=== PATIENT | female | born 1955 | race Caucasian/White ===

== ENCOUNTER 2019-07-19 18:03 | Inpatient (IN) | payer MEDICARE, OTHER ==
[2019-07-19] VITALS (10 sets, daily range): BP systolic 82–102; BP diastolic 51–60
[~2019-07-19] VITALS: Ht 160 cm; Wt 58.1 kg
--- NOTE | 2019-07-19 18:05 | NUR ---
[email or web address], from snf, c/o sob, 02 sat 65% on scene, 4lpm via NC went up to 80% x 2-3 hours and weak x 1 week, to ER bed 8, patient noted tachypneic and labored breathing. hooked to quality assurance monitor chassis, changed to hosp gown, warm blanket provided.
--- NOTE | 2019-07-19 18:06 | NUR ---
Dr Mackay at bedside
[2019-07-19] MEDS ORDERED: PROPOFOL 100 ML ONE ×2 (18:33→18:34)
[2019-07-19 18:34] LABS: ABG BASE EXCESS -2.8 mmol/L; ABG PCO2 28.3 mmHg (35.0-45.0); ABG PH 7.462 (7.350-7.450); ABG PO2 34.2 mmHg (75.0-100.0); AaDO2 218.5 mmHg; COHb 0.9 % (0.5-1.5); MetHb 0.3 % (0.0-1.5); O2Hb 60.3 % (94.0-97.0); SITE, ABG Right Radial; VENT MODE, BG NC 3L
[2019-07-19] MEDS: PROPOFOL 100 ML IV PRN (18:50)
[2019-07-19] MEDS ORDERED: AZITHROMYCIN 500 MG in IV D5W 250 ML IV ONE (19:00)
[2019-07-19] MEDS ORDERED: HYDROXYCHLOROQUINE 200 MG TABLET PO SCH (19:00)
[2019-07-19] MEDS: AZITHROMYCIN 500 MG in IV D5W 250 ML IV SCH (19:00)
--- NOTE | 2019-07-19 19:00 | NUR ---
Patient on 6L o2 via nasal cannula and reading 5-8% oxygen saturation, Dr Atkins aware, ordered to prep for intubation. MD, nurse and RT changed to PPE. Patient pre-oxygenated at 100%. Received verbal order of 100mg propofol IV push. Carried out
--- NOTE | 2019-07-19 19:00 | NUR ---
rt called to er for intubation at 1835. pt reading low spo2 with sob. rt arrived at pt bedside er physician wearing papr and white coverall. rn at bedside with papr. no 3rd papr available. rt assisted with intubation with n95 and face shield. 7.5@23cm. 3rd papr arrived, er physician held ett while rt rt dons papr. pt placed on ac 20 400 100% +10. ett secured with anchor fast.suctioning no secretions at this time. pt lying flat. Addendum: 07/19/19 at 1951 by CHELO LAWS RT Amended: Links added.
--- NOTE | 2019-07-19 19:20 | NUR ---
ett retracted 2cm to 21cm Addendum: 07/19/19 at 1953 by CHELO LAWS RT Amended: Links added.
[2019-07-19] MEDS ORDERED: MEROPENEM 500 MG in IV NS 0.9% 50 ML IV SCH (19:30)
[2019-07-19 19:42] LABS: BASOPHILS % (AUTO) 0.2 % (0.0-2.0); HEMATOCRIT 37 % (33-45); HEMOGLOBIN 12.3 g/dL (11.5-14.8); LYMPHOCYTES # (AUTO) 0.9 /CMM (0.8-4.8); LYMPHOCYTES % (AUTO) 9.6 % (20.0-44.0); MEAN CORPUSCULAR HGB CONC 34 g/dl (31.0-36.0); MEAN CORPUSCULAR VOLUME 89 fL (82-100); MONOCYTES # (AUTO) 1.4 /CMM (0.1-1.30); MONOCYTES % (AUTO) 14.2 % (2.0-12.0); NEUTROPHILS # (AUTO) 7.2 /CMM (1.8-8.9); PLATELET COUNT (AUTO) 261 /CMM (150-450); WHITE BLOOD COUNT (AUTO) 9.5 K/uL (4.3-11.0)
--- NOTE | 2019-07-19 19:45 | NUR ---
REPORT GIVEN TO RYAN SANCHEZ FOR [facility]
--- NOTE | 2019-07-19 19:46 | NUR ---
REPORT RECEIVED FROM DANIEL CARRION FOR [facility]
[2019-07-19 19:47] LABS: CALCIUM, SERUM 8.4 mg/dL (8.5-10.1); CARBON DIOXIDE 22 mmol/L (21-32); CHLORIDE 101 mmol/L (98-107); CREATININE 1.2 mg/dL (0.6-1.3); GLUCOSE 120 mg/dL (74-106); POTASSIUM 3.3 mmol/L (3.5-5.1); SODIUM SERUM 141 mmol/L (136-145); UREA NITROGEN, BLOOD 17 mg/dL (7-18)
--- NOTE | 2019-07-19 19:55 | NUR ---
ICU 257
[2019-07-19] MEDS ORDERED: PROPOFOL 200 MG/20 ML VIAL IV ONE (20:00)
[2019-07-19] MEDS ORDERED: IV NS 0.9% 500 ML BAG IV ONE (20:00)
[2019-07-19 20:01] LABS: ALANINE AMINOTRANSFERASE 38 U/L (12-78); ALBUMIN 3.1 g/dL (3.4-5.0); ALKALINE PHOSPHATASE 99 U/L (46-116); ASPARTATE AMINOTRANSFERASE 96 U/L (15-37); B-TYPE NATRIURETIC PEPTIDE 2117 PG/ML (0-125); BILIRUBIN,TOTAL 0.8 mg/dL (0.2-1.0); TOTAL PROTEIN, SERUM 8.4 g/dL (6.4-8.2)
[2019-07-19 20:02] LABS: D-DIMER 1.09 mg/L(FEU (0.17-0.50)
[2019-07-19 20:04] LABS: CREATINE KINASE, TOTAL 484 U/L (26-192); FERRITIN 409 ng/mL (8-388)
--- NOTE | 2019-07-19 20:28 | NUR ---
REPORT GIVEN TO DANIEL RUBIO FOR [facility]
[2019-07-19 20:38] LABS: C-REACTIVE PROTEIN 6.8 mg/dL (0.0-0.9)
[2019-07-19 20:40] LABS: ABG OXYGEN SATURATION 88.3 % (92.0-98.5); ABG PH 7.406 (7.350-7.450); ABG PO2 68.5 mmHg (75.0-100.0); AaDO2 621.5 mmHg; COHb 0.3 % (0.5-1.5); MetHb 0.3 % (0.0-1.5); O2Hb 87.8 % (94.0-97.0); PEEP,BG 10 cm H2O; SITE, ABG Right Radial; VENT MODE, BG AC 20 400 100% +10; VT, ABG 400 mL
[2019-07-19] MEDS ORDERED: IV NS 0.9% 1,000 ML BAG IV ONE (21:00)
[2019-07-19] MEDS ORDERED: AZITHROMYCIN 500 MG VIAL ONE ×2 (21:12→21:14)
[2019-07-19] MEDS ORDERED: VANCOMYCIN 1.25 GM in IV D5W 250 ML IV ONE (21:30)
[2019-07-19] MEDS ORDERED: MEROPENEM 500 MG in IV NS 0.9% 50 ML IV ONE ×2 (21:30→22:30)
[2019-07-19] MEDS ORDERED: MEROPENEM 500 MG VIAL IV ONE (21:41)
[2019-07-19] MEDS ORDERED: VANCOMYCIN 1 GM VIAL ONE (21:41)
[2019-07-19] MEDS ORDERED: ZOSYN IVPB 4.5 G in IV D5W 50ml IV SCH (22:00)
--- NOTE | 2019-07-19 22:00 | NUR ---
RN NOTES ADMITTED PATIENT ORALLY INTUBATED IN ER WITH ETT 7.5 AND 21 CM AT LIPLINE. AND VENT SETTING AC 20 TV 400 FIO2 100% PEEP 10. SEDATED WITH DIPRIVAN RECEIVED WITH 20 MCG/KG/MIN TELE MONITOR PLACED, REVEALS SR. ISOLATION PRECAUTION STRICTLY OBSERVE DUE TO PATIENT R/O OF COVID. AWAITING FOR THE RESULT. IV SITE ON RAC G 20 AND LAC G 20 RUNNING WITH NS AND PROPOFOL. OGT INTACT AND PATENT. AMADA. SOFT WRIST RESTRAINT KEPT IN PLACED, CIRCULATION CHECKED. STILES CATH DRAINED VIA GRAVITY WITH GOD URINE OUTPUT. KEPT PT CLEAN AND DRY. VS [employer] MONITOR.
--- NOTE | 2019-07-19 22:43 | NUR ---
RN NOTES GOT CONSENT FOR CENTRAL LINE TO CAROLIN DAUGHTER WITNESSED BY THADDEUS RN AND AGREED. DR. KATY ERIC PLACED LINE ON RIGHT FEMORAL WITH GOOD BLOOD RETURN. WILL CONTINUE TO MONITOR.
[2019-07-19 23:04] LABS: BILIRUBIN,DIRECT 0.3 mg/dL (0.0-0.2)
[2019-07-20] VITALS (86 sets, daily range): BP systolic 81–150; BP diastolic 50–81
[2019-07-20] MEDS ORDERED: NOREPINEPHRINE 4 MG/4 ML AMPUL IV ONE (00:02)
[2019-07-20] MEDS: NOREPINEPHRINE 8 MG in IV NS 0.9% 242 ML IV PRN ×2 (00:05→14:37)
[2019-07-20 00:20] LABS: ABG BASE EXCESS -0.2 mmol/L; ABG OXYGEN SATURATION 94.6 % (92.0-98.5); ABG PH 7.451 (7.350-7.450); ABG PO2 77.9 mmHg (75.0-100.0); AaDO2 31.1 mmHg; COHb 0.2 % (0.5-1.5); MetHb 0.3 % (0.0-1.5); O2Hb 94.1 % (94.0-97.0); SITE, ABG Right Radial; VENT MODE, BG ROOM AIR
[2019-07-20] MEDS: PROPOFOL 100 ML IV PRN ×6 (02:12→21:17)
[2019-07-20] MEDS: IV NS 0.9% 250 ML IV PRN (02:13)
[2019-07-20] MEDS ORDERED: PIPERACILLIN /TAZOBACTAM 2.25 G VIAL IV ONE (03:28)
--- NOTE | 2019-07-20 04:35 | NUR ---
RN NOTES FIO2 CHANGED TO 80% BY RT AND TOLERATED WELL SATURATION 98%
[2019-07-20 05:05] LABS: BASOPHILS % (AUTO) 0.2 % (0.0-2.0); HEMATOCRIT 32 % (33-45); HEMOGLOBIN 10.7 g/dL (11.5-14.8); LYMPHOCYTES # (AUTO) 1.1 /CMM (0.8-4.8); LYMPHOCYTES % (AUTO) 13.8 % (20.0-44.0); MEAN CORPUSCULAR HGB CONC 34 g/dl (31.0-36.0); MEAN CORPUSCULAR VOLUME 90 fL (82-100); MONOCYTES % (AUTO) 12.7 % (2.0-12.0); NEUTROPHILS % (AUTO) 73.3 % (43.0-81.0); PLATELET COUNT (AUTO) 207 /CMM (150-450); RED BLOOD CELL COUNT(AUTO) 3.56 MIL/uL (4.0-5.2); WHITE BLOOD COUNT (AUTO) 8.1 K/uL (4.3-11.0)
--- NOTE | 2019-07-20 06:30 | NUR ---
ETT RETRACTED 1CM. ETT IS NOW AT 20CM AT THE LIP. NOTIFIED RN.
[2019-07-20] MEDS ORDERED: FEE PK DOSING 1 MIN EA MC ONE (06:42)
--- NOTE | 2019-07-20 07:15 | NUR ---
RN NOTES ADVANCED NGT OF 5 CM AND ETT RETRACTED 1 CM BY RT. ETT SIZE NOW IS 20 CM AT LIP LINE TOLERATED WELL. CONTINUE WITH LEVO AND DIPRIVAN TITRATED ORDERED. ALL DUE MEDICINE ADMINISTERED ORDERED/ KEPT PT CLEAN AND DRY. WILL ENDORSED CONTINUITY OF CARE TO AM NURSE.
--- NOTE | 2019-07-20 07:15 | NUR ---
RN INITIAL NOTES RECEIVED PT INTUBATED, ON VENT. NO RESPIRATORY DISTRESS NOTED. NO SOB NOTED. PT SEDATED, ON DIPRIVAN AT 35MCG/KG/MIN. HOB ELEVATED. NGT IN PLACE, CONNECTED TO LOW INTERMITTENT SUCTION. RIGHT FEMORAL TLC IN PLACE. ON LEVO, WILL TITRATE ACCORDINGLY. FC IN PLACE. BLE ELEVATED. WILL CLOSELY MONITOR
--- NOTE | 2019-07-20 07:36 | NUR ---
RT Pt received orally intubated on mechanical ventilation with noted settings. Alarms are set and audible with BVM by bedside. No SOB or respiratory distress noted. Addendum: 07/20/19 at 1420 by BELKIS HUGGINS RT Amended: Links added.
[2019-07-20] MEDS ORDERED: POTASSIUM CHLORIDE 20 MEQ POWDER PACKET NG SCH (08:00)
[2019-07-20] MEDS: HYDROCORTISONE SOD SUCCINATE 100 MG/2 ML VIAL IV SCH ×3 (08:52→16:06)
[2019-07-20] MEDS ORDERED: HYDROXYCHLOROQUINE 200 MG/8 ML SUSPENSION NG SCH (09:00)
[2019-07-20] MEDS ORDERED: HYDR200T4 PO (09:05)
[2019-07-20] MEDS ORDERED: LOSA100T31 GT (09:05)
[2019-07-20] MEDS ORDERED: METO50TA16 GT (09:05)
[2019-07-20] MEDS ORDERED: FURO40TA5 PO (09:05)
[2019-07-20] MEDS ORDERED: AMLO5TAB9 GT (09:05)
[2019-07-20] MEDS ORDERED: ATOR40TA PO (09:05)
[2019-07-20] MEDS ORDERED: AMIT50TA3 PO (09:05)
[2019-07-20] MEDS ORDERED: OMEP20CA15 PO (09:05)
[2019-07-20] MEDS ORDERED: ASPI-1152 PO (09:05)
[2019-07-20] MEDS ORDERED: LEVO25TA9 GT (09:05)
[2019-07-20] MEDS ORDERED: GABA600T12 PO (09:05)
[2019-07-20] MEDS: MEROPENEM 1 G in IV NS 0.9% 100 ML IV SCH ×2 (09:22→20:11)
[2019-07-20] MEDS: ENOXAPARIN SODIUM 40 MG/0.4 ML DISP.SYRIN SQ SCH (09:24)
--- NOTE | 2019-07-20 10:30 | NUR ---
RN NOTES 0900 SEEN AND EXAMINED BY DR BHATT. AWARE OF H&P, LAB VALUES AND CXR RESULT. PT INTUBATED, ON VENT. ON DIPRIVAN. LEVO OFF AT 0800. NGT CONNECTED TO LOW INTERMITTENT SUCTION. WILL START ON PLAQUENIL. WILL CONTINUE TO MONITOR 1000 SEEN AND EXAMINED BY DR HARDWICK. AWARE OF CURRENT LAB VALUES AND CXR RESULT. MD ORDERED TO ADJUST ETT BY 1CM INVERSE I:E RATIO AND ABG AFTER 1HR. WILL CLOSELY MONITOR
[2019-07-20] MEDS: VANCOMYCIN HCL 0.75 GM in IV D5W 250 ML IV SCH ×2 (12:30→23:29)
[2019-07-20] MEDS: ACETAMINOPHEN 325 MG TABLET PO PRN (13:52)
[2019-07-20 16:15] LABS: ABG BASE EXCESS -3.3 mmol/L; ABG OXYGEN SATURATION 93.8 % (92.0-98.5); ABG PCO2 32.8 mmHg (35.0-45.0); ABG PH 7.414 (7.350-7.450); COHb 0.3 % (0.5-1.5); MetHb 0.3 % (0.0-1.5); O2Hb 93.2 % (94.0-97.0); PEEP,BG 10 cm H2O; SITE, ABG Right Radial; VT, ABG 400 mL
[2019-07-20 16:16] LABS: ABG BASE EXCESS 0.7 mmol/L; ABG OXYGEN SATURATION 93.4 % (92.0-98.5); ABG PCO2 32.7 mmHg (35.0-45.0); ABG PH 7.479 (7.350-7.450); ABG PO2 71.8 mmHg (75.0-100.0); AaDO2 464.3 mmHg; COHb 0.3 % (0.5-1.5); MetHb 0.4 % (0.0-1.5); O2Hb 92.7 % (94.0-97.0); PEEP,BG 10 cm H2O; SITE, ABG Right Radial; VT, ABG 400 mL
[2019-07-20] MEDS: AZITHROMYCIN 500 MG in IV D5W 250 ML IV SCH (18:12)
--- NOTE | 2019-07-20 18:29 | NUR ---
RN CLOSING NOTES PT REMAINS INTUBATED, ON VENT. NO RESPIRATORY DISTRESS NOTED. NO SOB NOTED. NGT IN PLACE. PT SEDATED, ON DIPRIVAN. ON LEVO, TITRATED ACCORDINGLY. KEPT CLEAN AND DRY. REPOSITIONED. BLE ELEVATED. WILL ENDORSE FOR CONTINUITY OF CARE.
--- NOTE | 2019-07-20 19:25 | NUR ---
RN INITIAL NOTES PT INTUBATED, ON VENT. NO RESPIRATORY DISTRESS NOTED. NO SOB NOTED. PT SEDATED, ON DIPRIVAN HOB ELEVATED. NGT IN PLACE, CONNECTED TO LOW INTERMITTENT SUCTION. RIGHT FEMORAL TLC IN PLACE. ON LEVO, WILL TITRATE ACCORDINGLY. FC IN PLACE. BLE ELEVATED. WILL CLOSELY MONITOR
[2019-07-21] VITALS (60 sets, daily range): BP systolic 91–162; BP diastolic 37–86
[2019-07-21] MEDS: PROPOFOL 100 ML IV PRN ×5 (02:33→18:21)
[2019-07-21 04:20] LABS: BASOPHILS % (AUTO) 0.2 % (0.0-2.0); HEMATOCRIT 33 % (33-45); HEMOGLOBIN 10.9 g/dL (11.5-14.8); LYMPHOCYTES # (AUTO) 0.6 /CMM (0.8-4.8); MEAN CORPUSCULAR HGB CONC 33 g/dl (31.0-36.0); MEAN CORPUSCULAR VOLUME 89 fL (82-100); MONOCYTES # (AUTO) 0.7 /CMM (0.1-1.30); MONOCYTES % (AUTO) 5.6 % (2.0-12.0); NEUTROPHILS # (AUTO) 10.6 /CMM (1.8-8.9); NEUTROPHILS % (AUTO) 89.2 % (43.0-81.0); PLATELET COUNT (AUTO) 212 /CMM (150-450); RED BLOOD CELL COUNT(AUTO) 3.68 MIL/uL (4.0-5.2); WHITE BLOOD COUNT (AUTO) 11.9 K/uL (4.3-11.0)
[2019-07-21 04:40] LABS: ALBUMIN 2.3 g/dL (3.4-5.0); BILIRUBIN,TOTAL 0.5 mg/dL (0.2-1.0); CALCIUM, SERUM 7.5 mg/dL (8.5-10.1); CREATININE 0.8 mg/dL (0.6-1.3); MAGNESIUM 2.3 mg/dL (1.8-2.4); PHOSPHORUS 1.4 mg/dL (2.5-4.9); POTASSIUM 3.3 mmol/L (3.5-5.1); TOTAL PROTEIN, SERUM 6.8 g/dL (6.4-8.2)
[2019-07-21] MEDS: IV NS 0.9% 250 ML IV PRN (05:35)
--- NOTE | 2019-07-21 07:19 | NUR ---
RN NOTES PATIENT ORALLY INTUBATED. NO SIGNIFICANT CHANGES THROUGHOUT THE SHIFT. SEDATED WITH DIPRIVAN. AFEBRILE. VSS OFF FROM PRESSORS. PT IS UNDER INVESTIGATION FOR COVID STRICTLY ISOLATION ALWAYS MET. KEPT TP CLEAN AND DRY. ENDORSED CONTINUITY OF CARE TO AM NURSE.
[2019-07-21] MEDS ORDERED: NEUTRA PHOS 1 POWD.PACKET PO ONE (08:00)
[2019-07-21] MEDS: HYDROXYCHLOROQUINE 200 MG/8 ML SUSPENSION NG SCH ×2 (08:15→20:22)
[2019-07-21] MEDS: ENOXAPARIN SODIUM 40 MG/0.4 ML DISP.SYRIN SQ SCH (08:15)
[2019-07-21] MEDS: MEROPENEM 1 G in IV NS 0.9% 100 ML IV SCH ×2 (08:15→20:21)
[2019-07-21] MEDS: HYDROCORTISONE SOD SUCCINATE 100 MG/2 ML VIAL IV SCH ×3 (08:17→16:26)
[2019-07-21] MEDS: POTASSIUM CL. PREMIX PERIPHER. 50 ML IV SCH ×2 (08:21→09:21)
[2019-07-21] MEDS ORDERED: POTASSIUM PHOSPHATE MM 15 MMOL in IV NS 0.9% 250 ML IV SCH (09:30)
--- NOTE | 2019-07-21 09:30 | NUR ---
ICU/RN:Sedation Vacation Attempted sedation vacation on patient, pt became extremely agitated after 10-15 minutes, attempted to sit up in bed, pull tube and hit staff, however was able to follow some simple commands. Resumed sedation for patient comfort.
--- NOTE | 2019-07-21 10:30 | NUR ---
ICU/RN: Dr Toure rounds; updated on pt status. Labs and CXR reviewed. Orders to advance ETT by 2 cm. RT notified.
[2019-07-21 10:32] LABS: ABG BASE EXCESS -4.4 mmol/L; ABG OXYGEN SATURATION 98.2 % (92.0-98.5); ABG PCO2 32.6 mmHg (35.0-45.0); ABG PH 7.396 (7.350-7.450); ABG PO2 147.2 mmHg (75.0-100.0); AaDO2 280.8 mmHg; COHb 0.1 % (0.5-1.5); MetHb 0.3 % (0.0-1.5); O2Hb 97.8 % (94.0-97.0); PEEP,BG 10 cm H2O; SITE, ABG Right Radial; VT, ABG 400 mL
[2019-07-21] MEDS: ACETAMINOPHEN 325 MG TABLET PO PRN ×2 (11:05→17:32)
--- NOTE | 2019-07-21 11:05 | NUR ---
ICU/RN: Administered tylenol, pt temp 101.5. Cooling measures in place.
[2019-07-21] MEDS: POTASSIUM PHOSPHATE MM 7.5 MMOL in IV D5W 100 ML IV SCH ×2 (11:55→15:51)
[2019-07-21] MEDS: VANCOMYCIN HCL 0.75 GM in IV D5W 250 ML IV SCH (13:09)
[2019-07-21] MEDS ORDERED: NOREPINEPHRINE 8MG/250ML RTU 250 ML IV ONE (16:42)
[2019-07-21] MEDS: NOREPINEPHRINE 8 MG in IV NS 0.9% 242 ML IV PRN (16:45)
--- NOTE | 2019-07-21 17:21 | NUR ---
RT NOTE: PATIENT RECEIVED ORALLY INTUBATED WITH 7.5 ETT SECURED AT 19CM AND PUSHED INTO TO 21CM MID LIP LINE PER ON MECHANICAL VENT. CHANGES MADE PER MD ORDER. ALARMS VERIFIED AND AUDIBLE. VENT PLUGGED INTO RED OUTLET. AMBU BAG AT [facility].
--- NOTE | 2019-07-21 17:45 | NUR ---
ICU/RN: Hospitalist updated TRINIDAD Vazquez notified of + covid result, pt restarted on pressors, febrile with t-max 101.5 receiving tylenol q6h. No new orders.
[2019-07-21] MEDS: AZITHROMYCIN 500 MG in IV D5W 250 ML IV SCH (18:21)
--- NOTE | 2019-07-21 19:20 | NUR ---
RN NOTES RECEIVED PATIENT SEDATED WITH DIPRIVAN ORALLY INTUBATED WITH ETT 7.5 AND 21 CM AT LIPLINE. WITH VENT SETTING AC 20 TV 400 FIO2 50% AND PEEP 8. SR ON TELE MONITOR. BILATERAL LUNG SOUND DIMINISHED. NO ACUTE RESP. DISTRESS. LOW GRADE FEVER NOTED 100.7 DEG. NGT ON LIS WITH GREENISH COLOR OUT PUT. IV SITE ON RAC AND LAC AND RT. FEMORAL TLC RUNNING W/ PROPOFOL @ 40 MCG/KG/MIN. AND LEVOPHED @ 0.01 MCK/KG/MIN. TITRATED PROTOCOL ORDERED. PATIETN F/C OFF FROM THE FLOOR. AMADA. SOFT WRIST RESTRAINT KEPT IN PLACED CIRCULATION CHECKED. KEPT PT CLEAN AND DRY. WILL CLOSELY MONITOR.
--- NOTE | 2019-07-21 19:55 | NUR ---
RN NOTES S/E BY KRIS BLACKBURN BOARDER MACHINE,. UPDATED PATIENT STATUS.
[2019-07-21] MEDS ORDERED: diphenhydrAMINE HCL 50 MG/ML VIAL IV ONE (21:00)
[2019-07-21] MEDS ORDERED: ACETAMINOPHEN 650 MG/20.3 ML UDC NG ONE (21:00)
[2019-07-21] MEDS ORDERED: TOCILIZUMAB 400 MG in IV NS 0.9% 80 ML IV ONE (21:30)
[2019-07-22] VITALS (30 sets, daily range): BP systolic 94–149; BP diastolic 61–89
[2019-07-22] MEDS: VANCOMYCIN 1 GM in IV D5W 250 ML IV SCH ×3 (00:34→22:28)
[2019-07-22] MEDS: PROPOFOL 100 ML IV PRN ×5 (00:35→23:56)
[2019-07-22 04:46] LABS: BASOPHILS % (AUTO) 0.3 % (0.0-2.0); HEMATOCRIT 31 % (33-45); HEMOGLOBIN 10.4 g/dL (11.5-14.8); LYMPHOCYTES # (AUTO) 0.6 /CMM (0.8-4.8); LYMPHOCYTES % (AUTO) 6.4 % (20.0-44.0); MEAN CORPUSCULAR HGB CONC 34 g/dl (31.0-36.0); MEAN CORPUSCULAR VOLUME 90 fL (82-100); MONOCYTES # (AUTO) 0.8 /CMM (0.1-1.30); NEUTROPHILS # (AUTO) 8.5 /CMM (1.8-8.9); NEUTROPHILS % (AUTO) 85.3 % (43.0-81.0); PLATELET COUNT (AUTO) 234 /CMM (150-450); RED BLOOD CELL COUNT(AUTO) 3.46 MIL/uL (4.0-5.2); WHITE BLOOD COUNT (AUTO) 9.9 K/uL (4.3-11.0)
[2019-07-22 05:07] LABS: CALCIUM, SERUM 7.5 mg/dL (8.5-10.1); CHOLESTEROL 78 mg/dL (<200); CREATININE 0.9 mg/dL (0.6-1.3); FERRITIN 240 ng/mL (8-388); HDL CHOLESTEROL 25 mg/dL (40-60); LDL 39 mg/dL (0-99); MAGNESIUM 2.3 mg/dL (1.8-2.4); PHOSPHORUS 2.1 mg/dL (2.5-4.9); POTASSIUM 3.6 mmol/L (3.5-5.1); TRIGLYCERIDES 111 mg/dL (30-150)
--- NOTE | 2019-07-22 06:42 | NUR ---
RN NOTES PATIENT REMAINED STABLE. ETT AND VENT SETTING TOLERATED WELL. NO ACUTE RESPIRATORY DISTRESS SHOWN. SR/ ST ON TELE MONITOR. NO [facility] THROUGHOUT THE SHIFT. WITH ON AND OFF LOW GRADE FEVER. CONTINUE WITH DIPRIVAN FOR SEDATION WENT UP TO 45 DUE TO PATIENT HAD AN EPISODE OF RESTLESSNESS DURING CARE AND UPON MOVING ALL HER MEDICAL EQUIPMENT. KEPT PT CLEAN AND DRY. ALL DUE MEDS ADMINISTERED ORDERED. WILL ENDORSED CONTINUITY OF CARE TO AM NURSE
[2019-07-22] MEDS: IV NS 0.9% 250 ML IV PRN (06:54)
--- NOTE | 2019-07-22 07:10 | NUR ---
RN INITIAL NOTES RECEIVED PT INTUBATED, ON VENT. NO RESPIRATORY DISTRESS NOTED. NO SOB NOTED. PT SEDATED, ON DIPRIVAN AT 30MCG/KG/MIN. HOB ELEVATED. NGT IN PLACE, CONNECTED TO LOW INTERMITTENT SUCTION. RIGHT FEMORAL TLC IN PLACE. FC IN PLACE. BLE ELEVATED. WILL CLOSELY MONITOR
[2019-07-22] MEDS: MEROPENEM 1 G in IV NS 0.9% 100 ML IV SCH ×2 (08:20→19:47)
[2019-07-22] MEDS: HYDROCORTISONE SOD SUCCINATE 100 MG/2 ML VIAL IV SCH ×2 (08:52→16:18)
[2019-07-22] MEDS: HYDROXYCHLOROQUINE 200 MG/8 ML SUSPENSION NG SCH ×2 (08:52→20:44)
[2019-07-22] MEDS: ENOXAPARIN SODIUM 40 MG/0.4 ML DISP.SYRIN SQ SCH (08:54)
[2019-07-22] MEDS ORDERED: POTASSIUM PHOSPHATE MM 7.5 MMOL in IV NS 0.9% 100 ML IV SCH (09:00)
[2019-07-22 09:25] LABS: ABG BASE EXCESS 0.5 mmol/L; ABG OXYGEN SATURATION 91.9 % (92.0-98.5); ABG PCO2 23.9 mmHg (35.0-45.0); ABG PO2 60.4 mmHg (75.0-100.0); AaDO2 269.2 mmHg; COHb 0.1 % (0.5-1.5); MetHb 0.3 % (0.0-1.5); O2Hb 91.5 % (94.0-97.0); PEEP,BG 8 cm H2O; SITE, ABG Left Radial; VT, ABG 400 mL
[2019-07-22] MEDS ORDERED: POTASSIUM PHOSPHATE MM 15 MMOL in IV NS 0.9% 250 ML IV SCH (09:30)
--- NOTE | 2019-07-22 09:30 | NUR ---
RN NOTES 0830 SEEN AND EXAMINED BY DELIA JIMÉNEZ. AWARE OF LAB VALUES. LEVO OFF. ON DIPRIVAN, WILL TITRATE ACCORDINGLY. PHOS 2.1, WILL REPLACE BY PHARMACY. WILL CLOSELY MONITOR 0930 SEEN AN EXAMINED BY DR HARDWICK. AWARE OF ABG RESULT. PT OFF SEDATION, OPEN EYES. NOT FOLLOWING COMMANDS. VENT SETTINGS ADJUSTED. WILL CLOSELY MONITOR
[2019-07-22] MEDS ORDERED: POTASSIUM PHOSPHATE MM 7.5 MMOL in IV D5W 100 ML IV SCH ×2 (10:00→12:00)
[2019-07-22] MEDS ORDERED: NEUTRA PHOS 1 POWD.PACKET NG ONE (11:00)
[2019-07-22] MEDS: AZITHROMYCIN 500 MG in IV D5W 250 ML IV SCH (18:30)
--- NOTE | 2019-07-22 18:38 | NUR ---
RN CLOSING NOTES PT REMAINS INTUBATED, ON VENT. NO RESPIRATORY DISTRESS NOTED. NO SOB NOTED. NGT IN PLACE, CONNECTED TO SUCTION. PT SEDATED, ON DIPRIVAN. KEPT CLEAN AND DRY. REPOSITIONED. BLE ELEVATED. WILL ENDORSE FOR CONTINUITY OF CARE.
--- NOTE | 2019-07-22 19:20 | NUR ---
WESTERN TACK ASSEMBLY LINE WORKER NOTE RECEIVED PATIENT IN BED RESTING, WITH HOB ELEVATED. SEDATED. VENT DEPENDENT. BREATHING IS EVEN AND NON LABORED, NO SOB NOTED. RESPONSIVE TO LOCALIZED PAIN. ON STILES CATH, URINE IS CLEAR AND YELLOW IN COLOR, DRAINING WELL. ON NGT, CLAMPED. IV SITES ON LAC GAUGE 20, RAC GAUGE 20, AND RIGHT FEMORAL PICC. IV SITES CLEAN AND PATENT. ON DIPRIVAN DRIP RUNNING AT 40 MCS/KG/MIN. ON BILATERAL SOFT WRIST RESTRAINTS. CAPILLARY REFILL < 3 SECONDS. IN NO APPARENT DISTRESS NOTED AT THIS TIME. BED IS LOCKED AND LOWERED FOR SAFETY. WILL CONTINUE TO MONITOR.
--- NOTE | 2019-07-22 20:27 | NUR ---
RT NOTE PT RECEIVED INTUBATED WITH @ 7.5 ET TUBE WITH 21 CM. MOVED ET TUBE TO MID LIP LINE. CUFF CHECKED VIA COP EXAMINER. AMBU BAG @ HOB. SX DONE, ET TUBE SECURED AND PATENT. ALARMS ON AND AUDIBLE. VENT PLUGGED TO RED OUTLET. NO DISTRESS NOTED. WILL MONITOR T/O SHIFT. Addendum: 07/22/19 at 2026 by GAVIOTA ROJAS RT Amended: Links added.
[2019-07-23] VITALS (38 sets, daily range): BP systolic 103–144; BP diastolic 36–80
--- NOTE | 2019-07-23 04:00 | NUR ---
FEED MILLER NOTE PATIENT TOLERATED BED BATH WELL. NOTED BM X1, STOOL IS BROWN AND SOFT. IN NO APPARENT DISTRESS NOTED AT THIS TIME. WILL CONTINUE TO MONITOR.
[2019-07-23 04:20] LABS: BASOPHILS % (AUTO) 0.1 % (0.0-2.0); HEMATOCRIT 30 % (33-45); LYMPHOCYTES # (AUTO) 0.6 /CMM (0.8-4.8); LYMPHOCYTES % (AUTO) 6.5 % (20.0-44.0); MEAN CORPUSCULAR HGB CONC 34 g/dl (31.0-36.0); MEAN CORPUSCULAR VOLUME 90 fL (82-100); MONOCYTES # (AUTO) 0.7 /CMM (0.1-1.30); MONOCYTES % (AUTO) 7.3 % (2.0-12.0); NEUTROPHILS # (AUTO) 8.2 /CMM (1.8-8.9); NEUTROPHILS % (AUTO) 86.1 % (43.0-81.0); PLATELET COUNT (AUTO) 204 /CMM (150-450); WHITE BLOOD COUNT (AUTO) 9.5 K/uL (4.3-11.0)
[2019-07-23 04:34] LABS: CALCIUM, SERUM 7.4 mg/dL (8.5-10.1); CREATININE 0.8 mg/dL (0.6-1.3); MAGNESIUM 2.2 mg/dL (1.8-2.4); PHOSPHORUS 2.2 mg/dL (2.5-4.9); POTASSIUM 3.6 mmol/L (3.5-5.1)
[2019-07-23] MEDS: PROPOFOL 100 ML IV PRN ×4 (05:50→22:16)
--- NOTE | 2019-07-23 06:53 | NUR ---
SCREEDMAN/LABORER NOTE NO SIGNIFICANT CHANGES NOTED THROUGHOUT THE NIGHT. PATIENT OBTUNDED, RESPONSIVE TO LOCALIZED PAIN. STILL ON BILATERAL SOFT WRIST RESTRAINTS. ALL DUE MEDS GIVEN AND TOLERATED WELL. KEPT NPO. ALL NEEDS ATTENDED AND MET. PATIENT KEPT CLEAN, DRY, AND COMFORTABLE. WILL ENDORSE TO AM SHIFT RN FOR CONTINUATION OF CARE.
--- NOTE | 2019-07-23 08:00 | NUR ---
received pt from restaurant shift leader, sedated on Diprivan at 40mcg, SR, intubated, lungs partially congested, no edema, NG to ILS, f/c OK output, restraints on, v/s stable, no pain, pt turned and repositioned.
[2019-07-23 08:13] LABS: ABG BASE EXCESS 2.4 mmol/L; ABG OXYGEN SATURATION 96.5 % (92.0-98.5); ABG PCO2 31.9 mmHg (35.0-45.0); ABG PH 7.513 (7.350-7.450); ABG PO2 92.8 mmHg (75.0-100.0); AaDO2 227.8 mmHg; COHb 0.3 % (0.5-1.5); MetHb 0.1 % (0.0-1.5); O2Hb 96.1 % (94.0-97.0); SITE, ABG Right Radial
[2019-07-23] MEDS: HYDROXYCHLOROQUINE 200 MG/8 ML SUSPENSION NG SCH ×2 (08:19→20:33)
[2019-07-23] MEDS: HYDROCORTISONE SOD SUCCINATE 100 MG/2 ML VIAL IV SCH ×2 (08:20→16:13)
[2019-07-23] MEDS: MEROPENEM 1 G in IV NS 0.9% 100 ML IV SCH ×2 (08:20→20:07)
[2019-07-23] MEDS: ENOXAPARIN SODIUM 40 MG/0.4 ML DISP.SYRIN SQ SCH (08:25)
[2019-07-23] MEDS ORDERED: POTASSIUM CHLORIDE 20 MEQ POWDER PACKET NG SCH (08:30)
[2019-07-23] MEDS ORDERED: POTASSIUM PHOSPHATE MM 15 MMOL in IV NS 0.9% 250 ML IV SCH (08:30)
[2019-07-23] MEDS: VANCOMYCIN 1 GM in IV D5W 250 ML IV SCH ×2 (09:14→22:54)
--- NOTE | 2019-07-23 10:38 | NUR ---
RT NOTE: PATIENT RECEIVED ORALLY INTUBATED WITH 7.5 ETT SECURED AT 21CM MID LIP LINE ON MECHANICAL VENT. CHANGES MADE PER MD ORDER. ALARMS VERIFIED AND AUDIBLE. AMBU BAG AT [facility].
[2019-07-23 13:34] LABS: PEEP,BG 8 cm H2O; VT, ABG 400 mL
--- NOTE | 2019-07-23 16:09 | NUR ---
pt is sedated on diprivan at 40mcg, interactive at times, intubated, sat well, no edema, f/c ok output, v/s stable, no pain, pt cleaned, changed and repositioned.
[2019-07-23] MEDS: AZITHROMYCIN 500 MG in IV D5W 250 ML IV SCH (18:10)
--- NOTE | 2019-07-23 20:03 | NUR ---
PT RECEIVED ORALLY INTUBATED WITH 7.5 ET TUBE SECURED @ 21 CM LIP LINE ON VENT WITH NOTED SETTINGS. CUFF CHECKED VIA COTTON OPENER. AMBU BAG @ HOB. SX DONE, ET TUBE SECURED AND PATENT. ALARMS ON AND AUDIBLE. VENT PLUGGED TO RED OUTLET. NO RESPIRATORY DISTRESS NOTED AT THIS TIME. WILL CONTINUE TO MONITOR THE PT T/O SHIFT
--- NOTE | 2019-07-23 21:40 | NUR ---
PATTERN MARKING SUPERVISOR NOTES RECEIVED PATIENT IN BED STABLE. ETT AND VENT SETTING TOLERATED WELL. NO ACUTE RESPIRATORY DISTRESS NOTED SR ON TELE MONITOR. V/S STABLE AFEBRILE AT THIS TIME CONTINUE WITH DIPRIVAN AT 40 MCG/KG/MIN WELL TOLERATED.WITH FEMORAL TLC INTACT AND PATENT .WITH RAC G#20 AND LAC G#20 INTACT AND PATENT TOO . STILES CATH INTACT DRAINING WITH YELLOWISH URINE OUTPUT . KEPT PT CLEAN AND DRY. ALL DUE MEDS ADMINISTERED ORDERED.TURNED AND REPOSITION ,PRECAUTIONARY MEASURES OBSERVED AT ALL TIMES , WILL CONTINUE TO MONITOR PTS.
[2019-07-24] VITALS (40 sets, daily range): BP systolic 123–169; BP diastolic 53–91
[2019-07-24] MEDS: PROPOFOL 100 ML IV PRN ×7 (01:37→22:17)
[2019-07-24 04:57] LABS: BASOPHILS % (AUTO) 0.2 % (0.0-2.0); EOSINOPHILS % (AUTO) 0.3 % (0.0-6.0); HEMATOCRIT 30 % (33-45); LYMPHOCYTES # (AUTO) 0.5 /CMM (0.8-4.8); LYMPHOCYTES % (AUTO) 7.2 % (20.0-44.0); MEAN CORPUSCULAR HGB CONC 34 g/dl (31.0-36.0); MEAN CORPUSCULAR VOLUME 89 fL (82-100); MONOCYTES # (AUTO) 0.3 /CMM (0.1-1.30); MONOCYTES % (AUTO) 4.9 % (2.0-12.0); NEUTROPHILS # (AUTO) 5.8 /CMM (1.8-8.9); NEUTROPHILS % (AUTO) 87.4 % (43.0-81.0); PLATELET COUNT (AUTO) 190 /CMM (150-450); RED BLOOD CELL COUNT(AUTO) 3.34 MIL/uL (4.0-5.2); WHITE BLOOD COUNT (AUTO) 6.6 K/uL (4.3-11.0)
[2019-07-24 05:12] LABS: CALCIUM, SERUM 7.7 mg/dL (8.5-10.1); CREATININE 0.7 mg/dL (0.6-1.3); MAGNESIUM 2.1 mg/dL (1.8-2.4); PHOSPHORUS 2.8 mg/dL (2.5-4.9); POTASSIUM 3.5 mmol/L (3.5-5.1)
--- NOTE | 2019-07-24 06:42 | NUR ---
PEANUT GRADER NOTES PTS REMAINS ON SAME VENTILATOR SETTINGS WELL TOLERATED , NO SOB NO DISTRESS NOTED V/S STABLE AFEBRILE ,REMAINS ON PROPOFOL 40 MCG/KG/MIN WELL TOLERATED .ALL NEEDS ATTENDED TOO.WELL ENDORSE TO RN DAY SHIFT FOR CONTINUITY OF CARE.WILL ENDORSE TO RN DAY SHIFT FOR CONTINUITY OF CARE.
[2019-07-24] MEDS: MEROPENEM 1 G in IV NS 0.9% 100 ML IV SCH ×2 (08:04→20:49)
[2019-07-24 08:27] LABS: ABG BASE EXCESS 1.3 mmol/L; ABG OXYGEN SATURATION 96.2 % (92.0-98.5); ABG PCO2 33.7 mmHg (35.0-45.0); ABG PO2 90.1 mmHg (75.0-100.0); AaDO2 228.5 mmHg; COHb 0.3 % (0.5-1.5); MetHb 0.5 % (0.0-1.5); O2Hb 95.4 % (94.0-97.0); SITE, ABG Left Radial; VENT MODE, BG AC 16 400 50% +10
--- NOTE | 2019-07-24 08:47 | NUR ---
received pt from night guard, sedated on Diprivan at 40mcg, SR, intubated, lungs partially congested/diminished, no edema, f/c good output, NG clamped, v/s stable, no pain, pt turned and repositioned.
[2019-07-24] MEDS: HYDROXYCHLOROQUINE 200 MG/8 ML SUSPENSION NG SCH ×2 (09:04→21:54)
[2019-07-24] MEDS: HYDROCORTISONE SOD SUCCINATE 100 MG/2 ML VIAL IV SCH ×2 (09:04→16:05)
[2019-07-24] MEDS: ENOXAPARIN SODIUM 40 MG/0.4 ML DISP.SYRIN SQ SCH (09:05)
[2019-07-24] MEDS: VANCOMYCIN 1 GM in IV D5W 250 ML IV SCH ×2 (09:06→21:55)
[2019-07-24 12:48] LABS: ABG BASE EXCESS 0.1 mmol/L; ABG PCO2 36.5 mmHg (35.0-45.0); ABG PH 7.437 (7.350-7.450); ABG PO2 68.1 mmHg (75.0-100.0); AaDO2 247.3 mmHg; COHb 0.3 % (0.5-1.5); MetHb 0.4 % (0.0-1.5); O2Hb 91.4 % (94.0-97.0); SITE, ABG Right Radial
--- NOTE | 2019-07-24 16:52 | NUR ---
pt is resting in the bed, sedated on Diprivan at 90mcg, SR, SB, f/c good output, restraints on, NG clamped, v/s stable, no pain, pt cleaned, changed and repositioned.
--- NOTE | 2019-07-24 19:25 | NUR ---
ICU/RN NOTES Patient received, sedated with Diprivan at 90 mcg/min/kg, respond to painful stimuli. Orally intubated, ETT tube 7.04/21 At the lip line. In no acute distress, breathing even and unlabored. No SOB. No S/S of pain, no facial grimacing. IV sites with no S/S of infection/infiltration. Right femoral TLC intact. NGT intact. Sinus rhythm on the monitor. Safety maintained. bed at the lowest locked position. HOB semi [place]. Isolation precautions maintained. Will continue to monitor as per plan of care.
[2019-07-25] VITALS (49 sets, daily range): BP systolic 96–155; BP diastolic 61–100
[2019-07-25] MEDS: PROPOFOL 100 ML IV PRN ×8 (00:42→22:33)
[2019-07-25 05:25] LABS: BASOPHILS % (AUTO) 0.2 % (0.0-2.0); EOSINOPHILS % (AUTO) 2.1 % (0.0-6.0); HEMATOCRIT 32 % (33-45); HEMOGLOBIN 10.7 g/dL (11.5-14.8); LYMPHOCYTES # (AUTO) 0.5 /CMM (0.8-4.8); LYMPHOCYTES % (AUTO) 6.4 % (20.0-44.0); MEAN CORPUSCULAR HGB CONC 34 g/dl (31.0-36.0); MEAN CORPUSCULAR VOLUME 88 fL (82-100); MONOCYTES # (AUTO) 0.3 /CMM (0.1-1.30); MONOCYTES % (AUTO) 3.7 % (2.0-12.0); NEUTROPHILS # (AUTO) 6.3 /CMM (1.8-8.9); NEUTROPHILS % (AUTO) 87.6 % (43.0-81.0); PLATELET COUNT (AUTO) 182 /CMM (150-450); RED BLOOD CELL COUNT(AUTO) 3.57 MIL/uL (4.0-5.2); WHITE BLOOD COUNT (AUTO) 7.1 K/uL (4.3-11.0)
[2019-07-25 05:52] LABS: CALCIUM, SERUM 7.8 mg/dL (8.5-10.1); CREATININE 0.6 mg/dL (0.6-1.3); MAGNESIUM 2.2 mg/dL (1.8-2.4); PHOSPHORUS 2.9 mg/dL (2.5-4.9); POTASSIUM 3.1 mmol/L (3.5-5.1)
--- NOTE | 2019-07-25 07:42 | NUR ---
ICU/RN notes Remained in stable condition, No significant change in condition over night. kept clean and comfortable. needs attendant. Endorse to AM shift nurse for [facility]
--- NOTE | 2019-07-25 08:00 | NUR ---
received pt from shift commander, sedated on Diprivan at 95mcg, SR, intubated, sat well on 70% fio2, no edema, NPO, f/c good output, restraints on, v/s stable, no pain, pt turned and repositioned, seen by Dr Toure.
[2019-07-25] MEDS: HYDROCORTISONE SOD SUCCINATE 100 MG/2 ML VIAL IV SCH (08:17)
[2019-07-25] MEDS: ENOXAPARIN SODIUM 40 MG/0.4 ML DISP.SYRIN SQ SCH (08:17)
[2019-07-25] MEDS: MEROPENEM 1 G in IV NS 0.9% 100 ML IV SCH ×2 (08:38→20:27)
[2019-07-25 08:39] LABS: ABG BASE EXCESS 2.7 mmol/L; ABG OXYGEN SATURATION 96.4 % (92.0-98.5); ABG PCO2 40.1 mmHg (35.0-45.0); ABG PH 7.445 (7.350-7.450); COHb 0.3 % (0.5-1.5); MetHb 0.5 % (0.0-1.5); O2Hb 95.6 % (94.0-97.0); PEEP,BG 10 cm H2O; SITE, ABG Right Radial; VT, ABG 400 mL
--- NOTE | 2019-07-25 08:57 | NUR ---
vent changes below per dr. pascual: fio2 60% Addendum: 07/25/19 at 0858 by FERNANDEZ JOHN RT Amended: Links added.
[2019-07-25] MEDS: VANCOMYCIN 1 GM in IV D5W 250 ML IV SCH ×2 (09:52→22:23)
[2019-07-25] MEDS ORDERED: POTASSIUM CHLORIDE 20 MEQ POWDER PACKET GT ONE (10:30)
[2019-07-25] MEDS ORDERED: POTASSIUM CL. PREMIX PERIPHER. 50 ML IV SCH (10:30)
[2019-07-25] MEDS: FUROSEMIDE 40 MG/4 ML VIAL IV SCH ×2 (10:39→15:16)
[2019-07-25] MEDS ORDERED: Z GUARD REMEDY 2 OZ OINT TP PRN (11:30)
--- NOTE | 2019-07-25 16:38 | NUR ---
pt is resting in the bed, sedated on Diprivan at 90mcg, SR, v/s stable, no pain, good urine output, v/s stable, no pain pt cleaned, changed and repositioned.
--- NOTE | 2019-07-25 19:25 | NUR ---
ICU/RN NOTES Patient received, sedated with Diprivan at 90 mcg/min/kg, respond to painful stimuli. Orally intubated. In no acute distress, breathing even and unlabored. No SOB. No S/S of pain, no facial grimacing. IV sites with no S/S of infection/infiltration. Right femoral TLC intact. NGT intact. Sinus rhythm on the monitor. Safety maintained. bed at the lowest locked position. HOB semi [place]. Isolation precautions maintained. Will continue to monitor as per plan of care
[2019-07-26] VITALS (60 sets, daily range): BP systolic 60–186; BP diastolic 29–116
[2019-07-26] MEDS: PROPOFOL 100 ML IV PRN ×7 (01:24→19:52)
--- NOTE | 2019-07-26 02:34 | NUR ---
patient at max dose of Propofol 10mc/min/kg. Still mild agitation noted. Other brito in no acute distress, breathing even and unlabored. No SOB. No S/S of pain. Called PARK INTERPRETIVE SPECIALIST Maria Elena Montez relayed condition and Vital signs with new order to give patient Ativan Q6hs IV PRN. Order noted and will carry out. Addendum: 07/26/19 at 0243 by FLORECITA NUNEZ RN Max dose 100mcg/min/kg
--- NOTE | 2019-07-26 02:45 | NUR ---
PRN Ativan with effectiveness. Patient calm now, tapering down propofol per protocol
[2019-07-26] MEDS ORDERED: LORAZEPAM INJ 2 MG/ML VIAL IV PRN (03:00)
[2019-07-26] MEDS: LORAZEPAM INJ 2 MG/ML VIAL IV PRN ×2 (03:00→09:16)
[2019-07-26 05:08] LABS: BASOPHILS % (AUTO) 0.5 % (0.0-2.0); EOSINOPHILS % (AUTO) 2.4 % (0.0-6.0); HEMATOCRIT 35 % (33-45); HEMOGLOBIN 11.9 g/dL (11.5-14.8); LYMPHOCYTES % (AUTO) 10.3 % (20.0-44.0); MEAN CORPUSCULAR HGB CONC 34 g/dl (31.0-36.0); MEAN CORPUSCULAR VOLUME 90 fL (82-100); MONOCYTES # (AUTO) 0.3 /CMM (0.1-1.30); MONOCYTES % (AUTO) 2.8 % (2.0-12.0); NEUTROPHILS # (AUTO) 7.9 /CMM (1.8-8.9); PLATELET COUNT (AUTO) 171 /CMM (150-450); RED BLOOD CELL COUNT(AUTO) 3.93 MIL/uL (4.0-5.2); WHITE BLOOD COUNT (AUTO) 9.4 K/uL (4.3-11.0)
[2019-07-26 05:10] LABS: CALCIUM, SERUM 7.7 mg/dL (8.5-10.1); CREATININE 0.8 mg/dL (0.6-1.3)
--- NOTE | 2019-07-26 07:09 | NUR ---
ICU/RN notes patient remained in stable condition. breathing even and unlabored. No SOB. In no Acute distress. Kept clean and dry. Needs attendant. Call light within reach. Endorse to AM shift nurse for [facility].
--- NOTE | 2019-07-26 07:15 | NUR ---
rn notes received patient orally intubated. sedated with diprivan at 70mcg/kg/min. saturation showa on the mid 80s to low 90s. respirations are rapid and shallow. sinus tacy on the monitor with hr on the 120s. ngt on the righht nares, in place and clamped at this time. bilateral soft restraints in place, skin intact and pulses are palpable on the sites. rosario catheter in place draining to greenish yellow urine. hob elevated. safety measures in place. call light within reach. 1000: Dr. Toure saw current abg results and order for morphine drip on the of the Diprivan drip. MD is aware that patient is on max dose of diprivan
[2019-07-26] MEDS ORDERED: POTASSIUM PHOSPHATE MM 15 MMOL in IV NS 0.9% 250 ML IV SCH (07:30)
--- NOTE | 2019-07-26 08:00 | NUR ---
RT PATIENT REC'D ORALLY INTUBATED ON [facility] VENT. SETINGS AND ALARMS CHECKED + AUDIBLE. BASILIA BAG AT HOB. Addendum: 07/26/19 at 1121 by JANINA ZUNIGA RT Amended: Links added.
[2019-07-26] MEDS: POTASSIUM CHLORIDE 20 MEQ POWDER PACKET GT SCH ×3 (08:32→10:07)
[2019-07-26] MEDS: MEROPENEM 1 G in IV NS 0.9% 100 ML IV SCH ×2 (08:32→19:56)
[2019-07-26] MEDS: HYDROCORTISONE SOD SUCCINATE 100 MG/2 ML VIAL IV SCH (08:33)
[2019-07-26] MEDS: ENOXAPARIN SODIUM 40 MG/0.4 ML DISP.SYRIN SQ SCH (08:34)
[2019-07-26] MEDS: POTASSIUM PHOSPHATE MM 7.5 MMOL in IV D5W 100 ML IV SCH ×2 (09:15→11:38)
[2019-07-26 09:56] LABS: ABG OXYGEN SATURATION 78.2 % (92.0-98.5); ABG PCO2 32.4 mmHg (35.0-45.0); ABG PH 7.469 (7.350-7.450); ABG PO2 44.7 mmHg (75.0-100.0); AaDO2 383.5 mmHg; COHb 0.1 % (0.5-1.5); MetHb 0.3 % (0.0-1.5); O2Hb 77.9 % (94.0-97.0); PEEP,BG 12 cm H2O; SITE, ABG Right Radial; VT, ABG 400 mL
[2019-07-26] MEDS ORDERED: MORPHINE SULFATE PF DRIP 250 MG in IV D5W 240 ML IV PRN (10:30)
[2019-07-26] MEDS: VANCOMYCIN 1 GM in IV D5W 250 ML IV SCH ×2 (10:31→23:08)
--- NOTE | 2019-07-26 11:15 | NUR ---
RT PER DR HARDWICK PEEP INCREASED TO 15 AND FIO2 100% Addendum: 07/26/19 at 1121 by JANINA ZUNIGA RT Amended: Links added.
[2019-07-26] MEDS: NOREPINEPHRINE 8 MG in IV NS 0.9% 242 ML IV PRN (11:39)
[2019-07-26 12:54] LABS: ABG BASE EXCESS -1.8 mmol/L; ABG OXYGEN SATURATION 98.7 % (92.0-98.5); ABG PCO2 37.5 mmHg (35.0-45.0); ABG PH 7.398 (7.350-7.450); ABG PO2 245.2 mmHg (75.0-100.0); AaDO2 430.3 mmHg; COHb 0.3 % (0.5-1.5); MetHb 0.4 % (0.0-1.5); SITE, ABG Right Radial
--- NOTE | 2019-07-26 17:27 | NUR ---
RT PATIENT REQUIRED ELEVATED LEVELS OF OXYGEN. PER DR HARDWICK PEEP INCREASED TO 15 FIO2 60%. MAINTAIN SPO2 ABOVE 92% Addendum: 07/26/19 at 1734 by JANINA ZUNIGA RT Amended: Links added.
--- NOTE | 2019-07-26 19:00 | NUR ---
rn notes endorsed for continuity of care. breathing unlabored but sating on the low 90s. still sedated with diprivan at 100mcg/kg/min and morphine running at 5mg/hr . all nursing needs attended and met. safety measures in place. call light placed within reach
[2019-07-26] MEDS: ACETAMINOPHEN 650 MG/20.3 ML UDC NG PRN (19:24)
--- NOTE | 2019-07-26 20:45 | NUR ---
PUBLIC WEIGHER NOTES BP NOTED TO DROP TO 69/40, MORPHINE GTT TITRATED OFF, LEVOPHED DRIP RESTARTED AT 0.1MCG/KG/MIN. PATIENT'S BP CONTINUED TO DROP SO PROPOFOL DRIP TURNED OFF ABRUPTLY PATIENT IS VERY SEDATED. WILL MONITOR PATIENT CLOSELY
[2019-07-27] VITALS (81 sets, daily range): BP systolic 77–133; BP diastolic 31–90
--- NOTE | 2019-07-27 03:07 | NUR ---
PROGRAM SERVICES ASSISTANT NOTES PATIENT REMAINS INTUBATED ON MECHANICAL VENTILATION. PATIENT STILL SEDATED, DESPITE SEDATION TURNED OFF @ 2044. ANNIE CARTAGENA NP NOTOFIED REGARDING CURRENT LEVEL OF SEDATION. PER ANNIE, "THIS IS FINE THE PATIENT IS INTUBATED." WILL CONTINUE TO CLOSELY MONITOR TH PATIENT
[2019-07-27] MEDS ORDERED: NOREPINEPHRINE 4 MG/4 ML AMPUL IV ONE (03:52)
[2019-07-27] MEDS: NOREPINEPHRINE 8 MG in IV NS 0.9% 242 ML IV PRN (04:33)
[2019-07-27 04:40] LABS: BASOPHILS # (AUTO) 0.1 /CMM (0.0-0.2); BASOPHILS % (AUTO) 0.5 % (0.0-2.0); EOSINOPHILS % (AUTO) 1.2 % (0.0-6.0); HEMATOCRIT 41 % (33-45); HEMOGLOBIN 13.4 g/dL (11.5-14.8); LYMPHOCYTES # (AUTO) 1.2 /CMM (0.8-4.8); LYMPHOCYTES % (AUTO) 8.6 % (20.0-44.0); MEAN CORPUSCULAR HGB CONC 33 g/dl (31.0-36.0); MEAN CORPUSCULAR VOLUME 91 fL (82-100); MONOCYTES # (AUTO) 0.7 /CMM (0.1-1.30); MONOCYTES % (AUTO) 5.1 % (2.0-12.0); NEUTROPHILS # (AUTO) 12.1 /CMM (1.8-8.9); NEUTROPHILS % (AUTO) 84.6 % (43.0-81.0); PLATELET COUNT (AUTO) 169 /CMM (150-450); RED BLOOD CELL COUNT(AUTO) 4.49 MIL/uL (4.0-5.2); WHITE BLOOD COUNT (AUTO) 14.3 K/uL (4.3-11.0)
[2019-07-27 05:01] LABS: CALCIUM, SERUM 7.6 mg/dL (8.5-10.1); CREATININE 1.6 mg/dL (0.6-1.3); MAGNESIUM 2.3 mg/dL (1.8-2.4); POTASSIUM 4.7 mmol/L (3.5-5.1)
--- NOTE | 2019-07-27 06:28 | NUR ---
RT NOTE Pt Rec'd orally intubated via ETT sz #7.5 secured at 21cm at the lipline. Pt on [facility] vent on AC mode on noted settings as charted.Pt sx'd for thick mod amt of pale yellow secretions. Alarms are set and audible. Vent plugged into red outlet. ambu bag bedside. Will continue to monitor closely. Addendum: 07/27/19 at 0629 by SILVIA MCKEE RT Amended: Links added.
--- NOTE | 2019-07-27 07:00 | NUR ---
ENVIRONMENTAL AIDE NOTES PATIENT RESTING IN BED, REMAINS ORALLY INTUBATED ON MECHANICAL VENTILATION, TOLERATING SETTINGS FAIRLY. PATIENT REMAINS SEDATED, NOT CURRENTLY ON ANY SEDATION, ON HOLD SINCE 2029. WILL ENDORSE THE PATIENT TO THE AM SHIFT NURSE FOR CONTINUITY OF CARE
--- NOTE | 2019-07-27 07:20 | NUR ---
RN INITIAL NOTES RECEIVED PT INTUBATED, ON VENT. NO RESPIRATORY DISTRESS NOTED. NO SOB NOTED. HOB ELEVATED. DIPRIVAN OFF. NGT IN PLACE, CLAMPED. RIGHT FEMORAL TLC IN PLACE. ON LEVO AT 0.1MCG/KG/MIN. STILES IN PLACE. BLE ELEVATED. REPOSITIONING WHEN ABLE. WILL CLOSELY MONITOR
--- NOTE | 2019-07-27 07:28 | NUR ---
WOUND CARE CONSULT: REVIEWED NURSING DOCUMENTATION AND CHART INCLUDING PHOTO WHICH SHOWS SKIN CONDITION/RASH TO RT ARM. RN TO DISCUSS RT ARM SKIN CONDITION/RASH WITH Sukhwinder MENDIETA. PER NURSING STAFF, PT DESATURATES WHEN TURNED/REPOSITIONED IN BED. PT TO BE TURNED AND REPOSITIONED EVERY 2 HRS PT CONDITION PERMITS. DISCUSSED SKIN PROTECTION WITH NURSING STAFF. PT TO BE PLACED ON FIRST STEP LOW AIRLOSS MATTRESS WHEN AVAILABLE. MD IN AGREEMENT WITH PLAN OF CARE. CURRENT CECELIA SCORE IS 12.
[2019-07-27] MEDS: MEROPENEM 1 G in IV NS 0.9% 100 ML IV SCH ×2 (07:37→19:52)
[2019-07-27] MEDS: HYDROCORTISONE SOD SUCCINATE 100 MG/2 ML VIAL IV SCH (08:14)
[2019-07-27] MEDS: ENOXAPARIN SODIUM 40 MG/0.4 ML DISP.SYRIN SQ SCH (08:15)
[2019-07-27 08:32] LABS: ABG BASE EXCESS -5.1 mmol/L; ABG PH 7.327 (7.350-7.450); AaDO2 397.1 mmHg; COHb 0.4 % (0.5-1.5); MetHb 0.5 % (0.0-1.5); O2Hb 86.2 % (94.0-97.0); SITE, ABG Right Radial; VENT MODE, BG AC 16 400 70% +5
--- NOTE | 2019-07-27 09:30 | NUR ---
RN NOTES 0830 SEEN AND EXAMINED BY DELIA JIMÉNEZ NP. AWARE OF LAB VALUES AND CXR RESULT. PT OFF DIPRIVAN AND MORPHHINE DRIP. ON LEVO, WILL TITRATE ACCORDINGLY. WILL CLOSELY MONITOR 0845 SEEN AND EXAMINED BY DR HARDWICK. PT OFF SEDATION. PT SINUS TACH ON MONITOR. PEEP +15. AWARE OF ABG RESULT. WILL CLOSELY MONITOR
[2019-07-27] MEDS: VANCOMYCIN 1 GM in IV D5W 250 ML IV SCH ×2 (10:18→22:00)
[2019-07-27] MEDS: PROPOFOL 100 ML IV PRN ×4 (10:23→22:46)
[2019-07-27] MEDS: ACETAMINOPHEN 650 MG/20.3 ML UDC NG PRN (11:41)
--- NOTE | 2019-07-27 18:49 | NUR ---
RN CLOSING NOTES NO SIGNIFICANT CHANGE NOTED. REMAINS INTUBATED. NO RESPIRATORY DISTRESS NOTED. REMAINS SEDATED. LEVO AND DIPRIVAN TITRATED ACCORDINGLY. FC IN PLACE. KEPT CLEAN AND DRY. KEPT COMFORTABLE. WILL ENDORSE FOR CONTINUITY OF CARE
--- NOTE | 2019-07-27 20:14 | NUR ---
sputum sample collected.
--- NOTE | 2019-07-27 22:14 | NUR ---
BUSINESS IMPROVEMENT MANAGER NOTES - VANCOMYCIN VANCOMYCIN TROUGH = 64. CALLED ON-CALL PHARMACY, SPOKE TO CAM. PER PHARMACIST, HOLD DOSE AND ORDER VANCOMYCIN TROUGH FOR 9 AM ON 07/28/19. WILL HOLD DOSE AND MONITOR CLOSELY
--- NOTE | 2019-07-27 22:45 | NUR ---
PROFESSOR OF ENVIRONMENTAL SCIENCE NOTES DESPITE BEING ON PROPOFOL DRIP @ 50MCG/KG/MIN, PATIENT STILL WITH PERIODS OF AGITATION MANIFESTED BY TACHYPNEA, SETTING OFF VENTILATOR ALARMS. ATIVAN ADMINISTERED ORDERED. WILL MONITOR CLOSELY
[2019-07-27] MEDS: LORAZEPAM INJ 2 MG/ML VIAL IV PRN (22:49)
[2019-07-28] VITALS (34 sets, daily range): BP systolic 91–124; BP diastolic 58–87
[2019-07-28] MEDS: PROPOFOL 100 ML IV PRN ×5 (03:06→21:14)
[2019-07-28 04:38] LABS: BASOPHILS # (AUTO) 0.1 /CMM (0.0-0.2); BASOPHILS % (AUTO) 0.4 % (0.0-2.0); EOSINOPHILS % (AUTO) 0.9 % (0.0-6.0); HEMATOCRIT 35 % (33-45); HEMOGLOBIN 11.8 g/dL (11.5-14.8); LYMPHOCYTES # (AUTO) 0.9 /CMM (0.8-4.8); MEAN CORPUSCULAR HGB CONC 33 g/dl (31.0-36.0); MEAN CORPUSCULAR VOLUME 90 fL (82-100); MONOCYTES # (AUTO) 0.6 /CMM (0.1-1.30); MONOCYTES % (AUTO) 3.9 % (2.0-12.0); NEUTROPHILS # (AUTO) 13.5 /CMM (1.8-8.9); NEUTROPHILS % (AUTO) 88.8 % (43.0-81.0); PLATELET COUNT (AUTO) 181 /CMM (150-450); RED BLOOD CELL COUNT(AUTO) 3.93 MIL/uL (4.0-5.2); WHITE BLOOD COUNT (AUTO) 15.2 K/uL (4.3-11.0)
[2019-07-28 04:52] LABS: CREATININE 2.4 mg/dL (0.6-1.3); MAGNESIUM 2.2 mg/dL (1.8-2.4); PHOSPHORUS 6.4 mg/dL (2.5-4.9)
--- NOTE | 2019-07-28 06:30 | NUR ---
FOREST RESOURCES PROFESSOR CLOSING NOTES NO ACUTE CHANGES THROUGHOUT SHIFT. PATIENT RESTING IN BED, APPEARS COMFORTABLE, SEDATED ON DIPRIVAN DRIP @ 50 MCG/KG/MIN
--- NOTE | 2019-07-28 07:15 | NUR ---
RN INITIAL NOTES RECEIVED PT INTUBATED, ON VENT. NO RESPIRATORY DISTRESS NOTED. NO SOB NOTED. HOB ELEVATED. ON DIPRIVAN AT 50MCG/KG/MIN. NGT IN PLACE, CLAMPED. RIGHT FEMORAL TLC IN PLACE. STILES IN PLACE. BLE ELEVATED. REPOSITIONING WHEN ABLE. WILL CLOSELY MONITOR
[2019-07-28] MEDS: MEROPENEM 1 G in IV NS 0.9% 100 ML IV SCH ×2 (07:37→21:13)
[2019-07-28 09:06] LABS: ABG BASE EXCESS -6.5 mmol/L; ABG OXYGEN SATURATION 95.3 % (92.0-98.5); ABG PO2 86.6 mmHg (75.0-100.0); AaDO2 380.3 mmHg; COHb 0.3 % (0.5-1.5); MetHb 0.2 % (0.0-1.5); O2Hb 94.8 % (94.0-97.0); PEEP,BG 15 cm H2O; SITE, ABG Right Radial; VT, ABG 400 mL
[2019-07-28] MEDS: HYDROCORTISONE SOD SUCCINATE 100 MG/2 ML VIAL IV SCH (09:10)
[2019-07-28] MEDS: ENOXAPARIN SODIUM 40 MG/0.4 ML DISP.SYRIN SQ SCH (09:11)
[2019-07-28 10:32] LABS: APPEARANCE,URINE CLOUDY (CLEAR); BILIRUBIN,URINE SMALL (NEGATIVE); BLOOD, URINE LARGE Ery/uL (NEGATIVE); COLOR,URINE YELLOW (YELLOW); KETONES,URINE NEGATIVE (NEGATIVE); LEUKOCYTE ESTERASE ,URINE TRACE (NEGATIVE); NITRITE, URINE NEGATIVE (NEGATIVE); PROTEIN,URINE 30 mg/dl (NEGATIVE); UGLUCOSE NEGATIVE (NEGATIVE); UROBILINOGEN,URINE 0.2 EU/dL (0.2)
[2019-07-28 10:39] LABS: BACTERIA,URINE 1+ /HPF (None Seen); RBC,URINE TOO NUMEROUS TO COUN /HPF (0-2)
[2019-07-28 10:40] LABS: MUCUS,URINE Few /LPF (None Seen); URINE AMORPHOUS URATE Moderate /HPF (None Seen); YEAST,URINE Moderate /HPF (None Seen)
[2019-07-28 10:49] LABS: EOSINOPHIL,URINE None Seen
[2019-07-28 11:24] LABS: CREATININE, URINE 98.9 MG/DL (30.0-125.0); URINE TOTAL PROTEIN 144.6 mg/dL (0-11.9)
--- NOTE | 2019-07-28 18:32 | NUR ---
RN CLOSING NOTES NO SIGNIFICANT CHANGE NOTED. REMAINS INTUBATED. NO RESPIRATORY DISTRESS NOTED. REMAINS SEDATED, DIPRIVAN TITRATED ACCORDINGLY. FC IN PLACE. KEPT CLEAN AND DRY. KEPT COMFORTABLE. WILL ENDORSE FOR CONTINUITY OF CARE
--- NOTE | 2019-07-28 21:01 | NUR ---
silviculturist. initial assessment. received the pt rest on the bed. orally intubated. sedated with diprivan. .ett 7.5,lip 21,ac 16,tv 400,fio2 70%,peep 12. sat 98%. playground monitor showing s tach. iv rt femoral triple lumen. diprivan 50mcg/kg/min. fc patent urine draining. rt nare ngt intact. robbie soft wrist restraint checked and released. no injury or redness noted. hob elevated. will continue to monitor vitals.
[2019-07-29] VITALS (49 sets, daily range): BP systolic 84–122; BP diastolic 52–81
[2019-07-29] MEDS: PROPOFOL 100 ML IV PRN ×6 (01:32→22:26)
[2019-07-29 04:55] LABS: BASOPHILS # (AUTO) 0.2 /CMM (0.0-0.2); EOSINOPHILS % (AUTO) 0.6 % (0.0-6.0); HEMATOCRIT 35 % (33-45); HEMOGLOBIN 11.6 g/dL (11.5-14.8); LYMPHOCYTES # (AUTO) 0.8 /CMM (0.8-4.8); LYMPHOCYTES % (AUTO) 4.4 % (20.0-44.0); MEAN CORPUSCULAR HGB CONC 33 g/dl (31.0-36.0); MEAN CORPUSCULAR VOLUME 89 fL (82-100); MONOCYTES # (AUTO) 0.8 /CMM (0.1-1.30); MONOCYTES % (AUTO) 4.4 % (2.0-12.0); NEUTROPHILS % (AUTO) 89.6 % (43.0-81.0); PLATELET COUNT (AUTO) 201 /CMM (150-450); RED BLOOD CELL COUNT(AUTO) 3.92 MIL/uL (4.0-5.2)
[2019-07-29 05:12] LABS: ALBUMIN 2.5 g/dL (3.4-5.0); CALCIUM, SERUM 6.8 mg/dL (8.5-10.1); CREATININE 2.7 mg/dL (0.6-1.3); MAGNESIUM 2.5 mg/dL (1.8-2.4); POTASSIUM 3.5 mmol/L (3.5-5.1); TOTAL PROTEIN, SERUM 6.9 g/dL (6.4-8.2)
--- NOTE | 2019-07-29 06:48 | NUR ---
PROVIDER SERVICE REPRESENTATIVE. CLOSING NOTE. AM CARE GIVEN. REMAINING SAME VENT SETTING ON. DIPRIVAN 50MCG/KG/MIN. FC PATENT. HEMATURIA PRESENT. TEMPERATURE IS 99. HOB ELEVATED. TURN AND REPOSITION WILL CONTINUE TO MONITOR VITALS.
[2019-07-29] MEDS: MEROPENEM 1 G in IV NS 0.9% 100 ML IV SCH ×2 (07:37→21:02)
[2019-07-29] MEDS: ENOXAPARIN SODIUM 40 MG/0.4 ML DISP.SYRIN SQ SCH (08:35)
[2019-07-29] MEDS: HYDROCORTISONE SOD SUCCINATE 100 MG/2 ML VIAL IV SCH (08:35)
[2019-07-29] MEDS ORDERED: VANCOMYCIN 0.75 GM in IV D5W 250 ML IV SCH (09:00)
[2019-07-29] MEDS: IV NS 0.9% 1,000 ML IV PRN ×2 (09:43→23:53)
[2019-07-29 09:47] LABS: ABG OXYGEN SATURATION 96.8 % (92.0-98.5); ABG PCO2 29.9 mmHg (35.0-45.0); ABG PH 7.373 (7.350-7.450); ABG PO2 94.2 mmHg (75.0-100.0); AaDO2 372.8 mmHg; COHb 0.4 % (0.5-1.5); MetHb 0.3 % (0.0-1.5); O2Hb 96.1 % (94.0-97.0); SITE, ABG Left Radial
--- NOTE | 2019-07-29 11:00 | NUR ---
RN NOTES 0900 SEEN AND EXAMINED BY DR HARDWICK. PT REMAINS INTUBATED, TOLERATING VENT WELL. PEEP +15. SEDATED, DIPRIVAN AT 50MCG/KG/MIN. WILL CLOSELY MONITOR 1030 SEEN AND EXAMINED BY LOI ROSALES NP. AWARE OF LAB VALUES AND CXR RESULT. PT REMAINS INTUBATED, SEDATED. WILL CLOSELY MONITOR
--- NOTE | 2019-07-29 20:00 | NUR ---
Received patient intubated on full vent support.Tolerating vent settings well. No respiratory distress noted.Sedated on Diprivan gtt at 50 mcg infusing via R femoral TLC site intact.Afebrile.SR and normotensive.R nares NGT intact, patent and clamped.NPO status with ongoing IVF infusing.FC to gravity drainage. Turned and repositioned.Droplet Isolation precaution for COVID 19 +VE maintained.
[2019-07-30] VITALS (27 sets, daily range): BP systolic 102–130; BP diastolic 59–83
[2019-07-30] MEDS: PROPOFOL 100 ML IV PRN ×4 (02:22→14:54)
--- NOTE | 2019-07-30 02:45 | NUR ---
RT,Ray titrated FIO2 from 60%to 50% but patient not tolerating.SPO2 down to 90%-91%. Put back to 60%.Continue monitoring.
--- NOTE | 2019-07-30 02:50 | NUR ---
RT NOTE @ 0210: TITRATED FIO2 TO 50%. PT DID NOT TOLERATE WELL. SP02 @ 90-91%, PLACED BACK ON 60%. DANIEL PUGH AWARE. WILL CONTINUE TO MONITOR.
[2019-07-30 05:27] LABS: BASOPHILS # (AUTO) 0.2 /CMM (0.0-0.2); BASOPHILS % (AUTO) 0.7 % (0.0-2.0); EOSINOPHILS % (AUTO) 0.7 % (0.0-6.0); HEMATOCRIT 33 % (33-45); HEMOGLOBIN 11.1 g/dL (11.5-14.8); LYMPHOCYTES # (AUTO) 0.7 /CMM (0.8-4.8); LYMPHOCYTES % (AUTO) 3.5 % (20.0-44.0); MEAN CORPUSCULAR HGB CONC 33 g/dl (31.0-36.0); MEAN CORPUSCULAR VOLUME 90 fL (82-100); MONOCYTES # (AUTO) 1.1 /CMM (0.1-1.30); MONOCYTES % (AUTO) 5.2 % (2.0-12.0); NEUTROPHILS # (AUTO) 18.6 /CMM (1.8-8.9); NEUTROPHILS % (AUTO) 89.9 % (43.0-81.0); PLATELET COUNT (AUTO) 197 /CMM (150-450); WHITE BLOOD COUNT (AUTO) 20.7 K/uL (4.3-11.0)
[2019-07-30 05:50] LABS: ALBUMIN 2.3 g/dL (3.4-5.0); BILIRUBIN,TOTAL 0.9 mg/dL (0.2-1.0); CALCIUM, SERUM 7.1 mg/dL (8.5-10.1); CREATININE 2.5 mg/dL (0.6-1.3); MAGNESIUM 2.6 mg/dL (1.8-2.4); POTASSIUM 3.4 mmol/L (3.5-5.1); TOTAL PROTEIN, SERUM 6.6 g/dL (6.4-8.2)
--- NOTE | 2019-07-30 06:26 | NUR ---
Lab called regarding AM lab result BUN 82.M.NAICLOTHES DESIGNER notified also updated of patient status.She said RENAL Dept following patient.May need emergency HD. Will endorse to day shift for continuity of care.Patient remains sedated with Diprivan gtt at 50 mcg and IVF NS infusing.NAD noted.Turned and repositioned.
[2019-07-30 08:09] LABS: PTH, INTACT 290 pg/mL (15-65)
[2019-07-30 08:51] LABS: ABG BASE EXCESS -6.9 mmol/L; ABG OXYGEN SATURATION 95.7 % (92.0-98.5); ABG PCO2 30.6 mmHg (35.0-45.0); ABG PH 7.372 (7.350-7.450); ABG PO2 93.6 mmHg (75.0-100.0); AaDO2 300.5 mmHg; COHb 0.3 % (0.5-1.5); O2Hb 95.4 % (94.0-97.0); PEEP,BG 10 cm H2O; SITE, ABG Left Brachial; VT, ABG 400 mL
[2019-07-30] MEDS ORDERED: VANCOMYCIN 0.75 GM in IV D5W 250 ML IV SCH (09:00)
[2019-07-30 10:11] LABS: *SPE A/G RATIO 0.7 (0.7-1.7); *SPE ALBUMIN 2.5 g/dL (2.9-4.4); *SPE ALPHA-1-GLOBULIN 0.3 g/dL (0.0-0.4); *SPE BETA GLOBULIN 0.8 g/dL (0.7-1.3); *SPE GLOBULIN, TOTAL 3.6 g/dL (2.2-3.9); *SPE M-SPIKE Not Observed g/dL (Not Observed); *SPEGAMMA GLOBULIN 1.6 g/dL (0.4-1.8)
--- NOTE | 2019-07-30 10:30 | NUR ---
RN NOTES RECEIVED REPORT FROM DANIEL SUMMERS. PATIENT SEDATED WITH DIPRIVAN AT 50 CC/HR. BREATHING UNLABORED. TOLERATING CURRENT VENT SETTINGS. SATING WELL. NO INDICATION OF PAIN NOTED AT THIS TIME. SINUS TACHY ON THE ON THE MONITOR WITH HR ON THE LOW 100S. WITH ONGOING NS AT 70CC/HR. STILES CATHETER IN PLACE AND DRAINING WELL. SAFETY MEASURES IN PLACE. HOB ELEVATED. CALL LIGHT WITHIN REACH, WILL CONTINUE TO MONITOR PATIENT ACCORDINGLY Addendum: 07/30/19 at 1316 by CÉSAR NGUYEN RN GIVEN MEDICATION LATE ( PLEASE REFER TO EMAR DUE TO I JUST RECEIVED PATIENT AT THAT TIME)
[2019-07-30] MEDS: HYDROCORTISONE SOD SUCCINATE 100 MG/2 ML VIAL IV SCH (10:43)
[2019-07-30] MEDS: MEROPENEM 1 G in IV NS 0.9% 100 ML IV SCH ×2 (10:43→21:46)
[2019-07-30] MEDS: ENOXAPARIN SODIUM 40 MG/0.4 ML DISP.SYRIN SQ SCH (10:44)
[2019-07-30] MEDS: POTASSIUM CL. PREMIX PERIPHER. 50 ML IV SCH ×4 (12:09→15:52)
--- NOTE | 2019-07-30 13:00 | NUR ---
RN NOTES ENDORSED PATIENT TO DANIEL JORGENSEN FOR CONTINUITY BRUNO CARE. PATIENT ON STABLE CONDITION. NO ACUTE CHANGES. HANDS OFF
[2019-07-30] MEDS: IV NS 0.9% 1,000 ML IV PRN (18:21)
--- NOTE | 2019-07-30 19:11 | NUR ---
RN CLOSING NOTE: PATIENT REMAINS IN BED. PATIENT CONTINUES TO TOLERATE VENT SETTINGS WELL. NO SIGNS OF RESPIRATORY DISTRESS NOTED, SATING WELL AT THIS TIME. NO SIGNS OF ACUTE DISTRESS NOTED. PATIENT CONTINUES TO HAVE BUE SOFT WRIST RESTRAINTS. TELE MONITOR SR 97. SAFETY MEASURES IMPLEMENTED, BED IN LOWEST POSITION, LOCKED, SIDE RAILS UP X2, WILL ENDORSE TO ONCOMING SHIFT RN FOR CONTINUITY OF CARE.
[2019-07-30] MEDS: Potassium Chloride 40 MEQ in IV NS 0.9% 1,000 ML IV PRN (19:35)
--- NOTE | 2019-07-30 19:40 | NUR ---
RT NOTES PT RECEIVED ORALLY INTUBATED ON [facility] VENT ON CHARTED SETTINGS. NO SIGNS OF RESP DISTRESS AT THIS MOMENT. AIRWAY PATENT AND SECURED. PLASTIC EXTRUDING MACHINE OPERATOR DONE. PT SUCTIONED. ALARMS SET AND AUDIBLE. AMBUBAG AT BEDSIDE. VENT PLUGGED INTO TO RED OUTLET. WILL CONT TO MONITOR. Addendum: 07/30/19 at 2218 by SHILOH WILKINS RT Amended: Links added.
[2019-07-30] MEDS ORDERED: MICAFUNGIN SODIUM 100 MG in IV NS 0.9% 100 ML IV SCH (22:00)
[2019-07-30] MEDS: IV NS 0.9% 250 ML IV PRN (22:02)
[2019-07-31] VITALS (33 sets, daily range): BP systolic 99–137; BP diastolic 64–85
[2019-07-31] MEDS: PROPOFOL 100 ML IV PRN ×5 (00:32→22:20)
[2019-07-31 05:11] LABS: BASOPHILS # (AUTO) 0.1 /CMM (0.0-0.2); BASOPHILS % (AUTO) 0.6 % (0.0-2.0); EOSINOPHILS % (AUTO) 0.2 % (0.0-6.0); HEMATOCRIT 33 % (33-45); LYMPHOCYTES # (AUTO) 0.8 /CMM (0.8-4.8); LYMPHOCYTES % (AUTO) 3.4 % (20.0-44.0); MEAN CORPUSCULAR HGB CONC 33 g/dl (31.0-36.0); MEAN CORPUSCULAR VOLUME 91 fL (82-100); MONOCYTES # (AUTO) 1.2 /CMM (0.1-1.30); MONOCYTES % (AUTO) 5.5 % (2.0-12.0); NEUTROPHILS # (AUTO) 20.3 /CMM (1.8-8.9); NEUTROPHILS % (AUTO) 90.3 % (43.0-81.0); PLATELET COUNT (AUTO) 197 /CMM (150-450); RED BLOOD CELL COUNT(AUTO) 3.63 MIL/uL (4.0-5.2); WHITE BLOOD COUNT (AUTO) 22.5 K/uL (4.3-11.0)
[2019-07-31 05:30] LABS: CREATININE 2.1 mg/dL (0.6-1.3); MAGNESIUM 2.8 mg/dL (1.8-2.4); PHOSPHORUS 5.7 mg/dL (2.5-4.9); POTASSIUM 4.1 mmol/L (3.5-5.1)
[2019-07-31 05:37] LABS: CALCIUM, SERUM 7.9 mg/dL (8.5-10.1)
--- NOTE | 2019-07-31 08:26 | NUR ---
received pt from printing supplies sales representative, sedated on Diprivan at 50mcg, ST, intubated, sat well, NG clamped, NPO, f/c OK output, v/s stable, no pain, pt turned and repositioned.
[2019-07-31] MEDS: MEROPENEM 1 G in IV NS 0.9% 100 ML IV SCH ×2 (08:48→21:25)
[2019-07-31] MEDS: HYDROCORTISONE SOD SUCCINATE 100 MG/2 ML VIAL IV SCH (08:49)
[2019-07-31] MEDS: ENOXAPARIN SODIUM 40 MG/0.4 ML DISP.SYRIN SQ SCH (08:50)
[2019-07-31 08:58] LABS: ABG BASE EXCESS -7.3 mmol/L; ABG OXYGEN SATURATION 94.2 % (92.0-98.5); ABG PCO2 31.1 mmHg (35.0-45.0); ABG PH 7.359 (7.350-7.450); ABG PO2 80.9 mmHg (75.0-100.0); AaDO2 240.6 mmHg; COHb 0.3 % (0.5-1.5); MetHb 0.6 % (0.0-1.5); O2Hb 93.4 % (94.0-97.0); PEEP,BG 10 cm H2O; SITE, ABG Left Radial; VT, ABG 400 mL
[2019-07-31] MEDS ORDERED: VANCOMYCIN 0.75 GM in IV D5W 250 ML IV SCH (09:00)
[2019-07-31] MEDS: NEPRO 1,000 ML BOTTLE GT PRN (13:10)
--- NOTE | 2019-07-31 15:17 | NUR ---
RT NOTE: PATIENT RECEIVED ORALLY INTUBATED WITH 7.5 ETT SECURED AT 21 CM MID LIP LINE ON MECHANICAL VENT. ALARMS VERIFIED AND AUDIBLE. VENT PLUGGED INTO RED OUTLET. AMBU BAG AT [facility].
[2019-07-31] MEDS: Potassium Chloride 40 MEQ in IV NS 0.9% 1,000 ML IV PRN (15:30)
--- NOTE | 2019-07-31 16:19 | NUR ---
pt is resting in the bed, sedated on Diprivan at 60mcg, SR, intubated, high peep, sat well, started on tube feeding, f/c good output, v/s stable, no pain, pt cleaned, changed and repositioned.
--- NOTE | 2019-07-31 19:30 | NUR ---
PT RECEIVED ORALLY INTUBATED WITH 7.5 ET TUBE SECURED @ 21 CM LIP LINE ON VENT WITH NOTED SETTINGS. CUFF CHECKED VIA TRAUMA COUNSELLOR. AMBU BAG @ HOB. SX DONE, ET TUBE SECURED AND PATENT. ALARMS ON AND AUDIBLE. VENT PLUGGED TO RED OUTLET. NO RESPIRATORY DISTRESS NOTED AT THIS TIME. WILL CONTINUE TO MONITOR THE PT T/O SHIFT
[2019-07-31] MEDS: FLUCONAZOLE IN NS 100 MG in PREMIX 1 EA IV SCH ×2 (20:21)
--- NOTE | 2019-07-31 22:00 | NUR ---
BIOPSYCHOLOGIST UNABLE TO LOCATE BACTROBAN OINTMENT.
[2019-08-01] VITALS (41 sets, daily range): BP systolic 108–147; BP diastolic 66–86
[2019-08-01] MEDS: PROPOFOL 100 ML IV PRN ×5 (04:30→21:15)
--- NOTE | 2019-08-01 08:35 | NUR ---
received pt from assistant casino shift manager, sedated Diprivan at 60mcg, SR, intubated, sat well, NG to feeding tolerates well, f/c good output, v/s stable, no pain, pt turned and repositioned.
[2019-08-01] MEDS: HYDROCORTISONE SOD SUCCINATE 100 MG/2 ML VIAL IV SCH (08:41)
[2019-08-01] MEDS: MEROPENEM 1 G in IV NS 0.9% 100 ML IV SCH ×2 (08:41→20:50)
[2019-08-01] MEDS: ENOXAPARIN SODIUM 40 MG/0.4 ML DISP.SYRIN SQ SCH (08:43)
[2019-08-01 09:47] LABS: ABG BASE EXCESS -7.2 mmol/L; ABG OXYGEN SATURATION 96.7 % (92.0-98.5); ABG PCO2 33.7 mmHg (35.0-45.0); ABG PH 7.339 (7.350-7.450); ABG PO2 101.6 mmHg (75.0-100.0); COHb 0.3 % (0.5-1.5); O2Hb 96.4 % (94.0-97.0); SITE, ABG Right Radial
[2019-08-01 09:50] LABS: BASOPHILS # (AUTO) 0.1 /CMM (0.0-0.2); BASOPHILS % (AUTO) 0.8 % (0.0-2.0); EOSINOPHILS % (AUTO) 0.4 % (0.0-6.0); HEMATOCRIT 29 % (33-45); HEMOGLOBIN 9.4 g/dL (11.5-14.8); LYMPHOCYTES # (AUTO) 0.6 /CMM (0.8-4.8); LYMPHOCYTES % (AUTO) 4.9 % (20.0-44.0); MEAN CORPUSCULAR HGB CONC 33 g/dl (31.0-36.0); MEAN CORPUSCULAR VOLUME 91 fL (82-100); MONOCYTES # (AUTO) 0.5 /CMM (0.1-1.30); MONOCYTES % (AUTO) 4.1 % (2.0-12.0); NEUTROPHILS # (AUTO) 11.9 /CMM (1.8-8.9); NEUTROPHILS % (AUTO) 89.8 % (43.0-81.0); PLATELET COUNT (AUTO) 113 /CMM (150-450); RED BLOOD CELL COUNT(AUTO) 3.15 MIL/uL (4.0-5.2); WHITE BLOOD COUNT (AUTO) 13.2 K/uL (4.3-11.0)
[2019-08-01 10:24] LABS: ALBUMIN 2.3 g/dL (3.4-5.0); BILIRUBIN,TOTAL 0.7 mg/dL (0.2-1.0); CALCIUM, SERUM 7.9 mg/dL (8.5-10.1); CREATININE 1.7 mg/dL (0.6-1.3); MAGNESIUM 2.5 mg/dL (1.8-2.4); PHOSPHORUS 4.2 mg/dL (2.5-4.9); TOTAL PROTEIN, SERUM 6.1 g/dL (6.4-8.2)
[2019-08-01 10:26] LABS: T4 (THYROXINE) 6.3 ug/dL (4.7-13.3); THYROID STIMULATING HORMONE 1.764 uIU/mL (0.358-3.74)
[2019-08-01] MEDS: Potassium Chloride 40 MEQ in IV NS 0.9% 1,000 ML IV PRN (12:51)
--- NOTE | 2019-08-01 16:19 | NUR ---
pt is resting in the bed, sedated on Diprivan at 60mcg, SR, ST, intubated, saturating well, tolerates feeding, f/c good output, v/s stable, no pain, pt cleaned, changed and repositioned.
--- NOTE | 2019-08-01 19:30 | NUR ---
BRANCH SPECIALIST NOTE RECEIVED PT ORALLY INTUBATED WITH ET TUBE SECURED AND PATENT, PT ON VENT AND TOLERATING CURRENT SETTINGS, AMBU BAG AT HOB, 60 MCG DIPRIVAN INFUSING, ON NEPRO 1.8 RUNNING AT 20 ML/HR. RT FEMORAL TLC PATENT, INTACT AND FLUSHING WELL. STILES CATH DRAINING YELLOW URINE. IN NO RESPIRATORY DISTRESS NOTED AT THIS TIME. CURRENTLY SR ON MONITOR, SAFETY MEASURES IN PLACE, SIDE RAILS UP X 2 WILL CONTINUE TO MONITOR PT
[2019-08-01] MEDS: FLUCONAZOLE IN NS 100 MG in PREMIX 1 EA IV SCH ×2 (19:46)
[2019-08-02] VITALS (41 sets, daily range): BP systolic 126–164; BP diastolic 74–96
[2019-08-02] MEDS: PROPOFOL 100 ML IV PRN ×6 (01:45→22:30)
[2019-08-02 05:13] LABS: BASOPHILS # (AUTO) 0.1 /CMM (0.0-0.2); BASOPHILS % (AUTO) 0.7 % (0.0-2.0); EOSINOPHILS % (AUTO) 0.7 % (0.0-6.0); HEMATOCRIT 31 % (33-45); LYMPHOCYTES # (AUTO) 0.4 /CMM (0.8-4.8); LYMPHOCYTES % (AUTO) 3.4 % (20.0-44.0); MEAN CORPUSCULAR HGB CONC 33 g/dl (31.0-36.0); MEAN CORPUSCULAR VOLUME 92 fL (82-100); MONOCYTES # (AUTO) 0.7 /CMM (0.1-1.30); MONOCYTES % (AUTO) 5.4 % (2.0-12.0); NEUTROPHILS # (AUTO) 11.3 /CMM (1.8-8.9); NEUTROPHILS % (AUTO) 89.8 % (43.0-81.0); PLATELET COUNT (AUTO) 168 /CMM (150-450); RED BLOOD CELL COUNT(AUTO) 3.32 MIL/uL (4.0-5.2); WHITE BLOOD COUNT (AUTO) 12.6 K/uL (4.3-11.0)
[2019-08-02 05:42] LABS: ALBUMIN 2.3 g/dL (3.4-5.0); BILIRUBIN,TOTAL 0.7 mg/dL (0.2-1.0); CALCIUM, SERUM 8.3 mg/dL (8.5-10.1); CREATININE 1.5 mg/dL (0.6-1.3); MAGNESIUM 2.5 mg/dL (1.8-2.4); PHOSPHORUS 3.7 mg/dL (2.5-4.9); POTASSIUM 4.1 mmol/L (3.5-5.1); TOTAL PROTEIN, SERUM 6.4 g/dL (6.4-8.2)
--- NOTE | 2019-08-02 06:47 | NUR ---
RN CLOSING NOTE PT SEDATED ORALLY INTUBATED WITH ET TUBE SECURED AND PATENT, PT ON VENT AND TOLERATING CURRENT SETTINGS, AMBU BAG AT HOB, 60 MCG DIPRIVAN INFUSING, ON NEPRO 1.8 RUNNING AT 20 ML/HR. RT FEMORAL TLC PATENT, INTACT AND FLUSHING WELL. STILES CATH DRAINING YELLOW URINE. IN NO RESPIRATORY DISTRESS DURING SHIFT. CURRENTLY SR ON MONITOR, SAFETY MEASURES IN PLACE. SIDE RAILS UP X 2. ENDORSED TO AM RN FOR WYATT
--- NOTE | 2019-08-02 07:30 | NUR ---
TRAVOGRAPH OPERATOR NOTE RECEIVED PT, ORALLY INTUBATED WITH ET TUBE SECURED AND PATENT, 7.08/19 LIP, PT ON VENT AND TOLERATING CURRENT SETTINGS, CURRENTLY SR ON MONITOR, IN NO RESPIRATORY DISTRESS NOTED AT THIS TIME. AMBU BAG AT [facility], 60 MCG DIPRIVAN INFUSING, NS+40 MEQ KCL INFUSING AT 40 ML/HR, ON NEPRO 1.8 RUNNING AT 20 ML/HR. RT FEMORAL TLC PATENT, INTACT AND FLUSHING WELL. STILES CATH DRAINING YELLOW URINE. WILL TURN AND REPOSITION Q 2 HOURS FOR COMFORT. SAFETY MEASURES IN PLACE, SIDE RAILS UP X 2 WILL CONTINUE TO MONITOR PT
[2019-08-02 08:45] LABS: ABG BASE EXCESS -7.5 mmol/L; ABG OXYGEN SATURATION 97.4 % (92.0-98.5); ABG PCO2 36.5 mmHg (35.0-45.0); ABG PH 7.312 (7.350-7.450); ABG PO2 111.6 mmHg (75.0-100.0); AaDO2 203.8 mmHg; COHb 0.3 % (0.5-1.5); MetHb 0.2 % (0.0-1.5); O2Hb 96.9 % (94.0-97.0); PEEP,BG 10 cm H2O; SITE, ABG Right Radial; VT, ABG 400 mL
[2019-08-02] MEDS: MEROPENEM 1 G in IV NS 0.9% 100 ML IV SCH ×2 (09:27→21:01)
--- NOTE | 2019-08-02 09:30 | NUR ---
RN NOTES DUE MEDS GIVEN
[2019-08-02] MEDS: HYDROCORTISONE SOD SUCCINATE 100 MG/2 ML VIAL IV SCH (09:32)
[2019-08-02] MEDS: ENOXAPARIN SODIUM 40 MG/0.4 ML DISP.SYRIN SQ SCH (09:40)
[2019-08-02] MEDS: VANCOMYCIN 0.75 GM in IV D5W 250 ML IV SCH (11:16)
[2019-08-02] MEDS: Potassium Chloride 40 MEQ in IV NS 0.9% 1,000 ML IV PRN (12:04)
[2019-08-02] MEDS: NITROGLYCERIN 30 GM TUBE TP SCH ×2 (12:33→21:35)
[2019-08-02] MEDS: NEPRO 1,000 ML BOTTLE GT PRN (15:32)
--- NOTE | 2019-08-02 18:48 | NUR ---
CHOIR ACCOMPANIST NOTE PATIENT RESTING, SEDATED. ORALLY INTUBATED WITH ET TUBE SECURED AND PATENT, 7.5 LIP, PT ON VENT AND TOLERATING CURRENT SETTINGS, CURRENTLY SR HR 90s ON MONITOR, NOT IN ANY RESPIRATORY DISTRESS. AMBU BAG AT [facility], 60 MCG DIPRIVAN INFUSING, NS+40 MEQ KCL INFUSING AT 40 ML/HR, ON NEPRO 1.8 RUNNING AT 20 ML/HR. RT FEMORAL TLC PATENT, INTACT AND FLUSHING WELL. STILES CATH DRAINING YELLOW URINE. TURNED AND REPOSITIONED Q 2 HOURS FOR COMFORT. SOFT WRIST RESTRAINT RELEASED Q 2 HOURS, CIRCULATION CHECKED. PM CARE DONE EARLIER. SAFETY MEASURES IN PLACE, SIDE RAILS UP X 2. ALL NEEDS MET. NO OTHER SIGNIFICANT CHANGE IN CONDITION. WILL ENDORSE TO NEXT FIT FOR WYATT.
--- NOTE | 2019-08-02 19:15 | NUR ---
RESEARCH PROGRAM ASSISTANT RCD PT W/DX RESP FAIL; COVID +; NSR ON MONITOR. SEDATED ON DIPRIVAN AT 60 MCG/KG/MIN YET PT STILL WAKES UP AND BECOMES AGITATED THUS BLSW RESTRAINTS REMAIN IN PLACE. INTUBATED 7.5 @ 21 W/VENT SETTINGS AC 16 400 50% +10; PT HAS DRIED BLOOD AROUND HER MOUTH AND DRIED BROWN SPUTUM ON ET TUBE; PROVIDED ORAL CARE. PT BECOMES AGITATED WHEN BEING TURNED AND SUCTIONED. NEPRO @ 20 ML/HR VIA RIGHT NARE. XIOMY WELL. STILES CATH WITH DARK YELLOW URINE NOTED. PT NOTED WITH EXCORIATION TO SANTO/BUTTOCKS AREA. R FEM TLC PATENT UNABLE TO GET BLOOD RETURN AT THIS TIME.
[2019-08-02] MEDS: FLUCONAZOLE IN NS 100 MG in PREMIX 1 EA IV SCH ×2 (20:00)
[2019-08-03] VITALS (24 sets, daily range): BP systolic 106–163; BP diastolic 30–97
--- NOTE | 2019-08-03 | NUR ---
SUPPLY CHAIN COORDINATOR NG FLUSHED W/250 ML WATER PT TOLERATED WELL.
--- NOTE | 2019-08-03 02:00 | NUR ---
CAR SHIFTER RENDERED ORAL CARE. PT HAD LARGE BROWN BM. CONTINUE TO MONITOR.
[2019-08-03] MEDS: PROPOFOL 100 ML IV PRN ×7 (02:50→21:23)
[2019-08-03 04:01] LABS: BASOPHILS # (AUTO) 0.1 /CMM (0.0-0.2); EOSINOPHILS % (AUTO) 1.4 % (0.0-6.0); HEMATOCRIT 34 % (33-45); HEMOGLOBIN 11.1 g/dL (11.5-14.8); LYMPHOCYTES # (AUTO) 0.5 /CMM (0.8-4.8); LYMPHOCYTES % (AUTO) 4.7 % (20.0-44.0); MEAN CORPUSCULAR HGB CONC 33 g/dl (31.0-36.0); MEAN CORPUSCULAR VOLUME 92 fL (82-100); MONOCYTES # (AUTO) 0.7 /CMM (0.1-1.30); MONOCYTES % (AUTO) 6.6 % (2.0-12.0); NEUTROPHILS # (AUTO) 9.1 /CMM (1.8-8.9); NEUTROPHILS % (AUTO) 86.3 % (43.0-81.0); PLATELET COUNT (AUTO) 166 /CMM (150-450); RED BLOOD CELL COUNT(AUTO) 3.65 MIL/uL (4.0-5.2); WHITE BLOOD COUNT (AUTO) 10.5 K/uL (4.3-11.0)
[2019-08-03 04:16] LABS: ALBUMIN 2.3 g/dL (3.4-5.0); BILIRUBIN,TOTAL 0.6 mg/dL (0.2-1.0); CALCIUM, SERUM 8.5 mg/dL (8.5-10.1); CREATININE 1.4 mg/dL (0.6-1.3); PHOSPHORUS 3.4 mg/dL (2.5-4.9); TOTAL PROTEIN, SERUM 6.5 g/dL (6.4-8.2)
[2019-08-03 04:20] LABS: POTASSIUM 4.3 mmol/L (3.5-5.1)
--- NOTE | 2019-08-03 05:00 | NUR ---
CUT OFF SAW SET UP OPERATOR PT NOTED WITH LARGE AMOUNT OF THICK BLOODY SECRETIONS; EXTENSIVE SUCTION AND ORAL CARE RENDERED BY RT. CONTINUE TO MONITOR.
--- NOTE | 2019-08-03 06:43 | NUR ---
GOLF COACH MED RECON STILL NOT DONE WILL RE ENDORSE TO INCOMING NURSE.
--- NOTE | 2019-08-03 07:40 | NUR ---
SUPERVISOR GRAPHITE NOTES RECEIVED PATIENT IN BED SEDATED ON PROPOFOL 60MCG. PATIENT ON DROPLET ISOLATION FOR POSITIVE COVID -19. PATIENT HAS STILES AND RIGHT NG TUBE AUSCULTATED/PATENT AND NO RESIDUAL NOTED. SEEN BY WOUND CARE NURSE. SISTER SERGEY CONTACTED AND INFORMED HER THAT HER NAME IS NOT ON CONTACT LIST AND NO INFORMATION CAN BE GIVEN. RIGHT FEMORAL TLC PATENT. NO SOB OR DISCOMFORT NOTED AT THIS TIME. WILL CONTINUE TO MONITOR PATIENT.
[2019-08-03] MEDS: MEROPENEM 1 G in IV NS 0.9% 100 ML IV SCH ×2 (08:25→20:52)
[2019-08-03] MEDS: HYDROCORTISONE SOD SUCCINATE 100 MG/2 ML VIAL IV SCH (08:25)
[2019-08-03] MEDS: NITROGLYCERIN 30 GM TUBE TP SCH ×2 (08:26→20:39)
[2019-08-03] MEDS: ENOXAPARIN SODIUM 40 MG/0.4 ML DISP.SYRIN SQ SCH (08:27)
--- NOTE | 2019-08-03 09:12 | NUR ---
WOUND CARE CONSULT: REVIEWED NURSING DOCUMENTATION AND PHOTOS AND SPOKE WITH NURSING STAFF. PER NURSING REPORT AND PHOTOS, THERE ARE RASHES TO UNDERARMS, BILATERAL GROIN FOLDS AND BUTTOCKS WITH PEELING SKIN. RECOMMENDATIONS MADE FOR SKIN CARE AND PROTECTION. DISCUSSED WITH NURSING STAFF. PT ON FIRST STEP SUSAN LOW AIRLOSS MATTRESS. WILL SEE PRN. LEAL IN AGREEMENT WITH PLAN OF CARE.
[2019-08-03] MEDS: PROSOURCE / PROSTAT (PYXIS) 30 ML UDC GT SCH ×2 (09:47→17:39)
--- NOTE | 2019-08-03 12:09 | NUR ---
PRINT PRODUCTION COORDINATOR NOTES PER DR HARDWICK INCREASE THE PROPOFOL TO 100 MCG.
--- NOTE | 2019-08-03 12:10 | NUR ---
OUTSIDE RIGGER NOTES SEDATION VACATION PERFORMED AND PATIENT WAS AGITATED AND FIGHTING WITH VENT. PROPOFOL REMAINED 100 MCG.
[2019-08-03] MEDS: IV D5W 1,000 ML IV PRN (12:54)
--- NOTE | 2019-08-03 14:22 | NUR ---
RESIDENT PROGRAMS ASSISTANT NOTES INFORMED DR SORIA FOR MED RECON.
[2019-08-03] MEDS: CLOTRIMAZOLE/BETAMETASONE DIPROPIONATE 15 GM TUBE TP SCH (17:39)
--- NOTE | 2019-08-03 19:44 | NUR ---
DOBBY LOOM WEAVER NOTES PATIENT SEDATED IN BED COMFORTABLE AND NO SOB OR DISCOMFORT NOTED. REPORT GIVEN TO INSPECTORS AND REGULATORY OFFICERS NURSE.
--- NOTE | 2019-08-03 20:00 | NUR ---
RN NOTES RECEIVED PATIENT ORALLY INTUBATED SEDATED WITH DIPRIVAN. STRICTLY ON ISOLATION PRECAUTION DUE TO COVID+. PT IS FULL CODE. WITH ETT 7.5 AND 21 CM AT LIP WITH VENT SETTING AC 16 TV 400 FIO2 50% AND PEEP 10. SR ON TELE MONITOR. PT IS W/ NGT FLUSHED WELL. FEEDING TOLERATED WELL, ZERO RESIDUAL. IV SITE ON RT. FEMORAL WITH DIPRIVAN AND D5 75 ML/HR RUNNING AND TOLERATED WELL. AFEBRILE. TURNED AND REPOSITIONED Q2H AND PRN. SUCTIONED VIA ETT AND ORALLY. KEPT PT CLEAN AND DRY. WILL CONTINUE TO MONITOR.
[2019-08-03] MEDS: FLUCONAZOLE IN NS 100 MG in PREMIX 1 EA IV SCH ×2 (20:40)
[2019-08-04] VITALS (25 sets, daily range): BP systolic 98–159; BP diastolic 62–96
[2019-08-04] MEDS: PROPOFOL 100 ML IV PRN ×8 (00:05→23:53)
[2019-08-04] MEDS: IV D5W 1,000 ML IV PRN ×2 (02:09→18:20)
[2019-08-04] MEDS: IV NS 0.9% 250 ML IV PRN (02:10)
--- NOTE | 2019-08-04 04:06 | NUR ---
RT NOTE Pt rec'd orally intubated via ETT sz 7.5 secured at 23cm @ the lipline. Pt on [facility] vent on current settings as charted. Pt sx'd for thick mod amt of bloody secretions. Alarms are set and audible. Vent plugged into red outlet. Ambu bag bedside. Will continue to monitor. Addendum: 08/04/19 at 0406 by SILVIA MCKEE RT Amended: Links added.
[2019-08-04 05:07] LABS: BASOPHILS # (AUTO) 0.1 /CMM (0.0-0.2); BASOPHILS % (AUTO) 1.1 % (0.0-2.0); EOSINOPHILS % (AUTO) 2.8 % (0.0-6.0); HEMATOCRIT 30 % (33-45); HEMOGLOBIN 9.7 g/dL (11.5-14.8); LYMPHOCYTES # (AUTO) 0.5 /CMM (0.8-4.8); LYMPHOCYTES % (AUTO) 5.4 % (20.0-44.0); MEAN CORPUSCULAR HGB CONC 33 g/dl (31.0-36.0); MEAN CORPUSCULAR VOLUME 92 fL (82-100); MONOCYTES # (AUTO) 0.5 /CMM (0.1-1.30); MONOCYTES % (AUTO) 5.7 % (2.0-12.0); NEUTROPHILS # (AUTO) 8.1 /CMM (1.8-8.9); PLATELET COUNT (AUTO) 156 /CMM (150-450); RED BLOOD CELL COUNT(AUTO) 3.21 MIL/uL (4.0-5.2); WHITE BLOOD COUNT (AUTO) 9.5 K/uL (4.3-11.0)
[2019-08-04 05:16] LABS: CREATININE 1.4 mg/dL (0.6-1.3); POTASSIUM 3.9 mmol/L (3.5-5.1)
--- NOTE | 2019-08-04 07:00 | NUR ---
RN NOTES PATIENT REMAINED THE SAME ETT AND VENT SETTING TOLERATED WELL. SEDATED WITH DIPRIVAN .ISOLATION PRECAUTION STRICTLY OBSERVED. AFEBRILE. VSS WITH NO PRESSOR. IV SITE INTACT AND PATENT DIPRIVAN @ 70 MCK/KG/MIN TITRATED ORDERED ENDORSED CONT. OF CARE.
--- NOTE | 2019-08-04 07:27 | NUR ---
TOPSTITCHER LOCKSTITCH NOTES RECEIVED PATIENT IN BED SEDATED ON PROPOFOL 80MCG. NO DISCOMFORT NOTED. PATIENT ON DROPLET ISOLATION FOR COVID-19. WILL CONTINUE TO MONITOR THE PATIENT.
[2019-08-04 08:30] LABS: ABG BASE EXCESS -8.3 mmol/L; ABG OXYGEN SATURATION 96.5 % (92.0-98.5); ABG PCO2 28.9 mmHg (35.0-45.0); ABG PH 7.359 (7.350-7.450); COHb 0.3 % (0.5-1.5); MetHb 0.3 % (0.0-1.5); O2Hb 95.9 % (94.0-97.0); SITE, ABG Right Radial
[2019-08-04] MEDS: MEROPENEM 1 G in IV NS 0.9% 100 ML IV SCH ×2 (09:10→20:57)
[2019-08-04] MEDS: PROSOURCE / PROSTAT (PYXIS) 30 ML UDC GT SCH ×2 (09:10→17:17)
[2019-08-04] MEDS: HYDROCORTISONE SOD SUCCINATE 100 MG/2 ML VIAL IV SCH (09:11)
[2019-08-04] MEDS: ENOXAPARIN SODIUM 40 MG/0.4 ML DISP.SYRIN SQ SCH (09:11)
[2019-08-04] MEDS: NITROGLYCERIN 30 GM TUBE TP SCH ×2 (09:12→20:57)
[2019-08-04] MEDS: CLOTRIMAZOLE/BETAMETASONE DIPROPIONATE 15 GM TUBE TP SCH ×2 (09:12→17:17)
--- NOTE | 2019-08-04 10:30 | NUR ---
AZURE DEVELOPER NOTES LINING FELLER AT BEDSIDE BLOOD DRAWN FOR VANCO THROUGH.
--- NOTE | 2019-08-04 11:42 | NUR ---
HYSTER MACHINE OPERATOR NOTES WAITING FOR VANCO THROUGH FOR VANCO ADMINISTRATION.
[2019-08-04] MEDS: VANCOMYCIN 0.75 GM in IV D5W 250 ML IV SCH ×2 (11:55→23:42)
--- NOTE | 2019-08-04 12:10 | NUR ---
TOOL TECHNICIAN NOTES VANCO THROUGH 11 AND VANCO ADMINISTRATED.
--- NOTE | 2019-08-04 14:35 | NUR ---
LUMBER MOVER NOTES NOTED BLISTERS ON RIGHT INNER THIGH . KEPT CLEAN AND DRY COVERED THE STILES CATHETER TUBE WITH TOWEL. ORDER OBTAIN FOR WOUND CARE CONSULT.
--- NOTE | 2019-08-04 15:00 | NUR ---
NAVY SEAL NOTES VACATION SEDATION PERFORMED AND DECREASED PROPOFOL TO 65MCG BUT PATIENT WAS MOVING AND FIGHTING VENT.KEPT PROPOFOL 75MCG.
[2019-08-04] MEDS ORDERED: MONT10TA22 PO (16:33)
[2019-08-04] MEDS ORDERED: DULO60CA45 PO (16:35)
--- NOTE | 2019-08-04 16:37 | NUR ---
LOCK AND DAM OPERATOR NOTES DAUGHTER VARGAS CALLED AND ADDED 2 MEDS TO HOME MEDS DULOXETINE DR 60 MG /DAY PO AND MONTELUKAST 10 MG DAYS. MEDS ADDED TO MED RECON LIST AND NOTIFIED TRINIDAD CARTAGENA BY [employer]. TRINIDAD CARTAGENA AWARE.
--- NOTE | 2019-08-04 19:36 | NUR ---
TRACK RIDER NOTES PATIENT SEDATED IN BED NO SOB OR DISCOMFORT NOTED. REPORT GIVEN TO NARROW FABRIC CALENDERER NURSE.
--- NOTE | 2019-08-04 20:00 | NUR ---
RN NOTES PATIENT ORALLY INTUBATED. STRICTLY ON ISOLATION FOR + COVID. WITH ETT AND VENT SETTING AC 28 TV 500 FIO2 65% NO PEEP. SR ON TELE MONITOR. SATURATION 100%. NO ACUTE RESP. DISTRESS. OGTF TOLERATED @ 20 ML/HR INTACT AND PATENT. NO RESIDUAL NOTED. IV SITE ON YOUSUF PICC LINE W/ DIPRIVAN @ 20 MCG/KG./MIN AND NS @ 40 ML/HR C/D/I. AMADA. SOFT WRIST RESTRAINT KEPT IN PLACED CIRCULATION CHECKED. KEPT PT CLEAN AND DRY. TURNED AND REPOSITIONED FOR SKIN MANAGEMENT NURSING CARE , ORAL CARE PROVIDED. WILL CONTINUE TO MONITOR,. Addendum: 08/05/19 at 0335 by RAMIRO CONTRERAS RN WRONG PATIENT NOTES
[2019-08-04] MEDS: FLUCONAZOLE IN NS 100 MG in PREMIX 1 EA IV SCH ×2 (20:30)
--- NOTE | 2019-08-04 20:30 | NUR ---
RN NOTES PATIENT ORALLY INTUBATED SEDATED WITH DIPRIVAN. STRICTLY ON ISOLATION PRECAUTION DUE TO + COVID. FULL CODE. WITH ETT 7.5 AND 21 CM AT LIP WITH VENT SETTING AC 16 TV 400 FIO2 50% AND PEEP 10. SR ON TELE MONITOR. NGT FLUSHED WELL. NGT FEEDING NEPHRO @ 20 ML/HR,ZERO RESIDUAL. HOB KEPT ELEVATED IV SITE ON RT. FEMORAL WITH DIPRIVAN AND D5 75 ML/HR RUNNING AND TOLERATED WELL. AFEBRILE. TURNED AND REPOSITIONED MUCH POSSIBLE. SUCTIONED VIA ETT AND ORAL WITH LARGE AMT. OF BROWNISH SECRETION. KEPT PT CLEAN AND DRY. WILL CONTINUE TO MONITOR.
--- NOTE | 2019-08-04 21:30 | NUR ---
RN NOTES PT SATURATION 88% WITH GOOD WAVEFORM. SATURATION/SENSOR INTACT CLEAN. CHANGED FIO2 TO 80% BY RT SATURATION WENT UP SLOWLY TO 92% WILL CONTINUE TO MONITOR. Addendum: 08/05/19 at 0334 by RAMIRO CONTRERAS RN WRONG PATIENT NOTES
[2019-08-05] VITALS (24 sets, daily range): BP systolic 119–152; BP diastolic 45–96
[2019-08-05] MEDS: PROPOFOL 100 ML IV PRN ×6 (03:41→22:55)
[2019-08-05 04:43] LABS: BASOPHILS # (AUTO) 0.1 /CMM (0.0-0.2); BASOPHILS % (AUTO) 0.8 % (0.0-2.0); EOSINOPHILS % (AUTO) 3.9 % (0.0-6.0); HEMATOCRIT 34 % (33-45); LYMPHOCYTES # (AUTO) 0.6 /CMM (0.8-4.8); LYMPHOCYTES % (AUTO) 6.3 % (20.0-44.0); MEAN CORPUSCULAR HGB CONC 32 g/dl (31.0-36.0); MEAN CORPUSCULAR VOLUME 92 fL (82-100); MONOCYTES # (AUTO) 0.5 /CMM (0.1-1.30); MONOCYTES % (AUTO) 5.5 % (2.0-12.0); NEUTROPHILS # (AUTO) 7.5 /CMM (1.8-8.9); NEUTROPHILS % (AUTO) 83.5 % (43.0-81.0); PLATELET COUNT (AUTO) 139 /CMM (150-450); WHITE BLOOD COUNT (AUTO) 8.9 K/uL (4.3-11.0)
[2019-08-05 05:09] LABS: CALCIUM, SERUM 7.8 mg/dL (8.5-10.1); CREATININE 1.2 mg/dL (0.6-1.3); MAGNESIUM 1.5 mg/dL (1.8-2.4); PHOSPHORUS 3.7 mg/dL (2.5-4.9); POTASSIUM 3.2 mmol/L (3.5-5.1)
--- NOTE | 2019-08-05 07:24 | NUR ---
RN NOTES PT REMAINED STABLE WITH ETT AND VENT SETTING TOLERATED WELL. AFEBRILE. VSS WITHOUT PRESSORS. SEDATED WITH DIPRIVAN TITRATED ORDERED. PIV TRIED MULTIPLE TIMES AND USE VEIN FINDER BUT UNABLE TO FIND VEIN INFORMED RESOURCE ECONOMIST WITH NEW ORDER TO PLACED MIDLINE AND REMOVE PICC LINE AND SEND TIP TO THE LAB. PT KEPT CLEAN AND DRY. BM X 2. ENDORSED CONTINUITY OF CARE TO AM NURSE.
--- NOTE | 2019-08-05 07:48 | NUR ---
RN NOTES RECEIVED PATIENT RESTING IN BED COMFORTABLY, NO S.SX OF DISTRESS. PT IS SEDATED, NON-VERBAL, AND BED BOUND. SHE IS ON MECH VENT, TOLERATING SETTINGS WELL, NO SOB OR RESP DISTRESS. TELE MONITOR SHOWING SR. STILES CATH IS PATENT AND INTACT. NGT IS PATENT AND INTACT, PT RECEIVING NEPRO AT 2O ML/HR. R FEMORAL TLC, IS INTACT, WILL REMOVE AND SEND TIP TO LAB ONCE WE HAVE MIDLINE PLACEMENT, RUNNING DIPRIVAN AT 55 MCG/MIN, D5 AT 75 ML/HR. SAFETY MEASURES HAVE BEEN IMPLEMENTED, CALL LIGHT IS WITHIN REACH, BED IS IN LOWEST AND LOCKED POSITION, SIDE RAILS UP X2, WILL CONTINUE TO MONITOR FOR ANY CHANGES.
[2019-08-05] MEDS ORDERED: POTASSIUM CHLORIDE 20 MEQ POWDER PACKET NG SCH (08:00)
[2019-08-05] MEDS: Magnesium 1GM/D5W 100ML PREMIX 100 ML IV SCH ×2 (08:26→09:26)
[2019-08-05] MEDS: LEVOTHYROXINE SODIUM 25 MCG TABLET PO SCH (08:26)
[2019-08-05] MEDS: HYDROCORTISONE SOD SUCCINATE 100 MG/2 ML VIAL IV SCH (08:26)
[2019-08-05] MEDS: PROSOURCE / PROSTAT (PYXIS) 30 ML UDC GT SCH ×2 (08:26→17:16)
[2019-08-05] MEDS: MEROPENEM 1 G in IV NS 0.9% 100 ML IV SCH ×2 (08:26→21:00)
[2019-08-05] MEDS: AMLODIPINE BESYLATE 5 MG TABLET PO SCH (08:31)
[2019-08-05] MEDS: METOPROLOL TARTRATE 50 MG TABLET PO SCH ×2 (08:31→17:16)
[2019-08-05] MEDS: NITROGLYCERIN 30 GM TUBE TP SCH ×2 (08:32→21:00)
[2019-08-05] MEDS: PANTOPRAZOLE 40 MG/PACK PACK NG SCH (08:32)
[2019-08-05] MEDS: CLOTRIMAZOLE/BETAMETASONE DIPROPIONATE 15 GM TUBE TP SCH ×2 (09:22→17:16)
[2019-08-05] MEDS: ENOXAPARIN SODIUM 40 MG/0.4 ML DISP.SYRIN SQ SCH (09:22)
[2019-08-05 10:24] LABS: ABG BASE EXCESS -9.8 mmol/L; ABG OXYGEN SATURATION 97.2 % (92.0-98.5); ABG PCO2 30.2 mmHg (35.0-45.0); ABG PH 7.318 (7.350-7.450); ABG PO2 112.1 mmHg (75.0-100.0); AaDO2 210.4 mmHg; MetHb 0.8 % (0.0-1.5); O2Hb 96.4 % (94.0-97.0); SITE, ABG Left Brachial; VENT MODE, BG AC16 400 50% +5
[2019-08-05] MEDS: IV D5W 1,000 ML IV PRN (12:18)
--- NOTE | 2019-08-05 15:23 | NUR ---
RN NOTES BLOOD CULTURES HAVE RESULTED, POSITIVE FOR GRAM + RODS IN GRAM STAIN. ANNIE CARTAGENA CANE PILER MADE AWARE, NO NEW ORDERS AT THIS TIME
--- NOTE | 2019-08-05 18:41 | NUR ---
RN NOTES WAITING FOR MIDLINE INSERTION PRIOR TO FEMORAL PICC REMOVAL AND CULTURE, WILL CONTINUE TO MONITOR
--- NOTE | 2019-08-05 19:05 | NUR ---
RN CLOSING NOTES PATIENT IS RESTING IN BED COMFORTABLY, NO S.SX OF DISTRESS AT THIS TIME. SHE IS ON MECH VENT, TOLERATING SETTINGS WELL. ON PROPOFOL DRIP AT 55 MCG/MIN, TOLERATING WELL. ENDORSED TO NIGHT RN REGARDING PICC REMOVAL AND CULTURE. NO ACUTE CHANGES OCCURRED THROUGHOUT THE SHIFT, VITAL SIGNS ARE STABLE, PT NEEDS HAVE BEEN MET. SAFETY MEASURES HAVE BEEN IMPLEMENTED, CALL LIGHT IS WITHIN REACH, BED IS IN LOWEST AND LOCKED POSITION, SIDE RAILS UP X2, PT HAS BEEN ENDORSED TO NIGHTSHIFT RN FOR WYATT.
--- NOTE | 2019-08-05 19:21 | NUR ---
LEGAL RECEPTIONIST RCD PT W/DX RESP FAIL; PT IS COVID +. INTUBATED 7.5 @ 21 W/VENT SETTINGS AC 16 400 50% +5. PT HAS THICK WHITE SECRETIONS. SEDATED ON DIPRIVAN @ 55 MCG/KG/MIN. PT WILL WAKE UP TO STIMULI BECOMES AGITATED BUT DOES NOT FOLLOW COMMANDS. BLSW RESTRAINTS IN PLACE TO PREVENT SELF EXTUBATION. NSR ON MONITOT. R NARE NG TUEB W/NEPRO @ 2O ML/HR; GOAL RATE. NO RESIDUAL AT THIS TIME. STILES CATH DRAINING YELLOW SEDIMENT URINE. REPOSITIONED AT THIS TIME. PLAN FOR TLC TO BE REMOVED AND MIDLINE TO BE PLACED. CONTINUE TO MONITOR.
[2019-08-05] MEDS: FLUCONAZOLE IN NS 100 MG in PREMIX 1 EA IV SCH ×2 (19:45)
--- NOTE | 2019-08-05 20:00 | NUR ---
SQL DATABASE DEVELOPER URINE OUTPUT DAY SHIFT DOCUMENTED 425 ML URINE FOUND 1300 ML URINE AT THIS TIME IN STILES. EMPTIED STILES AND DOCUMENTED 875 ML URINE AT THIS TIME.
--- NOTE | 2019-08-05 20:42 | NUR ---
CONSTRUCTION AREA MANAGER RCD CALL FROM PTS DAUGHTERCAROLIN UPDATED WITH PLAN OF CARE.
--- NOTE | 2019-08-05 20:50 | NUR ---
KAIAWHINA KOHANGA REO MIDLINE NURSE AT BEDSIDE.
[2019-08-06] VITALS (24 sets, daily range): BP systolic 95–178; BP diastolic 26–92
--- NOTE | 2019-08-06 | NUR ---
COMMUNITY RELATIONS SPECIALIST R FEM CENTRAL LINE REMOVED AND TIP SENT TO LAB FOR CULTURE. PT XIOMY WELL.
[2019-08-06] MEDS: IV D5W 1,000 ML IV PRN ×2 (01:30→14:32)
[2019-08-06] MEDS: PROPOFOL 100 ML IV PRN ×5 (03:45→21:13)
[2019-08-06 04:32] LABS: BASOPHILS # (AUTO) 0.1 /CMM (0.0-0.2); BASOPHILS % (AUTO) 0.9 % (0.0-2.0); EOSINOPHILS % (AUTO) 4.2 % (0.0-6.0); HEMATOCRIT 31 % (33-45); HEMOGLOBIN 10.1 g/dL (11.5-14.8); LYMPHOCYTES # (AUTO) 0.7 /CMM (0.8-4.8); LYMPHOCYTES % (AUTO) 7.5 % (20.0-44.0); MEAN CORPUSCULAR HGB CONC 33 g/dl (31.0-36.0); MEAN CORPUSCULAR VOLUME 91 fL (82-100); MONOCYTES # (AUTO) 0.5 /CMM (0.1-1.30); MONOCYTES % (AUTO) 5.3 % (2.0-12.0); NEUTROPHILS # (AUTO) 8.1 /CMM (1.8-8.9); NEUTROPHILS % (AUTO) 82.1 % (43.0-81.0); PLATELET COUNT (AUTO) 148 /CMM (150-450); RED BLOOD CELL COUNT(AUTO) 3.35 MIL/uL (4.0-5.2); WHITE BLOOD COUNT (AUTO) 9.9 K/uL (4.3-11.0)
[2019-08-06 04:52] LABS: CALCIUM, SERUM 7.7 mg/dL (8.5-10.1); CREATININE 1.2 mg/dL (0.6-1.3); MAGNESIUM 1.9 mg/dL (1.8-2.4); PHOSPHORUS 3.3 mg/dL (2.5-4.9); POTASSIUM 3.4 mmol/L (3.5-5.1)
--- NOTE | 2019-08-06 07:10 | NUR ---
SUPERVISOR GROVE NOTES RECEIVED PATIENT SEDATED , RESPONSIVE TO TACTILE STIMULI , NOT IN ACUTE DISTRESS TOLERATING CURRENT VENT SETTINGS WITH SPO2 OF 100% , ETT 7.08/19 NOTIFIED RT CORBY TO PULL BACK 1.5CM PER CHEST XRAY , SR 85 ON BEDSIDE MONITOR , R NARE NGT PATENT AND INTACT WITH NEPHRO @ 20ML/HR TOLERATING WELL WITH NO RESIDUALS NOTED , FC DRAINING VIA GRAVITY , D5NS @ 75ML/HR INFUSING WELL @ KYAW MIDLINE , ALL NEEDS ATTENDED , WILL CONTINUE TO MONITOR
[2019-08-06] MEDS: LEVOTHYROXINE SODIUM 25 MCG TABLET PO SCH (07:19)
--- NOTE | 2019-08-06 07:25 | NUR ---
RT NOTE: LATE ENTRY-PATIENT WAS RECEIVED ORALLY INTUBATED WITH 7.5 ETT SECURED AT 23CM. PATIENT'S ETT PULLED OUT TO 21.5 CM MID LIP LINE AND SECURED WITH A BITE BLOCK IN PLACE PER MD ORDERS.
[2019-08-06] MEDS: MEROPENEM 1 G in IV NS 0.9% 100 ML IV SCH (08:26)
[2019-08-06] MEDS: PANTOPRAZOLE 40 MG/PACK PACK NG SCH (08:26)
[2019-08-06] MEDS: NITROGLYCERIN 30 GM TUBE TP SCH ×2 (08:27→21:00)
[2019-08-06] MEDS: AMLODIPINE BESYLATE 5 MG TABLET PO SCH (08:27)
[2019-08-06] MEDS: METOPROLOL TARTRATE 50 MG TABLET PO SCH ×2 (08:27→16:13)
[2019-08-06] MEDS: HYDROCORTISONE SOD SUCCINATE 100 MG/2 ML VIAL IV SCH (08:27)
[2019-08-06] MEDS: CLOTRIMAZOLE/BETAMETASONE DIPROPIONATE 15 GM TUBE TP SCH ×2 (08:28→16:14)
[2019-08-06] MEDS: PROSOURCE / PROSTAT (PYXIS) 30 ML UDC GT SCH ×2 (08:29→16:13)
[2019-08-06] MEDS: ENOXAPARIN SODIUM 40 MG/0.4 ML DISP.SYRIN SQ SCH (08:31)
[2019-08-06 08:55] LABS: ABG BASE EXCESS -12.7 mmol/L; ABG OXYGEN SATURATION 98.1 % (92.0-98.5); ABG PCO2 25.4 mmHg (35.0-45.0); ABG PH 7.299 (7.350-7.450); ABG PO2 129.7 mmHg (75.0-100.0); AaDO2 198.2 mmHg; COHb 0.3 % (0.5-1.5); MetHb 0.3 % (0.0-1.5); O2Hb 97.5 % (94.0-97.0); PEEP,BG 5 cm H2O; SITE, ABG Right Radial; VT, ABG 400 mL
[2019-08-06] MEDS: LORAZEPAM INJ 2 MG/ML VIAL IV PRN ×2 (09:00→14:36)
[2019-08-06] MEDS: VANCOMYCIN 0.75 GM in IV D5W 250 ML IV SCH (11:05)
[2019-08-06] MEDS ORDERED: POTASSIUM CHLORIDE 20 MEQ POWDER PACKET NG SCH (12:00)
--- NOTE | 2019-08-06 12:00 | NUR ---
DEPUTY COMMISSIONER NOTES VERIFIED WITH FUNNEL COATER OSIEL REGARDING FREE WATER FLUSHES , NA OF 144 , ON D5W @75ML/HR , PER FUNNEL COATER DC WATER FLUSHED VIA NGT
[2019-08-06 13:22] LABS: ABG BASE EXCESS -8.7 mmol/L; ABG OXYGEN SATURATION 94.3 % (92.0-98.5); ABG PCO2 32.4 mmHg (35.0-45.0); ABG PH 7.322 (7.350-7.450); ABG PO2 78.1 mmHg (75.0-100.0); AaDO2 169.8 mmHg; COHb 0.3 % (0.5-1.5); PEEP,BG 5 cm H2O; SITE, ABG Right Radial; VT, ABG 400 mL
--- NOTE | 2019-08-06 13:27 | NUR ---
FIELD ARTILLERY OFFICER NOTES RELAYED ABG RESULTS TO DR RONEN MD AWARE NO NEW ORDERS RECEIVED
--- NOTE | 2019-08-06 13:33 | NUR ---
CAR WASHER NOTES 0930 SEEN AND EVALUATED BY DR HARDWICK , DISCUSSED LABS ,ABG , CURRENT VENT SETTINGS , AFEBRILE , VSS , TOLERATING GTF WITH GOOD URINE OUTPUT , ABDOMEN SOFT NON DISTENDED , ETT PULLED BACK 1.5CM @ 0745 PER CHEST XRAY REPORT . MD AWARE . 1055 - DIPRIVAN HELD FOR SEDATION VACATION , WILL CONTINUE TO MONITOR 1130- DIPRIVAN RESTARTED PT RR 35CPM OFF SEDATION , AGITATED , VENT ALARMING , BP ELEVATED , OPENS EYES , TRACKS , ABLE TO FOLLOW SIMPLE COMMANDS 1200 - SEEN AND EVALUATED BY ANNIE CARTAGENA , DISCUSSED LAB , TOLERATING CURRENT VENT SETTINGS WITH NO DISTRESS , AFEBRILE , TOLERATING GT FEEDING , PENDING ABG , DISCUSSED NEURO STATUS OFF SEDATION , CENTRAL LINE DC 'S THIS AM TIP SENT FOR CULTURE , PER MANAGER CLEANING SHE WILL ORDER BLOOD CULTURE .
[2019-08-06] MEDS: NEPRO 1,000 ML BOTTLE GT PRN (17:32)
--- NOTE | 2019-08-06 19:30 | NUR ---
COCOA BEAN ROASTER OPENING NOTES, RECEIVED PATIENT SEDATED, TOLERATING CURRENT VENT SETTINGS WITH SPO2 OF 97% , ETT 7.5. RESPONSIVE TO TACTILE STIMULI, NOT ACUTE DISTRESS NOTED AT THIS TIME. ST 94 ON BEDSIDE MONITOR , R NARE NGT PATENT AND INTACT WITH NEPHRO @ 20ML/HR TOLERATING WELL WITH NO RESIDUALS NOTED , FC DRAINING VIA GRAVITY , D5NS @ 75ML/HR INFUSING WELL @ KYAW MIDLINE, ALL NEEDS ATTENDED , WILL CONTINUE TO MONITOR
--- NOTE | 2019-08-06 21:36 | NUR ---
DID NOT ADMINISTER NITRO OINTMENT BECAUSE PATIENT'S BP IS LOW 104/66. CHARGE NURSE, MEAGAN HANLEY. WILL CONTINUE TO MONITOR. VS STABLE, NO ACUTE DISTRESS NOTED. Addendum: 08/07/19 at 0629 by JOSE ALFREDO GARCÍA RN ADMINISTERED THE MEDICATION @ 0200 DUE TO HTN 131/72. HR 91. WILL CONTINUE TO MONITOR.
[2019-08-07] VITALS (40 sets, daily range): BP systolic 100–159; BP diastolic 64–91
[2019-08-07] MEDS: PROPOFOL 100 ML IV PRN ×6 (01:19→21:16)
[2019-08-07] MEDS: NITROGLYCERIN 30 GM TUBE TP SCH ×2 (02:00→21:32)
--- NOTE | 2019-08-07 04:05 | NUR ---
WAS NOT ABLE TO SUCTION PATIENTS ET TUBE. THE SUCTION TUBE DID NOT GO THROUGH ET TUBE PASS LIPS. I SUCTIONED MOUTH AND THROAT WITH YANKAUER SUCTION, NOTICED RED THICK MUCUS. NOTIFIED RT. VSS, NO S/S OF DISTRESS NOTED AT THIS TIME.
[2019-08-07 04:27] LABS: BASOPHILS # (AUTO) 0.1 /CMM (0.0-0.2); BASOPHILS % (AUTO) 0.6 % (0.0-2.0); HEMATOCRIT 30 % (33-45); HEMOGLOBIN 9.7 g/dL (11.5-14.8); LYMPHOCYTES # (AUTO) 0.9 /CMM (0.8-4.8); LYMPHOCYTES % (AUTO) 8.1 % (20.0-44.0); MEAN CORPUSCULAR HGB CONC 33 g/dl (31.0-36.0); MEAN CORPUSCULAR VOLUME 91 fL (82-100); MONOCYTES # (AUTO) 0.7 /CMM (0.1-1.30); MONOCYTES % (AUTO) 6.5 % (2.0-12.0); NEUTROPHILS # (AUTO) 8.5 /CMM (1.8-8.9); NEUTROPHILS % (AUTO) 79.8 % (43.0-81.0); PLATELET COUNT (AUTO) 162 /CMM (150-450); RED BLOOD CELL COUNT(AUTO) 3.23 MIL/uL (4.0-5.2); WHITE BLOOD COUNT (AUTO) 10.7 K/uL (4.3-11.0)
[2019-08-07] MEDS: IV D5W 1,000 ML IV PRN ×2 (04:35→16:36)
[2019-08-07 04:45] LABS: CREATININE 1.2 mg/dL (0.6-1.3); MAGNESIUM 1.8 mg/dL (1.8-2.4); PHOSPHORUS 3.5 mg/dL (2.5-4.9); POTASSIUM 3.2 mmol/L (3.5-5.1)
--- NOTE | 2019-08-07 06:54 | NUR ---
STORAGE ARCHITECT CLOSING NOTES, PATIENT IS SEDATED, TOLERATING CURRENT VENT SETTINGS, WITH SPO2 OF 97% , ETT 7.5/. RESPONSIVE TO TACTILE STIMULI, NOT ACUTE DISTRESS NOTED AT THIS TIME. ST 104 ON BEDSIDE MONITOR , R NARE NGT PATENT AND INTACT WITH NEPHRO @ 20ML/HR TOLERATING WELL WITH NO RESIDUALS NOTED , FC DRAINING VIA GRAVITY , D5NS @ 75ML/HR AND PROPOFOL @55MCG/KG/MIN INFUSING WELL @ KYAW MIDLINE, ALL NEEDS ATTENDED , WILL ENDORSE THE PATIENT TO AM RN FOR WYATT.
--- NOTE | 2019-08-07 08:09 | NUR ---
received pt from visual coordinator, sedated on Diprivan at 55mcg, ST, on the vent, lungs partially congested, no edema, NG to feeding tolerates well, f/c good output, v/s stable, no pain, pt turned and repositioned.
[2019-08-07] MEDS ORDERED: POTASSIUM CHLORIDE 20 MEQ POWDER PACKET GT ONE (08:16)
[2019-08-07] MEDS: HYDROCORTISONE SOD SUCCINATE 100 MG/2 ML VIAL IV SCH (08:26)
[2019-08-07] MEDS: AMLODIPINE BESYLATE 5 MG TABLET PO SCH (08:27)
[2019-08-07] MEDS: PANTOPRAZOLE 40 MG/PACK PACK NG SCH (08:27)
[2019-08-07] MEDS: LEVOTHYROXINE SODIUM 25 MCG TABLET PO SCH (08:27)
[2019-08-07] MEDS: METOPROLOL TARTRATE 50 MG TABLET PO SCH ×2 (08:27→16:36)
[2019-08-07] MEDS: CLOTRIMAZOLE/BETAMETASONE DIPROPIONATE 15 GM TUBE TP SCH ×2 (08:28→16:36)
[2019-08-07] MEDS: ENOXAPARIN SODIUM 40 MG/0.4 ML DISP.SYRIN SQ SCH (08:28)
[2019-08-07] MEDS: PROSOURCE / PROSTAT (PYXIS) 30 ML UDC GT SCH ×2 (08:29→16:37)
[2019-08-07 08:46] LABS: ABG BASE EXCESS -13.1 mmol/L; ABG OXYGEN SATURATION 92.4 % (92.0-98.5); ABG PH 7.296 (7.350-7.450); ABG PO2 78.4 mmHg (75.0-100.0); AaDO2 178.1 mmHg; COHb 0.2 % (0.5-1.5); MetHb 0.2 % (0.0-1.5); PEEP,BG 5 cm H2O; SITE, ABG Right Radial; VT, ABG 400 mL
--- NOTE | 2019-08-07 12:33 | NUR ---
RT NOTE: PATIENT RECEIVED ORALLY INTUBATED WITH 7.5 ETT SECURED AT 21.5 CM MID LIP LINE ON MECHANICAL VENT. ALARMS VERIFIED AND AUDIBLE. VENT PLUGGED INTO RED OUTLET. AMBU BAG AT [facility].
[2019-08-07] MEDS: CITRIC ACID/SODIUM CITRATE (BICITRA)15 ML UDC GT SCH ×3 (14:20→21:31)
--- NOTE | 2019-08-07 16:27 | NUR ---
pt is resting in the bed, SR, sedated on diprivan at 60mcg, intubated, sat well, tolerates feeding, f/c good urine output, v/s stable, no pain, pt turned and repositioned q2hrs.
--- NOTE | 2019-08-07 21:27 | NUR ---
RT NOTE: RECEIVED PATIENT ON [facility] VENT PER MD ORDERS. PT IS ORALLY INTUBATED WITH 7.5 ETT SECURED AT 21.5 CM AT THE LIP. ACCESS SPEC DONE. ALARMS ON AND AUDIBLE. VENT PLUGGED INTO RED OUTLET. BASILIA HIDALGO AT [facility]. WILL CONT TO MONITOR PT. Addendum: 08/08/19 at 0426 by MEGHAN OLVERA RT Amended: Links added.
[2019-08-07] MEDS: VANCOMYCIN 0.75 GM in IV D5W 250 ML IV SCH (23:12)
[2019-08-08] VITALS (34 sets, daily range): BP systolic 84–161; BP diastolic 55–92
[2019-08-08] MEDS: PROPOFOL 100 ML IV PRN ×7 (01:19→23:06)
[2019-08-08 04:09] LABS: BASOPHILS # (AUTO) 0.1 /CMM (0.0-0.2); BASOPHILS % (AUTO) 0.7 % (0.0-2.0); HEMATOCRIT 28 % (33-45); HEMOGLOBIN 9.2 g/dL (11.5-14.8); LYMPHOCYTES # (AUTO) 0.8 /CMM (0.8-4.8); LYMPHOCYTES % (AUTO) 9.3 % (20.0-44.0); MEAN CORPUSCULAR HGB CONC 33 g/dl (31.0-36.0); MEAN CORPUSCULAR VOLUME 91 fL (82-100); MONOCYTES # (AUTO) 0.9 /CMM (0.1-1.30); NEUTROPHILS # (AUTO) 6.9 /CMM (1.8-8.9); PLATELET COUNT (AUTO) 165 /CMM (150-450); RED BLOOD CELL COUNT(AUTO) 3.06 MIL/uL (4.0-5.2); WHITE BLOOD COUNT (AUTO) 9.1 K/uL (4.3-11.0)
--- NOTE | 2019-08-08 04:31 | NUR ---
pt being cleaned at 0485-0210 no blood pressure. recorded
[2019-08-08 04:57] LABS: CALCIUM, SERUM 7.9 mg/dL (8.5-10.1); CREATININE 1.2 mg/dL (0.6-1.3); MAGNESIUM 1.9 mg/dL (1.8-2.4); PHOSPHORUS 3.5 mg/dL (2.5-4.9); POTASSIUM 3.1 mmol/L (3.5-5.1)
[2019-08-08] MEDS: IV D5W 1,000 ML IV PRN (06:48)
--- NOTE | 2019-08-08 07:31 | NUR ---
RN NOTE RECEIVED PATIENT FROM PM NURSE. PATIENT RESTING IN BED, SEDATED ON PROPOFOL RUNNING AT 60MCG. MD ORDER IN PLACE TO TITRATE TO 100MCG PRN. PATIENT IS COMFORTABLE AT CURRENT SETTINGS. PATIENT ON MECHANICAL VENT, SATURATING WELL AT THE MOMENT, NO ACUTE RESPIRATORY DISTRESS NOTED. TOLERATING SETTINGS WELL. ON TELE MONITOR WITH SINUS TACHY, HR AT 105. STILES CATHETER IN PLACE, INTACT, PATENT, AND DRAINING URINE. TUBE FEEDING RUNNING ORDERED, NO RESIDUAL NOTED. PATIENT SAFETY IS MAINTAINED, CALL LIGHT WITHIN REACH, WILL CONTINUE TO MONITOR CLOSELY.
[2019-08-08] MEDS: AMLODIPINE BESYLATE 5 MG TABLET PO SCH (08:03)
[2019-08-08] MEDS: PANTOPRAZOLE 40 MG/PACK PACK NG SCH (08:03)
[2019-08-08] MEDS: METOPROLOL TARTRATE 50 MG TABLET PO SCH ×2 (08:03→16:33)
[2019-08-08] MEDS: CITRIC ACID/SODIUM CITRATE (BICITRA)15 ML UDC GT SCH ×4 (08:04→22:11)
[2019-08-08] MEDS: LEVOTHYROXINE SODIUM 25 MCG TABLET PO SCH (08:04)
[2019-08-08] MEDS: NITROGLYCERIN 30 GM TUBE TP SCH ×2 (08:04→22:12)
[2019-08-08] MEDS: HYDROCORTISONE SOD SUCCINATE 100 MG/2 ML VIAL IV SCH (08:04)
[2019-08-08] MEDS: ENOXAPARIN SODIUM 40 MG/0.4 ML DISP.SYRIN SQ SCH (08:05)
[2019-08-08] MEDS: CLOTRIMAZOLE/BETAMETASONE DIPROPIONATE 15 GM TUBE TP SCH ×2 (08:06→16:34)
[2019-08-08] MEDS: PROSOURCE / PROSTAT (PYXIS) 30 ML UDC GT SCH ×2 (08:06→16:33)
[2019-08-08 08:35] LABS: ABG BASE EXCESS -9.4 mmol/L; ABG OXYGEN SATURATION 92.2 % (92.0-98.5); ABG PCO2 42.2 mmHg (35.0-45.0); ABG PH 7.237 (7.350-7.450); ABG PO2 76.9 mmHg (75.0-100.0); AaDO2 159.8 mmHg; COHb 0.8 % (0.5-1.5); MetHb 0.8 % (0.0-1.5); O2Hb 90.7 % (94.0-97.0); SITE, ABG Right Radial
[2019-08-08] MEDS ORDERED: POTASSIUM CHLORIDE 20 MEQ POWDER PACKET GT SCH (09:00)
[2019-08-08] MEDS: LOSARTAN POTASSIUM 50 MG TABLET PO SCH ×2 (09:08→22:10)
[2019-08-08] MEDS: Potassium Chloride 40 MEQ in IV D5W 1,000 ML IV PRN (12:48)
--- NOTE | 2019-08-08 15:22 | NUR ---
RT NOTES: PATIENT RECEIVED ORALLY INTUBATED WITH 7.5 ETT SECURED AT 21.5 CM MID LIP LINE ON MECHANICAL VENT. AM ABG DONE AND REPORTED TO . VENT CHANGES MADE PER MD ORDERS. VENT ALARMS VERIFIED AND AUDIBLE. VENT PLUGGED INTO RED OUTLET. AMBU BAG AT [facility].
--- NOTE | 2019-08-08 18:41 | NUR ---
RN CLOSING NOTES NO ACUTE CHANGES TO PATIENT CONDITION DURING MY SHIFT. ALL PATIENT NEEDS MET. PATIENT REMAINED SEDATED ON PROPOFOL, RUNNING AT 60MCG, TOLERATING WELL, VITAL SIGNS ARE STABLE. SATURATING WELL WITH CURRENT VENT SETTINGS. SAFETY MAINTAINED, CALL LIGHT WITHIN REACH, WILL ENDORSE TO PM NURSE FOR CONTINUITY OF CARE.
[2019-08-09] VITALS (27 sets, daily range): BP systolic 91–168; BP diastolic 55–98
[2019-08-09] MEDS: PROPOFOL 100 ML IV PRN ×6 (04:11→20:35)
[2019-08-09] MEDS: Potassium Chloride 40 MEQ in IV D5W 1,000 ML IV PRN ×2 (04:12→17:12)
[2019-08-09 05:23] LABS: CALCIUM, SERUM 7.8 mg/dL (8.5-10.1); CREATININE 1.1 mg/dL (0.6-1.3); POTASSIUM 3.5 mmol/L (3.5-5.1)
--- NOTE | 2019-08-09 07:10 | NUR ---
RN NOTE RECEIVED PATIENT O BED, INTUBATED , SEDATED ON PROPOFOL RUNNING AT 60MCG, WILL TITRATED PER MD AND PROTOCOL ORDER, MALI CURRENT VENT SETTING WELL, NO DISTRESS NOTED AT THIS TIME, ON TELE MONITOR SR, HR IN 90'S , STILES CATHETER IN PLACE, INTACT, PATENT, AND DRAINING URINE. TUBE FEEDING NEPHRO AT 20CC/HR RUNNING , NO RESIDUAL NOTED. PATIENT SAFETY IS MAINTAINED, CALL LIGHT WITHIN REACH, BED LOCK AND IN LOWEST POSITION, WILL CONTINUE TO MONITOR CLOSELY.
[2019-08-09] MEDS: PANTOPRAZOLE 40 MG/PACK PACK NG SCH (08:13)
[2019-08-09] MEDS: CITRIC ACID/SODIUM CITRATE (BICITRA)15 ML UDC GT SCH ×4 (08:13→20:18)
[2019-08-09] MEDS: METOPROLOL TARTRATE 50 MG TABLET PO SCH ×2 (08:14→17:09)
[2019-08-09] MEDS: LEVOTHYROXINE SODIUM 25 MCG TABLET PO SCH (08:14)
[2019-08-09] MEDS: AMLODIPINE BESYLATE 5 MG TABLET PO SCH ×2 (08:15→10:46)
[2019-08-09] MEDS: CLOTRIMAZOLE/BETAMETASONE DIPROPIONATE 15 GM TUBE TP SCH ×2 (08:17→16:40)
[2019-08-09] MEDS: ENOXAPARIN SODIUM 40 MG/0.4 ML DISP.SYRIN SQ SCH (08:17)
[2019-08-09] MEDS: HYDROCORTISONE SOD SUCCINATE 100 MG/2 ML VIAL IV SCH (08:18)
[2019-08-09] MEDS: NITROGLYCERIN 30 GM TUBE TP SCH ×2 (08:18→20:19)
[2019-08-09] MEDS: PROSOURCE / PROSTAT (PYXIS) 30 ML UDC GT SCH ×2 (08:18→16:40)
[2019-08-09] MEDS: LOSARTAN POTASSIUM 50 MG TABLET PO SCH ×3 (08:19→20:19)
[2019-08-09 08:44] LABS: ABG BASE EXCESS -7.1 mmol/L; ABG OXYGEN SATURATION 94.4 % (92.0-98.5); ABG PCO2 35.2 mmHg (35.0-45.0); ABG PH 7.329 (7.350-7.450); ABG PO2 81.1 mmHg (75.0-100.0); AaDO2 163.6 mmHg; COHb 0.3 % (0.5-1.5); MetHb 0.3 % (0.0-1.5); O2Hb 93.8 % (94.0-97.0); PEEP,BG 5 cm H2O; SITE, ABG Right Radial; VT, ABG 450 mL
[2019-08-09] MEDS: VANCOMYCIN 0.75 GM in IV D5W 250 ML IV SCH (10:46)
[2019-08-09] MEDS: ACETAMINOPHEN 650 MG/20.3 ML UDC NG PRN (11:09)
--- NOTE | 2019-08-09 12:00 | NUR ---
RN NOTES ORAL AND ET TUBE SUCTIONING DONE, VSS STABLE ,CONTINUE TO MONITOR .
--- NOTE | 2019-08-09 16:00 | NUR ---
RN NOTES VSS STABLE, CONTINUE TO MONITOR.
--- NOTE | 2019-08-09 21:00 | NUR ---
RN NOTES ONE MEJIA-FORMED BROWN STOOL NOTED , VSS STABLE, CONTINUE TO MONITOR .
--- NOTE | 2019-08-09 23:17 | NUR ---
RN NOTES PT REMAINS INTUBATED, AND SEDATED, NO ACUTE CHANGES TO PATIENT CONDITION DURING NOTED, ALL PATIENT NEEDS MET. ON PROPOFOL, RUNNING AT 65 MCG/KG/MIN ,IVF AT 75CC/HR RUNNING ,SR UP x3, SAFETY MAINTAINED, CALL LIGHT WITHIN REACH, WILL ENDORSE TO NEXT SHIFT NURSE FOR CONTINUITY OF CARE.
[2019-08-10] VITALS (22 sets, daily range): BP systolic 103–160; BP diastolic 65–92
[2019-08-10] MEDS: PROPOFOL 100 ML IV PRN ×6 (00:37→22:46)
[2019-08-10 04:53] LABS: BASOPHILS # (AUTO) 0.1 /CMM (0.0-0.2); BASOPHILS % (AUTO) 1.6 % (0.0-2.0); EOSINOPHILS % (AUTO) 6.8 % (0.0-6.0); HEMATOCRIT 24 % (33-45); HEMOGLOBIN 8.2 g/dL (11.5-14.8); LYMPHOCYTES # (AUTO) 0.6 /CMM (0.8-4.8); LYMPHOCYTES % (AUTO) 11.8 % (20.0-44.0); MEAN CORPUSCULAR HGB CONC 34 g/dl (31.0-36.0); MEAN CORPUSCULAR VOLUME 90 fL (82-100); MONOCYTES # (AUTO) 1.1 /CMM (0.1-1.30); MONOCYTES % (AUTO) 23.7 % (2.0-12.0); NEUTROPHILS # (AUTO) 2.6 /CMM (1.8-8.9); NEUTROPHILS % (AUTO) 56.1 % (43.0-81.0); PLATELET COUNT (AUTO) 179 /CMM (150-450); WHITE BLOOD COUNT (AUTO) 4.7 K/uL (4.3-11.0)
[2019-08-10 05:12] LABS: CALCIUM, SERUM 7.9 mg/dL (8.5-10.1); CREATININE 1.1 mg/dL (0.6-1.3); MAGNESIUM 1.6 mg/dL (1.8-2.4); PHOSPHORUS 2.3 mg/dL (2.5-4.9); POTASSIUM 3.6 mmol/L (3.5-5.1)
[2019-08-10 06:02] LABS: EOSINOPHILS % (MANUAL) 3 % (0-4); MONOCYTES % (MANUAL) 15 % (0-11.0)
[2019-08-10 06:03] LABS: LYMPHOCYTES % (MANUAL) 17 % (16-48); NEUTROPHILS % (MANUAL) 65 (42-76)
[2019-08-10] MEDS: Potassium Chloride 40 MEQ in IV D5W 1,000 ML IV PRN ×2 (06:39→23:06)
--- NOTE | 2019-08-10 07:25 | NUR ---
CABLE INSTALLER REPAIRER OPENING NOTE Received patient sedated. In bed no signs of distress. On ETT and vent tolerating well. NGT on R Nare in place and patent running Nepro 20ml/hr. KYAW midline Diprivan @65mcg and KCl in D5W @ 75/hr. FC in place draining clear yellow urine no signs of infection. Soft restraints in place bilateral wrist. Safety measures reinforced, bilateral siderails up x2. Bed locked and on lowest position. Will cont to monitor.
--- NOTE | 2019-08-10 07:38 | NUR ---
HARBOR DEPARTMENT MANAGER. REMAINING SAME IVF RUNNING. HOB ELEVATED. NGT FEEDING TOLERATED WELL. AM CARE GIVEN. SAME VENT SETTING TOLERATED WELL.ENDORSE TO JOSIE RN FOR WYATT. WOUND PICTURE PLEASE TAKE,
[2019-08-10] MEDS: Magnesium 1GM/D5W 100ML PREMIX 100 ML IV SCH ×2 (08:21→09:21)
[2019-08-10] MEDS: LEVOTHYROXINE SODIUM 25 MCG TABLET PO SCH (08:21)
[2019-08-10] MEDS: HYDROCORTISONE SOD SUCCINATE 100 MG/2 ML VIAL IV SCH (08:32)
[2019-08-10] MEDS: PANTOPRAZOLE 40 MG/PACK PACK NG SCH (08:32)
[2019-08-10] MEDS: AMLODIPINE BESYLATE 5 MG TABLET PO SCH (08:32)
[2019-08-10] MEDS: LOSARTAN POTASSIUM 50 MG TABLET PO SCH ×2 (08:32→21:10)
[2019-08-10] MEDS: PROSOURCE / PROSTAT (PYXIS) 30 ML UDC GT SCH ×2 (08:33→16:38)
[2019-08-10] MEDS: METOPROLOL TARTRATE 50 MG TABLET PO SCH ×2 (08:33→16:38)
[2019-08-10] MEDS: CITRIC ACID/SODIUM CITRATE (BICITRA)15 ML UDC GT SCH ×4 (08:33→21:09)
[2019-08-10] MEDS: ENOXAPARIN SODIUM 40 MG/0.4 ML DISP.SYRIN SQ SCH (08:34)
[2019-08-10] MEDS: CLOTRIMAZOLE/BETAMETASONE DIPROPIONATE 15 GM TUBE TP SCH ×2 (08:35→16:39)
[2019-08-10] MEDS: NITROGLYCERIN 30 GM TUBE TP SCH ×2 (08:35→21:11)
[2019-08-10 09:22] LABS: ABG BASE EXCESS -4.8 mmol/L; ABG OXYGEN SATURATION 96.1 % (92.0-98.5); ABG PCO2 32.4 mmHg (35.0-45.0); ABG PH 7.395 (7.350-7.450); ABG PO2 87.1 mmHg (75.0-100.0); AaDO2 160.8 mmHg; COHb 0.2 % (0.5-1.5); MetHb 0.2 % (0.0-1.5); O2Hb 95.7 % (94.0-97.0); SITE, ABG Right Radial; VENT MODE, BG AC 16 450 40% +5
--- NOTE | 2019-08-10 10:30 | NUR ---
SUCTION DRUM DRIER OPERATOR NOTE Sedation vacation done. Patient opens eyes but does not look at me directly. After 5 mins patient's breathing started being labored. Informed Melida with orders to re-sedate.
[2019-08-10] MEDS ORDERED: NEUTRA PHOS 1 POWD.PACKET NG ONE (11:00)
--- NOTE | 2019-08-10 12:08 | NUR ---
TOBACCO SPRAYER NOTE Lab called to inf covid test is positive. Informed Melida with no new orders.
--- NOTE | 2019-08-10 19:41 | NUR ---
OSHA INSPECTOR CLOSING NOTE Patient in bed sedated no signs of distress. On ETT and vent setting as follows: AC 16 TV 450 fio2 50% and PEEP 5. Tolerating well. Sinus rhythm 80-90s. Ojeda catheter in place draining clear yellow urine. Pictures taken and placed in chart. Renewed restraints order. R Nare NGT feeding in place. NGT patent. Nephro 20ml/hr tolerating well. Patient has KYAW midline running Diprivan 65mcg and KCl in D5W in 75ml/hr. Safety measures reinforced. Vital signs within normal limits. Call light within reach. Bed locked and on lowest position. All due meds given. Endorsed to night nurse nurse for cheyenne.
[2019-08-10] MEDS: VANCOMYCIN 0.75 GM in IV D5W 250 ML IV SCH (23:14)
[2019-08-11] VITALS (24 sets, daily range): BP systolic 101–150; BP diastolic 60–95
[2019-08-11] MEDS: PROPOFOL 100 ML IV PRN ×6 (03:05→20:39)
[2019-08-11 05:00] LABS: CALCIUM, SERUM 7.6 mg/dL (8.5-10.1); PHOSPHORUS 3.2 mg/dL (2.5-4.9); POTASSIUM 3.4 mmol/L (3.5-5.1)
--- NOTE | 2019-08-11 07:05 | NUR ---
RN NOTES RECEIVED PT ON BED, INTUBATED, SEDATED, TOLERATING CURRENT VENT SETTING WELL, NO DISTRESS NOTED, SR ON MONITOR, STILES DRINING TO GRAVITY, TF AT 20CC /HR RUNNING VIA R NARE NGT, DIPRIVAN AT 65 MCG/MIN/KG AND IVF D5W WITH 40 MEQ KCL AT 75CC/HR RUNNING VIA R UPPER ARM MIDLINE, SITE CLEAN , DRY AND INTACT , STILES DRINING TO GRAVITY, SR UP x3, CALL LIGHT WITHIN EASY REACH, BED LOCKED AND IN LOWEST POSITION,CONTINUE TO MONITOR
[2019-08-11] MEDS: METOPROLOL TARTRATE 50 MG TABLET PO SCH ×2 (08:07→16:57)
[2019-08-11] MEDS: CITRIC ACID/SODIUM CITRATE (BICITRA)15 ML UDC GT SCH ×4 (08:07→21:38)
[2019-08-11] MEDS: HYDROCORTISONE SOD SUCCINATE 100 MG/2 ML VIAL IV SCH (08:07)
[2019-08-11] MEDS: PANTOPRAZOLE 40 MG/PACK PACK NG SCH (08:07)
[2019-08-11] MEDS: LOSARTAN POTASSIUM 50 MG TABLET PO SCH ×2 (08:08→21:00)
[2019-08-11] MEDS: AMLODIPINE BESYLATE 5 MG TABLET PO SCH (08:08)
[2019-08-11] MEDS: LEVOTHYROXINE SODIUM 25 MCG TABLET PO SCH (08:08)
[2019-08-11] MEDS: PROSOURCE / PROSTAT (PYXIS) 30 ML UDC GT SCH ×2 (08:09→16:57)
[2019-08-11] MEDS: ENOXAPARIN SODIUM 40 MG/0.4 ML DISP.SYRIN SQ SCH (08:09)
[2019-08-11] MEDS: CLOTRIMAZOLE/BETAMETASONE DIPROPIONATE 15 GM TUBE TP SCH ×2 (08:10→16:58)
[2019-08-11] MEDS: NITROGLYCERIN 30 GM TUBE TP SCH ×2 (08:11→21:41)
--- NOTE | 2019-08-11 09:00 | NUR ---
RN NOTES SMALL PATCHY RED AREA NOTED ON PT'S ABDOMEN , AARON LOYA , CONTINUE TO MONITOR.
--- NOTE | 2019-08-11 09:30 | NUR ---
RN NOTES K= 3.4, CONSTRUCTION PROJECT MANAGER NOITFED , NO NEW ORDER RECEIVED. CONTINUE TO MONITOR .
--- NOTE | 2019-08-11 14:00 | NUR ---
RN NOTES ET TUBE AND ORAL SUCTIONING DONE, VSS STABLE, CONTINUE TO MONITOR.
[2019-08-11] MEDS: Potassium Chloride 40 MEQ in IV D5W 1,000 ML IV PRN (14:49)
--- NOTE | 2019-08-11 18:41 | NUR ---
RN NOTES PT REMAINS INTUBATED, AND SEDATED, NO ACUTE CHANGED NOTED DURING THIS SHIFT, ALL PATIENT NEEDS MET. ON PROPOFOL, RUNNING AT 65 MCG/KG/MIN ,IVF AT 75CC/HR RUNNING ,SR UP x3, SAFETY MAINTAINED, CALL LIGHT WITHIN REACH, BED LOCKED AND IN LOWEST POSITION, WILL ENDORSE TO PM SHIFT NURSE FOR CONTINUITY OF CARE.
[2019-08-11] MEDS: NEPRO 1,000 ML BOTTLE GT PRN (21:34)
[2019-08-12] VITALS (24 sets, daily range): BP systolic 111–148; BP diastolic 63–93
[2019-08-12] MEDS: PROPOFOL 100 ML IV PRN ×7 (00:06→22:17)
[2019-08-12 04:28] LABS: BASOPHILS % (AUTO) 1.2 % (0.0-2.0); EOSINOPHILS % (AUTO) 3.2 % (0.0-6.0); HEMATOCRIT 23 % (33-45); HEMOGLOBIN 7.5 g/dL (11.5-14.8); LYMPHOCYTES # (AUTO) 0.6 /CMM (0.8-4.8); LYMPHOCYTES % (AUTO) 22.6 % (20.0-44.0); MEAN CORPUSCULAR HGB CONC 33 g/dl (31.0-36.0); MEAN CORPUSCULAR VOLUME 90 fL (82-100); MONOCYTES # (AUTO) 1.3 /CMM (0.1-1.30); MONOCYTES % (AUTO) 47.9 % (2.0-12.0); NEUTROPHILS # (AUTO) 0.7 /CMM (1.8-8.9); NEUTROPHILS % (AUTO) 25.1 % (43.0-81.0); PLATELET COUNT (AUTO) 237 /CMM (150-450); RED BLOOD CELL COUNT(AUTO) 2.56 MIL/uL (4.0-5.2); WHITE BLOOD COUNT (AUTO) 2.7 K/uL (4.3-11.0)
[2019-08-12 04:43] LABS: CALCIUM, SERUM 7.5 mg/dL (8.5-10.1); CREATININE 1.2 mg/dL (0.6-1.3); POTASSIUM 3.6 mmol/L (3.5-5.1)
--- NOTE | 2019-08-12 05:30 | NUR ---
CLAM BED LABORER: NO SIGNIFICANT WYATT DURING THE SHIFT. STILL REMAINS SEDATED ON DIPRIVAN AT 65MCG/KG/MIN AND D5W WT 40MEQ KCL AT 75ML/HR. GTF TOLERATED WELL WT NO RESIDUAL. VENT SETTINGS ORDERED AND TOLERATING WELL. VS WITHIN BASELINE. BILAT. SOFT WRIST RESTRAINTS IN PLACE FOR EPISODES OF TRYING TO REACH TUBINGS. SKIN AND CIRCULATION WNL. HAD TWO LARGE AMT. OF BROWN SOFT/SEMI-LOOSE STOOLS. GOOD SKIN CARE RENDERED. SAFETY PRECAUTION NOTED AT ALL TIMES.
[2019-08-12 06:14] LABS: EOSINOPHILS % (MANUAL) 2 % (0-4); LYMPHOCYTES % (MANUAL) 32 % (16-48); MONOCYTES % (MANUAL) 30 % (0-11.0); NEUTROPHILS % (MANUAL) 36 (42-76)
[2019-08-12] MEDS: Potassium Chloride 40 MEQ in IV D5W 1,000 ML IV PRN (08:03)
[2019-08-12] MEDS: CITRIC ACID/SODIUM CITRATE (BICITRA)15 ML UDC GT SCH ×4 (08:13→21:04)
[2019-08-12] MEDS: ENOXAPARIN SODIUM 40 MG/0.4 ML DISP.SYRIN SQ SCH (08:16)
[2019-08-12] MEDS: LEVOTHYROXINE SODIUM 25 MCG TABLET PO SCH (08:16)
[2019-08-12] MEDS: HYDROCORTISONE SOD SUCCINATE 100 MG/2 ML VIAL IV SCH (08:17)
[2019-08-12] MEDS: PANTOPRAZOLE 40 MG/PACK PACK NG SCH (08:17)
[2019-08-12] MEDS: LOSARTAN POTASSIUM 50 MG TABLET PO SCH ×2 (08:17→21:06)
[2019-08-12] MEDS: METOPROLOL TARTRATE 50 MG TABLET PO SCH ×2 (08:18→16:21)
[2019-08-12] MEDS: AMLODIPINE BESYLATE 5 MG TABLET PO SCH (08:21)
[2019-08-12] MEDS: CLOTRIMAZOLE/BETAMETASONE DIPROPIONATE 15 GM TUBE TP SCH ×2 (08:22→16:23)
[2019-08-12] MEDS: PROSOURCE / PROSTAT (PYXIS) 30 ML UDC GT SCH ×2 (08:23→16:23)
[2019-08-12] MEDS ORDERED: POTASSIUM CHLORIDE 20 MEQ POWDER PACKET NG SCH (08:30)
[2019-08-12 08:47] LABS: MAGNESIUM 1.7 mg/dL (1.8-2.4); PHOSPHORUS 2.8 mg/dL (2.5-4.9)
--- NOTE | 2019-08-12 09:00 | NUR ---
RN NOTES PICTURE OF ABDOMINAL RASHES TAKEN , ACCOUNT SUPPORT REP AWARE, CONTINUE TO MONITOR.
[2019-08-12] MEDS: NITROGLYCERIN 30 GM TUBE TP SCH ×2 (09:18→21:05)
[2019-08-12] MEDS: SUCRALFATE 1 G TABLET GT SCH ×3 (11:49→21:08)
--- NOTE | 2019-08-12 12:00 | NUR ---
RN NOTES ORAL AND ET TUBE SUCTIONING DONE , VSS STABLE , CONTINUE TO MONITOR .
[2019-08-12] MEDS: VANCOMYCIN 0.75 GM in IV D5W 250 ML IV SCH (12:04)
--- NOTE | 2019-08-12 16:00 | NUR ---
RN NOTES PHARMACY NOTIFED REGARDING MG= 1.7
[2019-08-12 16:39] LABS: OCCULT BLOOD STOOL NEGATIVE (NEGATIVE)
--- NOTE | 2019-08-12 17:45 | NUR ---
RT PATIENT REMAINS ORALLY INTUBATED ON [facility] VENT. VENT ALARMS CHECKED + AUDIBLE. PATIENT REMAINS SEDATED AND COMFORTABLE ON VENT. AIRWAY CHECKED AND SECURE. SUCTIONED AND PATENT. AMBU BAG AT [facility]. CONT CURRENT PLAN OF RESP CARE. Addendum: 08/12/19 at 1745 by JANINA ZUNIGA RT Amended: Links added.
[2019-08-12] MEDS: Magnesium 1GM/D5W 100ML PREMIX 100 ML IV SCH ×2 (18:12→19:17)
--- NOTE | 2019-08-12 18:39 | NUR ---
RN NOTES PT REMAINS INTUBATED AND SEDATED ON DIPRIVAN AT 65MCG/KG/MIN , VSS STABLE, TOLERATING TF AT 20CC/HR WELL, NO RESIDUAL NOTED, AMADA. SOFT WRIST RESTRAINTS IN PLACE FOR EPISODES OF TRYING TO REACH TUBINGS. SKIN AND CIRCULATION WNL.STILES DRINING TO GRAVITY, GOOD SKIN CARE RENDERED. SR UP x3, CALL LIGHT WITHIN EASY REACH, BED LOCKED AND IN LOWEST POSITION, WILL ENDOSE TO HARDBOARD PANEL PRINTER NURSE FOR CONTINUITY OF CARE .
[2019-08-12 18:54] LABS: HEMOGLOBIN 7.5 g/dL (11.5-14.8)
--- NOTE | 2019-08-12 19:58 | NUR ---
PT RECEIVED ON CURRENT SETTINGS WITH NO SIGNS OF RESPIRATORY DISTRESS. AIRWAY IS PATENT AND SECURE. VENT IS PLUGGED INTO RED OUTLET WITH ALARMS ON AND AUDIBLE. SUCTION PT NEEDED. WILL CONTINUE TO MONITOR T/O SHIFT. Addendum: 08/12/19 at 8 by ONEL SHEFFIELD RT Amended: Links added.
--- NOTE | 2019-08-12 20:00 | NUR ---
Received patient sedated on Diprivan gtt @ 65 mcg via KYAW MIDLINE .Site intact.Patient orally intubated to mechanical vent and tolerating vent settings well with SPO2 98%.Secretions suctioned. SR.VSS.Tube feeding infusing via R NGT.Placement verified with minimal residual.FC to gravity. Dx: Acute Acute Respiratory Failure and COVID 19+Safety measures per protocol maintained Continue monitoring.
[2019-08-13] VITALS (25 sets, daily range): BP systolic 99–147; BP diastolic 66–92
--- NOTE | 2019-08-13 02:00 | NUR ---
Patient remains sedated.VSS.No acute distress noted.AM hygienic measures done.Turned and repositioned.
[2019-08-13] MEDS: PROPOFOL 100 ML IV PRN ×7 (02:11→22:52)
[2019-08-13 04:16] LABS: BASOPHILS % (AUTO) 1.1 % (0.0-2.0); EOSINOPHILS % (AUTO) 7.5 % (0.0-6.0); HEMATOCRIT 23 % (33-45); HEMOGLOBIN 7.7 g/dL (11.5-14.8); LYMPHOCYTES # (AUTO) 0.6 /CMM (0.8-4.8); LYMPHOCYTES % (AUTO) 19.4 % (20.0-44.0); MEAN CORPUSCULAR HGB CONC 33 g/dl (31.0-36.0); MEAN CORPUSCULAR VOLUME 90 fL (82-100); MONOCYTES # (AUTO) 1.7 /CMM (0.1-1.30); MONOCYTES % (AUTO) 54.8 % (2.0-12.0); NEUTROPHILS # (AUTO) 0.5 /CMM (1.8-8.9); NEUTROPHILS % (AUTO) 17.2 % (43.0-81.0); PLATELET COUNT (AUTO) 297 /CMM (150-450); RED BLOOD CELL COUNT(AUTO) 2.58 MIL/uL (4.0-5.2); WHITE BLOOD COUNT (AUTO) 3.2 K/uL (4.3-11.0)
[2019-08-13 04:27] LABS: CALCIUM, SERUM 7.6 mg/dL (8.5-10.1); CREATININE 1.3 mg/dL (0.6-1.3); MAGNESIUM 2.1 mg/dL (1.8-2.4); POTASSIUM 3.5 mmol/L (3.5-5.1)
[2019-08-13 05:26] LABS: EOSINOPHILS % (MANUAL) 9 % (0-4); LYMPHOCYTES % (MANUAL) 28 % (16-48); MONOCYTES % (MANUAL) 44 % (0-11.0)
[2019-08-13 05:27] LABS: NEUTROPHILS % (MANUAL) 19 (42-76)
--- NOTE | 2019-08-13 06:50 | NUR ---
Patient remains sedated and intubated on same settings.No significant changes noted during the shift. VSS.SR.Tube feeding well tolerated.All needs met.Safety measures maintained.Will endorse to day shift for cheyenne.
--- NOTE | 2019-08-13 07:20 | NUR ---
AUTOMOBILE BODY REPAIR CHIEF OPENING NOTE Received patient sedated in bed no signs of distress. On ETT and ventilator tolerating well. R NGT in place running Nepro @ 20ml/hr tolerating well. Vital signs within normal limits. Has bilateral soft restraints. Has KYAW midline on Diprivan 65mcg. Ojeda catheter in place draining clear yellow urine. Safety measures reinforced. Bed locked and on lowest position. Siderails up x2. Will cont to monitor.
[2019-08-13 07:51] LABS: ABG BASE EXCESS -4.9 mmol/L; ABG OXYGEN SATURATION 96.6 % (92.0-98.5); ABG PCO2 31.4 mmHg (35.0-45.0); ABG PH 7.403 (7.350-7.450); ABG PO2 100.7 mmHg (75.0-100.0); AaDO2 148.4 mmHg; COHb 0.4 % (0.5-1.5); MetHb 0.2 % (0.0-1.5); PEEP,BG 5 cm H2O; SITE, ABG Right Radial; VT, ABG 450 mL
[2019-08-13] MEDS: SUCRALFATE 1 G TABLET GT SCH (08:28)
[2019-08-13] MEDS: LEVOTHYROXINE SODIUM 25 MCG TABLET PO SCH (08:28)
[2019-08-13] MEDS: CITRIC ACID/SODIUM CITRATE (BICITRA)15 ML UDC GT SCH ×4 (08:31→21:05)
[2019-08-13] MEDS: ENOXAPARIN SODIUM 40 MG/0.4 ML DISP.SYRIN SQ SCH (08:31)
[2019-08-13] MEDS: PANTOPRAZOLE 40 MG/PACK PACK NG SCH (08:32)
[2019-08-13] MEDS: METOPROLOL TARTRATE 50 MG TABLET PO SCH ×2 (08:33→17:27)
[2019-08-13] MEDS: LOSARTAN POTASSIUM 50 MG TABLET PO SCH ×2 (08:33→21:05)
[2019-08-13] MEDS: AMLODIPINE BESYLATE 5 MG TABLET PO SCH (08:34)
[2019-08-13] MEDS: NITROGLYCERIN 30 GM TUBE TP SCH ×2 (08:34→21:06)
[2019-08-13] MEDS: CLOTRIMAZOLE/BETAMETASONE DIPROPIONATE 15 GM TUBE TP SCH ×2 (08:34→17:27)
[2019-08-13] MEDS: HYDROCORTISONE SOD SUCCINATE 100 MG/2 ML VIAL IV SCH (08:35)
[2019-08-13] MEDS: PROSOURCE / PROSTAT (PYXIS) 30 ML UDC GT SCH ×2 (08:35→17:26)
--- NOTE | 2019-08-13 09:00 | NUR ---
DIVERSIFIED CROPS FARMWORKER NOTE Seen and examined by Dr. Crowe with no new order.
[2019-08-13] MEDS ORDERED: POTASSIUM CHLORIDE 20 MEQ POWDER PACKET GT SCH (11:00)
[2019-08-13] MEDS ORDERED: VANCOMYCIN 0.75 GM in IV D5W 250 ML IV SCH (12:00)
--- NOTE | 2019-08-13 18:35 | NUR ---
ICU CLOSING NOTE Patient in bed sedated no signs of distress. On ETT and vent AC 16 TV 450 fio2 40% Peep % tolerating well. On NGT on the R Nare running Nepro @ 20ml/hr tolerating well. Checked placement. Patent and flushed well. Has KYAW Midline Propofol @ 65mcg tolerating well. FC draining clear yellow urine removed 800ml of urine no signs of infection. Restraints on both wrist intact with circulation. Elevated extremities. Vital signs within normal limits. Kept clean and dry. Repositioned q2h. Safety measures reinforced. Bed locked and on lowest position. Siderails up x2. Will endorse to restaurant shift leader nurse for cheyenne.
--- NOTE | 2019-08-13 20:00 | NUR ---
Received patient sedated on Diprivan gtt at 65 mcg.Maintained on full vent support as prescribed. Vent settings well tolerated.SR 70's.VSS.NGT feeding well tolerated.NGT placement verified.HOB elevated.FC to gravity drainage.Incontinent of stools kept clean and dry.Turned and repositioned No acute distress noted.Will continue to monitor.Safety precaution maintained.
--- NOTE | 2019-08-13 20:05 | NUR ---
RT NOTE PT RECEIVED INTUBATED ON MECHANICAL VENTILATION. ET TUBE 7.5 @ 21.5 CM AT LEFT LIP LINE. MOVED TO MID LIP LINE. SX DONE, TRACH SECURED AND PATENT. ORAL SX DONE. ALARMS ON AND AUDIBLE. VENT PLUGGED TO RED OUTLET. NO DISTRESS NOTED AT THIS TIME. WILL CONTINUE TO MONITOR T/O SHIFT. Addendum: 08/13/19 at 2006 by GAVIOTA ROJAS RT Amended: Links added.
[2019-08-14] VITALS (24 sets, daily range): BP systolic 103–163; BP diastolic 73–102
[2019-08-14] MEDS: IV NS 0.9% 250 ML IV PRN ×3 (01:41→18:49)
[2019-08-14] MEDS: PROPOFOL 100 ML IV PRN ×6 (01:42→21:43)
[2019-08-14 04:50] LABS: BASOPHILS # (AUTO) 0.1 /CMM (0.0-0.2); BASOPHILS % (AUTO) 1.7 % (0.0-2.0); EOSINOPHILS % (AUTO) 9.6 % (0.0-6.0); HEMATOCRIT 25 % (33-45); HEMOGLOBIN 8.3 g/dL (11.5-14.8); LYMPHOCYTES # (AUTO) 0.7 /CMM (0.8-4.8); LYMPHOCYTES % (AUTO) 16.1 % (20.0-44.0); MEAN CORPUSCULAR HGB CONC 33 g/dl (31.0-36.0); MEAN CORPUSCULAR VOLUME 91 fL (82-100); MONOCYTES # (AUTO) 1.9 /CMM (0.1-1.30); MONOCYTES % (AUTO) 45.8 % (2.0-12.0); NEUTROPHILS # (AUTO) 1.1 /CMM (1.8-8.9); NEUTROPHILS % (AUTO) 26.8 % (43.0-81.0); PLATELET COUNT (AUTO) 322 /CMM (150-450); RED BLOOD CELL COUNT(AUTO) 2.76 MIL/uL (4.0-5.2)
[2019-08-14 05:02] LABS: CALCIUM, SERUM 8.1 mg/dL (8.5-10.1); CREATININE 1.3 mg/dL (0.6-1.3); POTASSIUM 3.5 mmol/L (3.5-5.1)
[2019-08-14 05:37] LABS: LYMPHOCYTES % (MANUAL) 25 % (16-48); MONOCYTES % (MANUAL) 40 % (0-11.0)
[2019-08-14 05:38] LABS: EOSINOPHILS % (MANUAL) 9 % (0-4); NEUTROPHILS % (MANUAL) 26 (42-76)
--- NOTE | 2019-08-14 07:09 | NUR ---
No significant change noted during the shift.VSS.SR.Tolerating tube feeding well.All needs met. Safety measures maintained.Will endorse to day shift for cheyenne.
--- NOTE | 2019-08-14 07:30 | NUR ---
RN NOTES RECEIVED PATIENT, SEDATED WITH DIPRIVAN AT 70MCG. PATIENT ON VENTILATOR, SATING FINE BUT PATIENT TACHYPNEIC WITH USE OF ACCESSORY MUSCLE ON BREATHING. SINUS TACHY ON THE MONITOR WITH HR ON THE 130s. WITH ONGOING GTF AT 20 CC/HR. STILES CATHETER IN PLACE, DRAINING TO CLEAR YELLOW URINE. HOB ELEVATED. SAFETY MEASURES IN PLACE. BED IN LOW AND LOCKED POSITION. CALL LIGHT WITHIN REACH, WILL CONTINUE TO MONITOR PATIENT ACCORDINGLY
--- NOTE | 2019-08-14 08:30 | NUR ---
rn notes patient placed on SIMV mode but patient with tachycardia and tachypnea. saw patient and ordered patient to be placed back to AC mode
[2019-08-14 09:10] LABS: ABG BASE EXCESS -1.9 mmol/L; ABG OXYGEN SATURATION 96.2 % (92.0-98.5); ABG PCO2 34.1 mmHg (35.0-45.0); ABG PH 7.429 (7.350-7.450); ABG PO2 90.6 mmHg (75.0-100.0); AaDO2 155.4 mmHg; COHb 0.1 % (0.5-1.5); MetHb 0.3 % (0.0-1.5); O2Hb 95.8 % (94.0-97.0); SITE, ABG Left Radial; VENT MODE, BG AC 16 450 40% +5
[2019-08-14] MEDS: CITRIC ACID/SODIUM CITRATE (BICITRA)15 ML UDC GT SCH ×4 (10:48→21:20)
[2019-08-14] MEDS: LEVOTHYROXINE SODIUM 25 MCG TABLET PO SCH (10:48)
[2019-08-14] MEDS: HYDROCORTISONE SOD SUCCINATE 100 MG/2 ML VIAL IV SCH (10:49)
[2019-08-14] MEDS: PROSOURCE / PROSTAT (PYXIS) 30 ML UDC GT SCH ×2 (10:49→17:49)
[2019-08-14] MEDS: PANTOPRAZOLE 40 MG/PACK PACK NG SCH (10:50)
[2019-08-14] MEDS: LOSARTAN POTASSIUM 50 MG TABLET PO SCH ×2 (10:52→21:20)
[2019-08-14] MEDS: ENOXAPARIN SODIUM 40 MG/0.4 ML DISP.SYRIN SQ SCH (10:54)
[2019-08-14] MEDS: METOPROLOL TARTRATE 50 MG TABLET PO SCH ×2 (10:54→17:50)
[2019-08-14] MEDS: AMLODIPINE BESYLATE 5 MG TABLET PO SCH (10:55)
[2019-08-14] MEDS: CLOTRIMAZOLE/BETAMETASONE DIPROPIONATE 15 GM TUBE TP SCH ×2 (11:08→17:51)
[2019-08-14] MEDS: NITROGLYCERIN 30 GM TUBE TP SCH ×2 (11:08→21:20)
[2019-08-14] MEDS: POTASSIUM CHLORIDE 20 MEQ POWDER PACKET GT SCH ×3 (11:08→14:31)
[2019-08-14] MEDS: ACETAMINOPHEN 650 MG/20.3 ML UDC NG PRN (17:52)
[2019-08-14] MEDS: NEPRO 1,000 ML BOTTLE GT PRN (17:53)
--- NOTE | 2019-08-14 19:30 | NUR ---
rn notes endorsed for continuity of care. not on any form of distress. breathing unlabored. sating fine. still sedated with Diprivan at 60mcg. all nursing needs attended and met. safety measures in place. call light within reach
--- NOTE | 2019-08-14 19:42 | NUR ---
PT RECEIVED ORALLY INTUBATED WITH 7.5 ETT SECURED @ 21 CM LIP LINE ON MECHANICAL VENTILATION WITH NOTED SETTINGS . SX DONE, ETT SECURED AND PATENT. ALARMS ON AND AUDIBLE. VENT PLUGGED TO RED OUTLET. NO DISTRESS NOTED AT THIS TIME. WILL CONTINUE TO MONITOR T/O SHIFT.
--- NOTE | 2019-08-14 19:45 | NUR ---
ICU/ECO INDUSTRIAL DEVELOPMENT CONSULTANT REPORT RECEIVED FROM THE TO DAY NURSE. SEE FLOWSHEET FOR ASSESSMENT, SKIN ISSUES ARE ADDRESSED ON FLOWSHEET ALONG WITH INTERVENTION TO EACH. PT IS ON SEDATION AT THIS TIME DUE TO INTUBATION. PT'S SATURATION WHILE INTUBATED IS 99-100%. WILL MONITOR THIS PT AND HER SATURATION. PT WAS TURNED AND REPOSITIONED FOR COMFORT AND CARE. NO ACUTE DISTRESS SEEN AT THIS TIME.
--- NOTE | 2019-08-14 22:20 | NUR ---
ICU/TELEVISION INSTALLER PT WAS GIVEN PM CARE, ALONG WITH ORAL CARE. PT TOLERATED THIS WELL, REMAINS ON CURRENT VENT SETTING WITH SATURATION AT 100%. PT WAS TURNED AND REPOSITIONED FOR COMFORT AND CARE. WILL CONTINUE TO MONITOR THIS PT, NO ACUTE DISTRESS SEEN AT THIS TIME.
[2019-08-15] VITALS (24 sets, daily range): BP systolic 94–157; BP diastolic 54–86
[2019-08-15] MEDS: PROPOFOL 100 ML IV PRN ×9 (00:02→22:32)
--- NOTE | 2019-08-15 00:10 | NUR ---
ICU/EQUITIES ANALYST PT APPEARS TO HAVE TEMP COOLING MEASURES WERE CARRIED OUT, WILL MONITOR THIS PT'S TEMP.
--- NOTE | 2019-08-15 02:30 | NUR ---
ICU/CAT SCAN TECHNOLOGIST PT WAS GIVEN AM CARE, ALONG WITH ORAL CARE. PT TOLERATED THIS WELL, REMAINS ON CURRENT VENT SETTING WITH SATURATION AT 100%. PT WAS TURNED AND REPOSITIONED FOR COMFORT AND CARE. WILL CONTINUE TO MONITOR THIS PT, NO ACUTE DISTRESS SEEN AT THIS TIME.
[2019-08-15] MEDS: ACETAMINOPHEN 650 MG/20.3 ML UDC NG PRN ×2 (02:52→16:37)
--- NOTE | 2019-08-15 03:10 | NUR ---
ICU/PROPERTY VALUER TYLENOL 650 GIVEN VIA N/G TUBE FOR TEMP 100.2, ALSO COOLING MEASURES. WILL MONITOR THIS PT.
[2019-08-15 04:45] LABS: BASOPHILS # (AUTO) 0.1 /CMM (0.0-0.2); BASOPHILS % (AUTO) 1.4 % (0.0-2.0); EOSINOPHILS % (AUTO) 7.5 % (0.0-6.0); HEMATOCRIT 22 % (33-45); HEMOGLOBIN 7.7 g/dL (11.5-14.8); LYMPHOCYTES # (AUTO) 0.7 /CMM (0.8-4.8); LYMPHOCYTES % (AUTO) 11.1 % (20.0-44.0); MEAN CORPUSCULAR HGB CONC 34 g/dl (31.0-36.0); MEAN CORPUSCULAR VOLUME 88 fL (82-100); MONOCYTES # (AUTO) 1.9 /CMM (0.1-1.30); MONOCYTES % (AUTO) 30.6 % (2.0-12.0); NEUTROPHILS # (AUTO) 3.2 /CMM (1.8-8.9); NEUTROPHILS % (AUTO) 49.4 % (43.0-81.0); PLATELET COUNT (AUTO) 313 /CMM (150-450); RED BLOOD CELL COUNT(AUTO) 2.53 MIL/uL (4.0-5.2); WHITE BLOOD COUNT (AUTO) 6.4 K/uL (4.3-11.0)
[2019-08-15 04:52] LABS: CALCIUM, SERUM 7.9 mg/dL (8.5-10.1); CREATININE 1.1 mg/dL (0.6-1.3); POTASSIUM 3.8 mmol/L (3.5-5.1)
--- NOTE | 2019-08-15 05:19 | NUR ---
ICU/LEAD INVESTIGATOR AM LABS WERE DONE AWAIT FOR ANY CRITICAL RESULTS.
[2019-08-15 06:10] LABS: BAND % (MANUAL) 4 % (0.0-5.0); EOSINOPHILS % (MANUAL) 10 % (0-4); LYMPHOCYTES % (MANUAL) 12 % (16-48); METAMYELOCYTES % 5 % (0-0); MONOCYTES % (MANUAL) 26 % (0-11.0); NEUTROPHILS % (MANUAL) 43 (42-76)
[2019-08-15] MEDS: ENOXAPARIN SODIUM 40 MG/0.4 ML DISP.SYRIN SQ SCH (08:00)
[2019-08-15] MEDS: HYDROCORTISONE SOD SUCCINATE 100 MG/2 ML VIAL IV SCH (08:43)
[2019-08-15] MEDS: PANTOPRAZOLE 40 MG/PACK PACK NG SCH (08:43)
[2019-08-15] MEDS: CITRIC ACID/SODIUM CITRATE (BICITRA)15 ML UDC GT SCH ×4 (08:43→21:26)
[2019-08-15] MEDS: AMLODIPINE BESYLATE 5 MG TABLET PO SCH (08:44)
[2019-08-15] MEDS: LEVOTHYROXINE SODIUM 25 MCG TABLET PO SCH (08:44)
[2019-08-15] MEDS: METOPROLOL TARTRATE 50 MG TABLET PO SCH ×2 (08:44→16:39)
[2019-08-15] MEDS: LOSARTAN POTASSIUM 50 MG TABLET PO SCH ×2 (08:44→21:26)
[2019-08-15] MEDS: PROSOURCE / PROSTAT (PYXIS) 30 ML UDC GT SCH ×2 (08:44→16:40)
[2019-08-15] MEDS: CLOTRIMAZOLE/BETAMETASONE DIPROPIONATE 15 GM TUBE TP SCH ×2 (08:45→16:40)
[2019-08-15] MEDS: NITROGLYCERIN 30 GM TUBE TP SCH ×2 (08:45→21:27)
--- NOTE | 2019-08-15 19:30 | NUR ---
ICU/MANAGER OF QUALITY REPORT RECEIVED FROM THE TO DAY NURSE. SEE FLOWSHEET FOR ASSESSMENT, SKIN ISSUES ARE ADDRESSED ON FLOWSHEET ALONG WITH INTERVENTION TO EACH. PT IS ON SEDATION AT THIS TIME DUE TO INTUBATION. PT'S SATURATION WHILE INTUBATED IS 99-100%. WILL MONITOR THIS PT AND HER SATURATION. PT WAS TURNED AND REPOSITIONED FOR COMFORT AND CARE. NO ACUTE DISTRESS SEEN AT THIS TIME. WILL MONITOR FOR ANY ACUTE CHANGES.
--- NOTE | 2019-08-15 22:20 | NUR ---
ICU/ESCALATOR OPERATOR PT WAS GIVEN PM CARE, ALONG WITH ORAL CARE. PT TOLERATED THIS WELL, REMAINS ON CURRENT VENT SETTING WITH SATURATION AT 100%. PT WAS TURNED AND REPOSITIONED FOR COMFORT AND CARE. WILL CONTINUE TO MONITOR THIS PT, NO ACUTE DISTRESS SEEN AT THIS TIME.
[2019-08-16] VITALS (25 sets, daily range): BP systolic 102–167; BP diastolic 65–97
[2019-08-16] MEDS: PROPOFOL 100 ML IV PRN ×4 (01:41→16:32)
--- NOTE | 2019-08-16 01:50 | NUR ---
ICU/CLASSROOM ASSISTANT PT WAS GIVEN AM CARE, ALONG WITH ORAL CARE. PT TOLERATED THIS WELL, REMAINS ON CURRENT VENT SETTING WITH SATURATION AT 100%. PT WAS TURNED AND REPOSITIONED FOR COMFORT AND CARE. WILL CONTINUE TO MONITOR THIS PT, NO ACUTE DISTRESS SEEN AT THIS TIME.
--- NOTE | 2019-08-16 03:50 | NUR ---
ICU/TRANSPORT AIDE AM LABS WERE DONE AWAIT FOR ANY CRITICAL RESULTS.
[2019-08-16 04:59] LABS: BASOPHILS # (AUTO) 0.1 /CMM (0.0-0.2); BASOPHILS % (AUTO) 1.2 % (0.0-2.0); EOSINOPHILS % (AUTO) 2.8 % (0.0-6.0); HEMATOCRIT 26 % (33-45); HEMOGLOBIN 8.9 g/dL (11.5-14.8); LYMPHOCYTES # (AUTO) 0.6 /CMM (0.8-4.8); MEAN CORPUSCULAR HGB CONC 34 g/dl (31.0-36.0); MEAN CORPUSCULAR VOLUME 88 fL (82-100); MONOCYTES # (AUTO) 0.9 /CMM (0.1-1.30); MONOCYTES % (AUTO) 13.2 % (2.0-12.0); NEUTROPHILS # (AUTO) 5.1 /CMM (1.8-8.9); NEUTROPHILS % (AUTO) 73.8 % (43.0-81.0); PLATELET COUNT (AUTO) 311 /CMM (150-450); RED BLOOD CELL COUNT(AUTO) 2.99 MIL/uL (4.0-5.2); WHITE BLOOD COUNT (AUTO) 6.9 K/uL (4.3-11.0)
[2019-08-16 05:10] LABS: CALCIUM, SERUM 8.3 mg/dL (8.5-10.1); CREATININE 1.2 mg/dL (0.6-1.3); POTASSIUM 3.5 mmol/L (3.5-5.1)
[2019-08-16] MEDS: HYDROCORTISONE SOD SUCCINATE 100 MG/2 ML VIAL IV SCH (07:56)
[2019-08-16] MEDS: ENOXAPARIN SODIUM 40 MG/0.4 ML DISP.SYRIN SQ SCH (07:56)
[2019-08-16] MEDS: PANTOPRAZOLE 40 MG/PACK PACK NG SCH (07:57)
[2019-08-16] MEDS: LEVOTHYROXINE SODIUM 25 MCG TABLET PO SCH (07:57)
[2019-08-16] MEDS: AMLODIPINE BESYLATE 5 MG TABLET PO SCH (07:57)
[2019-08-16] MEDS: CITRIC ACID/SODIUM CITRATE (BICITRA)15 ML UDC GT SCH ×2 (07:57→12:11)
[2019-08-16] MEDS: PROSOURCE / PROSTAT (PYXIS) 30 ML UDC GT SCH ×2 (07:58→17:00)
[2019-08-16] MEDS: LOSARTAN POTASSIUM 50 MG TABLET PO SCH ×2 (07:58→21:12)
[2019-08-16] MEDS: METOPROLOL TARTRATE 50 MG TABLET PO SCH ×2 (07:58→18:12)
[2019-08-16] MEDS: NITROGLYCERIN 30 GM TUBE TP SCH ×2 (07:59→21:12)
[2019-08-16] MEDS: CLOTRIMAZOLE/BETAMETASONE DIPROPIONATE 15 GM TUBE TP SCH ×2 (07:59→17:00)
--- NOTE | 2019-08-16 08:00 | NUR ---
Sedation Vacation Notes Sedation titrated per protocol, patient opens eyes, does not track or follow command. Pupils reactive to light, PERRLA, grimaces to deep pain
[2019-08-16 10:47] LABS: ABG BASE EXCESS 1.4 mmol/L; ABG OXYGEN SATURATION 96.1 % (92.0-98.5); ABG PCO2 36.8 mmHg (35.0-45.0); ABG PH 7.455 (7.350-7.450); ABG PO2 88.1 mmHg (75.0-100.0); AaDO2 154.8 mmHg; COHb 0.1 % (0.5-1.5); MetHb 0.3 % (0.0-1.5); O2Hb 95.7 % (94.0-97.0); SITE, ABG Right Radial; VENT MODE, BG AC 16 450 40%+5
[2019-08-16] MEDS: ACETAMINOPHEN 650 MG/20.3 ML UDC NG PRN ×2 (12:11→14:09)
[2019-08-16] MEDS: METOCLOPRAMIDE HCL 10 MG/2 ML VIAL IV SCH ×2 (14:08→21:04)
--- NOTE | 2019-08-16 18:52 | NUR ---
CHEMIST INSTRUMENTATION Shift Summary Oral COVID swab taken and sent to lab today. Patient remains sedated, see vacation notes. 100mL secretions via ETT, 15mL orally. SR HR 80s, BP elevated at times. Temp max 99.8 rectally. R nare NGT. Before feeding, >100mL green gastric secretions noted, Dr. Ortiz ordered Reglan, GTF resumed, 100mL residual noted. Nepro @20mL/hr. Liquid stool noted, flexiseal placed. Ojeda catheter draining to gravity 550mL this shift. Wound care as ordered (no lotrisone avail for evening dose per pharm - more tomorrow). Edema on extremities noted. KYAW midline intact, patent, infusing propofol@30mcg/kg/min. Tylenol given x1 this shift.
--- NOTE | 2019-08-16 19:15 | NUR ---
ICU/OPENING RECEIVED PATIENT SEDATED ON VENT WITH NO SIGN OF ANY DISTRESS. PATIENT OPENS EYES BUT NO REACTION OR ANY TRACKING. TOLERATING VENT SETTINGS ORDERED AND SATURATING AT 100%. PATIENT IS SR WITH HR 67 ON BEDSIDE MONITOR. PATIENT HAS A KYAW MIDLINE WITH DIPRIVAN AT 30MCG/KG/MIN AND TKO INFUSING. PATIENT HAS R NG TUBE WITH NEPRO RUNNING AT 20CC/HR WITH 50CC RESIDUAL. FC IN PLACE RUNNING VIA GRAVITY WITH YELLOW OUTPUT. FLEXI SEAL ATTACHED SO FAR NO OUTPUT SEEN. ALL SAFETY PRECAUTIONS APPLIED. ISOLATION APPLIED FOR DROPLET PRECAUTIONS. WILL CONTINUE TO MONITOR PATIENT THROUGHOUT SHIFT.
[2019-08-17] VITALS (25 sets, daily range): BP systolic 108–162; BP diastolic 55–99
[2019-08-17] MEDS: PROPOFOL 100 ML IV PRN ×2 (00:48→04:56)
[2019-08-17 04:19] LABS: BASOPHILS # (AUTO) 0.1 /CMM (0.0-0.2); BASOPHILS % (AUTO) 0.6 % (0.0-2.0); EOSINOPHILS % (AUTO) 3.3 % (0.0-6.0); HEMATOCRIT 25 % (33-45); HEMOGLOBIN 8.4 g/dL (11.5-14.8); LYMPHOCYTES % (AUTO) 10.1 % (20.0-44.0); MEAN CORPUSCULAR HGB CONC 33 g/dl (31.0-36.0); MEAN CORPUSCULAR VOLUME 88 fL (82-100); MONOCYTES # (AUTO) 1.7 /CMM (0.1-1.30); NEUTROPHILS # (AUTO) 6.8 /CMM (1.8-8.9); PLATELET COUNT (AUTO) 345 /CMM (150-450); RED BLOOD CELL COUNT(AUTO) 2.88 MIL/uL (4.0-5.2); WHITE BLOOD COUNT (AUTO) 9.9 K/uL (4.3-11.0)
[2019-08-17 04:32] LABS: ALBUMIN 1.7 g/dL (3.4-5.0); BILIRUBIN,TOTAL 0.4 mg/dL (0.2-1.0); CALCIUM, SERUM 8.6 mg/dL (8.5-10.1); CREATININE 1.2 mg/dL (0.6-1.3); MAGNESIUM 1.5 mg/dL (1.8-2.4); PHOSPHORUS 4.3 mg/dL (2.5-4.9); TOTAL PROTEIN, SERUM 6.4 g/dL (6.4-8.2)
[2019-08-17 04:45] LABS: POTASSIUM 2.4 mmol/L (3.5-5.1)
[2019-08-17 05:07] LABS: BAND % (MANUAL) 4 % (0.0-5.0); LYMPHOCYTES % (MANUAL) 8 % (16-48); MONOCYTES % (MANUAL) 11 % (0-11.0); NEUTROPHILS % (MANUAL) 72 (42-76); REACTIVE LYMPHOCYTES 5 % (0-0)
[2019-08-17] MEDS: ACETAMINOPHEN 650 MG/20.3 ML UDC NG PRN ×2 (05:27→12:05)
[2019-08-17] MEDS: METOCLOPRAMIDE HCL 10 MG/2 ML VIAL IV SCH ×3 (05:27→20:11)
--- NOTE | 2019-08-17 05:30 | NUR ---
CRITICAL LAB RECEIVED CRITICAL LAB BY SAUNDRA FROM LAB AT 0500. POTASSIUM AT 2.4. CONTACTED JOSE JIMÉNEZ INFORMING HIM ABOUT THE CRITICAL RESULTS. ORDERS CARRIED OUT OF 60MEQ IV OF KCL.
[2019-08-17] MEDS: POTASSIUM CL. PREMIX PERIPHER. 50 ML IV SCH ×6 (06:33→11:47)
--- NOTE | 2019-08-17 07:15 | NUR ---
ICU/CLOSING PATIENT CONTINUES ON SEDATION WITH INTUBATION. OPENS EYES BUT NO TRACKING. PATIENT TOLERATING VENT SETTINGS ORDERED SATURATING AT 100%. DIPRIVAN AT 30MCG/KG/MIN. KCL RUNNING AT 50MLS. ALL SAFETY PRECAUTIONS APPLIED. ENDORSED PATIENT TO MORNING SHIFT NURSE FOR WYATT.
--- NOTE | 2019-08-17 07:15 | NUR ---
RN INITIAL NOTES RECEIVED PT INTUBATED, ON VENT. HOB ELEVATED. NO RESPIRATORY DISTRESS NOTED. NO SOB NOTED. PT SEDATED, ON DIPRIVAN AT 30MCG/KG/MIN. NGT IN PLACE. ON TUBE FEEDING. WILL MONITOR RESIDUAL. FC IN PLACE. BLE ELEVATED. WILL MONITOR FOR CHANGES
[2019-08-17] MEDS: HYDROCORTISONE SOD SUCCINATE 100 MG/2 ML VIAL IV SCH (08:16)
[2019-08-17] MEDS: LEVOTHYROXINE SODIUM 25 MCG TABLET PO SCH (08:17)
[2019-08-17] MEDS: LOSARTAN POTASSIUM 50 MG TABLET PO SCH ×2 (08:17→20:12)
[2019-08-17] MEDS: PANTOPRAZOLE 40 MG/PACK PACK NG SCH (08:17)
[2019-08-17] MEDS: AMLODIPINE BESYLATE 5 MG TABLET PO SCH (08:17)
[2019-08-17] MEDS: METOPROLOL TARTRATE 50 MG TABLET PO SCH ×2 (08:17→16:35)
[2019-08-17] MEDS: CLOTRIMAZOLE/BETAMETASONE DIPROPIONATE 15 GM TUBE TP SCH ×2 (08:18→16:36)
[2019-08-17] MEDS: NITROGLYCERIN 30 GM TUBE TP SCH ×2 (08:18→20:12)
[2019-08-17] MEDS: ENOXAPARIN SODIUM 40 MG/0.4 ML DISP.SYRIN SQ SCH (08:18)
[2019-08-17] MEDS: PROSOURCE / PROSTAT (PYXIS) 30 ML UDC GT SCH ×2 (08:19→16:36)
[2019-08-17] MEDS: POTASSIUM CHLORIDE 20 MEQ POWDER PACKET NG SCH ×2 (09:29→10:31)
--- NOTE | 2019-08-17 11:30 | NUR ---
RN NOTES 1100 SEEN AND EXAMINED BY DR HARDWICK. PT OFF SEDATION. OPEN EYES, NOT FOLLOWING COMMANDS. NO RESPIRATORY DISTRESS NOTED. NO SOB NOTED. KPET HOB ELEVATED. WILL KEEP OFF SEDATION FOR POSSIBLE WEANING TRIALS. WILL MONITOR 1130 SEEN AND EXAMINED BY DR MARTINI. AWARE OF LAB VALUES AND CXR RESULT. REPLACEMENT ORDERED FOR POTASSIUM AND MAGNESIUM. LATEST COVID SWAB STILL PENDING. WILL CLOSELY MONITOR
[2019-08-17] MEDS: Magnesium 1GM/D5W 100ML PREMIX 100 ML IV SCH ×2 (13:33→14:25)
[2019-08-17 14:36] LABS: ABG BASE EXCESS -0.1 mmol/L; ABG OXYGEN SATURATION 97.3 % (92.0-98.5); ABG PCO2 37.3 mmHg (35.0-45.0); ABG PH 7.428 (7.350-7.450); ABG PO2 98.8 mmHg (75.0-100.0); AaDO2 143.5 mmHg; COHb 0.4 % (0.5-1.5); MetHb 0.4 % (0.0-1.5); O2Hb 96.5 % (94.0-97.0); SITE, ABG Right Radial
[2019-08-17] MEDS: LORAZEPAM INJ 2 MG/ML VIAL IV PRN ×2 (16:35→21:01)
[2019-08-17] MEDS: NEPRO 1,000 ML BOTTLE GT PRN (17:18)
--- NOTE | 2019-08-17 18:26 | NUR ---
RN CLOSING NOTES PT REMAINS INTUBATED, ON SIMV MODE. NO RESPIRATORY DISTRESS NOTED. NO SOB NOTED. KEPT HOB ELEVATED. ON TUBE FEEDING. KEPT CLEAN AND DRY. REPOSITIONED WHEN ABLE DUE TO ISOLATION. BLE ELEVATED. WILL ENDORSE FOR CONTINUITY OF CARE.
--- NOTE | 2019-08-17 19:15 | NUR ---
ICU/OPENING RECEIVED PATIENT INTUBATED WITH NO SEDATION. PATIENT IS CURRENTLY ON SIMV MODE TOLERATING VENT SETTINGS ORDERED. PATIENT IS SATURATING AT 99% PATIENT IS SLIGHT TACHYPNEIC WITH RESPIRATION AT 26/MIN. BREATHING IS LABORED. GTUBE FEEDING IS RUNNING AT 20CC/HR. KYAW MID WITH TKO INFUSING. FC DRAINING WITH YELLOW OUTPUT FELXISEAL ATTACHED AND PATENT. ALL SAFETY PRECAUTIONS APPLIED. WILL CONTINUE TO MONITOR PATIENT THROUGHOUT SHIFT.
--- NOTE | 2019-08-17 20:39 | NUR ---
RESIDUAL FROM NGT TUBE IS 100CC
--- NOTE | 2019-08-17 21:00 | NUR ---
PATIENT BECOMING TACHYCARDIC, RESPIRATIONS AT 25 WITH LABORED BREATHING. ADMINISTERED ATIVAN. WILL CONTINUE TO MONITOR PATIENT.
--- NOTE | 2019-08-17 23:15 | NUR ---
LAB RESULTS FOR ORAL COVID SWAB RECEIVED. RESULTS IN NEGATIVE.
[2019-08-18] VITALS (26 sets, daily range): BP systolic 115–167; BP diastolic 71–106
[2019-08-18] MEDS: PROPOFOL 100 ML IV PRN (00:01)
--- NOTE | 2019-08-18 00:30 | NUR ---
PATIENT SHOWING TACHYPNEIC RESPIRATION IN THE 30'S. CONSIDERING CHANGING PATIENT BACK TO AC MODE ON VENTILATOR. WILL CALL RT FOR ASSESSMENT. RT SUCTIONED PATIENT AND CHANGED PULSE OX. NO CHANGE TO VENTILATOR AT THIS TIME. WILL CONTINUE TO MONITOR PATIENT. HR STILL AT 115.
[2019-08-18] MEDS: ACETAMINOPHEN 650 MG/20.3 ML UDC NG PRN ×2 (01:27→15:21)
--- NOTE | 2019-08-18 01:30 | NUR ---
PATIENT FEVER OF 100.2, ADMINISTERED TYLENOL AND APPLIED COOLING MEASURES. HR AT 115. WILL CONTINUE TO MONITOR
--- NOTE | 2019-08-18 01:53 | NUR ---
PATIENT SATURATING AT 100%. RESPIRATIONS AT 26. BREATHING NOT LABORED. NO DISTRESS NOTED. WILL CONTINUE TO MONITOR PATIENT. PROPOFOL SET UP IF NEEDED IF PATIENT IS CHANGED BACK TO AC MODE.
--- NOTE | 2019-08-18 03:38 | NUR ---
PATIENT MORE RELAXED RESPIRATIONS AT 22 SATURATING AT 99%. BREATHING UNLABORED. WILL CONTINUE TO MONITOR.
[2019-08-18] MEDS: LORAZEPAM INJ 2 MG/ML VIAL IV PRN (04:06)
[2019-08-18 04:26] LABS: BASOPHILS # (AUTO) 0.1 /CMM (0.0-0.2); BASOPHILS % (AUTO) 0.7 % (0.0-2.0); EOSINOPHILS % (AUTO) 2.9 % (0.0-6.0); HEMATOCRIT 27 % (33-45); HEMOGLOBIN 8.7 g/dL (11.5-14.8); LYMPHOCYTES # (AUTO) 1.2 /CMM (0.8-4.8); LYMPHOCYTES % (AUTO) 8.1 % (20.0-44.0); MEAN CORPUSCULAR HGB CONC 33 g/dl (31.0-36.0); MEAN CORPUSCULAR VOLUME 87 fL (82-100); MONOCYTES # (AUTO) 2.1 /CMM (0.1-1.30); MONOCYTES % (AUTO) 14.6 % (2.0-12.0); NEUTROPHILS # (AUTO) 10.8 /CMM (1.8-8.9); NEUTROPHILS % (AUTO) 73.7 % (43.0-81.0); PLATELET COUNT (AUTO) 345 /CMM (150-450); RED BLOOD CELL COUNT(AUTO) 3.04 MIL/uL (4.0-5.2); WHITE BLOOD COUNT (AUTO) 14.6 K/uL (4.3-11.0)
[2019-08-18 04:41] LABS: CALCIUM, SERUM 9.3 mg/dL (8.5-10.1); CREATININE 1.2 mg/dL (0.6-1.3); MAGNESIUM 1.8 mg/dL (1.8-2.4)
[2019-08-18 05:12] LABS: POTASSIUM 2.6 mmol/L (3.5-5.1)
[2019-08-18] MEDS: METOCLOPRAMIDE HCL 10 MG/2 ML VIAL IV SCH ×3 (05:23→20:33)
--- NOTE | 2019-08-18 05:45 | NUR ---
CRITICAL LAB OF POTASSIUM REPORTED TO DMITIRY. ORDERS CARRIED OUT OF 60MEQ KCL IV. WILL ADMINISTER AND CONTINUE TO MONITOR.
[2019-08-18] MEDS: IV NS 0.9% 250 ML IV PRN (06:11)
[2019-08-18] MEDS: POTASSIUM CL. PREMIX PERIPHER. 50 ML IV SCH ×6 (06:11→11:46)
--- NOTE | 2019-08-18 07:11 | NUR ---
ICU CLOSING PATIENT CONTINUES ON SIMV MODE, HR AT 125 RESPIRATIONS AT 24 SATURATING AT 99%. PATIENT ONLY OPENS EYES WITH NO TRACKING. NO RESPONSE TO STIMULI BUT RESPONSE TO NAME. ALL SAFETY PRECAUTIONS APPLIED. ENDORSED PATIENT TO MORNING SHIFT NURSE FOR WYATT
--- NOTE | 2019-08-18 07:25 | NUR ---
ICU/RN PT IS INTUBATED ON THE VENT SIMV MODE,SAT O2-100%.T-100.0. V/S STABLE.NO PAIN REPORTED AT THIS TIME.OFF PROPOFOL.PT IS AWAKE,OPEN EYES,NOT FOLLOWS COMMAND ,NOT MOVING HER EXTREMITIES.RIGHT UPPER ARM MIDLINE.NG TUBE INFUSING WITH 20 ML OF FEEDING.RESIDUAL 120 ML NOTED.MD NOTIFIED.FEEDING IS PLACED ON HOLD.F/C DRAINING WITH YELLOW URINE.RECTAL TUBE DRAINING WITH LIQUID YELLOW STOOL.GENERALIZED EDEMA PRESENT.LABS REVIEW .MD NOTIFIED.NEW ORDERS RECEIVED.SUCTION PROVIDED.PT HAS WITHE CLEAR SECRETION.
[2019-08-18] MEDS: LEVOTHYROXINE SODIUM 25 MCG TABLET PO SCH (08:01)
[2019-08-18] MEDS: PROSOURCE / PROSTAT (PYXIS) 30 ML UDC GT SCH ×2 (08:10→15:21)
[2019-08-18] MEDS: METOPROLOL TARTRATE 50 MG TABLET PO SCH ×2 (08:14→16:29)
[2019-08-18] MEDS: PANTOPRAZOLE 40 MG/PACK PACK NG SCH (08:15)
[2019-08-18] MEDS: AMLODIPINE BESYLATE 5 MG TABLET PO SCH (08:15)
[2019-08-18] MEDS: LOSARTAN POTASSIUM 50 MG TABLET PO SCH ×2 (08:15→20:34)
[2019-08-18] MEDS: HYDROCORTISONE SOD SUCCINATE 100 MG/2 ML VIAL IV SCH (08:15)
[2019-08-18] MEDS: CLOTRIMAZOLE/BETAMETASONE DIPROPIONATE 15 GM TUBE TP SCH ×2 (08:16→16:30)
[2019-08-18] MEDS: ENOXAPARIN SODIUM 40 MG/0.4 ML DISP.SYRIN SQ SCH (08:17)
[2019-08-18] MEDS: NITROGLYCERIN 30 GM TUBE TP SCH ×2 (08:19→20:33)
--- NOTE | 2019-08-18 09:00 | NUR ---
ICU/RN DUE MEDS ARE GIVEN ORDERED.
--- NOTE | 2019-08-18 10:45 | NUR ---
ICU/RN COVID SWAB DONE ORDERED.DELIVERED TO THE LAB.
[2019-08-18] MEDS: POTASSIUM CHLORIDE 20 MEQ POWDER PACKET GT SCH ×2 (11:16→11:46)
[2019-08-18 13:17] LABS: ABG BASE EXCESS -3.8 mmol/L; ABG OXYGEN SATURATION 93.5 % (92.0-98.5); ABG PCO2 26.6 mmHg (35.0-45.0); ABG PH 7.468 (7.350-7.450); ABG PO2 82.2 mmHg (75.0-100.0); AaDO2 172.4 mmHg; COHb 0.3 % (0.5-1.5); MetHb 0.7 % (0.0-1.5); O2Hb 92.6 % (94.0-97.0); PEEP,BG 5 cm H2O; SITE, ABG Right Radial; VENT MODE, BG SIMV PS=15; VT, ABG 450 mL
--- NOTE | 2019-08-18 15:13 | NUR ---
RT NOTE: PATIENT RECEIVED ORALLY INTUBATED WITH 7.5 ETT SECURED AT 22CM MID LIP LINE ON MECHANICAL VENT. ALARMS VERIFIED AND AUDIBLE. CHANGES MADE PER 'S ORDER. VENT PLUGGED INTO RED OUTLET. AMBU BAG AT [facility].
[2019-08-18] MEDS: NEPRO 1,000 ML BOTTLE GT PRN (15:21)
--- NOTE | 2019-08-18 19:30 | NUR ---
ICU/OPENING RECEIVED PATIENT INTUBATED WITH NO SIGN OF ANY DISTRESS. PATIENT IS NOT ABLE TO FOLLOW COMMANDS. ONLY ABLE TO OPEN EYES SPONTANEOUSLY. PATIENT CURRENTLY TOLERATING VENT SETTINGS ORDERED SATURATING AT 100% WITH NO SIGN OF SOB. PATIENT KYAW MIDLINE PATENT AND TKO INFUSING. FC IN PLACE WITH DIPTI OUTPUT. FELXISEAL PATENT. PATIENT WAS REPOSITIONED. RT NGT IN PLACE RESIDUAL OF 100CC/HR. FEEDING IS RUNNING AT 20CC/HR. ALL SAFETY PRECUATIONS APPLIED. WILL CONTINUE TO MONITOR PATIENT THROUGHOUT SHIFT.
[2019-08-19] VITALS (24 sets, daily range): BP systolic 106–167; BP diastolic 56–101
[2019-08-19] MEDS: ACETAMINOPHEN 650 MG/20.3 ML UDC NG PRN ×3 (01:21→22:14)
[2019-08-19 04:26] LABS: BASOPHILS # (AUTO) 0.1 /CMM (0.0-0.2); BASOPHILS % (AUTO) 0.6 % (0.0-2.0); EOSINOPHILS % (AUTO) 2.4 % (0.0-6.0); HEMATOCRIT 22 % (33-45); LYMPHOCYTES # (AUTO) 1.3 /CMM (0.8-4.8); LYMPHOCYTES % (AUTO) 8.2 % (20.0-44.0); MEAN CORPUSCULAR HGB CONC 32 g/dl (31.0-36.0); MEAN CORPUSCULAR VOLUME 87 fL (82-100); MONOCYTES # (AUTO) 2.1 /CMM (0.1-1.30); MONOCYTES % (AUTO) 13.1 % (2.0-12.0); NEUTROPHILS # (AUTO) 12.3 /CMM (1.8-8.9); NEUTROPHILS % (AUTO) 75.7 % (43.0-81.0); PLATELET COUNT (AUTO) 321 /CMM (150-450); WHITE BLOOD COUNT (AUTO) 16.3 K/uL (4.3-11.0)
[2019-08-19 04:43] LABS: CALCIUM, SERUM 9.2 mg/dL (8.5-10.1); CREATININE 1.1 mg/dL (0.6-1.3)
[2019-08-19 05:05] LABS: POTASSIUM 2.8 mmol/L (3.5-5.1)
[2019-08-19] MEDS: METOCLOPRAMIDE HCL 10 MG/2 ML VIAL IV SCH ×3 (05:17→22:09)
--- NOTE | 2019-08-19 05:45 | NUR ---
PAGED PACKING SHED SUPERVISOR BHAKTI BHATT ABOUT CRITICAL LAB. MILLER ORDERED 60MEQ KCL IV. REGARDING H/H NO NEW ORDER. DEPENDING ON PHYSICIAN THAT WILL PERFORM TRACH PROCEDURE TO SEE IF THEY WISH TO TRANSFUSE BLOOD.
[2019-08-19] MEDS: POTASSIUM CL. PREMIX PERIPHER. 50 ML IV SCH ×6 (06:14→11:26)
--- NOTE | 2019-08-19 06:15 | NUR ---
INDETERMINATE COVID RESULTS RECEIVED FROM LAB FROM [facility].
--- NOTE | 2019-08-19 06:42 | NUR ---
CALLED OR SPOKE TO SHALINI TO NOTIFY ABOUT PATIENTS CURRENT COVID RESULTS. SAYS HE WILL LET THE NURSE KNOW AND FOLLOW UP.
--- NOTE | 2019-08-19 06:55 | NUR ---
SPOKE TO ROYA IN OR INFORMED THEM ABOUT POTASSIUM LEVEL AT 2.8 AND CURRENTLY BEING REPLACED. PER ANESTHESIOLOGIST WILL CONTINUE WITH PROCEDURE.
[2019-08-19] MEDS ORDERED: ANESTHESIA TRAY IN PYXIS 1 EA TRAY MC ONE (07:00)
[2019-08-19] MEDS ORDERED: LIDOCAINE HCL/MPF 1% 30 ML VIAL IJ ONE (07:01)
[2019-08-19] MEDS ORDERED: CELLULOSE,OXIDIZED 1 PKT EACH MC ONE (07:07)
[2019-08-19] MEDS ORDERED: MIDAZOLAM HCL 2 MG/2ML VIAL ONE (07:11)
[2019-08-19] MEDS ORDERED: ROCURONIUM BROMIDE 50 MG/5 ML ONE (07:11)
--- NOTE | 2019-08-19 07:20 | NUR ---
FINGERPRINT CLERK OPENING NOTE Received patient asleep in bed appears calm and relaxed. Has ETT and vent, settings as followed: AC 16 fio2 40% peep 5 tolerating well no signs of distress. Patient opens eyes, no respond to questions. Tele monitor reading ST 110bpm. Has fever of 100.1F will give tylenol per order. R NGT in place checked placement, patent. Ojeda catheter draining clear yellow urine. Rectal tube in place at 400ml of liquid brown stool. Patient is NPO held feeding since midnight per manufacturing supervisor 2nd shift nurse. KYAW midline in place running K Cl 10mEq 50ml/hr. Family refused to give consent for the trach procedure. They want to speak to MD before. Will follow up with MD. Safety measures reinforced. Bed locked and on lowest position. Call light within reach. Siderails up x2. Will continue to monitor.
--- NOTE | 2019-08-19 07:31 | NUR ---
ICU/CLOSING PATIENT IN BED WITH NO SIGN OF ANY DISTRESS. PATIENT TOLERATING CURRENT VENT SETTINGS ORDERED. NONEVENTFUL NIGHT.. ALL SAFETY PRECAUTIONS APPLIED. WILL ENDORSE PATIENT TO MORNING SHIFT NURSE FOR WYATT.
[2019-08-19] MEDS: LEVOTHYROXINE SODIUM 25 MCG TABLET PO SCH (07:59)
[2019-08-19] MEDS: ENOXAPARIN SODIUM 40 MG/0.4 ML DISP.SYRIN SQ SCH (08:00)
--- NOTE | 2019-08-19 08:18 | NUR ---
ATTENDING ANESTHESIOLOGIST NOTES RECEIVED ORDER TO STOP PROPOFOL IN PREP FOR EXTUBATION. Addendum: 08/19/19 at 0819 by JOSIE PRAKASH RN DISREGARD PREVIOUS NOTE
--- NOTE | 2019-08-19 08:26 | NUR ---
CALF SKINNER NOTE Held Lovenox per MD. Inf HGB level 7.0.
[2019-08-19] MEDS: PROSOURCE / PROSTAT (PYXIS) 30 ML UDC GT SCH ×2 (08:29→17:14)
[2019-08-19] MEDS: HYDROCORTISONE SOD SUCCINATE 100 MG/2 ML VIAL IV SCH (08:30)
[2019-08-19] MEDS: PANTOPRAZOLE 40 MG/PACK PACK NG SCH (08:31)
[2019-08-19] MEDS: LOSARTAN POTASSIUM 50 MG TABLET PO SCH ×2 (08:31→22:09)
[2019-08-19] MEDS: AMLODIPINE BESYLATE 5 MG TABLET PO SCH (08:32)
[2019-08-19] MEDS: CLOTRIMAZOLE/BETAMETASONE DIPROPIONATE 15 GM TUBE TP SCH ×2 (08:32→17:15)
[2019-08-19] MEDS: METOPROLOL TARTRATE 50 MG TABLET PO SCH ×2 (08:32→17:15)
[2019-08-19] MEDS: NITROGLYCERIN 30 GM TUBE TP SCH ×2 (08:33→22:08)
[2019-08-19] MEDS: POTASSIUM CHLORIDE 20 MEQ POWDER PACKET NG SCH ×3 (09:14→11:26)
--- NOTE | 2019-08-19 09:30 | NUR ---
SERVICE STATION CONSOLE OPERATOR NOTE Informed MD, patient's family want to talk to a doctor regarding trach procedure. Awaiting response.
[2019-08-19 09:46] LABS: ABG BASE EXCESS 0.2 mmol/L; ABG OXYGEN SATURATION 96.2 % (92.0-98.5); ABG PCO2 36.6 mmHg (35.0-45.0); ABG PO2 90.6 mmHg (75.0-100.0); AaDO2 152.5 mmHg; COHb 0.3 % (0.5-1.5); MetHb 0.4 % (0.0-1.5); O2Hb 95.5 % (94.0-97.0); SITE, ABG Right Radial; VENT MODE, BG AC 16 45040% +5
--- NOTE | 2019-08-19 10:13 | NUR ---
LDR RN NOTE Dr. Toure spoke to daughter, per MD, daughter will get back to us before the day ends.
--- NOTE | 2019-08-19 18:54 | NUR ---
INSIDE OUTSIDE SALES REPRESENTATIVE CLOSING NOTE Patient in bed asleep no signs of distress. Still on ETT and vent tolerating well. Patient is more alert now, nods when asked yes or no questions. Looks towards my direction but does not try to mouth words. Dr. Toure aware. Tele reading ST 110 bpm. R NGT running Nepro 20cc/hr tolerating well. FC in place clear yellow urine. KYAW Midline in place. Fluid replacement given as ordered. No call back from daughter regarding consent. Restraints placed on L wrist patient was trying to slide her legs off the bed. Safety measures reinforced. VS within normal limits. All due meds given Kept clean and comfortable. No signs of pain or discomfort. Will endorse to night worker nurse for cheyenne.
[2019-08-19 19:21] LABS: HEMOGLOBIN 6.6 g/dL (11.5-14.8)
--- NOTE | 2019-08-19 19:29 | NUR ---
ENVIRONMENTAL MARKETING REPRESENTATIVE NOTE CRITICAL LAB VALUE REPORTED HGB 6.6 INFORMED CRESENCIO CPC CODER RN
[2019-08-19] MEDS ORDERED: FEE PK DOSING 1 MIN EA MC ONE (19:44)
--- NOTE | 2019-08-19 19:57 | NUR ---
RT NOTE: RECEIVED PT ON [facility] VENT WITH 7.5 ETT SECURED 20CM @THE LIP LINE PER MD ORDERS. ALARMS SET AND AUDIBLE. AMBUBAG AT BEDSIDE. VENT PLUGGED INTO RED OUTLET. SX DONE PRN. WILL CONT TO MONITOR. Addendum: 08/20/19 at 0428 by MEGHAN OLVERA RT Amended: Links added.
[2019-08-19] MEDS: VANCOMYCIN 0.75 GM in IV D5W 250 ML IV SCH (20:38)
--- NOTE | 2019-08-19 21:30 | NUR ---
THERMOMETER TESTER NOTE NOTIFIED OF CRITICAL VALUE HEMOGLOBIN 6.6 WITH ORDERS TO TRANSFUSE 1 UNIT PRBC. RECEIVED CONSENT FROM DAUGHTER CAROLIN FOR BLOOD TRANSFUSION. DAUGHTER ALSO GAVE TELEPHONE CONSENT FOR TRACHEOSTOMY PROCEDURE. ORDERS NOTED AND CARRIED OUT.
[2019-08-20] VITALS (41 sets, daily range): BP systolic 110–174; BP diastolic 72–109
[2019-08-20] MEDS: LORAZEPAM INJ 2 MG/ML VIAL IV PRN ×7 (03:19→21:57)
[2019-08-20 04:23] LABS: BASOPHILS # (AUTO) 0.1 /CMM (0.0-0.2); BASOPHILS % (AUTO) 0.6 % (0.0-2.0); EOSINOPHILS % (AUTO) 2.9 % (0.0-6.0); HEMATOCRIT 26 % (33-45); HEMOGLOBIN 8.6 g/dL (11.5-14.8); LYMPHOCYTES # (AUTO) 1.2 /CMM (0.8-4.8); LYMPHOCYTES % (AUTO) 5.9 % (20.0-44.0); MEAN CORPUSCULAR HGB CONC 33 g/dl (31.0-36.0); MEAN CORPUSCULAR VOLUME 87 fL (82-100); MONOCYTES % (AUTO) 10.3 % (2.0-12.0); NEUTROPHILS % (AUTO) 80.3 % (43.0-81.0); PLATELET COUNT (AUTO) 288 /CMM (150-450); WHITE BLOOD COUNT (AUTO) 19.9 K/uL (4.3-11.0)
[2019-08-20 04:40] LABS: CALCIUM, SERUM 9.2 mg/dL (8.5-10.1); CREATININE 1.1 mg/dL (0.6-1.3); POTASSIUM 3.1 mmol/L (3.5-5.1)
[2019-08-20] MEDS: METOCLOPRAMIDE HCL 10 MG/2 ML VIAL IV SCH ×3 (05:22→20:09)
[2019-08-20] MEDS: NEPRO 1,000 ML BOTTLE GT PRN (05:26)
[2019-08-20] MEDS: HYDROCORTISONE SOD SUCCINATE 100 MG/2 ML VIAL IV SCH (08:09)
[2019-08-20] MEDS: LEVOTHYROXINE SODIUM 25 MCG TABLET PO SCH (08:09)
[2019-08-20] MEDS: METOPROLOL TARTRATE 50 MG TABLET PO SCH ×2 (08:10→16:35)
[2019-08-20] MEDS: LOSARTAN POTASSIUM 50 MG TABLET PO SCH ×2 (08:10→20:10)
[2019-08-20] MEDS: PANTOPRAZOLE 40 MG/PACK PACK NG SCH (08:10)
[2019-08-20] MEDS: AMLODIPINE BESYLATE 5 MG TABLET PO SCH (08:10)
[2019-08-20] MEDS: PROSOURCE / PROSTAT (PYXIS) 30 ML UDC GT SCH ×2 (08:12→16:34)
[2019-08-20] MEDS: CLOTRIMAZOLE/BETAMETASONE DIPROPIONATE 15 GM TUBE TP SCH ×2 (08:13→16:35)
[2019-08-20] MEDS: NITROGLYCERIN 30 GM TUBE TP SCH ×2 (08:15→20:10)
[2019-08-20] MEDS: ACETAMINOPHEN 650 MG/20.3 ML UDC NG PRN ×2 (08:25→21:57)
[2019-08-20] MEDS ORDERED: POTASSIUM CHLORIDE 20 MEQ POWDER PACKET GT ONE (09:00)
--- NOTE | 2019-08-20 09:30 | NUR ---
received pt from rn transitional, alert, does not follow commands, ST, intubated, sat well, trach pending, family still undecided, NG to feeding, tolerates well, f/c good output, v/s stable, no pain, pt turned and repositioned.
[2019-08-20] MEDS: POTASSIUM CHLORIDE 20 MEQ POWDER PACKET NG SCH ×2 (10:07→11:28)
[2019-08-20] MEDS: MEROPENEM 500 MG in IV NS 0.9% 50 ML IV SCH ×2 (15:51→21:12)
--- NOTE | 2019-08-20 16:17 | NUR ---
pt is resting in the bed, lethargic, does not follow commands, ST, tolerates feeding, good urine output, v/s stable, no pain, pt cleaned, changed and repositioned. vascular surgeon and GI has been contacted by Lisandro ABDI.
[2019-08-20] MEDS: VANCOMYCIN 0.75 GM in IV D5W 250 ML IV SCH (19:23)
--- NOTE | 2019-08-20 19:30 | NUR ---
RT NOTE PATIENT RECEIVED ORALLY INTUBATED WITH 7.5 ETT SECURED AT 20CM ON MECHANICAL VENT. ALARMS VERIFIED AND AUDIBLE. VENT PLUGGED INTO RED OUTLET. BASILIA HIDALGO AT [facility]. WILL CONTINUE TO MONITOR T/O SHIFT Addendum: 08/21/19 at 0402 by ONEL SHEFFIELD RT Amended: Links added.
[2019-08-21] VITALS (39 sets, daily range): BP systolic 102–181; BP diastolic 66–114
[2019-08-21] MEDS: LORAZEPAM INJ 2 MG/ML VIAL IV PRN ×2 (01:50→03:20)
[2019-08-21] MEDS: ACETAMINOPHEN 650 MG/20.3 ML UDC NG PRN ×2 (02:28→15:23)
[2019-08-21 04:19] LABS: BASOPHILS # (AUTO) 0.1 /CMM (0.0-0.2); BASOPHILS % (AUTO) 0.8 % (0.0-2.0); EOSINOPHILS % (AUTO) 2.9 % (0.0-6.0); HEMATOCRIT 26 % (33-45); HEMOGLOBIN 8.6 g/dL (11.5-14.8); LYMPHOCYTES # (AUTO) 1.3 /CMM (0.8-4.8); MEAN CORPUSCULAR HGB CONC 33 g/dl (31.0-36.0); MEAN CORPUSCULAR VOLUME 87 fL (82-100); MONOCYTES # (AUTO) 1.9 /CMM (0.1-1.30); MONOCYTES % (AUTO) 10.5 % (2.0-12.0); NEUTROPHILS # (AUTO) 14.5 /CMM (1.8-8.9); NEUTROPHILS % (AUTO) 78.8 % (43.0-81.0); PLATELET COUNT (AUTO) 262 /CMM (150-450); RED BLOOD CELL COUNT(AUTO) 2.97 MIL/uL (4.0-5.2); WHITE BLOOD COUNT (AUTO) 18.4 K/uL (4.3-11.0)
[2019-08-21] MEDS: MEROPENEM 500 MG in IV NS 0.9% 50 ML IV SCH ×3 (05:18→21:54)
[2019-08-21] MEDS: METOCLOPRAMIDE HCL 10 MG/2 ML VIAL IV SCH ×3 (05:18→20:48)
[2019-08-21] MEDS ORDERED: ANESTHESIA TRAY IN PYXIS 1 EA TRAY MC ONE (06:23)
--- NOTE | 2019-08-21 07:22 | NUR ---
ENTERTAINMENT LAWYER NOTE PEG PLACEMENT AT BEDSIDE BY DR. ISABEL. PT TOLERATED PROCEDURE. REMAINS ON VENTILATOR AND NO ACUTE DISTRESS NOTED. CHANGED PT BEDDING AND GOWN. NOTED WITH SOME BLEEDING AT NEW GT SITE. CLEANED AND REINFORCED. VITAL SIGNS STABLE. REPORT GIVEN FOR CONTINUITY OF CARE.
[2019-08-21] MEDS: METOPROLOL TARTRATE 50 MG TABLET PO SCH ×2 (08:27→16:50)
[2019-08-21] MEDS: MORPHINE SULFATE INJ 2 MG/ML DISP.SYRIN IV PRN ×2 (08:27→15:23)
[2019-08-21] MEDS: LOSARTAN POTASSIUM 50 MG TABLET PO SCH ×2 (08:27→20:49)
[2019-08-21] MEDS: CLOTRIMAZOLE/BETAMETASONE DIPROPIONATE 15 GM TUBE TP SCH ×2 (08:28→16:51)
[2019-08-21] MEDS: PANTOPRAZOLE 40 MG/PACK PACK NG SCH (08:28)
[2019-08-21] MEDS: LEVOTHYROXINE SODIUM 25 MCG TABLET PO SCH (08:28)
[2019-08-21] MEDS: AMLODIPINE BESYLATE 5 MG TABLET PO SCH (08:28)
[2019-08-21] MEDS: NITROGLYCERIN 30 GM TUBE TP SCH ×2 (08:29→20:59)
[2019-08-21] MEDS: PROSOURCE / PROSTAT (PYXIS) 30 ML UDC GT SCH ×2 (08:30→16:50)
--- NOTE | 2019-08-21 09:11 | NUR ---
received pt from night warehouse manager, s/p GT placement, lethargic, does not follow commands, SR, intubated, sat well, BL hand edema, GT clamped, no bleeding noted, OK for meds, feeding in AM, f/c good output, v/s stable, no pain, pt turned and repositioned.
[2019-08-21] MEDS: POTASSIUM CHLORIDE 20 MEQ POWDER PACKET NG SCH ×2 (11:07→11:54)
--- NOTE | 2019-08-21 16:08 | NUR ---
pt is resting in the bed, lethargic, does not follow commands, SR, ST, GT clamped, f/c good output, v/s stable, morphine 3mg ivp given for pain, pt cleaned, changed and repositioned.
--- NOTE | 2019-08-21 20:00 | NUR ---
agricultural systems specialist notes pt is resting in the bed, lethargic, does not follow commands, Sr on the monitor -69 good urine output, v/s stable,afebrile . remains on ett 7.5/22 cm in the lip on ac 16 tv 450 fi02 40% peep of 5 tolerating well , no sob no distress noted ,noted with no facial grimaces , pt cleaned, changed and repositioned.due meds given as ordered .s/p gt placement this morning per endorsement gt feeding nephro at 20cc/hr gonna be start ajay am . all needs attended too call light within reach . with left upper arm midline intact and patent ,pts on f/c intact and patent draining with yellowish urine output . kept pts comfortable ,will continue to monitor pts.
--- NOTE | 2019-08-21 20:37 | NUR ---
RT NOTE PT RECEIVED INTUBATED WITH 7.0 @ 20 ON MID LIP LINE. MOVED ET TUBE TO LEFT. SECURED VIA ANCHOR FAST. CUFF CHECKED VIA BARGE MASTER. SX DONE, TRACH SECURED AND PATENT. VENT PLUGGED TO RED OUTLET. ALARMS ON AND AUDIBLE. NO DISTRESS NOTED AT THIS TIME. WILL CONTINUE TO MONITOR T/O SHIFT. Addendum: 08/21/19 at 2036 by GAVIOTA ROJAS RT Amended: Links added. Addendum: 08/21/19 at 2037 by GAVIOTA ROJAS RT 7.5 ET TUBE @ 20 CM
[2019-08-21] MEDS: VANCOMYCIN 0.75 GM in IV D5W 250 ML IV SCH (20:45)
[2019-08-22] VITALS (34 sets, daily range): BP systolic 82–154; BP diastolic 53–105
[2019-08-22] MEDS: LORAZEPAM INJ 2 MG/ML VIAL IV PRN ×5 (00:20→21:57)
--- NOTE | 2019-08-22 00:24 | NUR ---
aviculturist notes pts noted agitated , ativan img given as ordered with effect .
[2019-08-22] MEDS: MORPHINE SULFATE INJ 2 MG/ML DISP.SYRIN IV PRN ×2 (01:45→17:12)
--- NOTE | 2019-08-22 04:00 | NUR ---
RT NOTE SPUTUM INDUCTION OBTAINED. DANIEL SAUCEDO @ BEDSIDE.
[2019-08-22] MEDS: METOCLOPRAMIDE HCL 10 MG/2 ML VIAL IV SCH ×3 (04:05→20:51)
[2019-08-22] MEDS: MEROPENEM 500 MG in IV NS 0.9% 50 ML IV SCH ×3 (05:19→20:51)
[2019-08-22] MEDS: ACETAMINOPHEN 650 MG/20.3 ML UDC NG PRN ×2 (06:12→13:12)
--- NOTE | 2019-08-22 06:48 | NUR ---
apiculture teacher notes pts remains on vent , ac settings well tolerated , stable , will endorse to rn day shift for continuity of care,to star feeding in am.
--- NOTE | 2019-08-22 07:40 | NUR ---
ICU/RN PT IS INTUBATED ON THE VENT AC MODE,SAT O2-100%.V/S STABLE .T-100.0.NO PAIN REPORTED AT THIS TIME.PT IA AWAKE,ALERT,RESTLESS.BILATERAL SOFT WRIST RESTRAINS ON.LEFT UPPER ARM MIDLINE.F/C DRAINING WITH YELLOW URINE.G-TUBE CLAMPED.RECTAL TUBE DRAINING WITH YELLOW LIQUID STOOL..GENERALIZED EDEMA PRESENT. REDNESS ON SANTO AREA AND LOWER BACK NOTED.
[2019-08-22] MEDS: PANTOPRAZOLE 40 MG/PACK PACK NG SCH (08:46)
[2019-08-22] MEDS: METOPROLOL TARTRATE 50 MG TABLET PO SCH ×2 (08:46→16:44)
[2019-08-22] MEDS: LEVOTHYROXINE SODIUM 25 MCG TABLET PO SCH (08:46)
[2019-08-22] MEDS: LOSARTAN POTASSIUM 50 MG TABLET PO SCH ×2 (08:46→20:48)
[2019-08-22] MEDS: AMLODIPINE BESYLATE 5 MG TABLET PO SCH (08:47)
[2019-08-22] MEDS: CLOTRIMAZOLE/BETAMETASONE DIPROPIONATE 15 GM TUBE TP SCH ×2 (08:47→16:45)
[2019-08-22] MEDS: NITROGLYCERIN 30 GM TUBE TP SCH ×2 (08:47→20:49)
[2019-08-22] MEDS: PROSOURCE / PROSTAT (PYXIS) 30 ML UDC GT SCH ×2 (08:48→16:44)
--- NOTE | 2019-08-22 09:00 | NUR ---
ICU/RN DUE MEDS ARE GIVEN ORDERED.SUCTION PROVIDED,REPOSITION FOR COMFORT.
[2019-08-22 09:23] LABS: BASOPHILS # (AUTO) 0.2 /CMM (0.0-0.2); EOSINOPHILS % (AUTO) 3.1 % (0.0-6.0); HEMATOCRIT 28 % (33-45); LYMPHOCYTES # (AUTO) 1.1 /CMM (0.8-4.8); LYMPHOCYTES % (AUTO) 5.7 % (20.0-44.0); MEAN CORPUSCULAR HGB CONC 33 g/dl (31.0-36.0); MEAN CORPUSCULAR VOLUME 87 fL (82-100); MONOCYTES # (AUTO) 2.2 /CMM (0.1-1.30); MONOCYTES % (AUTO) 11.4 % (2.0-12.0); NEUTROPHILS % (AUTO) 78.8 % (43.0-81.0); PLATELET COUNT (AUTO) 338 /CMM (150-450); RED BLOOD CELL COUNT(AUTO) 3.17 MIL/uL (4.0-5.2)
[2019-08-22 09:42] LABS: CALCIUM, SERUM 9.5 mg/dL (8.5-10.1); POTASSIUM 3.7 mmol/L (3.5-5.1)
--- NOTE | 2019-08-22 10:00 | NUR ---
ICU/RN PT IS VERY AGITATED.ATIVAN 1 MG IV GIVEN ORDERED.CONTINUE MONITORING.
[2019-08-22 11:41] LABS: BAND % (MANUAL) 1 % (0.0-5.0); EOSINOPHILS % (MANUAL) 4 % (0-4); LYMPHOCYTES % (MANUAL) 4 % (16-48); MONOCYTES % (MANUAL) 6 % (0-11.0); MYELOCYTES % 2 % (0-0); NEUTROPHILS % (MANUAL) 83 (42-76)
[2019-08-22] MEDS: VANCOMYCIN 0.75 GM in IV D5W 250 ML IV SCH (13:12)
[2019-08-22] MEDS: NEPRO 1,000 ML BOTTLE GT PRN ×2 (13:13→17:16)
[2019-08-22] MEDS ORDERED: NEPRO 1,000 ML BOTTLE GT PRN (16:30)
--- NOTE | 2019-08-22 19:45 | NUR ---
ICU/DUST SAMPLER REPORT RECEIVED FROM THE TO DAY NURSE. SEE FLOWSHEET FOR ASSESSMENT, SKIN ISSUES ARE ADDRESSED, ALONG WITH INTERVENTIONS TO EACH. PT IS ON NOT ON ANY SEDATION AT THIS TIME DUE TO HIGH TRIGLYCERIDES. PT IS ORALLY INTUBATED WITH SATURATION AT 99%, TOLERATING CURRENT VENT SETTINGS. WILL CONTINUE TO MONITOR THIS PT AND HER SATURATION. PT TURNED AND REPOSITIONED FOR COMFORT AND CARE. NO ACUTE DISTRESS SEEN AT THIS TIME, PT HAD JUST GOTTEN MORPHINE AND ATIVAN AT 1700 FROM LAST SHIFT.
--- NOTE | 2019-08-22 22:00 | NUR ---
ICU/JACKER FEEDER PT APPEARED TO BE VERY AGITATED WITH INCREASED HEART RATE TO 130'S AND INCREASED BLOOD PRESSURE 150'S, NOTIFIED THE CHARGE NURSE WHO THEN GAVE ATIVAN PRN IVP. PT WAS THEN TURNED AND REPOSITIONED FOR COMFORT AND CARE.
[2019-08-23] VITALS (28 sets, daily range): BP systolic 105–151; BP diastolic 53–109
[2019-08-23] MEDS: LORAZEPAM INJ 2 MG/ML VIAL IV PRN ×3 (01:08→21:54)
--- NOTE | 2019-08-23 01:30 | NUR ---
ICU/PACKING AND STAMPING MACHINE OPERATOR PT APPEARED TO BE VERY AGITATED WITH INCREASED HEART RATE TO 130'S-140'S AND INCREASED BLOOD PRESSURE 150'S, NOTIFIED THE CHARGE NURSE WHO THEN GAVE ATIVAN PRN IVP. WILL CONTINUE TO MONITOR THIS PT.
[2019-08-23] MEDS: MORPHINE SULFATE INJ 2 MG/ML DISP.SYRIN IV PRN ×3 (01:51→19:46)
[2019-08-23] MEDS: NEPRO 1,000 ML BOTTLE GT PRN (01:52)
--- NOTE | 2019-08-23 02:20 | NUR ---
ICU/CORE RESCUER PT WAS SUCTIONED AND GIVEN ORAL CARE, PT APPEARS TO BE IN PAIN, USING FLACC SCALE 10/10. NOTIFIED CHARGE NURSE WHO THEN GAVE PRN MORPHINE PRN FOR THIS. WILL CONTINUE TO MONITOR THIS PT ND HER PAIN.
[2019-08-23] MEDS: ACETAMINOPHEN 650 MG/20.3 ML UDC NG PRN ×2 (02:53→12:22)
--- NOTE | 2019-08-23 03:05 | NUR ---
ICU/GAUGE CONTROLLER PT WAS GIVEN AM CARE. PT TOLERATED THIS WELL, REMAINS ON CURRENT VENT SETTING WITH SATURATION AT 100%. PT WAS TURNED AND REPOSITIONED FOR COMFORT AND CARE. WILL CONTINUE TO MONITOR THIS PT, PT APPEARS TO HAVE A SLIGHT TEMP 100.2 GAVE TYLENOL 650MG VIA G/TUBE. WILL MONITOR THIS PT.
[2019-08-23] MEDS: METOCLOPRAMIDE HCL 10 MG/2 ML VIAL IV SCH ×3 (04:11→21:25)
[2019-08-23] MEDS: MEROPENEM 500 MG in IV NS 0.9% 50 ML IV SCH ×3 (05:16→21:26)
[2019-08-23 06:30] LABS: CALCIUM, SERUM 9.3 mg/dL (8.5-10.1); CREATININE 1.2 mg/dL (0.6-1.3); POTASSIUM 3.2 mmol/L (3.5-5.1)
--- NOTE | 2019-08-23 06:39 | NUR ---
ICU/CAR REPOSSESSOR PT WAS SUCTIONED AND GIVEN ORAL CARE, PT APPEARS TO BE IN PAIN, USING FLACC SCALE 10/10. NOTIFIED CHARGE NURSE WHO THEN GAVE PRN MORPHINE PRN FOR THIS. WILL CONTINUE TO MONITOR THIS PT ND HER PAIN.
--- NOTE | 2019-08-23 07:30 | NUR ---
DIRECTOR STERILE PROCESSING OPENING NOTE Received patient asleep in bed appears calm and relaxed. On ETT and vent tolerating well. No signs of distress. Tele reading ST 110 above. Has FC patent draining clear yellow urine. Flexiseal in place no output at the moment. PEG tube in place running Nepro @20ml/hr no residual. YOUSUF midline in place. No signs of pain or discomfort. Safety measures reinforced. VS within normal limits. Call light within reach. Bed locked and on lowest position. Siderails up x4. Will cont to monitor.
[2019-08-23] MEDS: LEVOTHYROXINE SODIUM 25 MCG TABLET PO SCH (07:58)
[2019-08-23] MEDS: VANCOMYCIN 0.75 GM in IV D5W 250 ML IV SCH (07:58)
[2019-08-23] MEDS: LOSARTAN POTASSIUM 50 MG TABLET PO SCH ×2 (08:30→21:25)
[2019-08-23] MEDS: METOPROLOL TARTRATE 50 MG TABLET PO SCH ×2 (08:30→16:07)
[2019-08-23] MEDS: PROSOURCE / PROSTAT (PYXIS) 30 ML UDC GT SCH ×2 (08:30→16:07)
[2019-08-23] MEDS: PANTOPRAZOLE 40 MG/PACK PACK NG SCH (08:30)
[2019-08-23] MEDS: AMLODIPINE BESYLATE 5 MG TABLET PO SCH (08:30)
[2019-08-23] MEDS: NITROGLYCERIN 30 GM TUBE TP SCH ×2 (08:31→22:00)
[2019-08-23] MEDS: CLOTRIMAZOLE/BETAMETASONE DIPROPIONATE 15 GM TUBE TP SCH ×2 (08:31→16:07)
[2019-08-23] MEDS: POTASSIUM CHLORIDE 20 MEQ POWDER PACKET NG SCH ×2 (10:13→11:15)
--- NOTE | 2019-08-23 13:30 | NUR ---
MYSQL DBA NOTE Received stat order for Covid 19 swab to be done. Picked up swab kit from lab, swabbed patient oropharyngeally tolerated well. Delivered specimen to labs.
--- NOTE | 2019-08-23 17:30 | NUR ---
ELECTRIC BRAIN WAVE EQUIPMENT MECHANIC NOTE Administered Ativan 1mg patient is agitated trying to move from side to side. Appears uncomfortable. Tried to alleviate with non-pharmacologic interventions but ineffective. Monitored respiratory after administration tolerated well. Will cont to monitor.
--- NOTE | 2019-08-23 18:59 | NUR ---
FRUIT BUYING GRADER CLOSING NOTE Patient in bed awake with signs of disorientation. Patient is AO x1 encouraged to be relaxed and avoid too much movement. Sinus Tachycardia noted at 108bpm. Fever still at 100F. Will inform music writer nurse for the next dose of Tylenol. Flexiseal in place intact and patent at 500ml. FC intact and patent clear to cloudy yellow urine, output of 700ml. Renewed acute restraints bilateral soft wrist in place monitored for skin integrity and circulation, tolerating well. OGT in place patent checked placement running Nepro @ 20ml/hr. YOUSUF midline in place, patent, dressing intact. Still pending for covid 19 swab today. Safety measures reinforced. Bed locked and on lowest position. Siderails up x4. Will endorse to music writer nurse for [place].
--- NOTE | 2019-08-23 20:00 | NUR ---
RN NOTES RECEIVED PATIENT ON ISOLATION DUE TO COVID + WITH ETT 7.5 AND 22 CM AT LIP WITH VENT SETTING AC 16, TV 450 FIO2 40% PEEP 5. PATIENT IS EXTREMELY AGITATED ON BED. AWAKE. NO SEDATION GIVEN DUE TO HIGH TRIGLYCERIDES. PRN MEDICINE ADMINISTER FOR AGITATION, EFFECTIVE PATIENT CALMED. ST ON TELE MONITOR. WITH GTF NEPHRO @ 20 ML/HR , IV SITE INTACT AND PATENT. WITH F/C DRAINED VIA GRAVITY AND FLEXISEAL WITH LOOSE YELLOW COLOR STOOL. KEPT PT CLEAN AND DRY. TURNED AND REPOSITION FOR SKIN CARE. AMADA. WRIST RESTRAINT CHECKED NO DISCOLORATION.
[2019-08-24] VITALS (36 sets, daily range): BP systolic 89–132; BP diastolic 40–95
[2019-08-24] MEDS: MORPHINE SULFATE INJ 2 MG/ML DISP.SYRIN IV PRN ×5 (01:04→17:18)
[2019-08-24] MEDS: VANCOMYCIN 0.75 GM in IV D5W 250 ML IV SCH ×2 (02:18→20:23)
[2019-08-24 04:38] LABS: BASOPHILS # (AUTO) 0.3 /CMM (0.0-0.2); BASOPHILS % (AUTO) 1.5 % (0.0-2.0); EOSINOPHILS % (AUTO) 2.7 % (0.0-6.0); HEMATOCRIT 27 % (33-45); HEMOGLOBIN 8.7 g/dL (11.5-14.8); LYMPHOCYTES # (AUTO) 1.2 /CMM (0.8-4.8); LYMPHOCYTES % (AUTO) 6.6 % (20.0-44.0); MEAN CORPUSCULAR HGB CONC 33 g/dl (31.0-36.0); MEAN CORPUSCULAR VOLUME 88 fL (82-100); MONOCYTES # (AUTO) 2.4 /CMM (0.1-1.30); MONOCYTES % (AUTO) 12.9 % (2.0-12.0); NEUTROPHILS # (AUTO) 14.1 /CMM (1.8-8.9); NEUTROPHILS % (AUTO) 76.3 % (43.0-81.0); PLATELET COUNT (AUTO) 289 /CMM (150-450); RED BLOOD CELL COUNT(AUTO) 3.03 MIL/uL (4.0-5.2); WHITE BLOOD COUNT (AUTO) 18.5 K/uL (4.3-11.0)
[2019-08-24 04:53] LABS: CALCIUM, SERUM 9.4 mg/dL (8.5-10.1); CREATININE 1.1 mg/dL (0.6-1.3); POTASSIUM 3.5 mmol/L (3.5-5.1)
[2019-08-24] MEDS: LORAZEPAM INJ 2 MG/ML VIAL IV PRN ×5 (05:10→17:18)
[2019-08-24] MEDS: MEROPENEM 500 MG in IV NS 0.9% 50 ML IV SCH ×3 (05:10→22:03)
[2019-08-24] MEDS: METOCLOPRAMIDE HCL 10 MG/2 ML VIAL IV SCH ×3 (05:10→20:24)
--- NOTE | 2019-08-24 06:56 | NUR ---
RN NOTES NO SIGNIFICANT CHANGES THROUGHOUT THE SHIFT. ETT AND VENT SETTING TOLERATED WELL. STILL WAITING FOR LAST COVID RESULT. RESTLESSNESS STILL NOTED. ALTERNATE OF PRN ATIVAN AND MORPHINE ADMINISTERED AND REMAINED EFFECTIVE. IV SITE INTACT AND PATENT. STILL NO SEDATION DUE TO HIGH TRIGLYCERIDES/ TFO. TMAX 100.6 PRESENT COOLING MEASURES PROVIDED. KEPT PT CLEAN AND DRY. TURNED AND REPOSITIONED MUCH POSSIBLE. CLOSELY MONITORED.
--- NOTE | 2019-08-24 07:05 | NUR ---
RN NOTES RECEIVED PATIENT ON BED, ON ISOLATION DUE TO COVID + INTUBATED, NO SEDATION GIVEN DUE TO HIGH TRIGLYCERIDES TOLERATING CURRENT VENT SETTING WELL, ETT 7.5 AND 22 CM AT LIP WITH VENT SETTING AC 16, TV 450 FIO2 40% PEEP 5.ON TELE ST HR IN 100'S , NEPHRO @ 20 ML/HR NO RESIDUAL NOTED, L UPPER ARM , IV SITE INTACT AND PATENT. STILES DRAINED VIA GRAVITY AND FLEXISEAL WITH LOOSE YELLOW COLOR STOOL. SR UP x3, CALL LIGHT WITHIN EASY REACH, BED LOCKED AND IN LOWEST POSITION, AMADA. WRIST RESTRAINTS CHECKED, NO COMPLICATION NOTED , CONTINUE TO MONITOR ,
[2019-08-24] MEDS: PANTOPRAZOLE 40 MG/PACK PACK NG SCH (08:34)
[2019-08-24] MEDS: LEVOTHYROXINE SODIUM 25 MCG TABLET PO SCH (08:34)
[2019-08-24] MEDS: METOPROLOL TARTRATE 50 MG TABLET PO SCH ×2 (08:35→17:17)
[2019-08-24] MEDS: LOSARTAN POTASSIUM 50 MG TABLET PO SCH ×2 (08:35→20:24)
[2019-08-24] MEDS: PROSOURCE / PROSTAT (PYXIS) 30 ML UDC GT SCH ×2 (08:36→17:10)
[2019-08-24] MEDS: CLOTRIMAZOLE/BETAMETASONE DIPROPIONATE 15 GM TUBE TP SCH ×2 (08:36→17:10)
[2019-08-24] MEDS: NEPRO 1,000 ML BOTTLE GT PRN (08:58)
[2019-08-24] MEDS: NITROGLYCERIN 30 GM TUBE TP SCH ×2 (09:00→20:25)
[2019-08-24] MEDS: AMLODIPINE BESYLATE 5 MG TABLET PO SCH (09:00)
--- NOTE | 2019-08-24 12:00 | NUR ---
RN NOTES MARY MCDONNELL NOTIFED REGARDING INDETERMINATE RESULTS OF COVID TEST , ORDER RECEIVED TO TO RETEST .
[2019-08-24] MEDS: ACETAMINOPHEN 650 MG/20.3 ML UDC NG PRN (13:26)
--- NOTE | 2019-08-24 17:18 | NUR ---
RN NOTES PT IN AGITATED AND RESTLESS , PULLING AND PUSHING, MEDICATED WIT MORPHINE AND ATIVAN PER MD ORDER . VSS STABLE , CONTINUE TO MONITOR
--- NOTE | 2019-08-24 18:00 | NUR ---
RN NOTES NO SIGNIFICANT CHANGES THROUGHOUT THE SHIFT. RESTLESSNESS AT TIMES , ALTERNATE OF PRN ATIVAN AND MORPHINE ADMINISTERED AND REMAINED EFFECTIVE. KEPT PT CLEAN AND DRY. TURNED AND REPOSITIONED , IV SITES CLEAN, DRY AND INTACT, TOLERATING TF WELL. WILL ENDORSE TO OUTSIDE SALES REPRESENTATIVE NURSE FOR CONTINUITY OF CARE.
--- NOTE | 2019-08-24 19:15 | NUR ---
RN NOTES PATIENT ON ISOLATION DUE TO PREVIOUSLY COVID +, LAST CHECKED 08/22 RESULT STILL INDETERMIINATE WAITING FOR NEW RESULT TAKEN TODAY 08/24/19. PATIENT IS ORALLY INTUBATED W/ ETT 7.5 AND 22 CM AT LIP WITH VENT SETTING AC 16, TV 450 FIO2 40% PEEP 5. PATIENT ASLEEP, NO SEDATION GIVEN DUE TO HIGH TRIGLYCERIDES. SB ON TELE MONITOR. GTF NEPHRO @ 20 ML/HR , INTACT WITH SMALL AMT OF RESIDUAL. IV SITE INTACT AND PATENT. WITH F/C DRAINED VIA GRAVITY AND FLEXISEAL WITH LOOSE YELLOW COLOR STOOL. KEPT PT CLEAN AND DRY. TURNED AND REPOSITION FOR SKIN CARE. AMADA. WRIST RESTRAINT CHECKED NO DISCOLORATION. BED LOCKED AND IN LOWEST POSSIBLE POSITION. WILL CLOSELY MONITOR.
[2019-08-25] VITALS (40 sets, daily range): BP systolic 80–148; BP diastolic 46–89
[2019-08-25] MEDS: LORAZEPAM INJ 2 MG/ML VIAL IV PRN ×5 (01:41→21:41)
[2019-08-25] MEDS: MORPHINE SULFATE INJ 2 MG/ML DISP.SYRIN IV PRN ×5 (03:27→21:42)
[2019-08-25 05:09] LABS: CALCIUM, SERUM 9.4 mg/dL (8.5-10.1); CREATININE 1.1 mg/dL (0.6-1.3); POTASSIUM 3.1 mmol/L (3.5-5.1)
[2019-08-25] MEDS: MEROPENEM 500 MG in IV NS 0.9% 50 ML IV SCH ×3 (05:35→21:01)
[2019-08-25] MEDS: METOCLOPRAMIDE HCL 10 MG/2 ML VIAL IV SCH ×3 (05:38→20:26)
--- NOTE | 2019-08-25 06:03 | NUR ---
END OF SHIFT NOTES. NO CHANGES TO PT STATUS. PT REMAINS INTUBATED WITH 7.0 @ 20 ON MID LIP LINE. CUFF CHECKED VIA MARINE SAFETY OFFICER. SX DONE, TRACH SECURED AND PATENT. VENT PLUGGED TO RED OUTLET. ALARMS ON AND AUDIBLE. NO DISTRESS NOTED AT THIS TIME. WILL CONTINUE TO MONITOR T/O SHIFT.
--- NOTE | 2019-08-25 07:00 | NUR ---
RN NOTES RECEIVED PATIENT ON BED, ON ISOLATION DUE TO COVID + INTUBATED, NO SEDATION GIVEN DUE TO HIGH TRIGLYCERIDES TOLERATING CURRENT VENT SETTING WELL, ETT 7.5 AND 22 CM AT LIP WITH VENT SETTING AC 16, TV 450 FIO2 40% PEEP 5.ON TELE ST HR IN 80'S , NEPHRO @ 20 ML/HR NO RESIDUAL NOTED, L UPPER ARM , IV SITE INTACT AND PATENT. STILES DRAINED VIA GRAVITY AND FLEXISEAL INTACT, SR UP x3, CALL LIGHT WITHIN EASY REACH, BED LOCKED AND IN LOWEST POSITION, PT HAS TENDENCY TO PULL ON HER LINES, AMADA. WRIST PROTECTIVE DEVICE ON FOR PT SAFETY , CONTINUE TO MONITOR ,
--- NOTE | 2019-08-25 07:10 | NUR ---
RN NOTES PATIENT REMAINED THE SAME ORALLY INTUBATED AND VENT SETTING TOLERATED WELL. SATURATION >95%. TMAX 99.2 SB SR ON TELE MONITOR. CALM AND COOPERATIVE WITH PRN MEDICINE. NO ACUTE RESPIRATORY DISTRESS, CONTINUE ON GTF NEPHRO NO RESIDUAL PRESENT. IV SITE ON YOUSUF ML INTACT WITH TKO. F/C AND FLEXISEAL INTACT AND OFF FROM THE FLOOR. NO SIGNIFICANT CHANGES TROUGHOUT THE SHIFT. PENDING FOR TRACH PLACEMENT. WILL CONTINUE POC,
[2019-08-25 08:17] LABS: BASOPHILS # (AUTO) 0.1 /CMM (0.0-0.2); BASOPHILS % (AUTO) 0.8 % (0.0-2.0); HEMATOCRIT 26 % (33-45); HEMOGLOBIN 8.4 g/dL (11.5-14.8); LYMPHOCYTES % (AUTO) 5.7 % (20.0-44.0); MEAN CORPUSCULAR HGB CONC 32 g/dl (31.0-36.0); MEAN CORPUSCULAR VOLUME 88 fL (82-100); MONOCYTES # (AUTO) 2.2 /CMM (0.1-1.30); MONOCYTES % (AUTO) 12.6 % (2.0-12.0); NEUTROPHILS # (AUTO) 13.9 /CMM (1.8-8.9); NEUTROPHILS % (AUTO) 77.9 % (43.0-81.0); PLATELET COUNT (AUTO) 351 /CMM (150-450); RED BLOOD CELL COUNT(AUTO) 2.93 MIL/uL (4.0-5.2); WHITE BLOOD COUNT (AUTO) 17.9 K/uL (4.3-11.0)
[2019-08-25] MEDS: LOSARTAN POTASSIUM 50 MG TABLET PO SCH ×2 (08:23→20:38)
[2019-08-25] MEDS: LEVOTHYROXINE SODIUM 25 MCG TABLET PO SCH (08:23)
[2019-08-25] MEDS: METOPROLOL TARTRATE 50 MG TABLET PO SCH ×2 (08:23→17:35)
[2019-08-25] MEDS: PANTOPRAZOLE 40 MG/PACK PACK NG SCH (08:23)
[2019-08-25] MEDS: AMLODIPINE BESYLATE 5 MG TABLET PO SCH (08:24)
[2019-08-25] MEDS: NITROGLYCERIN 30 GM TUBE TP SCH ×2 (08:24→20:39)
[2019-08-25] MEDS: PROSOURCE / PROSTAT (PYXIS) 30 ML UDC GT SCH ×2 (08:26→17:24)
[2019-08-25] MEDS: CLOTRIMAZOLE/BETAMETASONE DIPROPIONATE 15 GM TUBE TP SCH ×2 (08:26→17:26)
[2019-08-25] MEDS ORDERED: POTASSIUM CHLORIDE 20 MEQ POWDER PACKET GT ONE (09:30)
--- NOTE | 2019-08-25 10:15 | NUR ---
RN NOTES DR HARDWICK AND AARON MCDONNELL NOTIFED REGARDING COVID RESULTS TEST ( INDETERMINATE ), ORDER RECEIVED TO REPEAT THE TEST , NEW SAMPLE SENT TO LAB .
--- NOTE | 2019-08-25 12:00 | NUR ---
RN NOTES CALL MAKE TO DR DIAZ OFFICE REGARDING TRACHEOSTOMY PLACEMENT STATUS PER DENTISTRY TEACHER ORDER , PT WILL HAVE THE SURGERY IN AM PER DR DIAZ ORDER .
[2019-08-25] MEDS: NEPRO 1,000 ML BOTTLE GT PRN (12:01)
[2019-08-25] MEDS: VANCOMYCIN 0.75 GM in IV D5W 250 ML IV SCH (13:28)
--- NOTE | 2019-08-25 14:00 | NUR ---
RN NOTES TELEPHONE CONSENT RECEIVED FROM PT'S DAUGHTER FOR TRACHEOSTOMY PLACEMENT IN AM .
[2019-08-25 14:24] LABS: CHLORIDE,URINE RANDOM 78 mmol/L (55-125); POTASSIUM RNDM,URINE 37 mmol/L (25-125); URINE SODIUM, RANDOM 60 mmol/l (40-220)
[2019-08-25 14:31] LABS: OSMOLALITY,URINE 424 mOS/kg (340-1090)
--- NOTE | 2019-08-25 18:35 | NUR ---
RN NOTES PATIENT REMAINED INTUBATED, [place] VENT SETTING WELL, ON TELE SR HR IN 80'S , NO SIGNIFICANT CHANGES NOTED ON THIS SHIFT , STILES AND FLEXISEAL INTACT, SR UP x3, CALL LIGHT WITHIN EASY REACH, BED LOCKED AND IN LOWEST POSITION, WILL ENDORSE TO PODIATRIC TECHNICIAN NURSE FOR CONTINUITY OF CARE .
--- NOTE | 2019-08-25 19:05 | NUR ---
CHILD CARE CENTRE MANAGER NOTE RECEIVED PATIENT IN BED RESTING, HOB ELEVATED, BREATHING EVEN AND NON LABORED, NO SOB NOTED AT THIS TIME. PATIENT IS VENT DEPENDANT. ON BILATERAL SOFT WRIST RESTRAINS. CAPILLARY REFILL < 3 SECONDS. ON GT FEEDING NEPHRO @ 20 MLS/ HR. ON STILES CATH, URINE IS CLEAR AND YELLOW IN COLOR. ON FLEXISEAL, NO BM NOTED AT THIS TIME. YOUSUF MIDLINE CLEAN, DRY, AND PATENT. IN NO APPARENT DISTRESS NOTED AT THIS TIME. BED IS LOWERED AND LOCKED FOR SAFETY. WILL CONTINUE TO MONITOR.
[2019-08-26] VITALS (29 sets, daily range): BP systolic 107–176; BP diastolic 58–116
[2019-08-26] MEDS: LORAZEPAM INJ 2 MG/ML VIAL IV PRN ×6 (01:56→20:10)
[2019-08-26] MEDS: MORPHINE SULFATE INJ 2 MG/ML DISP.SYRIN IV PRN ×6 (01:56→20:10)
--- NOTE | 2019-08-26 03:30 | NUR ---
RESEARCH QUALITY ASSURANCE SPECIALIST NOTE OROPHARYNGEAL COVID SWAB DONE AROUND THIS TIME AND SENT TO LAB. WILL CONTINUE TO MONITOR.
[2019-08-26 04:44] LABS: BASOPHILS # (AUTO) 0.1 /CMM (0.0-0.2); BASOPHILS % (AUTO) 0.7 % (0.0-2.0); EOSINOPHILS % (AUTO) 3.7 % (0.0-6.0); HEMATOCRIT 22 % (33-45); LYMPHOCYTES # (AUTO) 0.8 /CMM (0.8-4.8); LYMPHOCYTES % (AUTO) 5.7 % (20.0-44.0); MEAN CORPUSCULAR HGB CONC 33 g/dl (31.0-36.0); MEAN CORPUSCULAR VOLUME 89 fL (82-100); MONOCYTES # (AUTO) 2.1 /CMM (0.1-1.30); MONOCYTES % (AUTO) 16.2 % (2.0-12.0); NEUTROPHILS # (AUTO) 9.7 /CMM (1.8-8.9); NEUTROPHILS % (AUTO) 73.7 % (43.0-81.0); PLATELET COUNT (AUTO) 261 /CMM (150-450); RED BLOOD CELL COUNT(AUTO) 2.42 MIL/uL (4.0-5.2); WHITE BLOOD COUNT (AUTO) 13.2 K/uL (4.3-11.0)
[2019-08-26] MEDS: MEROPENEM 500 MG in IV NS 0.9% 50 ML IV SCH ×3 (05:19→21:43)
[2019-08-26] MEDS: METOCLOPRAMIDE HCL 10 MG/2 ML VIAL IV SCH ×3 (05:19→20:08)
[2019-08-26 05:30] LABS: POTASSIUM 2.8 mmol/L (3.5-5.1)
--- NOTE | 2019-08-26 06:00 | NUR ---
TRANSCRIPTION TYPIST NOTE RECEIVED CRITICAL LABS POTASSIUM: 2.8 HGB: 7 HCT: [address] PROCTOR. STILL WAITING FOR MD TO CALL BACK FOR ANY ORDERS AT THIS TIME.
[2019-08-26 06:02] LABS: EOSINOPHILS % (MANUAL) 2 % (0-4); LYMPHOCYTES % (MANUAL) 4 % (16-48); MONOCYTES % (MANUAL) 10 % (0-11.0); NEUTROPHILS % (MANUAL) 84 (42-76)
[2019-08-26] MEDS ORDERED: FENTANYL PF 100MCG/2ML AMPUL ONE (06:40)
[2019-08-26] MEDS ORDERED: ROCURONIUM BROMIDE 50 MG/5 ML ONE (06:41)
--- NOTE | 2019-08-26 06:44 | NUR ---
TOY MAKER NOTE RECEIVED ORDERS FROM DR. PROCTOR FOR POTASSIUM REPLACEMENT OF 60 MEQ AND TO REDRAW H&H LABS AT 9AM. ORDERS NOTED AND CARRIED OUT. WILL ENDORSE TO AM SHIFT RN.
--- NOTE | 2019-08-26 06:46 | NUR ---
DIRECTOR OF RESPIRATORY THERAPY NOTE PATIENT REMAINED STABLE THROUGHOUT THE NIGHT. VITAL SIGNS WNL. PATIENT KEPT CLEAN, DRY, AND COMFORTABLE. ALL DUE MEDS GIVEN AND TOLERATED WELL. WILL ENDORSE TO AM SHIFT RN FOR CONTINUATION OF CARE.
--- NOTE | 2019-08-26 06:57 | NUR ---
AIR INTELLIGENCE SPECIALIST NOTE PATIENT KEPT NPO SINCE MIDNIGHT. GTF FLUSHED AND CLAMPED SINCE MIDNIGHT. PRE-OP CHECKLIST DONE. PATIENT SCHEDULED FOR TRACHEOSTOMY TODAY. WILL ENDORSE TO AM SHIFT RN FOR CONTINUATION OF CARE.
[2019-08-26] MEDS ORDERED: LIDOCAINE HCL/MPF 1% 30 ML VIAL IJ ONE (07:13)
[2019-08-26] MEDS ORDERED: CELLULOSE,OXIDIZED 1 PKT EACH MC ONE (07:13)
[2019-08-26] MEDS: LEVOTHYROXINE SODIUM 25 MCG TABLET PO SCH ×2 (07:30→08:16)
--- NOTE | 2019-08-26 07:30 | NUR ---
RN OPENING NOTE: RECEIVED PATIENT IN BED THIS MORNING. PATIENT OPENS EYES TO TACTILE STIMULI, ET TUBE, NO SIGNS OF ACUTE RESPIRATORY DISTRESS NOTED, TOLERATING SETTINGS WELL. PATIENT WILL BE GOING FOR TRACH PLACEMENT SOME TIME TODAY. PATIENT HAS BUE SOFT WRIST RESTRAINTS. GT CLAMPED D/T SURGERY PREP. STILES DRAINING CLEAR, YELLOW URINE. ON FLEXISEAL, NO COMPLICATIONS NOTED. PATIENT HAS MIDLINE ON YOUSUF, C/D/I, FLUSHES WELL, NO SIGNS OF COMPLICATIONS NOTED. SAFETY MEASURES IMPLEMENTED, BED IN LOWEST POSITION, LOCKED, SIDE RAILS UP X2, CALL LIGHT WITHIN REACH. WILL CONTINUE TO MONITOR PATIENT FOR CHANGES.
[2019-08-26] MEDS: POTASSIUM CL. PREMIX PERIPHER. 50 ML IV SCH ×6 (08:00→18:27)
[2019-08-26] MEDS: VANCOMYCIN 0.75 GM in IV D5W 250 ML IV SCH ×2 (08:14→10:03)
[2019-08-26] MEDS: METOPROLOL TARTRATE 50 MG TABLET PO SCH ×4 (08:16→16:19)
[2019-08-26] MEDS: PANTOPRAZOLE 40 MG/PACK PACK NG SCH ×2 (08:16→08:41)
[2019-08-26] MEDS: LOSARTAN POTASSIUM 50 MG TABLET PO SCH ×4 (08:17→20:09)
--- NOTE | 2019-08-26 08:35 | NUR ---
PATIENT LEFT UNIT FOR TRACH PLACEMENT. AM MEDS NOT GIVEN, WILL BE WASTING ATIVAN AND MORPHINE. Addendum: 08/26/19 at 1023 by TERRENCE SIMMONS RN PATIENT CAME BACK FROM TRACH PLACEMENT. PER SATHYA, IF BP STILL ELEVATED, ADMINISTER AM MEDS, AM MEDS ADMINISTERED PER ORDERS.
[2019-08-26] MEDS: PROSOURCE / PROSTAT (PYXIS) 30 ML UDC GT SCH ×2 (08:41→16:11)
[2019-08-26] MEDS: AMLODIPINE BESYLATE 5 MG TABLET PO SCH ×2 (08:42→10:07)
[2019-08-26] MEDS: CLOTRIMAZOLE/BETAMETASONE DIPROPIONATE 15 GM TUBE TP SCH ×2 (08:42→17:26)
[2019-08-26] MEDS: NITROGLYCERIN 30 GM TUBE TP SCH ×3 (08:43→20:09)
[2019-08-26] MEDS ORDERED: CLINDAMYCIN 900 MG/6 ML VIAL ONE (08:54)
[2019-08-26 11:00] LABS: HEMOGLOBIN 8.5 g/dL (11.5-14.8)
--- NOTE | 2019-08-26 15:31 | NUR ---
PER DR CRUZ, HOLD BLOOD TRANSFUSION D/T HGB 8.5
--- NOTE | 2019-08-26 19:30 | NUR ---
RN NOTES, PATIENT IN BED AWAKE, WITH EYES OPEN, NON VERBAL, MECHANICAL VENTILATOR SUPPORT, TOLERATED SETTINGS WELL, S/P TRACHELOTOMY TODAY, NO SOB/ ACUTE DISTRESS NOTED AT THIS TIME, NO SIGNS OF RESPIRATORY DISTRESS NOTED AT THIS TIME, ON TELE MONITOR NSR WITH HR 93 AT THIS TIME, ALL SAFETY MEASURES IMPLEMENTED, BED IN LOWEST POSITION, LOCKED, SIDE RAILS UP X2, CALL LIGHT WITHIN REACH, WILL CONTINUE TO MONITOR CLOSELY..
--- NOTE | 2019-08-26 19:51 | NUR ---
RN CLOSING NOTE: PATIENT REMAINS IN BED. NO SIGNS OF ACUTE DISTRESS NOTED. NO SIGNS OF RESPIRATORY DISTRESS NOTED. TELE MONITOR SHOWS SR IN THE 90S. SAFETY MEASURES IMPLEMENTED, BED IN LOWEST POSITION, LOCKED, SIDE RAILS UP X2, CALL LIGHT WITHIN REACH. ENDORSED TO DANIEL PARIKH FOR CONTINUITY OF CARE.
[2019-08-27] VITALS (24 sets, daily range): BP systolic 97–142; BP diastolic 57–98
[2019-08-27] MEDS: LORAZEPAM INJ 2 MG/ML VIAL IV PRN ×2 (02:51→09:24)
[2019-08-27] MEDS: MORPHINE SULFATE INJ 2 MG/ML DISP.SYRIN IV PRN ×2 (02:51→09:24)
[2019-08-27 04:46] LABS: BASOPHILS # (AUTO) 0.1 /CMM (0.0-0.2); BASOPHILS % (AUTO) 0.7 % (0.0-2.0); EOSINOPHILS % (AUTO) 3.5 % (0.0-6.0); HEMATOCRIT 24 % (33-45); HEMOGLOBIN 7.8 g/dL (11.5-14.8); LYMPHOCYTES # (AUTO) 1.2 /CMM (0.8-4.8); LYMPHOCYTES % (AUTO) 7.1 % (20.0-44.0); MEAN CORPUSCULAR HGB CONC 33 g/dl (31.0-36.0); MEAN CORPUSCULAR VOLUME 89 fL (82-100); MONOCYTES # (AUTO) 3.2 /CMM (0.1-1.30); MONOCYTES % (AUTO) 18.5 % (2.0-12.0); NEUTROPHILS % (AUTO) 70.2 % (43.0-81.0); PLATELET COUNT (AUTO) 321 /CMM (150-450); RED BLOOD CELL COUNT(AUTO) 2.68 MIL/uL (4.0-5.2); WHITE BLOOD COUNT (AUTO) 17.2 K/uL (4.3-11.0)
[2019-08-27] MEDS: METOCLOPRAMIDE HCL 10 MG/2 ML VIAL IV SCH ×3 (04:49→20:46)
[2019-08-27 04:57] LABS: CALCIUM, SERUM 8.9 mg/dL (8.5-10.1); CREATININE 1.1 mg/dL (0.6-1.3); PHOSPHORUS 3.6 mg/dL (2.5-4.9); POTASSIUM 3.7 mmol/L (3.5-5.1)
[2019-08-27] MEDS: MEROPENEM 500 MG in IV NS 0.9% 50 ML IV SCH ×2 (05:00→14:33)
[2019-08-27 05:14] LABS: MAGNESIUM 1.2 mg/dL (1.8-2.4)
[2019-08-27 06:08] LABS: EOSINOPHILS % (MANUAL) 2 % (0-4); LYMPHOCYTES % (MANUAL) 8 % (16-48); MONOCYTES % (MANUAL) 14 % (0-11.0); NEUTROPHILS % (MANUAL) 76 (42-76)
--- NOTE | 2019-08-27 06:56 | NUR ---
RN NOTES, PATIENT IN BED ASLEEP, ON MECHANICAL VENTILATOR SUPPORT, TOLERATED SETTINGS WELL, S/P TRACHELOTOMY YESTERDAY, NO MAJOR EVENT, SITE INTACT, NO SOB/ ACUTE DISTRESS NOTED AT THIS TIME,NO SIGNIFICANT CHANGE IN CONDITION DURING THE NIGHT, ALL SAFETY MEASURES IMPLEMENTED, STABLE VITAL SIGNS, ATIVAN AND MORPHINE ADMINISTERED 2X DURING THE NIGHT, BED IN LOWEST POSITION, LOCKED, SIDE RAILS UP X2, CALL LIGHT WITHIN REACH, WILL ENDORSE CONTINUITY OF CARE TO ONCOMING NURSE.
--- NOTE | 2019-08-27 07:30 | NUR ---
RN OPENING NOTE: RECEIVED PATIENT IN BED THIS MORNING. OPENS EYES TO VOICE. PATIENT HAS TRACH, TOLERATING VENT SETTINGS WELL, NO SIGNS OF ACUTE RESPIRATORY DISTRESS NOTED. NO SIGNS OF ACUTE DISTRESS NOTED. TELE MONITOR SR IN THE 90S. GTF NEPRO @ 20CC/HR, NO SIGNS OF COMPLICATIONS NOTED. FLEXISEAL, INTACT AND DRAINING. STILES DRAINING CLEAR, YELLOW URINE. MIDLINE @ YOUSUF, C/D/I, FLUSHING WELL, NO SIGNS OF COMPLICATIONS NOTED. SAFETY MEASURES IMPLEMENTED, BED IN LOWEST POSITION, LOCKED, SIDE RAILS UP, CALL LIGHT WITHIN REACH. WILL CONTINUE TO MONITOR PATIENT FOR CHANGES.
[2019-08-27] MEDS: VANCOMYCIN 0.75 GM in IV D5W 250 ML IV SCH (09:13)
[2019-08-27] MEDS: PANTOPRAZOLE 40 MG/PACK PACK NG SCH (09:24)
[2019-08-27] MEDS: LEVOTHYROXINE SODIUM 25 MCG TABLET PO SCH (09:24)
[2019-08-27] MEDS: METOPROLOL TARTRATE 50 MG TABLET PO SCH ×2 (09:25→17:42)
[2019-08-27] MEDS: AMLODIPINE BESYLATE 5 MG TABLET PO SCH (09:25)
[2019-08-27] MEDS: LOSARTAN POTASSIUM 50 MG TABLET PO SCH ×2 (09:25→20:47)
[2019-08-27] MEDS: CLOTRIMAZOLE/BETAMETASONE DIPROPIONATE 15 GM TUBE TP SCH ×2 (09:26→17:43)
[2019-08-27] MEDS: NITROGLYCERIN 30 GM TUBE TP SCH ×2 (09:26→21:15)
[2019-08-27] MEDS: PROSOURCE / PROSTAT (PYXIS) 30 ML UDC GT SCH ×2 (09:27→17:42)
[2019-08-27 10:05] LABS: ABG OXYGEN SATURATION 96.4 % (92.0-98.5); ABG PCO2 37.9 mmHg (35.0-45.0); ABG PH 7.425 (7.350-7.450); ABG PO2 89.1 mmHg (75.0-100.0); AaDO2 152.5 mmHg; COHb 0.9 % (0.5-1.5); MetHb 0.3 % (0.0-1.5); O2Hb 95.2 % (94.0-97.0); SITE, ABG Right Radial
[2019-08-27] MEDS: Magnesium 1GM/D5W 100ML PREMIX 100 ML IV SCH ×3 (10:37→17:40)
[2019-08-27] MEDS: ACETAMINOPHEN 650 MG/20.3 ML UDC NG PRN (12:18)
--- NOTE | 2019-08-27 14:01 | NUR ---
PATIENT IS CURRENTLY GETTING TRANSFUSED WITH 1 UNIT PRBC, NO SIGNS OF COMPLICATIONS NOTED, VSS, WILL CONTINUE TO MONITOR PATIENT.
--- NOTE | 2019-08-27 19:09 | NUR ---
RN CLOSING NOTE: PATIENT REMAINS IN BED AT THIS TIME. NO SIGNS OF ACUTE DISTRESS NOTED. TELE MONITOR SR IN THE 90S. SAFETY MEASURES IMPLEMENTED, BED IN LOWEST POSITION, LOCKED, SIDE RAILS UP, CALL LIGHT WITHIN REACH. WILL ENDORSE TO ONCOMING SHIFT RN FOR CONTINUITY OF CARE.
--- NOTE | 2019-08-27 19:30 | NUR ---
ADELA RN NOTES RECEIVED PATIENT IN BED NON VERBAL OPEN HER EYES. ON VENT SETTING TOLERATING WELL ORDERED. BREATHING NORMAL NO DISTRESS NOTED. RESPIRATION EVEN NON LABORED. TELE MONITOR SR IN 80'S. YOUSUF MIDLINE AND RFA IV INTACT PATENT FLUSHING WELL. FLEXISEAL INTACT AND DARNING WELL, F/C INTACT DARNING WELL. SAFETY MEASURES IN PLACE, BED IN LOW AND LOCKED POSITION. CALL LIGHT WITHIN REACH. WILL CONT TO MONITOR.
--- NOTE | 2019-08-27 19:50 | NUR ---
PT RECEIVED TRACHED WITH SHILEY 8 ON VENT WITH NOTED SETTINGS. CUFF CHECKED VIA BASEBOARD HEATING INSTALLER. AMBU BAG @ HOB. SX DONE, TRACH SECURED AND PATENT. ALARMS ON AND AUDIBLE. VENT PLUGGED TO RED OUTLET. NO RESPIRATORY DISTRESS NOTED AT THIS TIME. WILL CONTINUE TO MONITOR THE PT T/O SHIFT
[2019-08-27] MEDS: FLUCONAZOLE (100 MG) 100 MG TABLET PO SCH (20:49)
[2019-08-28] VITALS (7 sets, daily range): BP systolic 122–164; BP diastolic 66–93
[2019-08-28] MEDS: ACETAMINOPHEN 650 MG/20.3 ML UDC NG PRN ×2 (00:10→21:33)
[2019-08-28] MEDS: NEPRO 1,000 ML BOTTLE GT PRN (00:10)
[2019-08-28] MEDS: IV NS 0.9% 250 ML IV PRN (00:26)
[2019-08-28] MEDS: METOCLOPRAMIDE HCL 10 MG/2 ML VIAL IV SCH ×3 (04:54→20:29)
[2019-08-28] MEDS: LORAZEPAM INJ 2 MG/ML VIAL IV PRN ×2 (06:23→20:27)
--- NOTE | 2019-08-28 06:36 | NUR ---
ADELA RN NOTES PATIENT RESTED WELL, NO CHANGES NOTED DURING SHIFT. VENT SETTING TOLERATING WELL ORDERED. ROUTINE MEDICATIONS WERE GIVEN ALONG WITH PRN TYLENOL FOR FEVER NOTED TO BE EFFECTIVE. PATIENT IS ON GTF TOLERATING WELL, NO RESIDUAL NOTED. IV SITE INTACT PATENT FLUSHING WELL. KEPT CLEAN DRY AND COMFORTABLE. ALL NEEDS ATTENDED. SAFETY MEASURES IN PLACE, BED IN LOW AND LOCKED POSITION. CALL LIGHT WITHIN REACH. WILL ENDORSE TO AM NURSE FOR [place].
--- NOTE | 2019-08-28 07:45 | NUR ---
ADELA RN OPENING NOTES RECEIVED PATIENT IN BED, OBTUNDED. PATIENT ON VENT SETTING TOLERATING WELL AT THIS TIME. YOUSUF MIDLINE IS IN PLACE AND INTACT; FLUSHING WELL. G-TUBE IN PLACE AND INFUSING NEPHRO AT 20 MLS/HR. STILES DRAINING CLEAR YELLOW URINE.SAFETY PRECAUTIONS IN PLACE; BED IN LOW POSITION AND LOCKED, RAILS UP X2, CALL LIGHT WITHIN REACH. WILL CONTINUE TO MONITOR PATIENT.
[2019-08-28 08:01] LABS: BASOPHILS # (AUTO) 0.1 /CMM (0.0-0.2); BASOPHILS % (AUTO) 0.5 % (0.0-2.0); EOSINOPHILS % (AUTO) 2.1 % (0.0-6.0); HEMATOCRIT 28 % (33-45); HEMOGLOBIN 9.3 g/dL (11.5-14.8); LYMPHOCYTES # (AUTO) 1.2 /CMM (0.8-4.8); LYMPHOCYTES % (AUTO) 6.3 % (20.0-44.0); MEAN CORPUSCULAR HGB CONC 33 g/dl (31.0-36.0); MEAN CORPUSCULAR VOLUME 87 fL (82-100); MONOCYTES # (AUTO) 2.8 /CMM (0.1-1.30); MONOCYTES % (AUTO) 15.3 % (2.0-12.0); NEUTROPHILS % (AUTO) 75.8 % (43.0-81.0); PLATELET COUNT (AUTO) 279 /CMM (150-450); RED BLOOD CELL COUNT(AUTO) 3.22 MIL/uL (4.0-5.2); WHITE BLOOD COUNT (AUTO) 18.5 K/uL (4.3-11.0)
[2019-08-28 08:16] LABS: CALCIUM, SERUM 8.3 mg/dL (8.5-10.1); CREATININE 0.9 mg/dL (0.6-1.3)
[2019-08-28 08:23] LABS: POTASSIUM 2.7 mmol/L (3.5-5.1)
[2019-08-28] MEDS: PANTOPRAZOLE 40 MG/PACK PACK NG SCH (08:32)
[2019-08-28] MEDS: METOPROLOL TARTRATE 50 MG TABLET PO SCH ×2 (08:32→17:00)
[2019-08-28] MEDS: LEVOTHYROXINE SODIUM 25 MCG TABLET PO SCH (08:32)
[2019-08-28] MEDS: AMLODIPINE BESYLATE 5 MG TABLET PO SCH (08:33)
[2019-08-28] MEDS: LOSARTAN POTASSIUM 50 MG TABLET PO SCH ×2 (08:33→21:18)
[2019-08-28] MEDS: FLUCONAZOLE (100 MG) 100 MG TABLET PO SCH (08:33)
[2019-08-28] MEDS: CLOTRIMAZOLE/BETAMETASONE DIPROPIONATE 15 GM TUBE TP SCH ×2 (08:34→16:51)
[2019-08-28] MEDS: NITROGLYCERIN 30 GM TUBE TP SCH ×2 (08:46→21:19)
--- NOTE | 2019-08-28 08:59 | NUR ---
ADELA RN NOTES LAB CALLED WITH A CRITICAL LAB VALUE FOR POTASSIUM OF POTASSIUM OF 2.7 LAB VALUE DOCUMENTED AND MD NOTIFIED. WILL CONTINUE TO MONITOR
[2019-08-28] MEDS: VANCOMYCIN 0.75 GM in IV D5W 250 ML IV SCH (09:05)
[2019-08-28] MEDS: PROSOURCE / PROSTAT (PYXIS) 30 ML UDC GT SCH ×2 (09:05→16:52)
[2019-08-28 09:40] LABS: BAND % (MANUAL) 1 % (0.0-5.0); EOSINOPHILS % (MANUAL) 3 % (0-4); LYMPHOCYTES % (MANUAL) 9 % (16-48); METAMYELOCYTES % 1 % (0-0); MONOCYTES % (MANUAL) 11 % (0-11.0); MYELOCYTES % 1 % (0-0); NEUTROPHILS % (MANUAL) 74 (42-76)
[2019-08-28] MEDS: MORPHINE SULFATE INJ 2 MG/ML DISP.SYRIN IV PRN ×2 (09:42→16:38)
--- NOTE | 2019-08-28 09:47 | NUR ---
ADELA RN NOTES PATIENT WITH S/S OF SEVERE PAIN. BP: 170/102, HR 117 FACIAL GRIMACING, RESTLESSNESS. PRN PAIN MEDICATION ADMINISTERED. WILL REASSESS SHORTLY.
[2019-08-28] MEDS: POTASSIUM CL. PREMIX PERIPHER. 50 ML IV SCH ×4 (11:05→15:16)
--- NOTE | 2019-08-28 12:58 | NUR ---
ADELA RN NOTES PATIENT WITH EXTRA SECRETIONS COMING OUT OF HER TRACHE. FEEDING IS STOPPED ALTHOUGH NO RESIDUALS. RT CALLED; RT PERFORMED SUCTION. PATIENT CONTINUED TO SECRETE SECRETIONS; BRIGHT YELLOW. CHARGE NURSE NOTIFIED; PATIENT SUCTIONED AGAIN. CALLING MD. WILL CONTINUE TO MONITOR.
--- NOTE | 2019-08-28 13:46 | NUR ---
ADELA RN NOTES AT THIS TIME PATIENT IS COMFORTABLE. FEEDING WAS STOPPED AND SUCTION DONE. COVID-19 TEST PERFORMED AND TAKEN TO THE LAB. WILL CONTINUE TO MONITOR PATIENT.
--- NOTE | 2019-08-28 16:47 | NUR ---
ADELA RN NOTES PATIENT WITH S/S OF SEVERE PAIN; ELEVATED HEART RATE, HR 115 FACIAL GRIMACING, RESTLESSNESS. PRN PAIN MEDICATION ADMINISTERED. WILL REASSESS SHORTLY.
--- NOTE | 2019-08-28 18:45 | NUR ---
ADELA RN CLOSING NOTES PATIENT REMAINS IN BED, OBTUNDED. PATIENT ON VENT SETTINGS; TOLERATING VENT GOOD AT THIS TIME BUT THERE ARE LOTS OF SECRETIONS; CHARGE NURSE AWARE, MD AWARE, RT NOTIFIED ABOUT NEW SETTINGS. EXTERNAL CARDIAC MONITORING WITH A CURRENT READING OF SINUS TACH 118. YOUSUF MIDLINE IS IN PLACE AND INTACT; FLUSHING WELL. G-TUBE IN PLACE BUT STOPPED DUE TO EXCESS SECRETIONS. STILES DRAINING DARK YELLOW URINE. ALL NEEDS ATTENDED TO THROUGHOUT THE DAY. SAFETY PRECAUTIONS REMAIN IN PLACE; BED IN LOW POSITION AND LOCKED, HOB ELEVATED AT 45 DEGREES FOR ASPIRATION PRECAUTION, RAILS UP X2, CALL LIGHT WITHIN REACH. WILL ENDORSE TO CONTROL CLERK NURSE.
--- NOTE | 2019-08-28 18:51 | NUR ---
chest x ray and kub results given to and orders received and carried out
--- NOTE | 2019-08-28 19:15 | NUR ---
RN OPENING NOTES RECEIVED PATIENT IN BED NON VERBAL ONLY OPENS EYES AND UNABLE TO FOLLOW COMMANDS. PATIENT RESTLESS AND AGITATED . ON TELE MONITOR ST WITH HR @120s. ON MECH VENT TRACH ON SIMV MODE; TOLERATING WELL, SATURATING 98% AT THE MOMENT. PER AM CHARGE NURSE WILL CHANGE TO AC MODE AND WILL ORDER PER MD. NOTED IV SITE ON YOUSUF MIDLINE ; PATENT IN INTACT,NO S/S OF INFECTION OR INFILTRATION. STILES CATH IN PLACE, DRAINING DIPTI COLORED URINE. BILATERAL SOFT WRIST RESTRAINTS IN PLACE, ASSESSED PER PROTOCOL. FLEXISEAL NOTED IN PLACE DRAINING WELL. G TUBE FLUSHING AND PATENT; SITE CLEAN DRY AND INTACT; NO RESIDUAL NOTED; CLAMPED. SAFETY MEASURES HAVE BEEN PROVIDED AND IMPLEMENTED. PATIENT BED ALARM IS ON. HEAD OF BED ELEVATED. BED IS LOCKED, IN LOWEST POSITION AND SIDE RAILS UP. CALL LIGHT WITHIN REACH OF THE PATIENT. WILL CONTINUE TO MONITOR AND REASSESS FOR ANY CHANGES.
[2019-08-28] MEDS ORDERED: FEE PK DOSING 1 MIN EA MC ONE ×2 (19:29→19:53)
--- NOTE | 2019-08-28 20:05 | NUR ---
RN NOTES PAGED DR. HARDWICK REGARDING VENT SETTINGS; ORDERED AC 18, TV 450, FIO2 40% AND PEEP OF 5. ALSO ORDERED ABG AT 7AM TOMORROW MORNING. RT MADE AWARE. WILL ATTEND TO ORDERS. WILL CONT TO MONITOR PATIENT.
--- NOTE | 2019-08-28 20:09 | NUR ---
RN NOTES PATIENT APPEARS AGITATED, MOVING EXTREMITIES, HR 120'S. WILL ADMINISTER PRN ATIVAN.
[2019-08-28] MEDS: IV D5/ 0.9% NACL 1,000 ML IV PRN (20:26)
[2019-08-28] MEDS: CLINDAMYCIN 900 MG in IV D5W 50 ML IV SCH (20:29)
[2019-08-28] MEDS: VANCOMYCIN HCL 0.75 GM in IV D5W 250 ML IV SCH (21:18)
--- NOTE | 2019-08-28 21:26 | NUR ---
RN NOTES PER AM RN REPORT, PATIENT HAS BEEN VOMITING, NO PRN MEDICATION NOTED, MADE CERTIFIED FAMILY MEDIATOR HOSPITALIST MADE AWARE PATIENT STILL VOMITING LIQUID GREENISH FROM MOUTH AND TRACH SITE, STATED OKAY TO ORDER ZOFRAN 4MG IVP Q6H PRN FOR N/V. WILL ATTEND TO ORDERS.
[2019-08-28] MEDS: ONDANSETRON HCL/PF 4 MG/2 ML VIAL IV PRN (22:03)
[2019-08-29] VITALS: BP 152/84
[2019-08-29] MEDS: MORPHINE SULFATE INJ 2 MG/ML DISP.SYRIN IV PRN (00:54)
[2019-08-29 04:00] VITALS: BP 152/83
[2019-08-29] MEDS: ONDANSETRON HCL/PF 4 MG/2 ML VIAL IV PRN ×2 (04:44→11:44)
[2019-08-29] MEDS: CLINDAMYCIN 900 MG in IV D5W 50 ML IV SCH ×2 (04:44→12:58)
[2019-08-29] MEDS: METOCLOPRAMIDE HCL 10 MG/2 ML VIAL IV SCH ×2 (04:44→12:58)
[2019-08-29] MEDS: LORAZEPAM INJ 2 MG/ML VIAL IV PRN ×5 (05:11→20:21)
[2019-08-29] MEDS: IV D5/ 0.9% NACL 1,000 ML IV PRN (06:03)
[2019-08-29 06:37] LABS: BASOPHILS # (AUTO) 0.1 /CMM (0.0-0.2); BASOPHILS % (AUTO) 0.3 % (0.0-2.0); HEMATOCRIT 29 % (33-45); HEMOGLOBIN 9.7 g/dL (11.5-14.8); LYMPHOCYTES # (AUTO) 1.4 /CMM (0.8-4.8); LYMPHOCYTES % (AUTO) 6.1 % (20.0-44.0); MEAN CORPUSCULAR HGB CONC 33 g/dl (31.0-36.0); MEAN CORPUSCULAR VOLUME 88 fL (82-100); MONOCYTES # (AUTO) 3.4 /CMM (0.1-1.30); MONOCYTES % (AUTO) 14.1 % (2.0-12.0); NEUTROPHILS # (AUTO) 18.7 /CMM (1.8-8.9); NEUTROPHILS % (AUTO) 78.5 % (43.0-81.0); PLATELET COUNT (AUTO) 343 /CMM (150-450); RED BLOOD CELL COUNT(AUTO) 3.35 MIL/uL (4.0-5.2); WHITE BLOOD COUNT (AUTO) 23.8 K/uL (4.3-11.0)
--- NOTE | 2019-08-29 06:42 | NUR ---
RN CLOSING NOTES PATIENT STILL IN BED NON VERBAL ONLY OPENS EYES AND UNABLE TO FOLLOW COMMANDS. PATIENT RESTLESS AND AGITATED . ON TELE MONITOR ST WITH HR @100s. ON MECH VENT TRACH ON AC MODE; TOLERATING WELL, SATURATING 99% AT THE MOMENT. NOTED IV SITE ON YOUSUF MIDLINE ; PATENT IN INTACT,NO S/S OF INFECTION OR INFILTRATION. STILES CATH IN PLACE, DRAINING DIPTI COLORED URINE. BILATERAL SOFT WRIST RESTRAINTS IN PLACE, ASSESSED PER PROTOCOL. FLEXISEAL NOTED IN PLACE DRAINING WELL. G TUBE FLUSHING AND PATENT; SITE CLEAN DRY AND INTACT; NO RESIDUAL NOTED; CLAMPED. NEEDS AND CONCERNS ADDRESSED. TMAX 99.5; COOLING MEASURES PROVIDED. PT NOW AFEBRILE; TEMP 98.6. SAFETY MEASURES IN PLACED. PATIENT BED IS LOCKED AND IN LOWEST POSITION. SIDE RAILS UP. CALL LIGHT WITHIN REACH OF THE PATIENT. ISOLATION PRECAUTION MAINTAINED . WILL ENDORSE TO AM SHIFT FOR [place].
[2019-08-29 06:52] LABS: ALBUMIN 2.4 g/dL (3.4-5.0); BILIRUBIN,TOTAL 0.8 mg/dL (0.2-1.0); CALCIUM, SERUM 7.9 mg/dL (8.5-10.1); CREATININE 1.1 mg/dL (0.6-1.3); MAGNESIUM 1.6 mg/dL (1.8-2.4); PHOSPHORUS 3.2 mg/dL (2.5-4.9); TOTAL PROTEIN, SERUM 7.1 g/dL (6.4-8.2)
--- NOTE | 2019-08-29 07:05 | NUR ---
RN NOTES RECEIVED PT ON BED, TRACH , VENT DEPENDENT, NON VERBAL , EYES ARE OPEN , PT IS RESTLESS AND DOES NOTE FOLLOW COMMAND, ON TELE ST WITH HR @100s. TOLERATING CURENT VENT SETTING WELL, O2 SAT WNL, IV SITE ON YOUSUF MIDLINE ; PATENT IN INTACT,NO S/S OF INFECTION OR INFILTRATION NOTED, WITH D5NS AT 75CC/HR RUNNING, STILES CATH IN PLACE, DRAINING DIPTI COLORED URINE. BILATERAL SOFT WRIST RESTRAINTS IN PLACE FOR PT SAFETY, ASSESSED PER PROTOCOL. FLEXISEAL NOTED IN PLACE DRAINING WELL. G TUBE CLAMPED AT THIS TIME, SAFETY MEASURES IN PLACED. PATIENT BED IS LOCKED AND IN LOWEST POSITION. SIDE RAILS UP x3. CALL LIGHT WITHIN EASY REACH OF THE PATIENT. ISOLATION PRECAUTION MAINTAINED . WILL CONTINUE TO MONITOR .
--- NOTE | 2019-08-29 07:35 | NUR ---
RT Pt received trached on mechanical ventilation with noted settings. Pt is awake and response to stimuli. No SOB or respiratory distress noted. Addendum: 08/29/19 at 0952 by BELKIS HUGGINS RT Amended: Links added.
[2019-08-29 08:00] VITALS: BP 148/78
[2019-08-29] MEDS: PANTOPRAZOLE 40 MG/PACK PACK NG SCH (08:18)
[2019-08-29] MEDS: FLUCONAZOLE (100 MG) 100 MG TABLET PO SCH (08:19)
[2019-08-29] MEDS: AMLODIPINE BESYLATE 5 MG TABLET PO SCH (08:20)
[2019-08-29] MEDS: LEVOTHYROXINE SODIUM 25 MCG TABLET PO SCH (08:20)
[2019-08-29] MEDS: METOPROLOL TARTRATE 50 MG TABLET PO SCH (08:20)
[2019-08-29] MEDS: LOSARTAN POTASSIUM 50 MG TABLET PO SCH (08:20)
[2019-08-29] MEDS: CLOTRIMAZOLE/BETAMETASONE DIPROPIONATE 15 GM TUBE TP SCH ×2 (08:21→16:33)
[2019-08-29] MEDS: PROSOURCE / PROSTAT (PYXIS) 30 ML UDC GT SCH ×2 (08:21→16:31)
[2019-08-29] MEDS: NITROGLYCERIN 30 GM TUBE TP SCH ×2 (08:22→20:21)
[2019-08-29] MEDS: POTASSIUM CHLORIDE 20 MEQ POWDER PACKET NG SCH ×2 (08:56→09:42)
[2019-08-29] MEDS: AMLODIPINE BESYLATE 5 MG TABLET GT SCH (08:58)
[2019-08-29] MEDS: FLUCONAZOLE (100 MG) 100 MG TABLET GT SCH (08:59)
[2019-08-29] MEDS: METOPROLOL TARTRATE 50 MG TABLET GT SCH ×2 (08:59→16:36)
[2019-08-29] MEDS: VANCOMYCIN HCL 0.75 GM in IV D5W 250 ML IV SCH (09:00)
[2019-08-29] MEDS: LOSARTAN POTASSIUM 50 MG TABLET GT SCH ×2 (09:00→20:20)
--- NOTE | 2019-08-29 09:15 | NUR ---
RN NOTES LEFT A MESSAGE FOR DR. ISABEL REGARDING N/V PER DR HARDWCIK ORDER .
--- NOTE | 2019-08-29 09:30 | NUR ---
RT Spoke with Dr. Toure in regards of weaning and weaning will be postpone for today due to pt current condition. Addendum: 08/29/19 at 0952 by BELKIS HUGGINS RT Amended: Links added.
--- NOTE | 2019-08-29 09:55 | NUR ---
followup covid result still pending.
--- NOTE | 2019-08-29 10:00 | NUR ---
[facility] NOTES [facility] , PHARMACY NOTIFED.
[2019-08-29] MEDS: Magnesium 1GM/D5W 100ML PREMIX 100 ML IV SCH ×2 (10:36→11:38)
[2019-08-29 12:00] VITALS: BP 131/79
[2019-08-29 13:08] LABS: BILIRUBIN,DIRECT 0.4 mg/dL (0.0-0.2)
[2019-08-29] MEDS ORDERED: IV NS 0.9% 250 ML IV ONE (13:46)
[2019-08-29] MEDS ORDERED: IOHEXOL-300 100 ML VIAL IV ONE (13:46)
[2019-08-29] MEDS ORDERED: CT SWABBABLE VALVE TRANS SET 1 EA INFUS.SET MC ONE (13:47)
--- NOTE | 2019-08-29 14:40 | NUR ---
RN NOTES DR HARDWICK AND SATHYA ABDI NOITFED REGARDING ABDOMEN CT RESULTS . DR FERGUSON NOTIFIED REGARDING CONSULT PER DR HARDWICK ORDER.
[2019-08-29] MEDS ORDERED: MEROPENEM 500 MG in IV NS 0.9% 50 ML IV SCH (15:00)
--- NOTE | 2019-08-29 15:00 | NUR ---
RN NOTES GT CONNECTED TO LIS ,1200 CC DARK GREENISH , GASTRIC DRAINING SUCTIONED OUT . URGENT CARE NURSE PRACTITIONER NOITFED, VSS STABLE, CONTINUE TO MONITOR .
[2019-08-29] MEDS ORDERED: DIATR MEGLU/DIATRIZOATE SODIUM 30 ML BOTTLE (GASTROGRAPHIN) ONE (15:08)
[2019-08-29 16:00] VITALS: BP 121/72
[2019-08-29] MEDS ORDERED: MEROPENEM 1 G in IV NS 0.9% 100 ML IV ONE (16:00)
--- NOTE | 2019-08-29 16:00 | NUR ---
RN NOTES DR FERGUSON PAGED AND NOTIFED REGARDING SURGICAL CONSULT PER DR. HARDWICK ORDER .
--- NOTE | 2019-08-29 18:46 | NUR ---
ct results in and relayed to jae rajan,no new orders.
--- NOTE | 2019-08-29 18:50 | NUR ---
RN NOTES VSS STABLE , CT SCAN DONE TWICE ON THIS SHIFT PER ASBESTOS BRAKE LINING FINISHER HELPER ORDER , GT TO LIS , PT REMAINS NPO , L UPPER ARM MIDLINE SITE CLEAN, DRY AND INTACT . SR UP X3, CALL LIGHT WITHIN EASY REACH, BED LOCKED AND IN LOWEST POSITION, WILL ENDOSE TO PULL OUT OPERATOR NURSE FOR CONTINUITY OF CARE.
--- NOTE | 2019-08-29 19:20 | NUR ---
DRAPERY INSTALLER OPENING NOTES RECEIVED PT ON BED AWAKE A/O X2 AGITATED ON TRACH/VENT SETTING ORDERED TOLERATING WELL SPO2 100% ON TELE MONITOR WITH CURRENT READING SINUS TACH 100'S, REDNESS ON TRACH SITE NOTED KEPT CLEAN AND DRY MUCH POSSIBLE WITH GTUBE CONNECTED TO INTERMITTENT SUCTION WITH GREEN TO BLACK COLOR DRAINAGE, ON STILES WITH YELLOW URINE DRAINING VIA GRAVITY, RECTAL TUBE ON PLACE. STILL ON BILATERAL WRIST RESTRAINTS, CIRCULATION TO BE CHECKED REGULARLY, ON DROPLET ISOLATION PRECAUTION R/O COVID PENDING RESULTS, SAFETY MEASURE MAINTAINED BED ON LOWEST POSITION AND LOCKED SIDE RAILS UP X4, CALL LIGHT WITHIN REACH WILL CONT TO MONITOR
--- NOTE | 2019-08-29 20:03 | NUR ---
CABIN FURNISHINGS INSTALLER NOTES INFORMED CONSENT WAS OBTAINED FROM OF DAUGHTER (VARGAS IRWIN) OF [place] REASON AND KIND OF PROCEDURE EXPLAINED AND AGREED. SIGNED CONSENT ON PATIENT'S CHART
[2019-08-29 20:07] VITALS: BP 121/86
[2019-08-30] VITALS (8 sets, daily range): BP systolic 106–130; BP diastolic 60–89
[2019-08-30] MEDS: MEROPENEM 1 G in IV NS 0.9% 100 ML IV SCH ×2 (03:02→17:13)
[2019-08-30 06:49] LABS: BASOPHILS # (AUTO) 0.2 /CMM (0.0-0.2); BASOPHILS % (AUTO) 0.8 % (0.0-2.0); EOSINOPHILS % (AUTO) 1.8 % (0.0-6.0); HEMATOCRIT 29 % (33-45); HEMOGLOBIN 9.7 g/dL (11.5-14.8); LYMPHOCYTES % (AUTO) 5.2 % (20.0-44.0); MEAN CORPUSCULAR HGB CONC 33 g/dl (31.0-36.0); MEAN CORPUSCULAR VOLUME 88 fL (82-100); MONOCYTES # (AUTO) 2.9 /CMM (0.1-1.30); MONOCYTES % (AUTO) 15.3 % (2.0-12.0); NEUTROPHILS # (AUTO) 14.7 /CMM (1.8-8.9); NEUTROPHILS % (AUTO) 76.9 % (43.0-81.0); PLATELET COUNT (AUTO) 382 /CMM (150-450); RED BLOOD CELL COUNT(AUTO) 3.36 MIL/uL (4.0-5.2); WHITE BLOOD COUNT (AUTO) 19.2 K/uL (4.3-11.0)
--- NOTE | 2019-08-30 06:51 | NUR ---
RN CLOSING NOTES PT SLEEPING ON BED NO SIGN AND SYMPTOMS OF RESPIRATORY DISTRESS SPO2 >95% NO SIGNIFICANT CHANGES ON CONDITION NOTED, STILL GTUBE ON INTERMITTENT SUCTION WITH 700ML OUTPUT/12HR, DROPLET ISOLATION MAINTAINED FOR COVID, ON TELE MONITOR WITH CURRENT READING SINUS TACHY 110'S,FOR CT GUIDED DRAIN PLACEMENT OF ABD FLUID @ 1030 AM ON CTSCAN RM 1, ALL NEEDS ATTENDED SAFETY MEASURE MAINTAINED WILL ENDORSED TO AM SHIFT RN
[2019-08-30 07:18] LABS: MAGNESIUM 1.9 mg/dL (1.8-2.4)
[2019-08-30 07:21] LABS: CREATININE 1.2 mg/dL (0.6-1.3); POTASSIUM 3.4 mmol/L (3.5-5.1)
[2019-08-30] MEDS: LEVOTHYROXINE SODIUM 25 MCG TABLET GT SCH (07:30)
[2019-08-30] MEDS: VANCOMYCIN HCL 0.75 GM in IV D5W 250 ML IV SCH (08:46)
[2019-08-30] MEDS: NITROGLYCERIN 30 GM TUBE TP SCH ×2 (08:50→20:16)
[2019-08-30] MEDS: FLUCONAZOLE (100 MG) 100 MG TABLET GT SCH (09:00)
[2019-08-30] MEDS: AMLODIPINE BESYLATE 5 MG TABLET GT SCH (09:00)
[2019-08-30] MEDS: LOSARTAN POTASSIUM 50 MG TABLET GT SCH ×2 (09:00→20:16)
[2019-08-30] MEDS: PANTOPRAZOLE 40 MG/PACK PACK NG SCH (09:00)
[2019-08-30] MEDS: METOPROLOL TARTRATE 50 MG TABLET GT SCH ×2 (09:00→17:00)
[2019-08-30] MEDS: CLOTRIMAZOLE/BETAMETASONE DIPROPIONATE 15 GM TUBE TP SCH ×2 (09:20→17:17)
[2019-08-30] MEDS: POTASSIUM CL. PREMIX PERIPHER. 50 ML IV SCH ×4 (09:42→15:59)
--- NOTE | 2019-08-30 11:36 | NUR ---
followup covid result still pending.
[2019-08-30] MEDS ORDERED: MIDAZOLAM HCL 5MG/ML VIAL 25 MG/5 ML VIAL IV ONE (12:00)
[2019-08-30] MEDS ORDERED: NALOXONE PREFILLED SYRINGE 2 MG/2 ML SYRINGE IV ONE (12:00)
[2019-08-30] MEDS ORDERED: FENTANYL PF 250MCG/5ML AMPUL IV ONE (12:00)
--- NOTE | 2019-08-30 12:00 | NUR ---
TELEGRAPHIC TYPEWRITER INSTALLER CT GUIDED PT TRANSFERRED TO CT ROOM, RT , RADIOLOGIST AND NURSE ARE WITH THE PT, INDOORS PT TO ICU NURSE , AL PREOP CHECKLIST COMPLETED, CONSENT SIGNED, DAUGHTER NOTIFIED OF PROCEDURE, PT REMAINS STABLE AT THIS TIME. PAUSED POTASSIUM INFUSION DUE CT SCAN
[2019-08-30] MEDS: ONDANSETRON HCL/PF 4 MG/2 ML VIAL IV PRN (15:07)
--- NOTE | 2019-08-30 15:35 | NUR ---
NG TUBE PLACEMENT PATIENT PRESENT ON BED SITE, VOMITING AND NAUSEATED, PER TUBE CARRIER ORDER INSERTED NG TUBE, PT TOLERATED WELL, PT'S BED ON LOWEST POSITION, CALL LIGHT IN REACH, COUNT TO MONITOR
--- NOTE | 2019-08-30 18:06 | NUR ---
follow up covid result still pending.
--- NOTE | 2019-08-30 19:19 | NUR ---
RADIATION ONCOLOGIST CLOSING NOTES PATIENT IN BED NON VERBAL OPENS EYES, RESPOND TO COMMAND. PATIENT IS CALM AND RESTING AT THE BED.ON TELE MONITOR ST WITH HR @100s. [facility] ON AC MODE PER DOCTOR ORDER ; TOLERATING WELL, SATURATING 98% .IV SITE ON YOUSUF MIDLINE ; PATENT IN FLASHED SALINE LOCK, TKO RUNNING IN INTACT,NO S/S OF INFECTION OR INFILTRATION. STILES CATH IN PLACE, DRAINING YELLOW COLORED URINE. BILATERAL SOFT WRIST RESTRAINTS IN PLACE, ASSESSED PER PROTOCOL. FLEXISEAL NOTED IN PLACE DRAINING WELL. G TUBE FLUSHING AND PATENT; SITE CLEAN DRY AND INTACT; NO RESIDUAL NOTED; NG TUBE ON INTERMITTENT SUCTIONING Addendum: 08/30/19 at 1934 by Isela Blankenship RN RADIATION ONCOLOGIST CLOSING NOTES PATIENT IN BED NON VERBAL OPENS EYES, RESPOND TO COMMAND. PATIENT IS CALM AND RESTING AT THE BED.ON TELE MONITOR ST WITH HR @100s. [facility] V[facility] TRACH ON AC MODE PER DOCTOR ORDER ; TOLERATING WELL, SATURATING 98% .IV SITE ON YOUSUF MIDLINE ; PATENT IN FLASHED SALINE LOCK, TKO RUNNING IN INTACT,NO S/S OF INFECTION OR INFILTRATION. STILES CATH IN PLACE, DRAINING YELLOW COLORED URINE. BILATERAL SOFT WRIST RESTRAINTS IN PLACE, ASSESSED PER PROTOCOL. FLEXISEAL NOTED IN PLACE DRAINING WELL. G TUBE FLUSHING AND PATENT; SITE CLEAN DRY AND INTACT; NO RESIDUAL NOTED; NG TUBE ON INTERMITTENT SUCTIONING , perc drain ABSES with CATH DRAINED 200 ML BROWNISH DRAINAGE. PT IS STILL HAS N/V BED LOCKED LOWEST POSITION, CALL LIGHT WITHIN REACH, 2X SIDE RAILS UP, PT TURNED AND REPOSITION Q4H , AM CARE COMPLETED ALL SAFETY STANDARDS IMPLEMENTED PER HOSPITAL POLICY UPDATED; "DAUGHTER" CALLED AND WAS UPDATED ON HER CONDITION Addendum: 08/30/19 at 1934 by Isela Blankenship RN RADIATION ONCOLOGIST CLOSING NOTES PATIENT IN BED NON VERBAL OPENS EYES, RESPOND TO COMMAND. PATIENT IS CALM AND RESTING AT THE BED.ON TELE MONITOR ST WITH HR @100s. ON [facility] VENT TRACH ON AC MODE PER DOCTOR ORDER ; TOLERATING WELL, SATURATING 98% .IV SITE ON YOUSUF MIDLINE ; PATENT IN FLASHED SALINE LOCK, TKO RUNNING IN INTACT,NO S/S OF INFECTION OR INFILTRATION. STILES CATH IN PLACE, DRAINING YELLOW COLORED URINE. BILATERAL SOFT WRIST RESTRAINTS IN PLACE, ASSESSED PER PROTOCOL. G TUBE FLUSHING AND PATENT; SITE CLEAN DRY AND INTACT; NO RESIDUAL NOTED; NG TUBE ON INTERMITTENT SUCTIONING
[2019-08-30] MEDS: LORAZEPAM INJ 2 MG/ML VIAL IV PRN (21:55)
[2019-08-31] VITALS: BP 141/94
[2019-08-31] MEDS: MEROPENEM 1 G in IV NS 0.9% 100 ML IV SCH ×2 (02:09→14:27)
[2019-08-31 04:00] VITALS: BP 146/86
[2019-08-31 06:17] LABS: BASOPHILS # (AUTO) 0.1 /CMM (0.0-0.2); BASOPHILS % (AUTO) 0.8 % (0.0-2.0); EOSINOPHILS % (AUTO) 2.4 % (0.0-6.0); HEMATOCRIT 29 % (33-45); HEMOGLOBIN 9.5 g/dL (11.5-14.8); LYMPHOCYTES # (AUTO) 1.2 /CMM (0.8-4.8); LYMPHOCYTES % (AUTO) 7.2 % (20.0-44.0); MEAN CORPUSCULAR HGB CONC 33 g/dl (31.0-36.0); MEAN CORPUSCULAR VOLUME 87 fL (82-100); MONOCYTES # (AUTO) 2.4 /CMM (0.1-1.30); MONOCYTES % (AUTO) 14.6 % (2.0-12.0); NEUTROPHILS # (AUTO) 12.3 /CMM (1.8-8.9); PLATELET COUNT (AUTO) 430 /CMM (150-450); RED BLOOD CELL COUNT(AUTO) 3.31 MIL/uL (4.0-5.2); WHITE BLOOD COUNT (AUTO) 16.4 K/uL (4.3-11.0)
[2019-08-31 06:26] LABS: CALCIUM, SERUM 8.6 mg/dL (8.5-10.1); CREATININE 1.2 mg/dL (0.6-1.3); POTASSIUM 3.8 mmol/L (3.5-5.1)
[2019-08-31 07:19] LABS: BAND % (MANUAL) 4 % (0.0-5.0); EOSINOPHILS % (MANUAL) 3 % (0-4); LYMPHOCYTES % (MANUAL) 10 % (16-48); MONOCYTES % (MANUAL) 13 % (0-11.0); NEUTROPHILS % (MANUAL) 70 (42-76)
[2019-08-31] MEDS: LEVOTHYROXINE SODIUM 25 MCG TABLET GT SCH (07:30)
--- NOTE | 2019-08-31 07:30 | NUR ---
TOBACCO WRAPPING MACHINE TENDER AM NOTES PATIENT IN BED NON VERBAL OPENS EYES, RESPOND TO COMMAND. ON TELE MONITOR ST WITH HR @100s. ON [facility] SHILEY 8 TO MECHANICAL VENT, SETTINGS ORDERED. TOLERATING WELL, SATURATING 97% .IV SITE ON YOUSUF MIDLINE; 1/2 NS AT 75 ML/HR RUNNING, ONGOING VANCOMYCIN ATB. SITE CLEAR. NO SIGNS OF PAIN, STILES CATH IN PLACE, DRAINING YELLOW COLORED URINE. BILATERAL SOFT WRIST RESTRAINTS IN PLACE, ASSESSED PER PROTOCOL. FLEXISEAL NOTED IN PLACE DRAINING WELL. G TUBE FLUSHING AND PATENT;CLAMPED AT THIS TIME, NGT TO LIS. GREENISH BLACK SECRETION. NPO FOR NOW. NO VOMITING. SEE NURSING FLOWSHEET FOR SKIN ISSUES. BED LOCKED LOWEST POSITION, CALL LIGHT WITHIN REACH, 2X SIDE RAILS UP, PT WILL BE TURNED AND REPOSITION Q2H , AM CARE COMPLETED ALL SAFETY STANDARDS IMPLEMENTED WILL CONTINUE TO MONITOR.
[2019-08-31 08:00] VITALS: BP 133/66
[2019-08-31] MEDS: LOSARTAN POTASSIUM 50 MG TABLET GT SCH ×2 (08:28→21:00)
[2019-08-31] MEDS: PANTOPRAZOLE 40 MG/PACK PACK NG SCH (08:29)
[2019-08-31] MEDS: AMLODIPINE BESYLATE 5 MG TABLET GT SCH (08:29)
[2019-08-31] MEDS: FLUCONAZOLE (100 MG) 100 MG TABLET GT SCH (08:29)
[2019-08-31] MEDS: METOPROLOL TARTRATE 50 MG TABLET GT SCH ×2 (08:29→16:29)
[2019-08-31] MEDS: LORAZEPAM INJ 2 MG/ML VIAL IV PRN ×2 (08:39→13:28)
--- NOTE | 2019-08-31 09:30 | NUR ---
RN NOTES ORAL MEDS NOT GIVEN. MARY MCDONNELL AWARE.
[2019-08-31] MEDS: NITROGLYCERIN 30 GM TUBE TP SCH ×2 (09:33→21:13)
[2019-08-31] MEDS: VANCOMYCIN HCL 0.75 GM in IV D5W 250 ML IV SCH (09:33)
[2019-08-31] MEDS: CLOTRIMAZOLE/BETAMETASONE DIPROPIONATE 15 GM TUBE TP SCH ×2 (09:34→16:29)
--- NOTE | 2019-08-31 11:25 | NUR ---
RN NOTES PATIENT FOR SMALL BOWEL FOLLOW THROUGH TODAY. ENDORSED TO KITTY TO CALL RADIOLOGY ONCE PATIENT IN ROOM.
--- NOTE | 2019-08-31 11:25 | NUR ---
RN NOTES PATIENT TRANSFERRED TO ROOM 307-[address] HARDWICK. rEPORT GIVENT Mis TANG RN FOR WYATT.
--- NOTE | 2019-08-31 11:31 | NUR ---
INSTALLMENT LOAN COLLECTORGEOGRAPHY FACULTY MEMBER NOTES RECEIVED PATIENT FROM ADELA. MEDICALLY STABLE AT THIS TIME. NG TUBE ON INTERMITTENT SUCTION. EXTRA SECRETIONS COMING FROM [place]. SATURATING AT 100 % AT THIS TIME. HR AT 101. WILL CONTINUE TO MONITOR.
[2019-08-31] MEDS: IV 1/2NS 1000 ML 1,000 ML IV PRN (12:10)
--- NOTE | 2019-08-31 13:35 | NUR ---
SHANK BONER NOTES PATIENT GETTING ANXIOUS, MOVING AROUND AND SHAKING. BP 133/73 HR 115. ADMINISTERED PRN ATIVAN WILL CONTINUE TO MONITOR
[2019-08-31 16:00] VITALS: BP 127/72
--- NOTE | 2019-08-31 18:57 | NUR ---
GUIDE EXCURSION CLOSING NOTES PATIENT REMAINS IN BED, AWAKE, NON-VERBAL. PATIENT ON VENT SETTINGS; TOLERATING VENT GOOD AT THIS TIME BUT THERE ARE LOTS OF SECRETIONS. RT PERFORMED MULTIPLE SUCTIONS THROUGHOUT THE DAY. EXTERNAL CARDIAC MONITORING WITH A CURRENT READING OF SINUS TACH 112. YOUSUF MIDLINE IS IN PLACE AND INTACT; FLUSHING WELL. G-TUBE IN PLACE BUT PATIENT IS NPO AT THIS TIME. STILES DRAINING DARK YELLOW URINE. ALL NEEDS ATTENDED TO THROUGHOUT THE DAY. SAFETY PRECAUTIONS REMAIN IN PLACE; BED IN LOW POSITION AND LOCKED, HOB ELEVATED AT 45 DEGREES FOR ASPIRATION PRECAUTION, RAILS UP X2, CALL LIGHT WITHIN REACH. WILL ENDORSE TO RETAIL DEPARTMENT SUPERVISOR NURSE.
--- NOTE | 2019-08-31 19:15 | NUR ---
ROCKET MOTOR MECHANIC OPENING NOTES: RECEIVED PT ON VENT SHILEY #8 WITH VENT SETTINGS AC 18, TV 450, FIO2 40%, AND PEEP 5. PT ON CONTINUOUS PULSE OX. PT ON TELE MONITOR SHOWING ST AT THIS TIEM. PT HAS NG TUBE ON R NARE AND IS CONNECTED TO LOW INTERMITTENT CONTINUOUS SUCTION. PT SATURATING AT A 100%. PT HAS STILES CATH AND IS ATTACHED TO DRAINAGE BAG WITH URINE DRAINING. PT ALSO HAS YOUSUF #18G MIDLINE AND IS BEING INFUSED WITH IV 1/2 NS AT 75ML/HR. PT HAS BILATERAL SOFT WRIST RESTRAINTS PT IS ATTEMPTING TO PULL OUT TUBINGS. PT NPO PT IS FOR SMALL BOWEL FOLLOW THROUGH IN THE AM. PT ALSO HAS ACCORDION DRAIN WITH BROWN LIKE FLUID DRAINING. PT IN SEMI BROWN'S POSITION. BED KEPT IN LOW, LOCKED POSITION, AND SIDE RAILS X 3UP. WILL CONTINUE TO MONITOR PT. Addendum: 09/01/19 at 0533 by HIEN JACKSON RN PT ALSO HAS G TUBE BUT IS CLAMPED AT THIS TIME.
[2019-08-31 20:00] VITALS: BP 130/88
--- NOTE | 2019-08-31 21:44 | NUR ---
SUB MASTER NOTES: NOTIFIED NURSING NON PROFIT DIRECTOR, ANJANA, ABOUT FIRST STEP BED NOT INFLATING. MADE AWARE.
[2019-09-01] VITALS (10 sets, daily range): BP systolic 120–157; BP diastolic 60–99
[2019-09-01] MEDS: LORAZEPAM INJ 2 MG/ML VIAL IV PRN ×5 (00:54→20:30)
--- NOTE | 2019-09-01 00:59 | NUR ---
STRIP FEEDER NOTES: PT VERY RESTLESS AND ATTEMPTING TO PULL OUT TUBINGS EVEN WITH BILATERAL SOFT WRIST RESTRAINTS. RESTRAINTS REMOVED AND REAPPLIED. PT ALSO ADMINISTERED ATIVAN 1MG IV. WILL CONTINUE TO MONITOR.
[2019-09-01] MEDS: MEROPENEM 1 G in IV NS 0.9% 100 ML IV SCH ×2 (02:06→15:11)
--- NOTE | 2019-09-01 02:15 | NUR ---
FOSTER WINDER NOTES: PT VERY AGITATED. PT KEEPS KICKING AND ATTEMPTING TO PULL OUT TUBINGS. PT GIVEN ATIVAN 1MG VIA IV. WILL CONTINUE TO MONITOR.
--- NOTE | 2019-09-01 04:08 | NUR ---
ACQUISITION ADVISOR NOTES: PT STILL RESTLESS AND ATTEMPTING TO PIVOT OUT OF BED. PT WAS ADMINISTERED ATIVAN 1MG IV. WILL CONTINUE TO MONITOR.
--- NOTE | 2019-09-01 06:16 | NUR ---
FLAT OPTICAL ELEMENT MAKER CLOSING NOTES: ALL NEEDS WERE ATTENDED AND ANTICIPATED FOR. PT KEPT CLEAN, DRY, AND COMFORTABLE. PT ASLEEP AT THIS TIME AND RESTING COMFORTABLY. PT REMAINS ON TELE BOX AND READING SHOWS ST 110-120S AT THIS TIME. PT REMAINS ON BILATERAL SOFT WRIST RESTRAINTS PT ATTEMPTS TO PULL OUT TUBINGS. PT IS NON-VERBAL. PT REMAINS ON SHILEY 8 WITH VENT SETTINGS AC 18, TV 450, FI02 40%, AND PEEP. PT HAS STILES CATH AND IS ATTACHED TO DRAINAGE BAG WITH URINE DRAINING. OUTPUT WAS 150ML. PT ALSO HAS NG TUBE ON RIGHT NARE ON LOW INTERMITTENT SUCTION. GASTRIC DRAINAGE WAS 600ML AND WAS DARK GREEN COLORED LIKE. PT HAS YOUSUF #18G MIDLINE AND IS BEING INFUSED WITH IV 1/2 NS AT 75ML/HR. PT HAS BEEN NPO. GTUBE REMAINS INTACT AND HAS BEEN CLAMPED. PT ALSO HAS ACCORDION DRAIN AND OUTPUT WAS 15ML AND WAS DARK BROWN/GREEN COLORED LIKE. PT FOR SMALL BOWEL FOLLOW THROUGH TODAY. PT TURNED AND REPOSITIONED Q2HRS. PT SUCTIONED PRN. BED KEPT IN LOW, LOCKED POSITION, AND SIDE RAILS X 3UP. CALL LIGHT WITHIN REACH. BED ALARM ACTIVATED. WOUND TX PERFORMED ORDERED. WILL ENDORSE TO AM NURSE FOR WYATT.
[2019-09-01 07:15] LABS: BASOPHILS # (AUTO) 0.2 /CMM (0.0-0.2); BASOPHILS % (AUTO) 1.3 % (0.0-2.0); EOSINOPHILS % (AUTO) 2.6 % (0.0-6.0); HEMATOCRIT 32 % (33-45); HEMOGLOBIN 10.5 g/dL (11.5-14.8); LYMPHOCYTES # (AUTO) 0.9 /CMM (0.8-4.8); LYMPHOCYTES % (AUTO) 5.5 % (20.0-44.0); MEAN CORPUSCULAR HGB CONC 33 g/dl (31.0-36.0); MEAN CORPUSCULAR VOLUME 88 fL (82-100); MONOCYTES # (AUTO) 2.3 /CMM (0.1-1.30); MONOCYTES % (AUTO) 13.3 % (2.0-12.0); NEUTROPHILS # (AUTO) 13.2 /CMM (1.8-8.9); NEUTROPHILS % (AUTO) 77.3 % (43.0-81.0); PLATELET COUNT (AUTO) 488 /CMM (150-450); RED BLOOD CELL COUNT(AUTO) 3.61 MIL/uL (4.0-5.2)
--- NOTE | 2019-09-01 07:23 | NUR ---
EVENT MANAGER NOTES: ENDORSED TO AM NURSE, RN, BERENICE FOR WYATT.
[2019-09-01 07:25] LABS: ALBUMIN 2.7 g/dL (3.4-5.0); CALCIUM, SERUM 8.5 mg/dL (8.5-10.1); CREATININE 1.2 mg/dL (0.6-1.3); MAGNESIUM 1.6 mg/dL (1.8-2.4); PHOSPHORUS 3.6 mg/dL (2.5-4.9); POTASSIUM 3.7 mmol/L (3.5-5.1)
[2019-09-01] MEDS: LEVOTHYROXINE SODIUM 25 MCG TABLET GT SCH (07:30)
--- NOTE | 2019-09-01 07:30 | NUR ---
SQL ANALYST NOTES PT IN BED, AWAKE, NOT IN DISTRESS, NO SIGN OF PAIN, RESPIRATIONS NORMAL, F/C DRAINING WELL WITH CLEAR, YELLOW URINE, WITH NGT CONNECTED TO INTERMITTENT SUCTION, ON VENT/TRACH, REPOSITIONED FOR COMFORT, KEPT WARM AND COMFORTABLE.
[2019-09-01] MEDS: VANCOMYCIN HCL 0.75 GM in IV D5W 250 ML IV SCH (08:23)
[2019-09-01] MEDS: AMLODIPINE BESYLATE 5 MG TABLET GT SCH (09:00)
[2019-09-01] MEDS: LOSARTAN POTASSIUM 50 MG TABLET GT SCH ×2 (09:00→21:00)
[2019-09-01] MEDS: PANTOPRAZOLE 40 MG/PACK PACK NG SCH (09:00)
[2019-09-01] MEDS: FLUCONAZOLE (100 MG) 100 MG TABLET GT SCH (09:00)
[2019-09-01] MEDS: METOPROLOL TARTRATE 50 MG TABLET GT SCH ×2 (09:00→17:00)
[2019-09-01] MEDS ORDERED: DIATR MEGLU/DIATRIZOATE SODIUM 120 ML BOTTLE (GASTROGRAPHIN) ONE (09:12)
[2019-09-01] MEDS: NITROGLYCERIN 30 GM TUBE TP SCH ×2 (09:50→21:33)
[2019-09-01] MEDS: CLOTRIMAZOLE/BETAMETASONE DIPROPIONATE 15 GM TUBE TP SCH ×2 (09:52→16:34)
[2019-09-01] MEDS: Magnesium 1GM/D5W 100ML PREMIX 100 ML IV SCH ×2 (12:28→13:34)
--- NOTE | 2019-09-01 18:32 | NUR ---
HEALTH ADVOCATE NOTES. PATIENT IN BED AWAKE. NONVERBAL, NO SIGN OF DISTRESS, IV FLUIDS INFUSING, PM CARE PROVIDED, REPOSITION. SEEN BY DOCTOR HERNANDEZ. KEPT CLEAN AND COMFORTABLE. HEAD OF BED ELEVATED.
--- NOTE | 2019-09-01 19:20 | NUR ---
pbx inspector opening notes Received Pt from morning nurse. Pt is resting in bed comfortably. Pt is non verbal and able to open eyes. On [facility]. ventilator. No SOB. No S/S of distress noted. Tele monitor showed Sinus tachy. YOUSUF midline# 18 is clean, intact and infusing well 0.45NS @ 75ml/hr. Ojeda cath is intact, patent and draining yellow urine. NG tube on R nare is intact, patent and connected to intermittent suction. Accordion drain is intact, patent and draining brown fluid. Bilateral soft wrist are intact, skin is warm to touch and circulation check Q 2 hr. Safety precautions is maintained. Bed at low position, brakes locked, side rails upX3 and call light is within reach. Will continue to monitor.
--- NOTE | 2019-09-01 20:30 | NUR ---
DANIEL martin Pt is feeling anxious, restless, pulling the rosario, kicking the blanket and pillows. Administered ativan 1 mg/0.5 ml/ iv push as ordered for anxiety. Safety precautions is maintained. Will continue to monitor. Addendum: 09/02/19 at 0323 by ANNA LUONG RN Celeste martin
[2019-09-01] MEDS: IV 1/2NS 1000 ML 1,000 ML IV PRN (22:07)
[2019-09-02] VITALS: BP 137/75
[2019-09-02] MEDS: MEROPENEM 1 G in IV NS 0.9% 100 ML IV SCH ×2 (02:34→16:29)
[2019-09-02 04:00] VITALS: BP 152/89
--- NOTE | 2019-09-02 06:40 | NUR ---
combat control manager closing notes Pt is resting in bed comfortably. Pt is non verbal and able to open eyes. On [facility]. ventilator. No SOB. No S/S of distress noted. Tele monitor showed Sinus tachy. YOUSUF midline# 18 is clean, intact and infusing well 0.45NS @ 75ml/hr. Routine meds were given as ordered. Ojeda cath is intact, patent and draining yellow urine 150ml. NG tube on R nare is intact, patent and connected to intermittent suction. Accordion drain is intact, patent and draining brown fluid 10 ml. Bilateral soft wrist are intact, skin is warm to touch and circulation check Q 2 hr. Skin care provided as ordered. All needs met and attended. Safety precautions is maintained. Bed at low position, brakes locked, side rails upX3 and call light is within reach. Will endorse to morning nurse for WYATT.
[2019-09-02] MEDS: LEVOTHYROXINE SODIUM 25 MCG TABLET GT SCH (07:30)
--- NOTE | 2019-09-02 07:30 | NUR ---
BUFFET SERVER NOTES PT IN BED, AWAKE, NO SIGN OF PAIN, NOT IN DISTRESS, F/C IN PLACE, NGT ON LIS, KEPT PT COMFORTABLE, BILATERAL SOFT WRIST RESTRAINTS ON, PT TRIES TO PULL TUBINGS, KEPT GRIDCAP MACHINE OPERATOR BED.
[2019-09-02 08:04] LABS: CALCIUM, SERUM 8.6 mg/dL (8.5-10.1); CREATININE 1.3 mg/dL (0.6-1.3)
[2019-09-02 08:08] LABS: POTASSIUM 2.7 mmol/L (3.5-5.1)
[2019-09-02] MEDS: LORAZEPAM INJ 2 MG/ML VIAL IV PRN ×3 (08:21→20:42)
[2019-09-02 08:42] VITALS: BP 134/82
[2019-09-02] MEDS: METOPROLOL TARTRATE 50 MG TABLET GT SCH ×2 (09:00→17:00)
[2019-09-02] MEDS: PANTOPRAZOLE 40 MG/PACK PACK NG SCH (09:00)
[2019-09-02] MEDS: FLUCONAZOLE (100 MG) 100 MG TABLET GT SCH (09:00)
[2019-09-02] MEDS: LOSARTAN POTASSIUM 50 MG TABLET GT SCH ×2 (09:00→20:06)
[2019-09-02] MEDS: AMLODIPINE BESYLATE 5 MG TABLET GT SCH (09:00)
[2019-09-02] MEDS: CLOTRIMAZOLE/BETAMETASONE DIPROPIONATE 15 GM TUBE TP SCH ×2 (09:26→17:27)
[2019-09-02] MEDS: NITROGLYCERIN 30 GM TUBE TP SCH ×2 (09:35→21:00)
[2019-09-02] MEDS: VANCOMYCIN HCL 0.75 GM in IV D5W 250 ML IV SCH (09:56)
[2019-09-02] MEDS: POTASSIUM CL. PREMIX PERIPHER. 50 ML IV SCH ×4 (10:58→15:11)
--- NOTE | 2019-09-02 13:23 | NUR ---
SOLAR ENERGY SYSTEMS ENGINEER NOTES PT IN BED, RESTING, NO SIGN OF PAIN OR DISTRESS, SEEN BY DR. ERIC, ORDERS GIVEN, NOTED AND CARRIED OUT, REPOSITIONED FOR COMFORT, CT SCAN OF ABDOMEN DONE, RESULT SENT TO DR. HERNANDEZ, KEPT PT COMFORTABLE, HOB KEPT ELEVATED.
[2019-09-02 16:47] VITALS: BP 142/89
--- NOTE | 2019-09-02 18:47 | NUR ---
CROP FARM HELPER NOTES PT IN BED, RESTING, NO SIGN OF PAIN OR DISTRESS, IVF INFUSING WELL, PANCREATIC DRAINAGE SPECIMEN SENT TO LAB FOR CYTOLOGY, PM CARE PROVIDED, SKIN TREATMENTS DONE, KEPT COMFORTABLE IN BED, KEPT HOB ELEVATED.
--- NOTE | 2019-09-02 19:45 | NUR ---
PRINTER SMALL PRINT SHOP OPENING NOTES RECEIVED PATIENT FROM MORNING SHIFT AWAKE, NON-VERBAL. BREATHING REGULAR AND UNLABORED VIA MECHANICAL VENT, TRACHEOSTOMY PATENT AND INTACT. RIGHT NARE NG TUBE PATENT ON LOW INTERMITTENT SUCTION WITH GREENISH OUTPUT ON TUBING. LEFT UPPER ARM MIDLINE INTACT AND INFUSING WELL WITH NO BLEEDING OR S/S OF INFILTRATION NOTED. ON CARDIAC MONITORING WITH SINUS TACHYCARDIA AT 108bpm. GASTRIC ACCORDION DRAIN PATENT WITH SCANT BROWNISH OUTPUT. PEG TUBE INTACT AND CLAMPED, NO RESIDUAL ASPIRATED. STILES CATH PATENT WITH MINIMAL CLEAR DIPTI COLORED URINE. BILATERAL SOFT WRIST RESTRAINTS ON, SKIN ASSESSMENT DONE. NO S/S OF PAIN/DISCOMFORT NOTED AT THIS TIME. BED LOW AND LOCKED ON SEMI FOWLERS POSITION. CALL LIGHT IN REACH. WILL CONTINUE TO MONITOR.
[2019-09-02 20:00] VITALS: BP_SYST 98; BP_DIAS 61; BP_DIAS 69
--- NOTE | 2019-09-02 20:45 | NUR ---
OIL WELL PERFORATOR OPERATOR NOTES TRIES TO GET UP AND ROLLING ON THE SIDE OF THE BED ALSO OBSERVED WITH EPISODE OF RESTLESSNESS. ATIVAN 1MG GIVEN VIA IV PUSH. NON-PHARMACOLOGICAL INTERVENTIONS PROVIDED. BILATERAL SOFT WRIST RESTRAINTS ON. WILL CLOSELY MONITOR.
[2019-09-03] VITALS (7 sets, daily range): BP systolic 117–164; BP diastolic 66–97
[2019-09-03] MEDS: IV 1/2NS 1000 ML 1,000 ML IV PRN (01:29)
[2019-09-03] MEDS: MEROPENEM 1 G in IV NS 0.9% 100 ML IV SCH ×2 (02:42→14:37)
[2019-09-03] MEDS: LORAZEPAM INJ 2 MG/ML VIAL IV PRN ×7 (03:25→23:12)
[2019-09-03 06:12] LABS: BASOPHILS # (AUTO) 0.2 /CMM (0.0-0.2); BASOPHILS % (AUTO) 1.2 % (0.0-2.0); EOSINOPHILS % (AUTO) 2.7 % (0.0-6.0); HEMATOCRIT 30 % (33-45); HEMOGLOBIN 9.9 g/dL (11.5-14.8); LYMPHOCYTES # (AUTO) 1.3 /CMM (0.8-4.8); LYMPHOCYTES % (AUTO) 7.6 % (20.0-44.0); MEAN CORPUSCULAR HGB CONC 33 g/dl (31.0-36.0); MEAN CORPUSCULAR VOLUME 88 fL (82-100); MONOCYTES # (AUTO) 2.3 /CMM (0.1-1.30); NEUTROPHILS # (AUTO) 12.4 /CMM (1.8-8.9); NEUTROPHILS % (AUTO) 74.5 % (43.0-81.0); PLATELET COUNT (AUTO) 542 /CMM (150-450); WHITE BLOOD COUNT (AUTO) 16.6 K/uL (4.3-11.0)
[2019-09-03 06:24] LABS: ALBUMIN 2.7 g/dL (3.4-5.0); BILIRUBIN,TOTAL 1.2 mg/dL (0.2-1.0); CALCIUM, SERUM 8.6 mg/dL (8.5-10.1); CREATININE 1.2 mg/dL (0.6-1.3); MAGNESIUM 1.8 mg/dL (1.8-2.4); PHOSPHORUS 2.8 mg/dL (2.5-4.9); POTASSIUM 3.6 mmol/L (3.5-5.1); TOTAL PROTEIN, SERUM 7.9 g/dL (6.4-8.2)
--- NOTE | 2019-09-03 06:35 | NUR ---
POLICY OFFICER CLOSING NOTES PATIENT IN BED AWAKE, NON-VERBAL RESTLESS AND TRIES TO GET UP IN BED. AFEBRILE WITH NO S/S OF RESPIRATORY DISTRESS OBSERVED. WITH TRACHEOSTOMY CONNECTED TO MECHANICAL VENT SETTINGS TOLERATING WELL. LATEST SPO2 100%. RIGHT NARE NG TUBE LOW INTERMITTENT SUCTION WITH GREENISH 100cc OUTPUT. LEFT UPPER ARM MIDLINE INTACT AND INFUSING WELL. MAINTAINED ON CARDIAC MONITORING WITH SINUS TACHYCARDIA AT 104bpm. GASTRIC ACCORDION DRAINED WITH SCANT BROWNISH 50cc OUTPUT. PEG TUBE INTACT AND CLAMPED, NO RESIDUAL ASPIRATED. STILES CATH PATENT WITH 250cc CLEAR DIPTI COLORED URINE. BILATERAL SOFT WRIST RESTRAINTS MAINTAINED, SKIN ASSESSMENT DONE. NO S/S OF PAIN/DISCOMFORT NOTED AT THIS TIME. BED LOW AND LOCKED ON SEMI FOWLERS POSITION. CALL LIGHT IN REACH. WILL ENDORSE TO MORNING SHIFT FOR WYATT.
[2019-09-03] MEDS: LEVOTHYROXINE SODIUM 25 MCG TABLET GT SCH (07:30)
--- NOTE | 2019-09-03 07:39 | NUR ---
PHARMACIST INTERN OPENING NOTES RECEIVED PATIENT IN BED, AWAKE, NON-VERBAL. PATIENT VERY RESTLESS; MOVES A LOT. PATIENT WITH TRACHEOSTOMY CONNECTED TO MECHANICAL VENT SETTINGS TOLERATING WELL. SATURATING AT 98% AT THIS TIME. NG TUBE TO THE RIGHT NARIS WITH LOW INTERMITTENT SUCTION. YOUSUF MIDLINE INTACT AND INFUSING WELL. MAINTAINED ON CARDIAC MONITORING WITH SINUS TACHYCARDIA AT 102 BPM. PEG TUBE INTACT AND CLAMPED. STILES CATH PATENT WITH 250cc CLEAR DIPTI COLORED URINE. PATIENT ON SOFT WRIST RESTRAINS. SAFETY PRECAUTIONS IN PLACE; BED IN LOW POSITION AND LOCKED, RAILS UP X2, CALL LIGHT WITHIN REACH. WILL CONTINUE TO MONITOR PATIENT.
[2019-09-03] MEDS: FLUCONAZOLE (100 MG) 100 MG TABLET GT SCH (08:07)
[2019-09-03] MEDS: AMLODIPINE BESYLATE 5 MG TABLET GT SCH (08:07)
[2019-09-03] MEDS: METOPROLOL TARTRATE 50 MG TABLET GT SCH ×2 (08:07→16:30)
[2019-09-03] MEDS: LOSARTAN POTASSIUM 50 MG TABLET GT SCH ×2 (08:07→20:33)
[2019-09-03] MEDS: PANTOPRAZOLE 40 MG/PACK PACK NG SCH (08:08)
[2019-09-03] MEDS: CLOTRIMAZOLE/BETAMETASONE DIPROPIONATE 15 GM TUBE TP SCH ×2 (08:08→16:30)
[2019-09-03] MEDS: NITROGLYCERIN 30 GM TUBE TP SCH ×2 (08:45→20:40)
[2019-09-03] MEDS: ACETAMINOPHEN 650 MG/SUPP.RECT RC PRN (16:21)
--- NOTE | 2019-09-03 17:15 | NUR ---
SOAKING ROOM OPERATOR NOTES PATIENT WITH PERIODS OF RESTLESSNESS. PRN ATIVAN ADMINISTERED. PATIENT MOVED HER HEAD AND UPPER BODY A LOT AND HER NG TUBE CAME OUT. MD NOTIFIED. DUE TO TOMORROW'S PROCEDURE MD SAID NOT TO REINSERT THE TUBE.
--- NOTE | 2019-09-03 18:45 | NUR ---
CONCRETE FORM SETTER AND FINISHER NOTES PER DR DIEHL RECEIVED CONSENT FROM PATIENTS DAUGHTER MEAGAN (COSIGNED BY THE SECOND NURSE) FOR UPPER ENDOSCOPY PROCEDURE. CONSENT SIGNED AND FILED.
--- NOTE | 2019-09-03 18:59 | NUR ---
BUTTONHOLE MARKER CLOSING NOTES PATIENT IN BED, AWAKE, NON-VERBAL A BIT RESTLESS. ATIVAN PROVIDED DURING THE DAY; ON SOFT WRIST RESTRAINS YET, MANAGED TO DISLOCATE HER NG TUBE. MD AWARE. PATIENT WITH TRACHEOSTOMY CONNECTED TO MECHANICAL VENT SETTINGS TOLERATING WELL BUT FIGHTING IT DURING EPISODES OF RESTLESSNESS. SATURATING AT 98% AT THIS TIME. YOUSUF MIDLINE INTACT AND INFUSING WELL. MAINTAINED ON CARDIAC MONITORING WITH SINUS TACHYCARDIA AT 111 BPM. PEG TUBE INTACT AND CLAMPED. STILES CATH PATENT W CLEAR DIPTI COLORED URINE. PATIENT ON SOFT WRIST RESTRAINS. ALL NEEDS ATTENDED TO THROUGHOUT THE DAY. SAFETY PRECAUTIONS REMAIN IN PLACE; BED IN LOW POSITION AND LOCKED, RAILS UP X2, CALL LIGHT WITHIN REACH. WILL ENDORSE TO SENIOR OCCUPATIONAL THERAPIST NURSE.
--- NOTE | 2019-09-03 20:30 | NUR ---
rn notes: received rpeort form juan m morales rn at 1915. pt pulled out ngtube during the day, md merida and per report with orders okay to to reinsert tube, to keep pt npo, do not start feeding, pt for egd in am, consert secured by day alexi mcgowan. pt received with bilateral soft wrist restraint in placed as pt very agitated, restless, and tried hitting staff when restraint is release, and tried pulling out tubes and trache, pt able to move and wiggle arms and hands, bilateral radial pulses palpable and intact, with good capillary refill noted, no s/s of impediment in circulation noted.
[2019-09-03] MEDS: JEVITY 1.2 CAL 1,000 ML BOTTLE GT PRN (20:33)
--- NOTE | 2019-09-03 20:42 | NUR ---
RT NOTE PT RECEIVED TRACHED ON MECHANICAL VENTILATION. CUFF CHECKED VIA FIRE INSPECTOR. PT APPEARS TO BE AGITATED, DANIEL DUFFY @ BEDSIDE. AND IS AWARE. VENT PLUGGED TO RED OUTLET. ALARMS ON AND AUDIBLE. WILL MONITOR. Addendum: 09/03/19 at 2043 by GAVIOTA ROJAS RT Amended: Links added.
--- NOTE | 2019-09-03 20:46 | NUR ---
PRN ATIVAN: PRN ATIVAN 1MG IVP ADMINISTERED TO THE PT FOR RESTLESSNESS AND AGITATION
--- NOTE | 2019-09-03 23:15 | NUR ---
prn ativan: pt very restless, agitated, prn ativan 1mg ivp administered to pt at this time. vs taken and recorded prior to administering medication.
[2019-09-04] VITALS (8 sets, daily range): BP systolic 104–152; BP diastolic 66–92
[2019-09-04] MEDS: LORAZEPAM INJ 2 MG/ML VIAL IV PRN ×5 (01:11→22:41)
--- NOTE | 2019-09-04 01:12 | NUR ---
PRN ATIVAN: PRN ATIVAN 1MG IVP ADMINISTERED FOR PT'S RESTLESSNESS, AGITATION
[2019-09-04] MEDS: MEROPENEM 1 G in IV NS 0.9% 100 ML IV SCH ×2 (03:17→16:55)
[2019-09-04] MEDS: IV 1/2NS 1000 ML 1,000 ML IV PRN (03:17)
[2019-09-04 06:10] LABS: BASOPHILS # (AUTO) 0.1 /CMM (0.0-0.2); BASOPHILS % (AUTO) 0.9 % (0.0-2.0); HEMATOCRIT 30 % (33-45); HEMOGLOBIN 9.8 g/dL (11.5-14.8); LYMPHOCYTES # (AUTO) 1.4 /CMM (0.8-4.8); LYMPHOCYTES % (AUTO) 9.6 % (20.0-44.0); MEAN CORPUSCULAR HGB CONC 33 g/dl (31.0-36.0); MEAN CORPUSCULAR VOLUME 87 fL (82-100); MONOCYTES # (AUTO) 1.9 /CMM (0.1-1.30); MONOCYTES % (AUTO) 12.6 % (2.0-12.0); NEUTROPHILS # (AUTO) 11.1 /CMM (1.8-8.9); NEUTROPHILS % (AUTO) 73.9 % (43.0-81.0); PLATELET COUNT (AUTO) 581 /CMM (150-450); RED BLOOD CELL COUNT(AUTO) 3.41 MIL/uL (4.0-5.2)
--- NOTE | 2019-09-04 06:17 | NUR ---
PRN ATIVAN: PT FOUND TO BE VERY AGITATED, RESTLESS AND TRYING TO PULL OUT STILES CATHETER DESPITE HER BEING ON RESTRAINT, PT MANAGE TO MOVE AROUND THE BED, PRN ATIVAN 1MG IVP ADMINISTERED TO PT AT THIS TIME, VS TAKEN AND RECORDED PRIOR TO ADMINISTERING MEDICATION
[2019-09-04 06:43] LABS: CALCIUM, SERUM 8.6 mg/dL (8.5-10.1); CREATININE 1.3 mg/dL (0.6-1.3); MAGNESIUM 1.7 mg/dL (1.8-2.4); PHOSPHORUS 4.1 mg/dL (2.5-4.9); POTASSIUM 3.2 mmol/L (3.5-5.1)
--- NOTE | 2019-09-04 06:49 | NUR ---
END OF SHIFT REPORT: RECEIVED REPORT FROM KITTY Rivera RN AT 1910 LAST NIGHT. PT ON [facility] VENT TRACHE DEPENDENT WITH THE FF SETTING: SHILEY #8, AC 18, TV 450, FIO2 40%, PEEP 5. AMBU BAG AT BED SIDE. CLINICAL ALARMS CHECK AND AUDIBLE. ON CONTINUOUS PULSE OXIMETRY. TELE MONITORING SINUS TACHYCARDIA HR 108.PT BEEN AGITATED, RESTLESS, PRN ATIVAN 1MG ADMINISTERED Q1HR ORDERED. PT REMAINS WITH BILATERAL SOFT WRIST RESTRAINT IN PLCED, RESTRAINT PROTOCOL FOLLOWED, PT ABLE TO MOVE AND WIGGLE ARMS AND HANDS, BILATERAL RADIAL PULSES PALPABLE AND INTACT, GOOD CAPILLARY REFILL NOTED, NO S/S OF IMPEDIMENT IN CIRCULATION NOTED. PT BEEN NPO PER MD ORDER, ALSO FOR EGD WITH DR DIEHL IN THE AFTERNOON. CONSENT SECURED BY DAY DANIEL TANG. GTUBE REMAINS CLAMPED. RIGHT PERCUTANEOUS CATHETER REMAINS IN PLACED, ACCORDION DRAIN ATTACHED. YOUSUF MIDLINE REMAINS PATENT AND FLUSHING WELL, INFUSING WITH 1/2 NS AT 50ML/HR. WOUND CARE, AM CARE AND COMPLETE LINEN CHANGE PROVIDED. SAFETY PRECAUTIONS FOR FALL REMAINS ENGAGED, CALL LIGHT IN REACH, WILL ENDORSE TO DAY RN FOR CONTINUITY OF CARE.
[2019-09-04] MEDS: LEVOTHYROXINE SODIUM 25 MCG TABLET GT SCH (07:30)
--- NOTE | 2019-09-04 07:34 | NUR ---
TOWER EXCAVATOR OPERATOR OPENING NOTES RECEIVED PATIENT IN BED, AWAKE, NON-VERBAL, AGITATED, RESTLESS. PER RIVET HEATER GAS NURSE ATJACK PRN ADMINISTERED AROUND THE CLOCK. AT THIS TIME PATIENT TOLERATES HER VENT SETTINGS WELL BUT IS CONSTANTLY FIGHTING VENT. SATURATING AT 97-99%. GTUBE REMAINS CLAMPED. RIGHT PERCUTANEOUS CATHETER REMAINS IN PLACED, ACCORDION DRAIN ATTACHED. YOUSUF MIDLINE REMAINS PATENT AND FLUSHING WELL, INFUSING WITH 1/2 NS AT 50ML/HR. SAFETY PRECAUTIONS FOR FALL REMAINS ENGAGED, CALL LIGHT IN REACH, RAILS UP X2. WILL CONTINUE TO MONITOR PATIENT.
[2019-09-04] MEDS: LOSARTAN POTASSIUM 50 MG TABLET GT SCH ×2 (08:05→21:23)
[2019-09-04] MEDS: FLUCONAZOLE (100 MG) 100 MG TABLET GT SCH (08:05)
[2019-09-04] MEDS: METOPROLOL TARTRATE 50 MG TABLET GT SCH ×2 (08:05→16:29)
[2019-09-04] MEDS: AMLODIPINE BESYLATE 5 MG TABLET GT SCH (08:10)
[2019-09-04] MEDS: CLOTRIMAZOLE/BETAMETASONE DIPROPIONATE 15 GM TUBE TP SCH ×2 (08:11→17:09)
[2019-09-04] MEDS: PANTOPRAZOLE 40 MG/PACK PACK NG SCH (08:11)
[2019-09-04] MEDS: NITROGLYCERIN 30 GM TUBE TP SCH ×2 (08:11→21:24)
--- NOTE | 2019-09-04 10:26 | NUR ---
ATIVAN PRN PT FOUND TO BE VERY AGITATED, RESTLESS AND TRYING TO PULL ON EVERYTHING SHE CAN DESPITE HER BEING ON RESTRAINT, PT MANAGE TO MOVE AROUND THE BED, PRN ATIVAN 1MG IVP ADMINISTERED TO PT; VS: BP 132/74 HR 105
[2019-09-04] MEDS: POTASSIUM CHLORIDE 20 MEQ POWDER PACKET NG SCH ×2 (11:00→12:00)
--- NOTE | 2019-09-04 12:36 | NUR ---
ELECTRICAL INTEGRATOR NOTES REPORT GIVEN TO NICK. PATIENT CARE TRANSFERRED TO HER.
--- NOTE | 2019-09-04 13:00 | NUR ---
RECEIVED PT. FROM [facility].ENDOSCOPY BEING COMPLETED.PT. XIOMY. WELL. VS STABLE.POUCH RT. ABD. DRAINING SM. AMT CLEAR BROWN LIQ. PEG CLAMPED. REMAINS NPO.STARTING MG. REPLACEMENT. VENT SETTINGS UNCHANGED.F/C DRAINING CLEAR YELLOW URINE.
[2019-09-04] MEDS: Magnesium 1GM/D5W 100ML PREMIX 100 ML IV SCH ×2 (14:05→15:35)
--- NOTE | 2019-09-04 18:00 | NUR ---
UNABLE TO DO POTASSIUM REPLACEMENT PT'S MERREM INFUSION TIME TOO LONG.,WILL ENDORSE TO NEXT SHIFT.VENT SETTINGS UNCHANGED.
--- NOTE | 2019-09-04 19:15 | NUR ---
PATIENT RESOURCE SPECIALIST OPENING NOTES: RECEIVED PATIENT IN BED, ASLEEP, WITH TRACH CONNECTED TO THE VENTILATOR WITH O2 SAT OF 100%. HOB ELEVATED AT 30 DEGREES. WITH PERCUTANEOUS CATHETER ON THE RIGHT ABDOMEN INTACT WITH VERY MINIMAL BROWNISH OUTPUT. WITH STILES CATHETER INTACT SECURED WITH THE TAPE DRAINING DIPTI COLORED URINE. WITH PEG INTACT,CLUMPED. WITH BILATERAL SOFT WRIST RESTRAINTS, SKIN CHECKED ON BOTH WRISTS ARE WNL, GOOD COLOR AND CIRCULATION. BED ALARM ON. BED IN LOWEST AND LOCKED POSITION. WITH AIR MATTRESS ON.
[2019-09-04] MEDS: POTASSIUM CL. PREMIX PERIPHER. 50 ML IV SCH ×3 (19:50→22:52)
--- NOTE | 2019-09-04 20:07 | NUR ---
PT RECEIVED TRACHED ON MECHANICAL VENTILATION. CUFF CHECKED VIA DEHYDROGENATION OPERATOR. PT IS COMFORTABLE AND ASLEEP. VENT PLUGGED TO RED OUTLET. ALARMS ON AND AUDIBLE. WILL MONITOR T/O SHIFT. Addendum: 09/04/19 at 2008 by ONEL SHEFFIELD RT Amended: Links added.
--- NOTE | 2019-09-04 21:37 | NUR ---
RT CAME AND SUCTIONED THE PATIENT'S ORAL AND TRACH, WITH GREENISH SECRETIONS CAME OUT FRO THE TRACH AND MOUTH. PATIENT IS AWAKE NOW, EYES ARE FULLY OPENED. PATIENT IS SLIGHTLY RESTLESS. NO SKIN IRRITATIONS AROUND THE G-TUBE SITE, WITH VERY SMALL AMOUNT OF GREENISH OUTPUT FROM THE PEG. FLASHED WITH WATER AFTER GIVING MED AND CLAMPED.
[2019-09-04] MEDS: ONDANSETRON HCL/PF 4 MG/2 ML VIAL IV PRN (22:42)
--- NOTE | 2019-09-04 22:58 | NUR ---
PATIENT VOMITTED, GREENISH OUTPUT, RT SUCTIONED THE PATIENT'S ORAL AND TRACHEOSTOMY. PATIENT'S HOB ELEVATED AT ALL TIMES. ZOFRAN 4MG IV GIVEN FOR VOMITTING. ATIVAN 1 MG IV GIVEN FOR RESTLESSNESS.
[2019-09-05] VITALS (8 sets, daily range): BP systolic 106–136; BP diastolic 69–91
[2019-09-05] MEDS: POTASSIUM CL. PREMIX PERIPHER. 50 ML IV SCH (00:18)
--- NOTE | 2019-09-05 02:42 | NUR ---
TRACHEOSTOMY DRESSING CHANGED. WITH MODERATE AMOUNT OF GREENISH DRAINAGE FROM THE SITE, SKIN SLIGHTLY IRRITATED, CLEANSED GENTLY, AND PLACED A NEW DRESSING.
[2019-09-05] MEDS: MEROPENEM 1 G in IV NS 0.9% 100 ML IV SCH ×2 (03:00→14:04)
[2019-09-05] MEDS: CLOTRIMAZOLE/BETAMETASONE DIPROPIONATE 15 GM TUBE TP SCH ×2 (04:20→17:16)
[2019-09-05] MEDS: ONDANSETRON HCL/PF 4 MG/2 ML VIAL IV PRN ×2 (04:25→11:28)
--- NOTE | 2019-09-05 04:56 | NUR ---
PATIENT VOMITTED MODERATE AMOUNT OF BROWNISH EMESIS, ZOFRAN 4MG IV GIVEN. HOB ELEVATED AT ALL TIMES. TRACH DRESSING CHANGED.
--- NOTE | 2019-09-05 05:18 | NUR ---
AGENCY SALES DIRECTOR CLOSING NOTES: PATIENT IN BED, AWAKE. PATIENT IS CALM AT THIS TIME. CLEANSED GROIN FOLDS,UNDERARMS,AND BUTTOCKS WITH SOAP AND WATER, RINSED AND DRIED WELL AND APPLIED LOTRISONE CREAM. BED ALARM ON. BED IN LOWEST AND LOCKED POSITION. NO SOB NOTED. NOT MOANING. BILATERAL SOFT WRIST RESTRAINTS ON, SKIN AND CIRCULATION ARE WNL.
[2019-09-05 06:55] LABS: CALCIUM, SERUM 8.7 mg/dL (8.5-10.1); MAGNESIUM 2.4 mg/dL (1.8-2.4); PHOSPHORUS 3.5 mg/dL (2.5-4.9)
[2019-09-05 07:02] LABS: BASOPHILS # (AUTO) 0.2 /CMM (0.0-0.2); BASOPHILS % (AUTO) 1.2 % (0.0-2.0); HEMATOCRIT 31 % (33-45); HEMOGLOBIN 10.1 g/dL (11.5-14.8); LYMPHOCYTES # (AUTO) 1.1 /CMM (0.8-4.8); LYMPHOCYTES % (AUTO) 8.2 % (20.0-44.0); MEAN CORPUSCULAR HGB CONC 32 g/dl (31.0-36.0); MEAN CORPUSCULAR VOLUME 89 fL (82-100); MONOCYTES # (AUTO) 1.8 /CMM (0.1-1.30); MONOCYTES % (AUTO) 13.2 % (2.0-12.0); NEUTROPHILS % (AUTO) 74.4 % (43.0-81.0); PLATELET COUNT (AUTO) 544 /CMM (150-450); WHITE BLOOD COUNT (AUTO) 13.4 K/uL (4.3-11.0)
--- NOTE | 2019-09-05 07:21 | NUR ---
COIN BOX COLLECTOR NOTES RECEIVED PATIENT IN BED RESTING COMFORTABLY IN MODERATE HIGH BACK REST, AWAKE, NON VERBAL. PATIENT IS ON A VENT, NO SIGNS OF DISTRESS NOTED AT THIS TIME, IV FLUIDS ON YOUSUF MIDLINE WITH 1/2 NS RUNNING @50 ML/HR, PATENT AND INTACT. BED ALARM ON. BED IN LOWEST AND LOCKED POSITION. BILATERAL SOFT WRIST RESTRAINTS ON, SKIN AND CIRCULATION ARE WNL. CALL LIGHT WITHIN EASY REACH, WILL CONTINUE TO MONITOR.
[2019-09-05] MEDS: LEVOTHYROXINE SODIUM 25 MCG TABLET GT SCH (07:30)
[2019-09-05] MEDS: NITROGLYCERIN 30 GM TUBE TP SCH ×2 (08:39→21:54)
[2019-09-05] MEDS: LORAZEPAM INJ 2 MG/ML VIAL IV PRN ×5 (08:46→22:51)
[2019-09-05] MEDS: AMLODIPINE BESYLATE 5 MG TABLET GT SCH (09:00)
[2019-09-05] MEDS: LOSARTAN POTASSIUM 50 MG TABLET GT SCH ×2 (09:00→21:00)
[2019-09-05] MEDS: PANTOPRAZOLE 40 MG/PACK PACK NG SCH (09:00)
[2019-09-05] MEDS: FLUCONAZOLE (100 MG) 100 MG TABLET GT SCH (09:00)
[2019-09-05] MEDS: METOPROLOL TARTRATE 50 MG TABLET GT SCH ×2 (09:00→17:00)
--- NOTE | 2019-09-05 09:00 | NUR ---
RN NOTES PATIENT VOMITTED A GREENISH OUTPUT EARLIER, PER DIRECTOR NURSERY SCHOOL NURSE PATIENT VOMITTED TWICE LAST NIGHT, HOLDING AM MEDS, WILL CONTINUE TO MONITOR AND NOTIFY THE MD.
[2019-09-05] MEDS ORDERED: LORAZEPAM 1 MG TABLET PO PRN (11:30)
--- NOTE | 2019-09-05 15:30 | NUR ---
RN NOTES INFORMED DR. ERIC REGARDING PATIENT, STILL VOMITING EVEN AFTER GIVEN ZOFRAN, VOMITING SINCE LAST NIGHT. PER MD, TO INSERT NGT AND SET TO LOW INTERMITTENT SUCTION, CONSENT VIA TELEPHONE BY SELIN (SISTER) WAS DONE. UNABLE TO CONTACT CAROLNI (DAUGHTER) PER SELIN(SISTER) AND ROUTER OPERATOR RADIAL NURSE, CAROLIN WENT CAMPING AND WILL NOT BE BACK UNTIL SATURDAY.
--- NOTE | 2019-09-05 17:00 | NUR ---
RN NOTES NGT WAS INSERTED AND ON LOW INTERMITTENT SUCTION, CONFIRMED THE PLACEMENT BY CHEST XR. WILL CONTINUE TO MONITOR.
[2019-09-05] MEDS: IV 1/2NS 1000 ML 1,000 ML IV PRN (18:10)
--- NOTE | 2019-09-05 18:36 | NUR ---
TALENT ACQUISITION SOURCER NOTES PATIENT IN BED RESTING COMFORTABLY IN MODERATE HIGH BACK REST, AWAKE, NON VERBAL. PATIENT IS ON A VENT, NO SIGNS OF DISTRESS THROUGHOUT THE SHIFT, IV FLUIDS ON YOUSUF MIDLINE WITH 1/2 NS RUNNING @50 ML/HR, PATENT AND INTACT. PATIENT PULLED OUT HER NGT, WILL ENDORSE TO PORT PATROL OFFICER FOR REINSERTION. BED ALARM ON. BED IN LOWEST AND LOCKED POSITION. BILATERAL SOFT WRIST RESTRAINTS ON, SKIN AND CIRCULATION ARE WNL. CALL LIGHT WITHIN EASY REACH, WILL ENDORSE TO NEXT SHIFT FOR WYATT.
--- NOTE | 2019-09-05 19:48 | NUR ---
RN NOTES RECEIVED PATIENT IN BED RESTING COMFORTABLY IN MODERATE HIGH BACK REST, AWAKE, NON VERBAL. MODERATE RESTLESSNESS NOTED, PATIENT IS ON A VENT, IV FLUIDS ON YOUSUF MIDLINE WITH 1/2 NS RUNNING @50 ML/HR, PATENT AND INTACT. PATIENT PULLED OUT HER NGT, BED ALARM ON. BED IN LOWEST AND LOCKED POSITION. BILATERAL SOFT WRIST RESTRAINTS ON, ASSESSED FOR ADEQUATE CIRCULATION. SKIN AND CIRCULATION ARE WNL. STILES CATH INTACT AND PATENT, DRAINING TO A YELLOW URINE OUTPUT. CALL LIGHT WITHIN EASY REACH, WILL CONTINUE TO MONITOR ACCORDINGLY.
[2019-09-06] VITALS (7 sets, daily range): BP systolic 110–161; BP diastolic 62–86
[2019-09-06] MEDS: LORAZEPAM INJ 2 MG/ML VIAL IV PRN ×3 (03:03→06:28)
[2019-09-06] MEDS: MEROPENEM 1 G in IV NS 0.9% 100 ML IV SCH ×2 (03:03→15:02)
--- NOTE | 2019-09-06 06:51 | NUR ---
RN NOTES ALL NEEDS ATTENDED AND MET, PATIENT IN BED AWAKE , IN MODERATE HIGH BACK REST, NON VERBAL. RESTLESS THROUGHOUT THE SHIFT PATIENT IS ON A VENT, NO SIGNS OF ACUTE DISTRESS NOTED, IV FLUIDS ON YOUSUF MIDLINE WITH 1/2 NS RUNNING @50 ML/HR, PATENT AND INTACT INFUSING WELL.ATTEMPTED TO RE INSERT NGT, HOWEVER, PATIENT IS RESISTING, UNABLE TO RE INSERT. BED ALARM ON. BED IN LOWEST AND LOCKED POSITION. BILATERAL SOFT WRIST RESTRAINTS ON, ASSESSED FOR ADEQUATE CIRCULATION. SKIN AND CIRCULATION ARE WNL. CALL LIGHT WITHIN EASY REACH, WILL ENDORSE TO AM NURSE FOR CONTINUITY OF CARE.
--- NOTE | 2019-09-06 07:15 | NUR ---
ALARM SIGNALER OPENING NOTES RECEIVED PT ON BED, NON VERBAL, ON DEPENDENT MECH VENT, CLINICALLY ALARMED CHECK. WITH MILD RESTLESS BEHAVIOR, ON BILATERAL WRIST RESTRAINT WITH GOOD CIRCULATION. SATING 100%. ABD SOFT AND NON DISTENDED WITH ACTIVE BOWEL SOUNDS, G-TUBE IN PLACE WITH AUSCULTATION, NO RESIDUAL, ACCORDION DRAIN WITH DARK BROWN OUTPUT, FC WITH DARK YELLOW OUTPUT. SKIN WARM TO TOUCH AND DRY. NO S/SX OF PAIN AND DISCOMFORT. IV SITE AT YOUSUF MIDLINE RUNNING 1/2 NS @ 50 ML/HR. BED IN LOW LOCKED POSITION, SR X3 UP FOR SAFETY, BED ALARM CHECKED. TELE MONITOR SHOWS SINUS RHYTHM 89. WILL CONTINUE TO MONITOR CARE.
[2019-09-06 07:27] LABS: CALCIUM, SERUM 8.5 mg/dL (8.5-10.1); CREATININE 1.1 mg/dL (0.6-1.3); MAGNESIUM 1.9 mg/dL (1.8-2.4); PHOSPHORUS 3.6 mg/dL (2.5-4.9); POTASSIUM 3.3 mmol/L (3.5-5.1)
[2019-09-06 07:29] LABS: BASOPHILS # (AUTO) 0.1 /CMM (0.0-0.2); BASOPHILS % (AUTO) 0.9 % (0.0-2.0); EOSINOPHILS % (AUTO) 3.6 % (0.0-6.0); HEMATOCRIT 28 % (33-45); HEMOGLOBIN 9.3 g/dL (11.5-14.8); LYMPHOCYTES # (AUTO) 1.5 /CMM (0.8-4.8); LYMPHOCYTES % (AUTO) 11.2 % (20.0-44.0); MEAN CORPUSCULAR HGB CONC 33 g/dl (31.0-36.0); MEAN CORPUSCULAR VOLUME 88 fL (82-100); MONOCYTES % (AUTO) 15.4 % (2.0-12.0); NEUTROPHILS # (AUTO) 9.1 /CMM (1.8-8.9); NEUTROPHILS % (AUTO) 68.9 % (43.0-81.0); PLATELET COUNT (AUTO) 485 /CMM (150-450); RED BLOOD CELL COUNT(AUTO) 3.23 MIL/uL (4.0-5.2); WHITE BLOOD COUNT (AUTO) 13.2 K/uL (4.3-11.0)
[2019-09-06] MEDS: LEVOTHYROXINE SODIUM 25 MCG TABLET GT SCH (07:30)
[2019-09-06] MEDS: PANTOPRAZOLE 40 MG/PACK PACK NG SCH (08:11)
[2019-09-06] MEDS: LOSARTAN POTASSIUM 50 MG TABLET GT SCH ×3 (08:11→21:28)
[2019-09-06] MEDS: AMLODIPINE BESYLATE 5 MG TABLET GT SCH (08:11)
[2019-09-06] MEDS: FLUCONAZOLE (100 MG) 100 MG TABLET GT SCH (08:11)
[2019-09-06] MEDS: METOPROLOL TARTRATE 50 MG TABLET GT SCH ×2 (08:11→16:20)
[2019-09-06] MEDS: NITROGLYCERIN 30 GM TUBE TP SCH ×2 (08:27→21:28)
[2019-09-06] MEDS: CLOTRIMAZOLE/BETAMETASONE DIPROPIONATE 15 GM TUBE TP SCH ×2 (08:27→16:20)
--- NOTE | 2019-09-06 08:30 | NUR ---
CITIZENSHIP TEACHER NOTES PT ASLEEP COMFORTABLE. BOTH WRIST RESTRAINTS IN GOOD CIRCULATION. GT MEDS NOT GIVEN DUE TO GREEN SECRETION VOMIT WHEN FLUSHED 10ML WATER. KEPT HOB ELEVATED. CLEANED PATIENT. OCCURRED 1 TIME. WILL CONTINUE TO MONITOR CARE
[2019-09-06] MEDS: POTASSIUM CL. PREMIX PERIPHER. 50 ML IV SCH ×4 (08:36→12:27)
--- NOTE | 2019-09-06 10:18 | NUR ---
AIRCRAFT STRUCTURAL DESIGN ENGINEER NOTES PT STILL ASLEEP COMFORTABLY. BILATERAL SOFT RESTRAINT ON, GOOD CIRCULATION. CHANGED TRACH DRESSING. NO VOMITING NOTED. HOB REMAINED ELEVATED
--- NOTE | 2019-09-06 16:20 | NUR ---
PHYSICIAN PRESIDENT NOTES 5PM MEDS NOT GIVEN DUE TO VOMIT EPISODES WHEN USING GTUBE SITE.
--- NOTE | 2019-09-06 16:28 | NUR ---
AUDIO ENGINEER NOTES CALLED HOTLINE PROVIDED BY RADIOLOGY DEPARTMENT, AND TALKED TO JOSE. PROVIDER TODAY IS DR. ROLLE WITH CONTACT NUMBER AND IS ASSIGNED TO SCHEDULE AND COORDINATE WITH THE PROCEDURE. CONFIRM IF THEY CAN HELP WITH ORDERING- INTERVENTION WITH RADIOLOGIST FOR GASTRIC JEJUNUM TUB PLACEMENT , PER JOSE UNABLE TO HELP IT IS NOT A SCOPE OF THEIR IT WELL. GIVEN NUMBER FOR LICENSED FINAL EXPENSE AGENTS NAME EDGAR AT FOR THE ORDER. CALLED EDGAR, HE STATED THAT HE IS ASSOCIATED WITH [facility] AND CANNOT HELP WITH ORDERING
--- NOTE | 2019-09-06 18:31 | NUR ---
ACCELERATOR TECHNICIAN CLOSING NOTES PT ON BED, CALM, ASLEEP, SOFT RESTRAINTS AT BILATERAL HANDS DUE TO PULLING OUT OF TUBES WHEN AWAKE, ASSESSED GOOD CIRCULATION. PT ON DEPENDENT MECH VENT WITH YELLOW GREEN SECRETION, CLINICAL ALARM FUNCTIONING. G-TUBE AUSCULTATED IN PLACE YET PT VOMITS WHEN FLUSHED WITH WATER. ON PENDING GJ TUBE PLACEMENT WITH RADIOLOGIST. FC WITH YELLOW DIPTI OUTPUT. PT NOT IN ACUTE RESPIRATORY DISTRESS. SKIN WARM TO TOUCH AND DRY, BLE OFFLOAD. NO NEW OPEN SKIN BREAKDOWN. NOT IN PAIN WITH FLACC-0. IV SITE AT LEFT UPPER ARM MIDLINE, RUNNING 1/2 NS AT 50 ML/HR. DAMION MONITOR SHOWS SINS RHYTHM 98. ALL CARE ATTENDED. BED IN LOCKED POSITION, SR X3 UP FOR SAFETY. ENDORSED PT CARE TO NEXT SHIFT
--- NOTE | 2019-09-06 19:20 | NUR ---
STEEL BUFFER NOTES RECEIVED PATIENT IN BED RESTING COMFORTABLY IN MODERATE HIGH BACK REST, AWAKE, NON VERBAL. PATIENT IS ON A VENT, SETTING ORDERED NO SIGNS OF DISTRESS NOTED AT THIS TIMES ON TELE MONITOR WITH READING SINUS RHYTHM 90'S, IV FLUIDS ON YOUSUF MIDLINE WITH 1/2 NS RUNNING @50 ML/HR, PATENT AND INTACT.WITH GTUBE ON PLAC AND CLAMPED RESIDUAL CHECKED. BED ALARM ON. BED IN LOWEST AND LOCKED POSITION. BILATERAL SOFT WRIST RESTRAINTS ON, SKIN AND CIRCULATION ARE WNL. CALL LIGHT WITHIN REACH, WILL CONTINUE TO MONITOR.
--- NOTE | 2019-09-06 19:27 | NUR ---
ELECTROLESS PLATER NOTES PAGED KATY ERIC REGARDING INTERVENTIONAL RADIOLOGY FOR GJ TUBE. HOTLINE NUMBER [phone], DR. RIVAS ADVISED TO ASKED SO RADIOLOGY CAUSE THEY DON'T KNOW HOW TO ORDER IT TOO. ENDORSED TO NEXT SHIFT.
--- NOTE | 2019-09-06 21:00 | NUR ---
RN NOTES COZAAR NOT GIVEN D/T PT VOMIT WHEN INTRODUCE FLUIDS VIA GTUBE
[2019-09-06] MEDS: ONDANSETRON HCL/PF 4 MG/2 ML VIAL IV PRN (22:52)
[2019-09-07] VITALS: BP 118/68
[2019-09-07] MEDS: IV 1/2NS 1000 ML 1,000 ML IV PRN (02:30)
[2019-09-07] MEDS: MEROPENEM 1 G in IV NS 0.9% 100 ML IV SCH ×2 (02:37→16:22)
[2019-09-07] MEDS: LORAZEPAM INJ 2 MG/ML VIAL IV PRN ×4 (03:01→23:40)
[2019-09-07 04:00] VITALS: BP_SYST 122; BP_SYST 131; BP_DIAS 70; BP_DIAS 77
[2019-09-07 06:36] LABS: BASOPHILS # (AUTO) 0.1 /CMM (0.0-0.2); EOSINOPHILS % (AUTO) 3.9 % (0.0-6.0); HEMATOCRIT 28 % (33-45); HEMOGLOBIN 8.9 g/dL (11.5-14.8); LYMPHOCYTES # (AUTO) 1.4 /CMM (0.8-4.8); LYMPHOCYTES % (AUTO) 12.2 % (20.0-44.0); MEAN CORPUSCULAR HGB CONC 32 g/dl (31.0-36.0); MEAN CORPUSCULAR VOLUME 89 fL (82-100); MONOCYTES # (AUTO) 1.7 /CMM (0.1-1.30); MONOCYTES % (AUTO) 14.7 % (2.0-12.0); NEUTROPHILS # (AUTO) 7.8 /CMM (1.8-8.9); NEUTROPHILS % (AUTO) 68.2 % (43.0-81.0); PLATELET COUNT (AUTO) 412 /CMM (150-450); RED BLOOD CELL COUNT(AUTO) 3.11 MIL/uL (4.0-5.2); WHITE BLOOD COUNT (AUTO) 11.4 K/uL (4.3-11.0)
[2019-09-07 06:48] LABS: CALCIUM, SERUM 8.6 mg/dL (8.5-10.1); MAGNESIUM 1.6 mg/dL (1.8-2.4); POTASSIUM 3.2 mmol/L (3.5-5.1)
--- NOTE | 2019-09-07 06:49 | NUR ---
RN CLOSING NOTES, PT ON BED WITH EPISODES OF AGITATION, ATIVAN WAS GIVEN 0400, NOT EFFECTIVE, STILL WITH YELLOW SECRETION FROM MOUTH NOTED, SUCTIONING WAS DONE, NO SIGN AND SYMPTOMS OF DISTRESS, SPO2 98% VIA TRACH VENT SETTING ORDERED, ON TELE MONITOR WITH READING SINUS RHYTHM ALL NEEDS ATTENDED SAFETY MEASURE MAINTAINED, BED ON LOWEST POSITION NAD LOCKED SIDE RAILS UP X4 BILATERAL WRIST RESTRAINTS RENEWED @ 2300, WILL ENDORSED TO AM SHIFT NURSE
[2019-09-07] MEDS: LEVOTHYROXINE SODIUM 25 MCG TABLET GT SCH (07:30)
--- NOTE | 2019-09-07 07:30 | NUR ---
received pt. on vent,settings unchanged,restless with robbie. wrist restraints on.
[2019-09-07 08:00] VITALS: BP 140/85
--- NOTE | 2019-09-07 08:36 | NUR ---
pt. very restless,restraints on additionally,suctioned.resp. tx in rm.rn adm.ativan 1 mg iv and inadvertently did not scan vial or pt. drug removed from [facility] with maryuri lagos as witness.barrie pharmacist informed.
[2019-09-07] MEDS: PANTOPRAZOLE 40 MG/PACK PACK NG SCH (09:00)
[2019-09-07] MEDS: AMLODIPINE BESYLATE 5 MG TABLET GT SCH (09:00)
[2019-09-07] MEDS: METOPROLOL TARTRATE 50 MG TABLET GT SCH ×2 (09:00→16:26)
[2019-09-07] MEDS: FLUCONAZOLE (100 MG) 100 MG TABLET GT SCH (09:00)
[2019-09-07] MEDS: LOSARTAN POTASSIUM 50 MG TABLET GT SCH ×2 (09:00→21:42)
[2019-09-07] MEDS: Magnesium 1GM/D5W 100ML PREMIX 100 ML IV SCH ×2 (09:20→10:41)
[2019-09-07] MEDS ORDERED: LORAZEPAM INJ 2 MG/ML VIAL IV ONE (09:30)
[2019-09-07] MEDS: CLOTRIMAZOLE/BETAMETASONE DIPROPIONATE 15 GM TUBE TP SCH ×2 (09:47→17:23)
[2019-09-07] MEDS: NITROGLYCERIN 30 GM TUBE TP SCH ×2 (09:47→21:42)
[2019-09-07 12:00] VITALS: BP 118/82
[2019-09-07] MEDS: POTASSIUM CL. PREMIX PERIPHER. 50 ML IV SCH ×6 (12:05→23:43)
[2019-09-07] MEDS: LORAZEPAM 1 MG TABLET PO SCH ×2 (15:00→17:00)
[2019-09-07 16:00] VITALS: BP 137/69
--- NOTE | 2019-09-07 16:00 | NUR ---
noted greenish drainage coming up around trach,financial services internship aware and ng tube inserted #16 without difficulty.just texted dominique ccnp and received order.immediate drainage of watery green drainage.
[2019-09-07] MEDS: ACETAMINOPHEN 650 MG/SUPP.RECT RC PRN (16:33)
--- NOTE | 2019-09-07 16:33 | NUR ---
med. x1 with tylenol [id number].
--- NOTE | 2019-09-07 18:00 | NUR ---
mg and potassium replacement done. potassium replacement interrupted by merrem ivpb.several potassium bags to be endorsed to juan manuel. shift.pt. to have gastro jejunal tube insertion tomorrow.
--- NOTE | 2019-09-07 18:30 | NUR ---
trach ties changed x2 by resp. tx.
--- NOTE | 2019-09-07 19:40 | NUR ---
RADIOGRAPHER MAMMOGRAPHER OPENING NOTES RECEIVED PATIENT RESTING IN BED COMFORTABLY; NON-VERBAL; PATIENT ON VENT AND TOLERATING VENT SETTINGS; NO CHANGES IN VENT SETTINGS AT THIS TIME; TELE MONITOR READS SINUS RHYTHM - SINUS TACHY 115BPM; L UA MIDLINE INTACT AND PATENT; INFUSING 1/2 NS @ 50ML/HR; PATIENT TOLERATING IVF WELL; PER AM SHIFT, UNABLE TO FINISH 6 BAGS OF POTASSIUM CHLORIDE; WILL FINISH BAGS THIS SHIFT; STILES IN PLACE AND FLOWING YELLOW OUTPUT; SAFETY PRECAUTIONS IMPLEMENTED; BED LOCKED IN LOW POSITION; SIDE RAILS X3, BILATERAL SOFT WRIST RESTRAINTS APPLIED; NO EVIDENCE OF SKIN BREAKDOWN; WILL CONT TO MONITOR
[2019-09-07 20:00] VITALS: BP 138/87
--- NOTE | 2019-09-07 23:57 | NUR ---
CABLE FORMER NOTES PATIENT RESTLESS/AGITATED; ATIVAN ADMINISTERED 3 AND 2340; ATIVAN ORDERED Q1HR PRN; WILL CONT TO ASSESS
[2019-09-08] VITALS (21 sets, daily range): BP systolic 97–154; BP diastolic 50–105
[2019-09-08] MEDS: LORAZEPAM INJ 2 MG/ML VIAL IV PRN ×5 (00:44→23:09)
--- NOTE | 2019-09-08 01:48 | NUR ---
SHOE CLEANER NOTES PATIENT STILL RESTLESS; PATIENT KICKING BLANKETS AND PILLOW OFF BED; ATIVAN ADMINISTERED 0044 AND 0144; PER MD ORDER; ATIVAN Q1HR, PRN; WILL CONT TO MONITOR;
--- NOTE | 2019-09-08 05:00 | NUR ---
CLERK CASHIER NOTES URINE SAMPLE COLLECTED VIA STILES CATH PORT; SAMPLE IN REFRIGERATOR; SAND CLEANING MACHINE OPERATOR ON UNIT INFORMED;
--- NOTE | 2019-09-08 06:24 | NUR ---
CONSERVATOR ARTIFACTS NOTES URINE SAMPLE IN FRIDGE; LAB CALLED AND INFORMED; HOME SERVICE CONSULTANT REPORTED THEY WILL SEND A RUNNER
[2019-09-08 06:37] LABS: BASOPHILS # (AUTO) 0.1 /CMM (0.0-0.2); BASOPHILS % (AUTO) 0.9 % (0.0-2.0); EOSINOPHILS % (AUTO) 1.6 % (0.0-6.0); HEMATOCRIT 31 % (33-45); HEMOGLOBIN 10.4 g/dL (11.5-14.8); LYMPHOCYTES # (AUTO) 1.4 /CMM (0.8-4.8); LYMPHOCYTES % (AUTO) 11.2 % (20.0-44.0); MEAN CORPUSCULAR HGB CONC 33 g/dl (31.0-36.0); MEAN CORPUSCULAR VOLUME 88 fL (82-100); MONOCYTES # (AUTO) 1.9 /CMM (0.1-1.30); MONOCYTES % (AUTO) 14.5 % (2.0-12.0); NEUTROPHILS # (AUTO) 9.3 /CMM (1.8-8.9); NEUTROPHILS % (AUTO) 71.8 % (43.0-81.0); PLATELET COUNT (AUTO) 473 /CMM (150-450); RED BLOOD CELL COUNT(AUTO) 3.56 MIL/uL (4.0-5.2); WHITE BLOOD COUNT (AUTO) 12.9 K/uL (4.3-11.0)
--- NOTE | 2019-09-08 06:45 | NUR ---
CORPORATE BANKING OFFICER CLOSING NOTES PATIENT IS CURRENTLY RESTING IN BED COMFORTABLY; NONVERBAL; BREATHING EVEN AND UNLABORED; NO SOB NOTED; NO CHANGES IN VENT SETTINGS AT THIS TIME; PATIENT TOLERATING CURRENT VENT SETTINGS; TELE MONITOR READS SINUS RHYTHM 96BPM; YOUSUF MIDLINE INTACT AND PATENT; INFUSING 1/2NS @ 50ML/HR; PATIENT RECEIVED THE REST OF THE 3 BAGS OF POTASSIUM CHLORIDE DURING SHIFT; CHARGE NURSE AWARE; STILES OUTPUT OF 300CC, CLEAR YELLOW URINE; PATIENT NPO; PEG CLAMPED; NG TUBE ON INTERMITTENT SUCTION, OUTPUT OF 600 THROUGHOUT SHIFT; ALL NEEDS RENDERED; SAFETY PRECAUTIONS IMPLEMENTED; BED LOCKED IN LOW POSITION; SIDE RAILS X3; BILATERAL SOFT WRIST RESTRAINTS IN PLACE; NO EVIDENCE OF SKIN BREAKDOWN; PATIENT RE-POSITIONED Q2HR OR NEEDED THROUGHOUT SHIFT; WILL ENDORSE WYATT TO ONCOMING SHIFT
[2019-09-08 07:02] LABS: CALCIUM, SERUM 8.8 mg/dL (8.5-10.1); CREATININE 1.1 mg/dL (0.6-1.3); MAGNESIUM 2.1 mg/dL (1.8-2.4); PHOSPHORUS 2.4 mg/dL (2.5-4.9); POTASSIUM 4.1 mmol/L (3.5-5.1)
[2019-09-08] MEDS: LEVOTHYROXINE SODIUM 25 MCG TABLET GT SCH (07:30)
--- NOTE | 2019-09-08 07:30 | NUR ---
ms rn received on bed, awake,agitated,non verbal patient, vent dependent, no s/s on pain at this time, ngt connected to intermittent suction w/ dark bron output, all needs attended.
--- NOTE | 2019-09-08 08:00 | NUR ---
ms rn was seen by dr. costa w/ prieto to have procedure today.
--- NOTE | 2019-09-08 08:05 | NUR ---
ms rn patient went down for procedure.
[2019-09-08] MEDS ORDERED: MIDAZOLAM HCL 2 MG/2ML VIAL ONE (08:18)
--- NOTE | 2019-09-08 08:52 | NUR ---
PT RECEIVED ON CURRENT SETTINGS WITH ALARMS ON AND AUDIBLE. VENT IS PLUGGED INTO RED OUTLET AND AMBU BAG IS AT BEDSIDE. AIRWAY IS PATENT AND SECURE WITH NO SIGNS OF RESPIRATORY DISTRESS. WILL CONTINUE TO MONITOR PT. Addendum: 09/08/19 at 0856 by SIDRA LANDRY RT Amended: Links added.
--- NOTE | 2019-09-08 08:55 | NUR ---
RT NOTED PT TRANSPORTED TO OR FOR PROCEDURE @0800. NO SOB NOTED.
[2019-09-08] MEDS: NITROGLYCERIN 30 GM TUBE TP SCH ×2 (09:00→21:10)
[2019-09-08] MEDS: PANTOPRAZOLE 40 MG/PACK PACK NG SCH (09:00)
[2019-09-08] MEDS: CLOTRIMAZOLE/BETAMETASONE DIPROPIONATE 15 GM TUBE TP SCH ×2 (09:00→16:57)
[2019-09-08] MEDS: METOPROLOL TARTRATE 50 MG TABLET GT SCH ×2 (09:00→16:57)
[2019-09-08] MEDS: LOSARTAN POTASSIUM 50 MG TABLET GT SCH ×2 (09:00→21:10)
[2019-09-08] MEDS: LORAZEPAM 1 MG TABLET PO SCH ×3 (09:00→16:57)
[2019-09-08] MEDS: AMLODIPINE BESYLATE 5 MG TABLET GT SCH (09:00)
--- NOTE | 2019-09-08 09:15 | NUR ---
ms rn came back from surgery, recovery specialist at bedside, will do post op recovery in the room since or has no vent there.
--- NOTE | 2019-09-08 10:15 | NUR ---
ms rn patient still w/ intern brand, but patient cannot wake up.called anesthesiologist but stuck in icu doing intubation and arterial line to patient.
[2019-09-08 10:57] LABS: ABG BASE EXCESS -10.4 mmol/L; ABG PCO2 29.6 mmHg (35.0-45.0); ABG PH 7.311 (7.350-7.450); ABG PO2 134.1 mmHg (75.0-100.0); AaDO2 117.1 mmHg; COHb 0.3 % (0.5-1.5); MetHb 0.3 % (0.0-1.5); O2Hb 97.4 % (94.0-97.0); SITE, ABG Right Radial
[2019-09-08 11:01] LABS: APPEARANCE,URINE SL CLOUDY (CLEAR); BILIRUBIN,URINE SMALL (NEGATIVE); BLOOD, URINE MODERATE Ery/uL (NEGATIVE); COLOR,URINE YELLOW (YELLOW); KETONES,URINE 15 (NEGATIVE); LEUKOCYTE ESTERASE ,URINE TRACE (NEGATIVE); NITRITE, URINE NEGATIVE (NEGATIVE); PROTEIN,URINE 100 mg/dl (NEGATIVE); UGLUCOSE NEGATIVE (NEGATIVE); UROBILINOGEN,URINE 0.2 EU/dL (0.2)
[2019-09-08] MEDS ORDERED: NEUTRA PHOS 1 POWD.PACKET GT ONE (11:30)
--- NOTE | 2019-09-08 11:30 | NUR ---
ms patric truong dr came to see pt, w/ order to have stat blood gas.
--- NOTE | 2019-09-08 11:45 | NUR ---
ms rn received pt from learning analyst, s/p explore lap, appendectomy and j tube palcement, patient starting to wiggle foot and beginning to opens eyes.
--- NOTE | 2019-09-08 11:50 | NUR ---
rn b/p is /43, w/ dr. garcia's order to given 500ml of ns bolus.
--- NOTE | 2019-09-08 11:55 | NUR ---
ms rn b/p improved to 132/80.
--- NOTE | 2019-09-08 12:00 | NUR ---
ms rn g done w/ result, notified. still patient is not waking up.
[2019-09-08 12:04] LABS: BACTERIA,URINE Few /HPF (None Seen); SQUAMOUS EPITHELIAL CELL,UR Rare /HPF (None Seen); WBC,URINE 20-30 /HPF (0-3)
--- NOTE | 2019-09-08 12:05 | NUR ---
ms wrap turner rn left patient, beginning to wigle both feet and opening both eyes.
--- NOTE | 2019-09-08 12:15 | NUR ---
ms rn b/p now is 135/91, no distress noted.
--- NOTE | 2019-09-08 12:50 | NUR ---
ms rn patient transferred to icu for higher level of care.
[2019-09-08] MEDS: IV 1/2NS 1000 ML 1,000 ML IV PRN (13:00)
--- NOTE | 2019-09-08 13:00 | NUR ---
WATCH TRAIN ASSEMBLERcontract loader note Patient received from [facility] 3W RN due to "patient not waking up after surgery" . s/p JTUBE, exploratory lap, appendectomy. Upon arrival, patient is moving, restless, nonverbal, attached to vent via TRACH, no respiratory distress noted. Vitals - BP 97/52, Tele monitor attached, temp 98.8F oral, ST HR 132, SPO2 100%, RR 40. Ojeda in place, NG connected to LIS brownish drainage. Restraints on BUE, no s/s impaired circulation/ sensation/movement. YOUSUF midline intact. visualized on abdomen - old PEG tube, new JTUBE, appendectomy site covered in dressing (no drainage or bleeding noted) , old abdominal drain.
[2019-09-08] MEDS ORDERED: MEROPENEM 500 MG in IV NS 0.9% 50 ML IV SCH (18:00)
--- NOTE | 2019-09-08 18:35 | NUR ---
TUBING MACHINE TENDER Closing Patient remains restless, moving all extremities, nonverbal, sometimes opens eyes, pupils reactive, R eye slightly sluggish. Unable to follow command. Attached to vent via trach 08/25, no respiratory distress, SPO2 100% on current settings. Tele monitor attached, ST 120-130s, RR 40s despite Ativan given. Ojeda draining. Restraints in place for safety. Currently NPO - new J TUBE + old PEG - per Dr. Hairston start feedings tomorrow. Lace Burn Out Tender recs in chart for 10mL/hr feeding. new J tube 09/07 /old PEG site 08/20 appear normal, no drainage, erythema or bleeding noted. 09/07 Exploratory lap, appy site not visualized, surgical dressing in place, no drainage, erythema or bleeding noted. Accordion drain in place from peripancreatic abscess drainage 08/29 , no drainage. Bed locked for safety, side rails upx3, bed lowered, HOB elevated >45 degrees. Afebrile throughout shift.
[2019-09-08] MEDS: IV NS 0.9% 1,000 ML IV PRN (18:51)
[2019-09-08] MEDS ORDERED: MEROPENEM 1 G in IV NS 0.9% 100 ML IV ONE (19:00)
--- NOTE | 2019-09-08 19:40 | NUR ---
CONTROL MANAGER OPENING NOTES, RECEIVED PATIENT IN BED AWAKE, A/OX1. AGITATED AND MOVES A LOT. PATIENT IS NONVERBAL AND UNABLE TO FOLLOW COMMAND. ATTACHED TO VENT THROUGH TRACH, TOLERATING VENT SETTINGS WELL, NO SOB OR ACUTE DISTRESS NOTED AT THIS TIME O2 100%. ST ON BEDSIDE TELE MONITOR HR IN 120S. SURGERY SITE, J TUBE AND EXPLORATORY LAP, APPY, DRESSING IS DRY/CLEAN/INTACT, NO DRAINAGE OR BLEEDING NOTED. PATIENT IS NPO UNTIL TOMORROW MORNING. ACCORDION DRAIN INTACT POST PERIPANCREATIC ABSCESS DRAINAGE AND DRAINING LITTLE AMOUNT OF BLOOD. BILATERAL SOFT WRIST RESTRAINERS ARE IN PLACE FOR PROTECTION. BED IS IN LOW LOCKED POSITION. HBO ELEVATED. WILL CONTINUE TO MONITOR THE PATIENT CLOSELY.
[2019-09-09] VITALS (22 sets, daily range): BP systolic 86–160; BP diastolic 22–140
[2019-09-09] MEDS: MEROPENEM 1 G in IV NS 0.9% 100 ML IV SCH ×2 (03:29→16:11)
[2019-09-09] MEDS: LORAZEPAM INJ 2 MG/ML VIAL IV PRN ×2 (04:13→21:24)
[2019-09-09 04:34] LABS: BASOPHILS # (AUTO) 0.2 /CMM (0.0-0.2); BASOPHILS % (AUTO) 0.7 % (0.0-2.0); EOSINOPHILS % (AUTO) 0.1 % (0.0-6.0); HEMATOCRIT 29 % (33-45); HEMOGLOBIN 9.4 g/dL (11.5-14.8); LYMPHOCYTES # (AUTO) 1.9 /CMM (0.8-4.8); LYMPHOCYTES % (AUTO) 8.2 % (20.0-44.0); MEAN CORPUSCULAR HGB CONC 33 g/dl (31.0-36.0); MEAN CORPUSCULAR VOLUME 88 fL (82-100); MONOCYTES # (AUTO) 3.1 /CMM (0.1-1.30); MONOCYTES % (AUTO) 13.3 % (2.0-12.0); NEUTROPHILS # (AUTO) 18.4 /CMM (1.8-8.9); NEUTROPHILS % (AUTO) 77.7 % (43.0-81.0); PLATELET COUNT (AUTO) 418 /CMM (150-450); RED BLOOD CELL COUNT(AUTO) 3.28 MIL/uL (4.0-5.2); WHITE BLOOD COUNT (AUTO) 23.7 K/uL (4.3-11.0)
[2019-09-09] MEDS: ACETAMINOPHEN 650 MG/SUPP.RECT RC PRN (04:39)
[2019-09-09 04:49] LABS: MAGNESIUM 1.5 mg/dL (1.8-2.4); PHOSPHORUS 3.2 mg/dL (2.5-4.9); POTASSIUM 3.7 mmol/L (3.5-5.1)
--- NOTE | 2019-09-09 07:18 | NUR ---
CAGE SHIFT MANAGER CLOSING NOTES, PATIENT IN BED AWAKE, A/OX1. AGITATED AND MOVES A LOT. PATIENT IS NONVERBAL AND UNABLE TO FOLLOW COMMAND. ATTACHED TO VENT THROUGH TRACH, TOLERATING VENT SETTINGS WELL, NO SOB OR ACUTE DISTRESS NOTED AT THIS TIME O2 100%. ST ON BEDSIDE TELE MONITOR HR IN 120S. SURGERY SITE, J TUBE AND EXPLORATORY LAP, APPY, DRESSING IS DRY/CLEAN/INTACT, NO DRAINAGE OR BLEEDING NOTED. PATIENT IS NPO UNTIL TOMORROW MORNING. ACCORDION DRAIN INTACT POST PERIPANCREATIC ABSCESS DRAINAGE AND DRAINING LITTLE AMOUNT OF BLOOD. BILATERAL SOFT WRIST RESTRAINERS ARE IN PLACE FOR PROTECTION. BED IS IN LOW LOCKED POSITION. HBO ELEVATED. ENDORSED THE PATIENT TO AM RN FOR WYATT.
[2019-09-09] MEDS: AMLODIPINE BESYLATE 5 MG TABLET GT SCH (08:24)
[2019-09-09] MEDS: LOSARTAN POTASSIUM 50 MG TABLET GT SCH ×2 (08:24→21:10)
[2019-09-09] MEDS: CLOTRIMAZOLE/BETAMETASONE DIPROPIONATE 15 GM TUBE TP SCH ×2 (08:24→17:01)
[2019-09-09] MEDS: PANTOPRAZOLE 40 MG/PACK PACK NG SCH (08:24)
[2019-09-09] MEDS: NITROGLYCERIN 30 GM TUBE TP SCH ×2 (08:24→21:11)
[2019-09-09] MEDS: METOPROLOL TARTRATE 50 MG TABLET GT SCH ×2 (08:24→17:00)
[2019-09-09] MEDS: LEVOTHYROXINE SODIUM 25 MCG TABLET GT SCH (08:24)
[2019-09-09] MEDS: LORAZEPAM 1 MG TABLET PO SCH ×3 (08:24→17:00)
[2019-09-09] MEDS ORDERED: MORPHINE SULFATE INJ 2 MG/ML DISP.SYRIN IV PRN (09:00)
[2019-09-09] MEDS: Magnesium 1GM/D5W 100ML PREMIX 100 ML IV SCH ×2 (11:01→13:30)
[2019-09-09] MEDS: IV NS 0.9% 1,000 ML IV PRN (11:02)
--- NOTE | 2019-09-09 12:04 | NUR ---
message left for Dr. Hairston regarding patient's Jtube placed yesterday 09/07 not flushing
--- NOTE | 2019-09-09 12:05 | NUR ---
HUCalcoholism worker note -> 3W Patient seen + downgraded by Dr. Ghotra this am to 3W, room 321-2. Transferred with RT+BUS REPAIR SUPERVISOR+HUC per ACLS protocol. SPO2 100% upon arrival, no distressed breathing, RR 18, HR 97, BP 100/64, patient calm after administering morphine as ordered due to patient appearing to be in pain (increased RR, restlessness, increased HR). Receiving RN Yue at bedside. Patient able to open eyes, nonverbal, sometimes follows command. R nare NGT connected to LIS 250mL greenish output today from [id number]. Ojeda draining (no output for [id number]). Restraints in place for safety. Currently NPO - new J TUBE placed 09/07- per Dr. Hairston start feedings today 09/08, but unable to flush J tube. Senior Controller recs noted in chart for 10mL/hr feeding. Site appears normal, no drainage, erythema or bleeding noted. -Old PEG still in place. -09/07 Exploratory lap, appy site not visualized, surgical dressing in place, no drainage, erythema or bleeding noted. -Accordion drain in place from peripancreatic abscess drainage 08/29, 40mL sanguineness drainage. L UA midline infusing NS@80mL, with mag bagsx2 ordered, 1 out of 2 mag bags infusing upon transfer. temp 99.3 oral this am, Dr. Ghotra aware. No DVT prophylaxis ordered - MD aware who stated "we can start that again" . Belongings only consistent of one ring which is in patient's chart in a plastic bag, chart given to 3W, sheet signed.
--- NOTE | 2019-09-09 12:30 | NUR ---
RN NOTES RECEIVED PT FROM ICU/RN/EDITH VIA BED AT 1145. PT NONVERBAL, ABLE TO OPEN EYES, APPEARS CALM AT THIS TIME. PT TOLERATING CURRENT VENT SETTINGS WITH NO ACUTE RESPIRATORY DISTRESS NOTED. ON TELEMONITORING SR HR 98. NGT TO R NARES NOTED WITH LOW INTERMITTENT SUCTION NOTED GREENISH SECRETIONS. IVF NS AT 80ML/HR WITH PIGGYBAG MAGNESIUM REPLACEMENT TO YOUSUF MIDLINE, INTACT AND INFUSING WELL. GTUBE, CLAMPED AND JTUBE NOT FLUSHING ACCORDING TO EDITH AND MD/ED AWARE, RN/EDITH CONTACTED DR. CHIANG WELL AND LEFT DETAILED MESSAGE. DRAIN NOTED TO RIGHT ABDOMEN WITH SANGUINOUS SECRETIONS NOTED. FC IN PLACE WITH YELLOW URINE NOTED IN THE BAG. PT ON SCD NOTED. HOB ELEVATED. PT KEPT COMFORTABLE. CALL LIGHT KEPT WITHIN REACH. PT'S BED IN LOWEST, LOCKED POSITION WITH SRX3. WILL CONTINUE TO MONITOR.
--- NOTE | 2019-09-09 13:52 | NUR ---
RN NOTES SEEN AND EVALUATED BY DR. CHIANG. ORDERED TO REMOVE NGT. SISTER/LULU MADE AWARE WELL. TO STAR FEEDING TO JTUBE. WILL CONTINUE TO MONITOR.
--- NOTE | 2019-09-09 14:20 | NUR ---
RN NOTES REMOVED NGT TO RIGHT NARES PER DR. CHIANG'S ORDER. WILL CONTINUE TO MONITOR. TO START GTF JEVITY 1.2 AT 10ML/HR FOR 24HOURS PER RD RECOMMENDATION UNTIL IT REACHES GOAL OF 55ML/HR. WILL CONTINUE TO MONITOR.
[2019-09-09] MEDS: JEVITY 1.2 CAL 1,000 ML BOTTLE GT PRN (14:23)
--- NOTE | 2019-09-09 19:02 | NUR ---
RN NOTES PT REMAINS IN BED, NONVERBAL, ABLE TO OPEN EYES, APPEARS CALM AT THIS TIME. PT TOLERATING CURRENT VENT SETTINGS WITH NO ACUTE RESPIRATORY DISTRESS NOTED. ON TELEMONITORING SR HR 92. IVF NS AT 80ML/HR TO YOUSUF MIDLINE, INTACT AND INFUSING WELL. GTUBE, CLAMPED. ON JT FEEDING JEVITY 1.2 X10 ML/HR, INTATC AND NO RESIDUALS. DRAIN NOTED TO RIGHT ABDOMEN WITH SANGUINOUS SECRETIONS NOTED WITH 60ML OUTPUT. FC IN PLACE WITH YELLOW URINE NOTED IN THE BAG, WITH 200ML OUTPUT. HOB ELEVATED. PT KEPT COMFORTABLE. CALL LIGHT KEPT WITHIN REACH. PT'S BED IN LOWEST, LOCKED POSITION WITH SRX3. WILL ENDORSE TO INCOMING NIGHT NURSE FOR WYATT.
--- NOTE | 2019-09-09 20:00 | NUR ---
CLASSICS TEACHER NOTES RECEIVED PATIENT IN BED AWAKE, A/OX1. ON [id number] AC SETTINGS WELL TOLERATED NO SOB NO DISTRESS NOTED V/S STABLE AFEBRILE ,AGITATED AND MOVES A LOT. PATIENT IS NONVERBAL AND UNABLE TO FOLLOW COMMAND. ST ON BEDSIDE TELE MONITOR HR IN 120S.SATINTG 99%. SURGERY SITE, J TUBE AND EXPLORATORY LAP, DRESSING IS DRY/CLEAN/INTACT,NO BLEEDING NOTED. PATIENT ON GT FEEDING JEVITY 1.2 AT 10CC/HR TOLERATING WELL. ON IVF OF NS AT 80CC/HR INFUSING WELL LEFT UPPER ARM ML INTACT AND PATENT .ACCORDION DRAIN INTACT POST PERIPANCREATIC ABSCESS DRAINAGE AND DRAINING . BILATERAL SOFT WRIST RESTRAINERS ARE IN PLACE FOR PROTECTION. BED IS IN LOW LOCKED POSITION. HBO ELEVATED. WILL CONTINUE TO MONITOR THE PATIENT CLOSELY.
--- NOTE | 2019-09-09 21:11 | NUR ---
RT NOTE PT RECEIVED TRACHED ON MECHANICAL VENTILATION. AMBU BAG @ BEDSIDE. SX DONE, TRACH SECURED AND PATENT. VENT PLUGGED TO RED OUTLET. ALARMS ON AND AUDIBLE. CONT. PULSE OX CONNECTED. NO DISTRESS NOTED AT THIS TIME. WILL CONTINUE TO MONITOR. Addendum: 09/09/19 at 2112 by GAVIOTA ROJAS RT Amended: Links added.
--- NOTE | 2019-09-09 23:50 | NUR ---
BUILDING ESTIMATOR NOTES RECEIVED PATIENT FROM DANIEL SAUCEDO FOR CONTINUITY OF CARE. AWAKE NON-VERBAL, BREATHING REGULAR AND UNLABORED VIA MECHANICAL VENT, TRACHEOSTOMY PATENT AND INTACT. CURRENT SETTING TOLERATING WELL. LEFT UPPER ARM MIDLINE INTACT AND INFUSING WELL WITH NO BLEEDING OR S/S OF INFILTRATION NOTED. ON CARDIAC MONITORING WITH SINUS TACHYCARDIA AT 118bpm. GASTRIC ACCORDION DRAIN PATENT WITH SCANT BROWNISH OUTPUT. PEG TUBE INTACT WITH NO RESIDUAL ASPIRATED. STILES CATH PATENT WITH MODERATE CLEAR DIPTI COLORED URINE. BILATERAL SOFT WRIST RESTRAINTS ON, SKIN ASSESSMENT DONE. NO S/S OF PAIN/DISCOMFORT NOTED AT THIS TIME. BED LOW AND LOCKED ON SEMI FOWLERS POSITION. CALL LIGHT IN REACH. WILL CONTINUE TO MONITOR.
--- NOTE | 2019-09-09 23:57 | NUR ---
Report given to alexi han. for continuity of care.
[2019-09-10] VITALS (8 sets, daily range): BP systolic 106–141; BP diastolic 59–91
[2019-09-10] MEDS: LORAZEPAM INJ 2 MG/ML VIAL IV PRN ×2 (00:10→02:00)
--- NOTE | 2019-09-10 02:00 | NUR ---
COIL BUILDER NOTES TRIES TO GET UP AND ROLLING ON THE SIDE OF THE BED ALSO OBSERVED WITH EPISODE OF RESTLESSNESS. ATIVAN 1MG GIVEN VIA IV PUSH. NON-PHARMACOLOGICAL INTERVENTIONS PROVIDED. BILATERAL SOFT WRIST RESTRAINTS ON. WILL CLOSELY MONITOR.
[2019-09-10] MEDS: MEROPENEM 1 G in IV NS 0.9% 100 ML IV SCH ×2 (03:22→15:02)
[2019-09-10] MEDS: IV NS 0.9% 1,000 ML IV PRN (05:49)
--- NOTE | 2019-09-10 06:45 | NUR ---
MARKET SPECIALIST CLOSING NOTES PATIENT IN BED AWAKE AND NON-VERBAL. AFEBRILE WITH NO S/S OF RESPIRATORY DISTRESS OBSERVED. WITH TRACHEOSTOMY CONNECTED TO MECHANICAL VENT SETTINGS TOLERATING WELL. LATEST SPO2 100%. LEFT UPPER ARM MIDLINE INTACT AND INFUSING WELL. MAINTAINED ON CARDIAC MONITORING WITH SINUS TACHYCARDIA AT 104bpm. GASTRIC ACCORDION DRAINED WITH SCANT BROWNISH 20cc OUTPUT. G TUBE INTACT AND CLAMPED, NO RESIDUAL ASPIRATED. JTUBE INTACT WITH ON-GOING FEEDING, TOLERATING WELL. MAINTAINED ON ASPIRATION PRECAUTIONS. STILES CATH PATENT WITH 100cc CLEAR DIPTI COLORED URINE. BILATERAL SOFT WRIST RESTRAINTS MAINTAINED, SKIN ASSESSMENT DONE. NO S/S OF PAIN/DISCOMFORT NOTED AT THIS TIME. BED LOW AND LOCKED ON SEMI FOWLERS POSITION. CALL LIGHT IN REACH. WILL ENDORSE TO MORNING SHIFT FOR WYATT.
--- NOTE | 2019-09-10 07:31 | NUR ---
RN NOTES REEIVED PATIENT IN BED AWAKE AND NON-VERBAL. NO S/S OF DISTRESS NOTED AT THIS TIME. NOTED WITH TRACHEOSTOMY CONNECTED TO MECHANICAL VENT SETTINGS TOLERATING WELL WITH SPO2 100%. LEFT UPPER ARM MIDLINE INTACT AND INFUSING WELL. ON CARDIAC MONITORING WITH CURRENT READING OF SINUS TACHYCARDIA, HR OF 102bpm. NOTED WITH GASTRIC ACCORDION. G TUBE INTACT AND CLAMPED, NO RESIDUAL ASPIRATED. JTUBE INTACT WITH ON-GOING FEEDING, TOLERATING WELL. MAINTAINED ON ASPIRATION PRECAUTIONS. STILES CATH PATENT. BILATERAL SOFT WRIST RESTRAINTS MAINTAINED, SKIN ASSESSMENT DONE. NO S/S OF PAIN/DISCOMFORT NOTED AT THIS TIME. BED LOW AND LOCKED ON SEMI FOWLERS POSITION. CALL LIGHT IN REACH. WILL CONTINUE TO MONITOR.
[2019-09-10] MEDS: LORAZEPAM 1 MG TABLET PO SCH ×4 (08:27→21:19)
[2019-09-10] MEDS: LEVOTHYROXINE SODIUM 25 MCG TABLET GT SCH (08:27)
[2019-09-10] MEDS: PANTOPRAZOLE 40 MG/PACK PACK NG SCH (08:28)
[2019-09-10] MEDS: LOSARTAN POTASSIUM 50 MG TABLET GT SCH ×2 (08:29→21:20)
[2019-09-10] MEDS: METOPROLOL TARTRATE 50 MG TABLET GT SCH ×2 (08:29→16:36)
[2019-09-10] MEDS: AMLODIPINE BESYLATE 5 MG TABLET GT SCH (08:29)
[2019-09-10] MEDS: CLOTRIMAZOLE/BETAMETASONE DIPROPIONATE 15 GM TUBE TP SCH ×2 (08:30→16:36)
[2019-09-10] MEDS: NITROGLYCERIN 30 GM TUBE TP SCH ×2 (08:31→21:20)
--- NOTE | 2019-09-10 11:06 | NUR ---
RN NOTES SEEN AND EXAMINED BY DR. AC, ORDERED TO CHANGE ATIVAN 1MG TID TO QID. ORDERS MADE AND CARRIED OUT. WILL CONTINUE TO MONITOR.
[2019-09-10] MEDS: IV 1/2NS 1000 ML 1,000 ML IV PRN (11:11)
[2019-09-10 11:20] LABS: BASOPHILS % (AUTO) 0.1 % (0.0-2.0); EOSINOPHILS % (AUTO) 0.4 % (0.0-6.0); HEMATOCRIT 24 % (33-45); HEMOGLOBIN 7.6 g/dL (11.5-14.8); LYMPHOCYTES # (AUTO) 1.6 /CMM (0.8-4.8); LYMPHOCYTES % (AUTO) 9.7 % (20.0-44.0); MEAN CORPUSCULAR HGB CONC 32 g/dl (31.0-36.0); MEAN CORPUSCULAR VOLUME 90 fL (82-100); MONOCYTES # (AUTO) 2.4 /CMM (0.1-1.30); MONOCYTES % (AUTO) 14.1 % (2.0-12.0); NEUTROPHILS # (AUTO) 12.8 /CMM (1.8-8.9); NEUTROPHILS % (AUTO) 75.7 % (43.0-81.0); PLATELET COUNT (AUTO) 354 /CMM (150-450); RED BLOOD CELL COUNT(AUTO) 2.65 MIL/uL (4.0-5.2)
[2019-09-10 11:40] LABS: ALBUMIN 2.4 g/dL (3.4-5.0); BILIRUBIN,TOTAL 0.8 mg/dL (0.2-1.0); CALCIUM, SERUM 7.9 mg/dL (8.5-10.1); MAGNESIUM 2.2 mg/dL (1.8-2.4); PHOSPHORUS 1.9 mg/dL (2.5-4.9); POTASSIUM 3.2 mmol/L (3.5-5.1)
[2019-09-10] MEDS ORDERED: NEUTRA PHOS 1 POWD.PACKET PO ONE (13:00)
[2019-09-10] MEDS: POTASSIUM CHLORIDE 20 MEQ POWDER PACKET GT SCH ×2 (13:07→14:27)
--- NOTE | 2019-09-10 18:52 | NUR ---
RN NOTES PATIENT IN BED AWAKE AND NON-VERBAL. NO S/S OF DISTRESS NOTED THROUGHOUT THE SHIFT. NOTED WITH TRACHEOSTOMY CONNECTED TO MECHANICAL VENT SETTINGS TOLERATING WELL WITH SPO2 100%. LEFT UPPER ARM MIDLINE INTACT AND INFUSING WELL. ON CARDIAC MONITORING WITH CURRENT READING OF SR, HR OF 70'Sbpm. NOTED WITH GASTRIC ACCORDION. G TUBE INTACT AND CLAMPED. JTUBE INTACT WITH ON-GOING FEEDING, TOLERATING WELL. MAINTAINED ON ASPIRATION PRECAUTIONS. STILES CATH PATENT. BILATERAL SOFT WRIST RESTRAINTS MAINTAINED, SKIN ASSESSMENT DONE. BED LOW AND LOCKED ON SEMI FOWLERS POSITION. CALL LIGHT IN REACH. WILL ENDORSE TO SEWING MACHINE BOBBIN WINDER NURSE FOR WYATT.
--- NOTE | 2019-09-10 19:30 | NUR ---
ANALYTICS LEADER NOTES PATIENT RECEIVED IN BED AWAKE, NON-VERBAL AND RESPONSIVE TO TACTILE STIMULI. NO RESPIRATORY DISTRESS PRESENT AT THIS TIME, WITH TRACHEOSTOMY INTACT AND IN PLACE TOLERATING SETTING, WITH SPO2 100%. LEFT UPPER MIDLINE IV ACCESS INTACT AND PATENT. ON PRODUCTION CONSULTANT 80'S. J-TUBE INTACT AND CURRENTLY INFUSING 15mL/hr of JEVITY. BILATERAL SOFT WRIST RESTRAINTS IN PLACE, SKIN CIRCULATIONS WITHIN NORMAL LIMITS. SAFETY PRECAUTIONS IN PLACE WITH BED IN THE LOWEST POSITION, BILATERAL SIDE RAILS UP, BED LOCKED, HEAD OF THE BED IN SEMI-FOWLERS POSITION, AND CALL LIGHT WITHIN EASY REACH OF THE PATIENT. WILL CONTINUE TO MONITOR PATIENT.
--- NOTE | 2019-09-10 22:03 | NUR ---
RT NOTE PT RECEIVED TRACHED ON MECHANICAL VENTILATION. AMBU BAG @ BEDSIDE. SX DONE, TRACH SECURED AND PATENT. ALARMS ON AND AUDIBLE. VENT PLUGGED TO RED OUTLET. NO DISTRESS NOTED. WILL MONITOR CLOSELY. CONT. PULSE OX CONNECTED. Addendum: 09/10/19 at 2204 by GAVIOTA ROJAS RT Amended: Links added.
[2019-09-11] VITALS (7 sets, daily range): BP systolic 124–140; BP diastolic 75–77
[2019-09-11] MEDS: MEROPENEM 1 G in IV NS 0.9% 100 ML IV SCH ×2 (03:14→16:12)
[2019-09-11 06:29] LABS: BASOPHILS # (AUTO) 0.1 /CMM (0.0-0.2); BASOPHILS % (AUTO) 0.5 % (0.0-2.0); EOSINOPHILS % (AUTO) 1.8 % (0.0-6.0); HEMATOCRIT 24 % (33-45); HEMOGLOBIN 8.1 g/dL (11.5-14.8); LYMPHOCYTES # (AUTO) 1.4 /CMM (0.8-4.8); LYMPHOCYTES % (AUTO) 13.8 % (20.0-44.0); MEAN CORPUSCULAR HGB CONC 34 g/dl (31.0-36.0); MEAN CORPUSCULAR VOLUME 89 fL (82-100); MONOCYTES # (AUTO) 1.6 /CMM (0.1-1.30); MONOCYTES % (AUTO) 15.6 % (2.0-12.0); NEUTROPHILS # (AUTO) 6.9 /CMM (1.8-8.9); NEUTROPHILS % (AUTO) 68.3 % (43.0-81.0); PLATELET COUNT (AUTO) 312 /CMM (150-450); RED BLOOD CELL COUNT(AUTO) 2.72 MIL/uL (4.0-5.2); WHITE BLOOD COUNT (AUTO) 10.1 K/uL (4.3-11.0)
--- NOTE | 2019-09-11 06:52 | NUR ---
DOOR REPAIRER BUS NOTES PATIENT AWAKE IN BED RESTING COMFORTABLY, NON-VERBAL. NO SIGNS OF RESPIRATORY DISTRESS. NO DISTRESS NOTED THROUGHOUT SHIFT. TRACHEOSTOMY INTACT AND TOLERATING SETTING WITH SPO2 100%. LEFT UPPER MIDLINE INTACT AND PATENT. SKIN KEPT WARM, CLEAN AND DRY. ON LENDING ACTIVITIES SUPERVISOR, 70'S. GASTRIC ACCORDION INTACT. G-TUBE LINE CLAMPED. J-TUBE INTACT AND INFUSING JEVITY 1.2 AT 15ml/h AT THIS TIME. TOLERATED FEEDING WELL. STILES CATHETER INTACT AND PATENT. BILATERAL SOFT WRIST RESTRAINTS IN PLACE, SKIN CIRCULATION WITHIN NORMAL LIMITS. SAFETY PRECAUTIONS IN PLACE WITH BED IN THE LOWEST POSITION, HEAD OF THE BEAD IN SEMI-FOWLERS POSITION, BILATERAL SIDE RAILS UP, AND CALL LIGHT WITHIN EAST REACH OF THE PATIENT. WILL ENDORSE PLAN OF CARE TO UPCOMING DAYSHIFT NURSE.
[2019-09-11 07:13] LABS: ALBUMIN 2.3 g/dL (3.4-5.0); BILIRUBIN,TOTAL 0.9 mg/dL (0.2-1.0); CALCIUM, SERUM 7.3 mg/dL (8.5-10.1); CREATININE 0.9 mg/dL (0.6-1.3); MAGNESIUM 1.6 mg/dL (1.8-2.4); PHOSPHORUS 2.2 mg/dL (2.5-4.9); POTASSIUM 3.1 mmol/L (3.5-5.1); TOTAL PROTEIN, SERUM 6.9 g/dL (6.4-8.2)
[2019-09-11] MEDS: LEVOTHYROXINE SODIUM 25 MCG TABLET GT SCH (07:30)
[2019-09-11] MEDS ORDERED: POTASSIUM PHOSPHATE MM 15 MMOL in IV NS 0.9% 250 ML IV SCH (08:00)
--- NOTE | 2019-09-11 08:00 | NUR ---
TELE/RN OPENING NOTES RECEIVED PATIENT AWAKE ON BED RESTING COMFORTABLY, NON-VERBAL. NO SIGNS OF RESPIRATORY DISTRESS NOTED.TRACHEOSTOMY INTACT AND TOLERATING THE PRESCRIBED SETTING WITH SPO2 100%. LEFT UPPER MIDLINE INTACT AND PATENT. TELE MONITOR, SR 68 BPM. GASTRIC ACCORDION INTACT. G-TUBE LINE CLAMPED. J-TUBE INTACT AND INFUSING JEVITY 1.2 AT 20 ML/HR 0 RESIDUAL, TOLERATED FEEDING WELL. STILES CATHETER INTACT AND PATENT. BILATERAL SOFT WRIST RESTRAINTS IN PLACE, SKIN CIRCULATION WITHIN NORMAL LIMITS. SAFETY PRECAUTIONS IN PLACE WITH BED IN THE LOWEST POSITION, HEAD OF THE BEAD IN SEMI-FOWLERS POSITION, BILATERAL SIDE RAILS UP, AND CALL LIGHT WITHIN EAST REACH OF THE PATIENT. WILL ENDORSED TO STOCK FITTER FOR WYATT.
[2019-09-11] MEDS: Magnesium 1GM/D5W 100ML PREMIX 100 ML IV SCH ×2 (08:34→10:09)
[2019-09-11] MEDS: CLOTRIMAZOLE/BETAMETASONE DIPROPIONATE 15 GM TUBE TP SCH ×2 (09:00→17:06)
[2019-09-11] MEDS: PANTOPRAZOLE 40 MG/PACK PACK NG SCH (09:24)
[2019-09-11] MEDS: LOSARTAN POTASSIUM 50 MG TABLET GT SCH ×2 (09:25→21:42)
[2019-09-11] MEDS: METOPROLOL TARTRATE 50 MG TABLET GT SCH ×2 (09:25→16:57)
[2019-09-11] MEDS: LORAZEPAM 1 MG TABLET PO SCH ×4 (09:25→21:40)
[2019-09-11] MEDS: AMLODIPINE BESYLATE 5 MG TABLET GT SCH (09:26)
[2019-09-11] MEDS: POTASSIUM PHOSPHATE MM 7.5 MMOL in IV NS 0.9% 100 ML IV SCH ×2 (09:41→12:46)
[2019-09-11] MEDS: NITROGLYCERIN 30 GM TUBE TP SCH ×2 (10:09→21:42)
[2019-09-11] MEDS: IV 1/2NS 1000 ML 1,000 ML IV PRN (16:21)
--- NOTE | 2019-09-11 19:42 | NUR ---
TELE/RN CLOSING NOTES PATIENT AWAKE IN BED RESTING COMFORTABLY, NON-VERBAL. NO SIGNS OF RESPIRATORY DISTRESS. NO DISTRESS NOTED THROUGHOUT SHIFT. TRACHEOSTOMY INTACT AND TOLERATING SETTING WITH SPO2 100%. LEFT UPPER MIDLINE INTACT AND PATENT. SKIN KEPT WARM, CLEAN AND DRY. ON MANAGER FIELD INVESTIGATIONS, SR 68 BPM. GASTRIC ACCORDION INTACT. G-TUBE LINE CLAMPED. J-TUBE INTACT AND INFUSING JEVITY 1.2 AT 20ml/h AT THIS TIME, 0 RESIDUAL,TOLERATED FEEDING WELL. STILES CATHETER INTACT AND PATENT. BILATERAL SOFT WRIST RESTRAINTS IN PLACE, SKIN CIRCULATION WITHIN NORMAL LIMITS. SAFETY PRECAUTIONS IN PLACE WITH BED IN THE LOWEST POSITION, HEAD OF THE BEAD IN SEMI-FOWLERS POSITION, BILATERAL SIDE RAILS UP, AND CALL LIGHT WITHIN EAST REACH OF THE PATIENT. WILL ENDORSED TO RECORD CHANGER FOR WYATT.
--- NOTE | 2019-09-11 19:45 | NUR ---
DRY MILL OPERATOR NOTES PATIENT RECEIVED IN BED AWAKE, NON-VERBAL AND RESPONSIVE TO TACTILE STIMULI. NO RESPIRATORY DISTRESS PRESENT AT THIS TIME, WITH TRACHEOSTOMY INTACT AND IN PLACE TOLERATING SETTING, WITH SPO2 100%. LEFT UPPER MIDLINE IV ACCESS INTACT AND PATENT. ON AUTOMOTIVE PRODUCTION WORKER 70S. J-TUBE INTACT AND CURRENTLY INFUSING 20mL/hr of JEVITY1.2. G-TUBE CLAMPED. BILATERAL SOFT WRIST RESTRAINTS IN PLACE, SKIN CIRCULATIONS WITHIN NORMAL LIMITS. STILES CATHETER IN PLACE WITH YELLOW URINE OUTPUT. SAFETY PRECAUTIONS IN PLACE WITH BED IN THE LOWEST POSITION, BILATERAL SIDE RAILS UP, BED LOCKED, HEAD OF THE BED IN SEMI-FOWLERS POSITION, AND CALL LIGHT WITHIN EASY REACH OF THE PATIENT. WILL CONTINUE TO MONITOR PATIENT.
--- NOTE | 2019-09-11 19:49 | NUR ---
RT NOTE PT RECEIVED TRACHED ON MECHANICAL VENTILATION. AMBU BAG @ BEDSIDE. SX DONE, TRACH SECURED AND PATENT. VENT PLUGGED TO RED OUTLET. ALARMS ON AND AUDIBLE. CONT. PULSE OX CONNECTED. NO DISTRESS NOTED AT THIS TIME. WILL CONTINUE TO MONITOR. Addendum: 09/11/19 at 2217 by ONEL SHEFFIELD RT Amended: Links added.
[2019-09-12] VITALS (8 sets, daily range): BP systolic 123–156; BP diastolic 68–93
[2019-09-12] MEDS: MEROPENEM 1 G in IV NS 0.9% 100 ML IV SCH ×2 (04:06→15:41)
--- NOTE | 2019-09-12 06:59 | NUR ---
BLOOD BANK BOOKING CLERK NOTES PATIENT IN BED SLEEPING COMFORTABLY. PATIENT TRACHEOSTOMY IN PLACE, TOLERATING SETTINGS, SPO2 99%. ON UTILIZATION REVIEW NURSE SINUS RHYTHM 80'S. PATIENT SKIN KEPT CLEAN AND DRY. G-TUBE CLAMPED. J-TUBE FEEDING INFUSING 20ml/hr, TOLERATING FEEDING WITH NO RESIDUAL. PATIENT IV ACCESS INTACT AND PATENT ON LEFT UPPER ARM. STILES CATHETER IN PLACE. MET ALL OF PATIENT'S NEEDS, AND PROVIDED COMFORT MEASURES TO PATIENT. BILATERAL SOFT WRIST RESTRAINTS IN PLACE WITH SKIN INTACT, AND SKIN CIRCULATIONS WITHIN NORMAL LIMITS. SAFETY PRECAUTIONS IN PLACE WITH BED IN THE LOWEST POSITION, BILATERAL SIDE RAILS UP, BED LOCKED, HEAD OF THE BED IN SEMI-FOWLERS POSITION, AND CALL LIGHT WITHIN EASY REACH OF THE PATIENT. WILL ENDORSE PLAN OF CARE TO UPCOMING DAYSHIFT NURSE. Addendum: 09/12/19 at 0748 by RADHA BEDOYA RN PATIENT TOLERATING FEEDING, NO RESIDUAL AT THIS TIME, INCREASED FEEDING TO 30ml/hr. WILL INFORM DAYSHIFT NURSE.
--- NOTE | 2019-09-12 07:30 | NUR ---
FLIGHT OPERATIONS INSPECTOR NOTES RECEIVED PT IN BED, AWAKE , NONVERBAL, APPEARS CALM AT THIS TIME. PT TOLERATING CURRENT VENT SETTINGS WITH NO ACUTE RESPIRATORY DISTRESS NOTED. ON TELEMONITORING SR HR 89. IVF 1/2 NS AT 50ML/HR TO YOUSUF MIDLINE, INTACT AND INFUSING WELL. GTUBE, CLAMPED. ON JT FEEDING JEVITY 1.2 X 30ML/HR, INTACT AND NO RESIDUALS NOTED. DRAIN NOTED TO RIGHT ABDOMEN WITH SANGUINOUS SECRETIONS NOTED. FC IN PLACE WITH YELLOW URINE NOTED IN THE BAG. HOB ELEVATED. PT KEPT COMFORTABLE. CALL LIGHT KEPT WITHIN REACH. PT'S BED IN LOWEST, LOCKED POSITION WITH SRX3. WILL CONTINUE PLAN OF CARE.
[2019-09-12] MEDS: JEVITY 1.2 CAL 1,000 ML BOTTLE GT PRN (07:39)
[2019-09-12] MEDS: LEVOTHYROXINE SODIUM 25 MCG TABLET GT SCH (08:17)
[2019-09-12] MEDS: LORAZEPAM 1 MG TABLET PO SCH ×4 (08:34→21:43)
[2019-09-12] MEDS: PANTOPRAZOLE 40 MG/PACK PACK NG SCH (08:35)
[2019-09-12] MEDS: METOPROLOL TARTRATE 50 MG TABLET GT SCH ×2 (08:36→17:16)
[2019-09-12] MEDS: LOSARTAN POTASSIUM 50 MG TABLET GT SCH ×2 (08:37→21:43)
[2019-09-12] MEDS: AMLODIPINE BESYLATE 5 MG TABLET GT SCH (08:37)
[2019-09-12] MEDS: CLOTRIMAZOLE/BETAMETASONE DIPROPIONATE 15 GM TUBE TP SCH ×2 (08:38→17:17)
[2019-09-12] MEDS: NITROGLYCERIN 30 GM TUBE TP SCH ×2 (08:38→21:43)
[2019-09-12 10:27] LABS: CALCIUM, SERUM 7.4 mg/dL (8.5-10.1); CREATININE 0.8 mg/dL (0.6-1.3)
--- NOTE | 2019-09-12 11:30 | NUR ---
THORACIC MEDICINE PHYSICIAN NOTES INCREASED JT FEEDING TO 40 ML/HR, NO RESIDUALS NOTED. PT TOLERATING FEEDING. WILL CONTINUE TO MONITOR.
--- NOTE | 2019-09-12 15:17 | NUR ---
MAINTENANCE PORTER NOTES INCREASED FEEDING TO 50ML/HR, NO RESIDUAL PRESENT. PT TOLERATING FEEDING WELL. WILL CONTINUE TO MONITOR.
[2019-09-12] MEDS ORDERED: POTASSIUM CHLORIDE 20 MEQ POWDER PACKET GT ONE (15:30)
[2019-09-12] MEDS: IV 1/2NS 1000 ML 1,000 ML IV PRN (15:41)
--- NOTE | 2019-09-12 18:00 | NUR ---
FIRST SAMPLER NOTES JTFEEDING INCREASED TO 55ML/HR;GOAL RATE. PT HAS NO RESIDUALS PRESENT. WILL CONTINUE TO MONITOR.
--- NOTE | 2019-09-12 18:42 | NUR ---
DRIVER ENGINEER NOTES PT REMAINS IN BED, INTERMITTENTLY DOZING OFF, EASILY AROUSED. PT TOLERATING CURRENT VENT SETTINGS WITH NO ACUTE RESPIRATORY DISTRESS NOTED. ON TELEMONITORING SR HR 90. IVF 1/2 NS AT 50ML/HR TO YOUSUF MIDLINE, INTACT AND INFUSING WELL. GTUBE, CLAMPED. ON JT FEEDING JEVITY 1.2 X 55ML/HR, INTACT AND NO RESIDUALS NOTED. DRAIN NOTED TO RIGHT ABDOMEN WITH SANGUINOUS SECRETIONS NOTED WITH 10ML OUTPUT. FC IN PLACE WITH YELLOW URINE NOTED IN THE BAG, 900ML OUTPUT. HOB ELEVATED. PT KEPT COMFORTABLE. ALL NEEDS AND CARE ATTENDED. CALL LIGHT KEPT WITHIN REACH. PT'S BED IN LOWEST, LOCKED POSITION WITH SRX3. WILL ENDORSE TO INCOMING NIGHT NURSE FOR WYATT.
--- NOTE | 2019-09-12 19:25 | NUR ---
SEAL SKINNER NOTES PATIENT RECEIVED IN BED, LAYING COMFORTABLY, NON-VERBAL, RESPONSIVE TO TACTILE STIMULI. NO DISTRESS AT THIS TIME. PATIENT TOLERATING VENT SETTINGS SPO2 100%. ON PRINTING AND STAMPING SUPERVISOR, 76. IV ACCESS INTACT AND PATENT, INFUSING IV FLUIDS 1/2 NS AT 50 ml/hr. PATIENT'S G-TUBE CLAMPED. JTUBE FEEDING INFUSING AT 55ml/hr NO RESIDUAL NOTED. PATIENT STILES CATHETER IN PLACE WITH YELLOW URINE OUTPUT. SAFETY PRECAUTIONS IMPLEMENTED WITH HEAD OF THE BED IN SEMI-FOWLERS POSITION, BILATERAL SIDE RAILS UP, BED IN THE LOWEST POSITION, BED LOCKED, BED ALARM ON, AND CALL LIGHT WITHIN EASY REACH OF THE PATIENT. WILL CONTINUE TO MONITOR PATIENT.
[2019-09-13] VITALS (7 sets, daily range): BP systolic 118–159; BP diastolic 74–94
--- NOTE | 2019-09-13 05:32 | NUR ---
PATIENT RECEIVED ON TRACH TO VENT WITH SETTINGS OF AC 18, 450 VT, 40%, +5. SUCTIONED FOR MINIMAL, THIN, YELLOW SECRETIONS. AMBU BAG AT BEDSIDE. VENT AND PULSE OXIMETER ALARMS AUDIBLE AND VISIBLE. Addendum: 09/13/19 at 0532 by MARITZA LIRIANO RT Amended: Links added.
--- NOTE | 2019-09-13 06:08 | NUR ---
LANGUAGE ARTS TEACHER NOTES PATIENT HAD MULTIPLE EPISODES OF DIARRHEA THROUGHOUT SHIFT. PER C-DIFF PROTOCOL, DIETARY CONSULT ORDERED AND CONTACT PRECAUTIONS INITIATED. WILL CONTINUE TO MONITOR PATIENT.
--- NOTE | 2019-09-13 06:55 | NUR ---
WOOD GRINDER NOTES PATIENT IN BED AND AWAKE. PATIENT TRACHEOSTOMY IN PLACE, TOLERATING SETTINGS, SPO2 100%. ON SUBSTITUTE CROSSING GUARD, 100. PATIENT SKIN KEPT CLEAN AND DRY. G-TUBE CLAMPED. PATIENT IV ACCESS INTACT AND PATENT ON LEFT UPPER ARM INFUSING 1/2 NORMAL SALINE AT 50ml/hr. STILES CATHETER IN PLACE. MET ALL OF PATIENT'S NEEDS, AND PROVIDED COMFORT MEASURES TO PATIENT. BILATERAL SOFT WRIST RESTRAINTS IN PLACE WITH SKIN INTACT, AND SKIN CIRCULATIONS WITHIN NORMAL LIMITS. SAFETY PRECAUTIONS IN PLACE WITH BED IN THE LOWEST POSITION, BILATERAL SIDE RAILS UP, BED LOCKED, HEAD OF THE BED IN SEMI-FOWLERS POSITION, BED ALARM ON AND CALL LIGHT WITHIN EASY REACH OF THE PATIENT. WILL ENDORSE PLAN OF CARE TO UPCOMING DAYSHIFT NURSE.
--- NOTE | 2019-09-13 07:29 | NUR ---
ANALYTICAL CLERK OPENING NOTES RECEIVED PATIENT IN BED, AWAKE, NON-VERBAL. PATIENT IS ON VENT TOLERATING SETTINGS WELL; SATURATING AT 100%. NO SIGNS OF PAIN SUCH FACIAL GRIMACING OR MOANING. YOUSUF MIDLINE PRESENT AND INTACT. PATIENT ON FORMULA FEEDING WHICH WAS STOPPED AT NIGHT DUE TO PT GAGGING. STILES CATH IN PLACE; DRAINING YELLOW URINE. BILATERAL UPPER EXTREMELY SOFT WRIST RESTRAINS. SAFETY PRECAUTIONS IN PLACE; BED IN LOW POSITION AND LOCKED, RAILS UP X2, CALL LIGHT WITHIN REACH. WILL CONTINUE TO MONITOR PATIENT.
[2019-09-13] MEDS: POTASSIUM CHLORIDE 20 MEQ POWDER PACKET NG SCH ×2 (08:38→10:02)
[2019-09-13] MEDS: LORAZEPAM 1 MG TABLET PO SCH ×4 (08:38→20:50)
[2019-09-13] MEDS: LEVOTHYROXINE SODIUM 25 MCG TABLET GT SCH (08:38)
[2019-09-13] MEDS: LOSARTAN POTASSIUM 50 MG TABLET GT SCH ×2 (08:39→20:50)
[2019-09-13] MEDS: AMLODIPINE BESYLATE 5 MG TABLET GT SCH (08:39)
[2019-09-13] MEDS: PANTOPRAZOLE 40 MG/PACK PACK NG SCH (08:40)
[2019-09-13] MEDS: METOPROLOL TARTRATE 50 MG TABLET GT SCH ×2 (08:40→17:02)
[2019-09-13] MEDS: NITROGLYCERIN 30 GM TUBE TP SCH ×2 (08:41→20:47)
[2019-09-13] MEDS: CLOTRIMAZOLE/BETAMETASONE DIPROPIONATE 15 GM TUBE TP SCH ×2 (08:41→16:50)
--- NOTE | 2019-09-13 18:07 | NUR ---
ROAD WORKER NOTES SCHEDULED 1700 ATIVAN NON-ADMINISTERED. PATIENT IS ASLEEP FOR 2 HRS NOW AND QUITE. WILL CONTINUE TO MONITOR.
--- NOTE | 2019-09-13 18:53 | NUR ---
GRAPHICS SPECIALIST CLOSING NOTES PATIENT IN BED AND ASLEEP AT THIS TIME. PATIENT IS ON VENT TOLERATING SETTINGS WELL; SATURATING AT 100%. NO SIGNS OF PAIN SUCH FACIAL GRIMACING OR MOANING. YOUSUF MIDLINE PRESENT AND INTACT. PATIENT ON FORMULA FEEDING RUNNING AT 25 MLS/HR. STILES CATH IN PLACE; DRAINING YELLOW URINE WITH TODAY'S OUTPUT OF 500 MLS. BILATERAL UPPER EXTREMELY SOFT WRIST RESTRAINS. ALL NEEDS ATTENDED TO THROUGHOUT THE DAY. SAFETY PRECAUTIONS IN PLACE; BED IN LOW POSITION AND LOCKED, RAILS UP X2, CALL LIGHT WITHIN REACH. WILL ENDORSE TO CYBER DEFENSE ANALYST NURSE.
--- NOTE | 2019-09-13 19:30 | NUR ---
RN OPENING NOTES RECEIVED PATIENT IN BED NON VERBAL, RESPONSIVE TO VERBAL AND TACTILE STIMULI. ON VENT SETTING TOLERATING WELL ORDERED SATURATING AT 99%. BREATHING NORMAL NO S/S OF DISTRESS NOTED. CONTINUES ON GTF TOLERATING WELL. F/C INTACT PATENT URINE DARNING WELL TO GRAVITY. BILATERAL SOFT RESTRAINS IN PLACE. SAFETY MEASURES IN PLACE,BED IN LOW AND LOCKED POSITION. CALL LIGHT WITHIN REACH. WILL CONT TO MONITOR.
[2019-09-13] MEDS: JEVITY 1.2 CAL 1,000 ML BOTTLE GT PRN (20:59)
[2019-09-14] VITALS (9 sets, daily range): BP systolic 114–148; BP diastolic 59–79
--- NOTE | 2019-09-14 07:03 | NUR ---
RN CLOSING NOTES PATIENT REMAINS STABLE NO S/S OF DISTRESS NOTED. BED BATH GIVEN WOUND CARE DONE. ON VENT SETTING TOLERATING WELL ORDERED SATURATING AT 99%. CONTINUES ON GTF TOLERATING WELL. F/C INTACT PATENT URINE DARNING WELL TO GRAVITY. BILATERAL SOFT RESTRAINS IN PLACE. SAFETY MEASURES IN PLACE,BED IN LOW AND LOCKED POSITION. CALL LIGHT WITHIN REACH. WILL ENDORSE TO AM NURSE FOR WYATT.
--- NOTE | 2019-09-14 07:23 | NUR ---
BEAD FORMING MACHINE SET UP OPERATOR OPENING NOTES RECEIVED PATIENT IN BED, ASLEEP. PATIENT IS ON VENT TOLERATING SETTINGS WELL; SATURATING AT 100%. EXTERNAL CARDIAC MONITORING WITH A CURRENT READING OF SR 99 BPM. NO SIGNS OF PAIN SUCH FACIAL GRIMACING OR MOANING. YOUSUF MIDLINE PRESENT AND INTACT. PATIENT ON FORMULA FEEDING INFUSING AT 25 MLS/HR. STILES CATH IN PLACE; DRAINING YELLOW URINE. BILATERAL UPPER EXTREMELY SOFT WRIST RESTRAINS. SAFETY PRECAUTIONS IN PLACE; BED IN LOW POSITION AND LOCKED, RAILS UP X2, CALL LIGHT WITHIN REACH. WILL CONTINUE TO MONITOR PATIENT.
[2019-09-14 07:32] LABS: BASOPHILS # (AUTO) 0.1 /CMM (0.0-0.2); BASOPHILS % (AUTO) 0.5 % (0.0-2.0); EOSINOPHILS % (AUTO) 0.9 % (0.0-6.0); HEMATOCRIT 24 % (33-45); HEMOGLOBIN 7.7 g/dL (11.5-14.8); LYMPHOCYTES # (AUTO) 1.9 /CMM (0.8-4.8); LYMPHOCYTES % (AUTO) 11.1 % (20.0-44.0); MEAN CORPUSCULAR HGB CONC 33 g/dl (31.0-36.0); MEAN CORPUSCULAR VOLUME 89 fL (82-100); MONOCYTES # (AUTO) 2.1 /CMM (0.1-1.30); MONOCYTES % (AUTO) 12.3 % (2.0-12.0); NEUTROPHILS # (AUTO) 12.8 /CMM (1.8-8.9); NEUTROPHILS % (AUTO) 75.2 % (43.0-81.0); PLATELET COUNT (AUTO) 306 /CMM (150-450); RED BLOOD CELL COUNT(AUTO) 2.67 MIL/uL (4.0-5.2)
[2019-09-14 07:46] LABS: ALBUMIN 2.2 g/dL (3.4-5.0); BILIRUBIN,TOTAL 0.5 mg/dL (0.2-1.0); CALCIUM, SERUM 8.1 mg/dL (8.5-10.1); CREATININE 0.8 mg/dL (0.6-1.3); MAGNESIUM 1.3 mg/dL (1.8-2.4); POTASSIUM 3.1 mmol/L (3.5-5.1); TOTAL PROTEIN, SERUM 6.9 g/dL (6.4-8.2)
[2019-09-14] MEDS: LEVOTHYROXINE SODIUM 25 MCG TABLET GT SCH (08:48)
[2019-09-14] MEDS: METOPROLOL TARTRATE 50 MG TABLET GT SCH ×2 (08:48→16:32)
[2019-09-14] MEDS: LOSARTAN POTASSIUM 50 MG TABLET GT SCH ×2 (08:48→21:00)
[2019-09-14] MEDS: LORAZEPAM 1 MG TABLET PO SCH ×4 (08:48→21:00)
[2019-09-14] MEDS: NITROGLYCERIN 30 GM TUBE TP SCH ×2 (08:49→21:01)
[2019-09-14] MEDS: CLOTRIMAZOLE/BETAMETASONE DIPROPIONATE 15 GM TUBE TP SCH ×2 (08:49→16:28)
[2019-09-14] MEDS: PANTOPRAZOLE 40 MG/PACK PACK NG SCH (08:49)
[2019-09-14] MEDS: AMLODIPINE BESYLATE 5 MG TABLET GT SCH (08:49)
[2019-09-14] MEDS ORDERED: POTASSIUM CHLORIDE 20 MEQ POWDER PACKET ONE (10:02)
[2019-09-14] MEDS: POTASSIUM CHLORIDE 20 MEQ POWDER PACKET GT SCH ×2 (10:11→15:14)
--- NOTE | 2019-09-14 10:19 | NUR ---
COPY LATHE TENDER NOTES PATIENT IS LEAVING FOR CT OF THE ABDOMENT WO CONTRAST. RADIOLOGY AND RT ARE TAKING THE PATIENT.
[2019-09-14] MEDS: Magnesium 1GM/D5W 100ML PREMIX 100 ML IV SCH ×4 (10:57→15:09)
--- NOTE | 2019-09-14 12:56 | NUR ---
PT RCVD JOSEPHINE'D ON MECHANICAL VENT WITH CHARTED SETTINGS. SX DONE. PT TRACH IS PATENT AND SECURE. VENT ALARMS ARE ON AND AUDIBLE. VENT PLUGGED INTO RED OUTLET. AMBU BAG AT BEDSIDE. NO SOB NOTED. Addendum: 09/14/19 at 1256 by MANI COSTA RT Amended: Links added.
--- NOTE | 2019-09-14 18:43 | NUR ---
PEST CONTROL SPECIALIST CLOSING NOTES PATIENT REMAINS IN BED, ASLEEP. PATIENT IS ON VENT TOLERATING SETTINGS WELL; SATURATING AT 100%. EXTERNAL CARDIAC MONITORING WITH A CURRENT READING OF SR 60 BPM. NO SIGNS OF PAIN SUCH FACIAL GRIMACING OR MOANING. YOUSUF MIDLINE PRESENT AND INTACT. PATIENT ON FORMULA FEEDING INFUSING AT 25 MLS/HR. STILES CATH IN PLACE WITH A DAY SHIFT OUTPUT OF 700 MLS; DRAINING YELLOW URINE. BILATERAL UPPER EXTREMELY SOFT WRIST RESTRAINS REMAIN IN PLACE. SAFETY PRECAUTIONS IN PLACE; BED IN LOW POSITION AND LOCKED, RAILS UP X2, CALL LIGHT WITHIN REACH. WILL ENDORSE TO TOBACCO PACKING MACHINE OPERATOR NURSE.
--- NOTE | 2019-09-14 19:39 | NUR ---
PRINTED FORMS PROOFREADER OPENING NOTES RECEIVED PATIENT RESTING IN BED COMFORTABLY; NON-VERBAL; TOLERATING VENT SETTINGS WELL; NO SOB NOTED; BREATHING EVEN AND UNLABORED; TELE MONITOR READS SINUS RHYTHM 65BPM; YOUSUF MIDLINE, INTACT AND PATENT, FLUSHING WELL; NO S/S OF REDNESS OR INFILTRATION NOTED; G TUBE IN PLACE, RUNNING JEVITY 1.2 @ 25ML/HR; PER DAY SHIFT, GTUBE FEEDING STOPPED FOR A COUPLE HOURS AND RE-STARTED AROUND 3PM. PATIENT CURRENTLY TOLERATING FEEDING WELL, WILL CONT TO MONITOR; STILES CATH IN PLACE, FLOWING YELLOW OUTPUT; BILATERAL SOFT WRISTS APPLIED, NO S/S OF SKIN BREAKDOWN; SAFETY PRECAUTIONS IMPLEMENTED; BED LOCKED IN LOW POSITION; WILL CONT TO MONITOR RT CURRENTLY AT BEDSIDE
--- NOTE | 2019-09-14 21:43 | NUR ---
LOADING UNIT OPERATOR CRIMPING NOTES ATIVAN PO NON-ADMINISTERED, PATIENT UNABLE TO FOLLOW COMMANDS; PATIENT HAS GTUBE IN PLACE; PATIENT RESTING IN BED COMFORTABLY, NO DISTRESS AT THIS TIME; WILL CONT TO MONITOR;
--- NOTE | 2019-09-14 23:12 | NUR ---
GROCERY BUYER NOTES RT AT BEDSIDE Addendum: 09/15/19 at 0338 by PIOTR NORTON RN GTUBE FEEDING STOPPED AT THIS TIME, ABDOMEN DISTENDED; PER AM SHIFT, PATIENT HAS BEEN HAVING DIARRHEA; WILL CONT TO MONITOR
[2019-09-14] MEDS: LORAZEPAM INJ 2 MG/ML VIAL IV PRN (23:24)
[2019-09-15] VITALS (7 sets, daily range): BP systolic 90–126; BP diastolic 45–94
--- NOTE | 2019-09-15 00:04 | NUR ---
BISCUIT PACKER NOTES PATIENT AGITATED/ANXIOUS; VITALS STABLE; ATIVAN IV ADMINISTERED 2323; PER MD ORDER; SUCTIONED, PATIENT HAS A LOT OF SECRETIONS; CALLED RT, RT CURRENTLY AT BEDSIDE; PATIENT SATTING 100%; WILL CONT TO MONITOR
--- NOTE | 2019-09-15 05:08 | NUR ---
RT NOTE: RECEIVED TRACH PT ON NOTED ORDERED AC VENT SETTINGS. PT HAS EPISODES OF ANXIETY @ TIMES. RN AWARE. NO ACUTE DISTRESS NOTED. TRACH CHECKED SECURE AND PATENT. SXD AND LAVAGE NEEDED. TRACH CARE DONE. EMERGENCY EQUIPMENT @ BEDSIDE. ALARMS CHECKED ON AND AUDIBLE .VENT PLUGGED INTO RED OUTLET.
[2019-09-15 06:22] LABS: BASOPHILS # (AUTO) 0.1 /CMM (0.0-0.2); BASOPHILS % (AUTO) 0.6 % (0.0-2.0); EOSINOPHILS % (AUTO) 2.9 % (0.0-6.0); HEMATOCRIT 25 % (33-45); HEMOGLOBIN 8.1 g/dL (11.5-14.8); LYMPHOCYTES # (AUTO) 2.1 /CMM (0.8-4.8); LYMPHOCYTES % (AUTO) 15.9 % (20.0-44.0); MEAN CORPUSCULAR HGB CONC 33 g/dl (31.0-36.0); MEAN CORPUSCULAR VOLUME 88 fL (82-100); MONOCYTES # (AUTO) 2.1 /CMM (0.1-1.30); MONOCYTES % (AUTO) 15.9 % (2.0-12.0); NEUTROPHILS # (AUTO) 8.6 /CMM (1.8-8.9); NEUTROPHILS % (AUTO) 64.7 % (43.0-81.0); PLATELET COUNT (AUTO) 351 /CMM (150-450); RED BLOOD CELL COUNT(AUTO) 2.83 MIL/uL (4.0-5.2); WHITE BLOOD COUNT (AUTO) 13.3 K/uL (4.3-11.0)
[2019-09-15 06:37] LABS: CALCIUM, SERUM 8.6 mg/dL (8.5-10.1); CREATININE 0.9 mg/dL (0.6-1.3); MAGNESIUM 2.4 mg/dL (1.8-2.4)
--- NOTE | 2019-09-15 06:44 | NUR ---
TENANT RELATIONS COORDINATOR CLOSING NOTES PATIENT RESTING IN BED COMFORTABLY; A/OX1, NONVERBAL, TRACH; NO CHANGES IN VENT SETTINGS AT THIS TIME; PATIENT TOLERATING VENT SETTINGS WELL; BREATHING EVEN AND UNLABORED; NO SOB NOTED; TELE MONITOR READS NSR 91BPM; BILATERAL SOFT WRIST RESTRAINTS APPLIED, NO EVIDENCE OF SKIN BREAKDOWN; MONITORED WRIST RESTRAINTS Q2HR AND NEEDED; G TUBE IN PLACE; G TUBE FEEDING STOPPED D/T DIARRHEA; STILES CATH IN PLACE, YELLOW OUTPUT OF 400CC; L UA MIDLINE, INTACT AND PATENT, FLUSHING WELL, NO S/S OF REDNESS OR INFILTRATION; ALL NEEDS RENDERED; SAFETY PRECAUTIONS IMPLEMENTED; BED LOCKED IN LOW POSITION; SIDE RAILS X2; WILL ENDORSE WYATT TO ONCOMING SHIFT
[2019-09-15] MEDS: LEVOTHYROXINE SODIUM 25 MCG TABLET GT SCH (07:35)
--- NOTE | 2019-09-15 08:00 | NUR ---
TELE/RN OPENING NOTES RECEIVED PATIENT RESTING IN BED COMFORTABLY; A/OX1, NONVERBAL, TRACH; NO CHANGES IN VENT SETTINGS; PATIENT TOLERATING VENT SETTINGS WELL; BREATHING EVEN AND UNLABORED; NO SOB NOTED; TELE MONITOR READS SR WITH PVC 97BPM; BILATERAL SOFT WRIST RESTRAINTS APPLIED, NO EVIDENCE OF SKIN BREAKDOWN; PATIENT WITH SOFT BM THIS MORNING. STILES CATH IN PLACE, L UA MIDLINE, INTACT AND PATENT, FLUSHING WELL, NO S/S OF REDNESS OR INFILTRATION. SAFETY PRECAUTIONS IMPLEMENTED; BED LOCKED IN LOW POSITION; SIDE RAILS X2; WILL CONTINUE TO MONITOR.
[2019-09-15] MEDS: PANTOPRAZOLE 40 MG/PACK PACK NG SCH (08:56)
[2019-09-15] MEDS: LORAZEPAM 1 MG TABLET PO SCH ×4 (08:56→20:06)
[2019-09-15] MEDS: AMLODIPINE BESYLATE 5 MG TABLET GT SCH (09:00)
[2019-09-15] MEDS: METOPROLOL TARTRATE 50 MG TABLET GT SCH ×2 (09:23→17:55)
[2019-09-15] MEDS: NITROGLYCERIN 30 GM TUBE TP SCH ×2 (09:41→21:20)
[2019-09-15] MEDS: CLOTRIMAZOLE/BETAMETASONE DIPROPIONATE 15 GM TUBE TP SCH ×2 (09:43→17:00)
[2019-09-15] MEDS: POTASSIUM CHLORIDE 20 MEQ POWDER PACKET GT SCH ×3 (09:46→11:21)
--- NOTE | 2019-09-15 10:00 | NUR ---
TELE/RN NOTES PERSONAL CONSULTANT RECOMMEND JEVITY 45ML X [address] AC IS AWARE AND ORDER TO CONTINUE FEEDING AND START JEVITY 20ML/HR AND INCREASE IF PATIENT TOLERATE UNTIL TO REACH THE GOAL OF 45ML. WILL CONTINUE TO MONITOR.
[2019-09-15] MEDS: JEVITY 1.2 CAL 1,000 ML BOTTLE GT PRN (10:06)
[2019-09-15] MEDS: LOSARTAN POTASSIUM 50 MG TABLET GT SCH ×2 (11:21→20:05)
--- NOTE | 2019-09-15 15:58 | NUR ---
TELE//RN NOTES PATIENT VOMITED AND HAVING LOOSE STOOL DR. KERN IS AWARE, ORDER KUB AND KEEP PATIENT ON NPO. WILL CONTINUE TO MONITOR.
--- NOTE | 2019-09-15 19:44 | NUR ---
TELE/RN CLOSING NOTES PATIENT IS ON BED. A/OX1, NONVERBAL, TRACH IN PLACE CLEAN AND DRY. VENT WITH PRESCRIBED SETTINGS; PATIENT BREATHING EVEN AND UNLABORED; NO SOB NOTED; TELE MONITOR READS SR SR 74 BPM; BILATERAL SOFT WRIST RESTRAINTS APPLIED, NO EVIDENCE OF SKIN BREAKDOWN; PATIENT WITH SOFT BM THIS MORNING. STILES CATH IN PLACE, L UA MIDLINE, INTACT AND PATENT, FLUSHING WELL, NO S/S OF REDNESS OR INFILTRATION. SAFETY PRECAUTIONS IMPLEMENTED; BED LOCKED IN LOW POSITION; SIDE RAILS X2; WILL ENDORSED TO DIVORCE ATTORNEY FOR [place].
--- NOTE | 2019-09-15 19:53 | NUR ---
RN OPEN NOTES PATIENT IS WATCHING TV IN BED. ON [facility] VENT, TOLERATING WELL. NO SOB/ ACUTE RESPIRATORY DISTRESS NOTED. APPEARS COMFORTABLE/ NO COMPLAINTS OF PAIN AT THE MOMENT. BILATERAL SOFT WRIST RESTRAINTS IN PLACE, GOOD CIRCULATION NOTED. BED IS IN LOWEST LOCKED POSITION WITH SIDE RAILS UP, SEMI FOWLERS. CALL LIGHT IS WITHIN REACH. WILL CONTINUE TO MONITOR.
[2019-09-15] MEDS ORDERED: JEVITY 1.2 CAL 1,000 ML BOTTLE GT PRN (20:00)
[2019-09-16] VITALS: BP 115/65
--- NOTE | 2019-09-16 02:07 | NUR ---
RT NOTE Pt rec'd trached on [facility] vent on AC mode. Pt shows no signs of resp distress or sob. Trach is patent and secured. sx'd for thick mod amt of pale yellow secretions. Ambu bag bedside. Alarms are set and audible. Vent plugged into red outlet. Will continue to monitor. Addendum: 09/16/19 at 0207 by SILVIA MCKEE RT Amended: Links added.
[2019-09-16] MEDS: LORAZEPAM INJ 2 MG/ML VIAL IV PRN ×2 (03:18→23:59)
--- NOTE | 2019-09-16 06:37 | NUR ---
FILM VAULT SUPERVISOR CLOSE NOTES PATIENT IS LAYING IN BED. NONVERBAL. [facility] TOLERATING WELL, NO SOB/ ACUTE RESPIRATORY DISTRESS NOTED. ON TELE MONITOR READING SR, HR 90. STILES CATHETER IN PLACE 400ML OUTPUT. MIDLINE IN L UPPERARM IS PATENT AND INTACT. J-TUBE IN PLACE, FEEDING @ 20MLS/HR. BILATERAL SOFT WRIST RESTRAINTS PRESENT, GOOD CIRCULATION NOTED. DRAIN IN PLACE, 15ML OUTPUT. BED IS IN LOWEST LOCKED POSITION WITH SIDE RAILS UP X3, SEMI FOWLERS. CALL LIGHT WITHIN REACH. WILL ENDORSE TO AM NURSE.
[2019-09-16] MEDS: LEVOTHYROXINE SODIUM 25 MCG TABLET GT SCH (07:30)
--- NOTE | 2019-09-16 07:30 | NUR ---
OPTICAL FABRICATOR NOTES PATIENT LYING IN BED. NONVERBAL. PATIENT ON MECH VENT WITH PRESCRIBED SETTINGS ORDERED. PATIENT WITH NO RESPIRATORY DISTRESS, NO S/S OF PAIN OR DISCOMFORT AT THIS TIME. PATIENT ON CANCER GENETIC COUNSELOR SR 95. SKIN WARM TO TOUCH, IV ACCESS SITES INTACT AND PATENT. PATIENT ON BILAT SOFT WRIST RESTRAINTS, REMOVED TO CHECK FOR CIRCULATION AND REDNESS. J-TUBE INTACT WITH JEVITY RUNNING AT 20ML/HR, TOLERATING WELL WITH HOB UP. DRAIN INTACT AND DRAINING 10ML, RED/BROWN DRAINAGE. STILES CATH INTACT AND DRAINING YELLOW URINE. PATIENT'S NEEDS ATTENDED, BED ON LOWEST LOCKED POSITION, CALL LIGHT WITHIN REACH. WILL CONTINUE TO MONITOR.
[2019-09-16 08:00] VITALS: BP 125/71
[2019-09-16] MEDS: AMLODIPINE BESYLATE 5 MG TABLET GT SCH (09:12)
[2019-09-16] MEDS: METOPROLOL TARTRATE 50 MG TABLET GT SCH ×2 (09:12→17:00)
[2019-09-16] MEDS: LORAZEPAM 1 MG TABLET PO SCH ×4 (09:12→20:12)
[2019-09-16] MEDS: CLOTRIMAZOLE/BETAMETASONE DIPROPIONATE 15 GM TUBE TP SCH ×2 (09:13→16:01)
[2019-09-16] MEDS: PANTOPRAZOLE 40 MG/PACK PACK NG SCH (09:13)
[2019-09-16] MEDS: LOSARTAN POTASSIUM 50 MG TABLET GT SCH ×2 (09:18→20:13)
[2019-09-16] MEDS: NITROGLYCERIN 30 GM TUBE TP SCH ×2 (09:18→23:06)
[2019-09-16 10:16] LABS: ALBUMIN 2.2 g/dL (3.4-5.0); BILIRUBIN,TOTAL 0.6 mg/dL (0.2-1.0); CALCIUM, SERUM 8.6 mg/dL (8.5-10.1); CREATININE 0.9 mg/dL (0.6-1.3); MAGNESIUM 1.8 mg/dL (1.8-2.4); PHOSPHORUS 4.2 mg/dL (2.5-4.9); POTASSIUM 2.9 mmol/L (3.5-5.1); TOTAL PROTEIN, SERUM 7.1 g/dL (6.4-8.2)
[2019-09-16] MEDS: POTASSIUM CHLORIDE 20 MEQ POWDER PACKET GT SCH ×3 (14:22→16:00)
[2019-09-16 16:00] VITALS: BP 104/66
--- NOTE | 2019-09-16 19:20 | NUR ---
ASSESSMENT TECHNICIAN NOTES PATIENT RESTING IN NO RESPIRATORY DISTRESS, [facility] WITH PRESCRIBED SETTINGS. NO S/S PAIN OR DISCOMFORT AT THIS TIME. SKIN WARM TO TOUCH, IV ACCESS SITE INTACT AND PATENT. JTUBE INTACT AND JEVITY RUNNING AT 45ML/HR, HOB. F/C INTACT DRAINING YELLOW URINE. PATIENT ON BILAT SOFT WRIST RESTRAINTS. PATIENT'S NEEDS ATTENDED, BED ON LOWEST LOCKED POSITION, CALL LIGHT WITHIN REACH. WILL ENDORSE TO ONCOMING SHIFT.
--- NOTE | 2019-09-16 19:45 | NUR ---
TAIL END RIDER OPEN NOTES PATIENT IS LAYING IN BED. [facility], TOLERATING WELL. NO SOB/ ACUTE RESPIRATORY DISTRESS NOTED. BILATERAL SOFT WRIST RESTRAINTS IN PLACE, GOOD CIRCULATION NOTED. J TUBE INTACT. STILES CATHETER IN PLACE. BED IS IN LOWEST LOCKED POSITION WITH SIDE RAILS UP, SEMI FOWLERS. CALL LIGHT IS WITHIN REACH. WILL CONTINUE TO MONITOR.
[2019-09-16 20:00] VITALS: BP 130/73
[2019-09-17 00:01] VITALS: BP 101/54
[2019-09-17 04:00] VITALS: BP 104/54
[2019-09-17] MEDS: LORAZEPAM INJ 2 MG/ML VIAL IV PRN (04:26)
--- NOTE | 2019-09-17 06:48 | NUR ---
CPR AMBULANCE DRIVER CLOSE NOTES PATIENT IS LAYING IN BED. NONVERBAL. [facility], NO SOB/ ACUTE RESPIRATORY DISTRESS NOTED. TRACH DRESSING CHANGED. MIDLINE IN LEFT UPPERARM IS PATENT AND INTACT. JTUBE IN PLACE, RECEIVING FEEDING @ 45MLS/HR. BILATERAL SOFT WRIST RESTRAINTS PRESENT, GOOD CIRCULATION NOTED. STILES CATHETER IN PLACE, 500ML OUTPUT. BED IS IN LOWEST LOCKED POSITION WITH SIDE RAILS UP X3, SEMI FOWLERS. CALL LIGHT IS WITHIN REACH. WILL ENDORSE TO AM NURSE.
--- NOTE | 2019-09-17 08:08 | NUR ---
RT NOTE Pt rec'd trached on [facility] vent on AC mode. placed pt on simv per dr. pascual orders. pt stable tolerating vent.Pt shows no signs of resp distress or sob. Trach is patent and secured. sx'd for thick small amt of pale yellow secretions. Ambu bag bedside. Alarms are set and audible. Vent plugged into red outlet. Will continue to monitor. Addendum: 09/17/19 at 0810 by IRA ORTEGA RT Amended: Links added.
[2019-09-17] MEDS: LORAZEPAM 1 MG TABLET PO SCH ×2 (08:33→12:28)
[2019-09-17] MEDS: LOSARTAN POTASSIUM 50 MG TABLET GT SCH (09:11)
[2019-09-17] MEDS: PANTOPRAZOLE 40 MG/PACK PACK NG SCH (09:11)
[2019-09-17] MEDS: AMLODIPINE BESYLATE 5 MG TABLET GT SCH (09:12)
[2019-09-17] MEDS: LEVOTHYROXINE SODIUM 25 MCG TABLET GT SCH (09:12)
[2019-09-17] MEDS: METOPROLOL TARTRATE 50 MG TABLET GT SCH (09:13)
[2019-09-17 09:15] VITALS: BP 139/76
[2019-09-17] MEDS: NITROGLYCERIN 30 GM TUBE TP SCH (09:15)
[2019-09-17] MEDS: CLOTRIMAZOLE/BETAMETASONE DIPROPIONATE 15 GM TUBE TP SCH (09:16)
[2019-09-17] MEDS: POTASSIUM CHLORIDE 20 MEQ POWDER PACKET GT SCH ×2 (10:56→12:20)
--- NOTE | 2019-09-17 11:26 | NUR ---
TELE/RN OPENING NOTES RECEIVED PATIENT LAYING IN BED AWAKE. ALERT AND ORIENTED X 1. PATIENT ON MECH VENT, TOLERATING WELL. NO SOB/ ACUTE RESPIRATORY DISTRESS NOTED. BILATERAL SOFT WRIST RESTRAINTS ARE IN PLACE, GOOD CIRCULATION NOTED. TORO DRAIN INTACT. LEFT IV UPPER ARM MIDLINE IN PLACE. STILES CATHETER IN PLACE. BED IS IN LOWEST LOCKED POSITION WITH SIDE RAILS UP X 3, SEMI FOWLERS. CALL LIGHT IS WITHIN REACH. WILL CONTINUE TO MONITOR THROUGHOUT SHIFT.
--- NOTE | 2019-09-17 13:41 | NUR ---
TELE/RN NOTE THE PATIENT IS DISCHARGED TO [facility] SUB[facility]. THE PATIENT IS TRANSFEREE PER ACLS POLICY. PATIENT IN STABLE CONDITION. PER ORDER THE PATIENT TO GET KLOR CON POWDER PKT 20 MEQ FOR 5 DOSES. 2 DOSES GIVEN DURING THE SHIFT AND THE OTHER 3 DOSES TO BE GIVEN IN THE SUBACUTE. PER PHYSICAL INTEGRATION PRACTITIONER CONNIE THE 3 DOSES TO BE GIVEN AT SUBACUTE. ENDORSED ACCORDINGLY.
[2019-09-17] MEDS ORDERED: POTA20TA83 GT (15:58)
[2019-09-17] MEDS ORDERED: LACT-209 GT (15:58)
[2019-09-17] MEDS ORDERED: ONDA4VIA52 IV (15:58)
[2019-09-17] MEDS ORDERED: CLOT15CR5 TP (15:58)
[2019-09-17] MEDS ORDERED: LORA-259 GT (15:58)
[2019-09-17] MEDS ORDERED: ALLA266C2 TP (15:58)
[2019-09-17] MEDS ORDERED: NITR1OIN2 TD (15:58)
[2019-09-17] MEDS ORDERED: ACET650S11 RC (15:58)
[2019-09-17] MEDS ORDERED: PANT40SU2 GT (15:58)
[2019-09-19 16:15] LABS: RENIN, PLASMA 5.988 ng/mL/hr (0.167-5.380)
== END 2019-09-17 13:30 | DRG 3 ==
LOC: ER 18:07 → ICU 20:23 → TELE-TD 08-27 18:06 → TELE1 08-28 11:57 → TELE 08-31 10:52 → ICU 09-08 12:54 → MED 09-09 11:39 → TELE 09-09 18:33
PROVIDERS: ADMIT Student in an Organized Health Care Education/Training Program; ATTEND Internal Medicine
PROC: 5A1955Z Respiratory Ventilation, Greater than 96 Consecutive Hours (ICD-10-PCS; principal; 2019-07-19)
PROC: 0BH17EZ Insertion of Endotracheal Airway into Trachea, Via Natural or Artificial Opening (ICD-10-PCS; 2019-07-19)
PROC: 06HM33Z Insertion of Infusion Device into Right Femoral Vein, Percutaneous Approach (ICD-10-PCS; 2019-07-19)
PROC: B54BZZA Ultrasonography of Right Lower Extremity Veins, Guidance (ICD-10-PCS; 2019-07-19)
PROC: 0DHA4UZ Insertion of Feeding Device into Jejunum, Percutaneous Endoscopic Approach (ICD-10-PCS; 2019-08-21)
PROC: 0B113F4 Bypass Trachea to Cutaneous with Tracheostomy Device, Percutaneous Approach (ICD-10-PCS; 2019-08-26)
PROC: 0DJ08ZZ Inspection of Upper Intestinal Tract, Via Natural or Artificial Opening Endoscopic (ICD-10-PCS; 2019-09-04)
PROC: 0DTJ4ZZ Resection of Appendix, Percutaneous Endoscopic Approach (ICD-10-PCS; 2019-09-08)
DX: A41.89 Other specified sepsis (principal); J96.01 Acute respiratory failure with hypoxia; U07.1 COVID-19; J12.89 Other viral pneumonia; N17.0 Acute kidney failure with tubular necrosis; R65.21 Severe sepsis with septic shock; I21.A1 Myocardial infarction type 2; J96.02 Acute respiratory failure with hypercapnia; J15.9 Unspecified bacterial pneumonia; K85.90 Acute pancreatitis without necrosis or infection, unspecified; J44.0 Chronic obstructive pulmonary disease with (acute) lower respiratory infection; K31.1 Adult hypertrophic pyloric stenosis; K86.3 Pseudocyst of pancreas; R18.8 Other ascites; E87.2 Acidosis; J44.1 Chronic obstructive pulmonary disease with (acute) exacerbation; I50.32 Chronic diastolic (congestive) heart failure; B37.49 Other urogenital candidiasis; E44.0 Moderate protein-calorie malnutrition; K31.5 Obstruction of duodenum; K94.23 Gastrostomy malfunction; E78.00 Pure hypercholesterolemia, unspecified; K38.1 Appendicular concretions; Z86.73 Personal history of transient ischemic attack (TIA), and cerebral infarction without residual deficits; M79.7 Fibromyalgia; Y95 Nosocomial condition; R13.10 Dysphagia, unspecified; Z88.3 Allergy status to other anti-infective agents; Z88.0 Allergy status to penicillin; G51.0 Bell's palsy; M06.9 Rheumatoid arthritis, unspecified; Z87.01 Personal history of pneumonia (recurrent); E78.5 Hyperlipidemia, unspecified; E83.42 Hypomagnesemia; G62.9 Polyneuropathy, unspecified; E03.9 Hypothyroidism, unspecified; F32.9 Major depressive disorder, single episode, unspecified; E87.6 Hypokalemia; R74.0 Nonspecific elevation of levels of transaminase and lactic acid dehydrogenase [LDH]; I11.0 Hypertensive heart disease with heart failure; I25.2 Old myocardial infarction; E83.39 Other disorders of phosphorus metabolism; D64.9 Anemia, unspecified; A41.81 Sepsis due to Enterococcus; K29.70 Gastritis, unspecified, without bleeding; K44.9 Diaphragmatic hernia without obstruction or gangrene; K83.8 Other specified diseases of biliary tract; K21.0 Gastro-esophageal reflux disease with esophagitis; Y83.3 Surgical operation with formation of external stoma as the cause of abnormal reaction of the patient, or of later complication, without mention of misadventure at the time of the procedure; Y82.9 Unspecified medical devices associated with adverse incidents; Y92.89 Other specified places as the place of occurrence of the external cause
CPT/HCPCS: 31720; 36410; 36415; 36600; 43246; 71045-TC; 74018; 74150-TC; 74250-TC; 75989-TC; 80048-TC; 80053-TC; 80061-TC; 80202-TC; 81000-TC; 82088; 82248-TC; 82272-TC; 82436-TC; 82533; 82550-TC; 82570-TC; 82728-TC; 82803-TC; 82962-TC; 83605-TC; 83615-TC; 83690-TC; 83735-TC; 83880; 83935-TC; 83970; 84100-TC; 84132-TC; 84133-TC; 84155; 84155-TC; 84165; 84244; 84300-TC; 84436-TC; 84443-TC; 84478-TC; 84484-TC; 85025-TC; 85027-TC; 85378-TC; 85610-TC; 85730-TC; 86140-TC; 86480; 86850-TC; 86921-TC; 87040-TC; 87070-TC; 87081-TC; 87086-TC; 87186-TC; 88304-TC; 93307-TC; 93308-TC; 94002-TC; 94003-TC; 94640-TC; 94760-TC; 94762-TC; 94799-TC; 99082-TC; A4216; A4623; A6209; A6253; A6403; A7526; C1751; G0378; G0500; J0456; J1200; J1450; J1650; J1720; J1940; J2060; J2185; J2248; J2250; J2270; J2274; J2310; J2370; J2405; J2543; J2704; J2765; J3010; J3262; J3370; J3475; J3480; J3490; J7030; J7040; J7042; J7050; J7060; J7070; P9016-BL; Q9963; Q9967; U0003; U0003-CS

== ENCOUNTER 2019-09-17 12:35 | Inpatient (IN) | payer MEDICARE, MEDICAID ==
[~2019-09-17] VITALS: Ht 160 cm; Wt 51.7 kg
[~2019-09-17 12:35] MED LIST: AMIT50TA3 PO; AMLO5TAB9 GT; ASPI-1420 PO; ATOR40TA PO; DULO60CA45 PO; FURO40TA5 PO; GABA600T12 PO; HYDR200T4 PO; LEVO25TA9 GT; LOSA100T31 GT; METO50TA16 GT; MONT10TA22 PO; OMEP20CA15 PO
--- NOTE | 2019-09-17 13:30 | NUR ---
Admitted 63-year-old female from [facility] with diagnoses of respiratory failure, ventilator dependent, COPD, fibromyalgia, hyperlipidemia, cerebral infarction, Alexandra's palsy, pneumonia, rheumatoid arthritis, peripheral neuropathy, hypothyroidism, GERD, depression, left mastectomy, Hx Covid-19. Pt has had 2 negative Covid-19 tests, another test was done yesterday and result is still pending. Placed pt on contact and droplet isolation for Covid-19 observation. Pt has trach tube Shiley # 8, vent setting AC 18 VT 450 FiO2 40 % PEEP +5. Started JT feeding Jevity 1.2 at 45 mL/hr. Body assessment done. Pt has a JT for feeding and medications. GT not being used. Pt also has a TORO drain for peripancreatic abscess draining brownish fluid. Pt has bilateral soft wrist restraints. HOB elevated for aspiration precaution. Made clean and comfortable in bed. Verified orders with Dr Rosado.
[2019-09-17] MEDS ORDERED: ACET650S11 RC (15:58)
[2019-09-17] MEDS ORDERED: LACT-209 GT (15:58)
[2019-09-17] MEDS ORDERED: PANT40SU2 GT (15:58)
[2019-09-17] MEDS ORDERED: NITR1OIN2 TD (15:58)
[2019-09-17] MEDS ORDERED: ONDA4VIA52 IV (15:58)
[2019-09-17] MEDS ORDERED: ALLA266C2 TP (15:58)
[2019-09-17] MEDS ORDERED: POTA20TA83 GT (15:58)
[2019-09-17] MEDS ORDERED: LORA-259 GT (15:58)
[2019-09-17] MEDS ORDERED: CLOT15CR5 TP (15:58)
[2019-09-17] MEDS ORDERED: ACETAMINOPHEN 650 MG SUPP.RECT RC PRN (17:30)
[2019-09-17] MEDS ORDERED: ONDANSETRON HCL/PF 4 MG/2 ML VIAL IV PRN (17:30)
[2019-09-17] MEDS ORDERED: HYDROGEN PEROXIDE 480 ML BOTTLE TP PRN (17:30)
--- NOTE | 2019-09-17 18:38 | NUR ---
Notified pt's daughter George that pt is here in Subacute. Daughter mentioned several medications that pt used to take prior to hospitalization. Notified Dr Rosado of the medications. He ordered to resume them except for Vernon and to give Morphine IV PRN. Also received order to DC Ojeda catheter.
--- NOTE | 2019-09-17 18:41 | NUR ---
Pt has been agitated since admission, moving restlessly in bed, dangling legs over side rails, pinching and hitting nurses. Kept pt's environment safe. Staff made frequent rounds. Pt's daughter said pt was not agitated prior to hospitalization, but pt was usually in pain and taking medications.
[2019-09-17] MEDS: POTASSIUM CHLORIDE 20 MEQ POWDER PACKET GT SCH ×3 (18:48→21:00)
[2019-09-17] MEDS: JEVITY 1.2 CAL 1,000 ML BOTTLE GT PRN (20:00)
--- NOTE | 2019-09-17 20:00 | NUR ---
Patient in bed agitated,keep kicking and moving.Patient trying to free her hands from restraint by pulling the string.Patient also noted with on and off dry cough. Had a loose bowel movement moderate amount, perianal care provided. kept patient clean and comfortable. Check wrist for skin break down d/t to restraint. Bed alarm on and locked. Frequent rounds by the nurses to ensure safety. Will continue to monitor.
[2019-09-17] MEDS: HYDROGEN PEROXIDE 480 ML BOTTLE TP SCH (20:02)
[2019-09-17 20:09] VITALS: BP 113/72
[2019-09-17] MEDS ORDERED: TUBERCULIN,PURIF.PROT.DERIV. 5 TU/0.1 ML VIAL ID SCH (21:00)
[2019-09-17] MEDS: LOSARTAN POTASSIUM 50 MG TABLET GT SCH (21:54)
[2019-09-17] MEDS: LORAZEPAM 1 MG TABLET PO SCH (21:55)
[2019-09-17] MEDS: Z GUARD REMEDY 4 OZ OINT TP SCH ×3 (21:55)
[2019-09-17] MEDS: AMITRIPTYLINE HCL 25 MG TABLET PO SCH (21:55)
[2019-09-17] MEDS: NITROGLYCERIN 30 GM TUBE TP SCH (21:55)
[2019-09-17] MEDS: ATORVASTATIN 40 MG TABLET GT SCH (21:55)
[2019-09-17] MEDS: MONTELUKAST SODIUM (10MG) 10 MG TABLET GT SCH (21:55)
[2019-09-17] MEDS: CLOTRIMAZOLE/BETAMETASONE DIPROPIONATE 15 GM TUBE TP SCH (21:55)
[2019-09-17] MEDS ORDERED: AMITRIPTYLINE HCL 50 MG TABLET PO SCH (22:00)
--- NOTE | 2019-09-17 22:00 | NUR ---
Patient routine medications given via JT. Patient awake and still restless tried to pulled tubings.Monitor closely for safety.
[2019-09-18 00:05] VITALS: BP 105/58
--- NOTE | 2019-09-18 01:30 | NUR ---
Patient still awake kicking,sliding in bed.Patient hitting staff while doing care. Patient doesn't follow command.Mumbling words. Looks tired and sleepy but unable to rest. Kept comfortable.Will continue to monitor.
[2019-09-18] MEDS: MORPHINE SULFATE INJ 2 MG/ML DISP.SYRIN IV PRN (03:29)
--- NOTE | 2019-09-18 03:30 | NUR ---
Patient is so restless,pulling tubings and kicking with facial grimacing.HR 120's RR 20 Bp 90/56. Morphine 1 mg given via IV for severe pain. Will continue to monitor.
--- NOTE | 2019-09-18 04:04 | NUR ---
Patient sleeping at this time,calm but easily arousable with touch. HR 104, Spo2 100%. No s/s of pain.Needs attended will continue to monitor.
[2019-09-18 04:14] VITALS: BP 90/56
--- NOTE | 2019-09-18 06:00 | NUR ---
pt sleeping. calm. no s/s of distress. feeding, water flushes and medication given via jt. pt tolerated well. all needs rendered.
[2019-09-18] MEDS: OMEPRAZOLE 20 MG CAPSULE.DR GT SCH (06:49)
[2019-09-18] MEDS: LEVOTHYROXINE SODIUM 25 MCG TABLET GT SCH (06:49)
[2019-09-18 07:43] VITALS: BP 89/58
[2019-09-18] MEDS: HYDROGEN PEROXIDE 480 ML BOTTLE TP SCH ×2 (08:01→19:50)
[2019-09-18] MEDS: CLOTRIMAZOLE/BETAMETASONE DIPROPIONATE 15 GM TUBE TP SCH ×2 (09:00→21:21)
[2019-09-18] MEDS: Z GUARD REMEDY 4 OZ OINT TP SCH ×6 (09:00→21:22)
[2019-09-18] MEDS: METOPROLOL TARTRATE 50 MG TABLET GT SCH ×2 (09:00→17:58)
[2019-09-18] MEDS: AMLODIPINE BESYLATE 5 MG TABLET GT SCH (09:00)
[2019-09-18] MEDS ORDERED: DULOXETINE HCL 30 MG CAPSULE.DR GT SCH (09:00)
[2019-09-18] MEDS: LOSARTAN POTASSIUM 50 MG TABLET GT SCH ×2 (09:00→21:00)
[2019-09-18] MEDS: NITROGLYCERIN 30 GM TUBE TP SCH ×2 (09:00→21:00)
[2019-09-18] MEDS: ZINC OXIDE 56.7 GM TUBE TP SCH (09:00)
[2019-09-18] MEDS ORDERED: PANTOPRAZOLE 40 MG/PACK PACK GT SCH (09:00)
[2019-09-18] MEDS: DULOXETINE HCL 30 MG CAPSULE.DR GT SCH (09:42)
[2019-09-18] MEDS: ASPIRIN 81 MG TAB.CHEW GT SCH (09:42)
[2019-09-18] MEDS: GABAPENTIN 300 MG CAPSULE GT SCH (09:43)
[2019-09-18] MEDS: LORAZEPAM 1 MG TABLET PO SCH (09:44)
[2019-09-18] MEDS: HYDROXYCHLOROQUINE 200 MG TABLET GT SCH (09:44)
--- NOTE | 2019-09-18 11:55 | NUR ---
INTAKE PAPERWORK: The patient was admitted to on 09/17/2019 1330 and SW explained and reviewed the Intake paperwork with the patients Daughter and DPOA, Adry Lim [phone] via phone conference on 09/18/2019 at 1030 consisting of : (Patient Right's Acknowledgement, Documentation of Preferred Intensity of Care, Conditions of Admission, CDPH Agreement, Voluntary Prior Express Consent form, and An Important Message from Medicare). Adry Gouldkanwaljonathan expressed that the intensity of care provided to the pt. should include Maximum Treatment and CPR. Adry was agreeable to reviewing intake paperwork with SW over the phone and providing a wet signature when paperwork arrives via mail. This SW addressed all of the familys questions. LISBETH provided Adry with a copy of the Bill of Rights, patient information guide and [facility] resident and family guidelines, Bill of Rights, [facility] communication system information and consent form, and Conservatorship informational packet by emailing at per Shelbi preferrence. Silver Service Waiter educated Adry on [employer] Directive and Conservatorship. The patients family has no plans of filing for conservatorship at the moment. The [patients daughter, Adry Lim is the primary DPOA. The patients sister, Elenita Cardoso [[address] [place] [address] ; CELL:[phone]] is the secondary DPOA. LISBETH mailed the intake paperwork for Adry Lim to [[id number] [facility] [place] [id number]]. LISBETH provided Adry with pre-paid envelope. LISBETH will await for paperwork to be completed and mailed back by Adry. LISBETH will follow up as needed to assist the family with completing intake paperwork.
[2019-09-18] MEDS: LORAZEPAM 1 MG TABLET GT SCH ×2 (12:27→18:00)
--- NOTE | 2019-09-18 13:13 | NUR ---
Called daughter, George, at around 1210 to go over Resident Baseline Care Plan form, also reviewed current list of medications. Concluded at around 1240 and daughter was thankful. Dr Toure was asked about Pneumonia vaccine said to hold off for now due to medical condition.
--- NOTE | 2019-09-18 14:00 | NUR ---
Clarified some orders during IDT with Dr. Toure which includes Fosamax XR which is not crushable and change to Fosamax IR 10 mg daily as recommended by pharmacy. Dr. Toure also gave a parameter for the use of Nitro and psyche eval to review patient's use of psychotropic medications. Order carried out.
--- NOTE | 2019-09-18 15:30 | NUR ---
INTERDISCIPLINARY PLAN OF CARE CONFERENCE took place today. The patients responsible democrat/ Adry Raphael [phone] did not participated via phone conference. Dr. Toure and Interdisciplinary team discussed the plan of care in detail. Current orders as well as treatments and medications were reviewed. Charge Nurse discussed the patient was admitted 09/17/2019. See other disciplines IDT notes for further details. Addendum: 09/18/19 at 1533 by CANDIDA BOB Psych Consult ordered by Dr. Toure, as well as CHEM-7 & CBC to be done 09/21/2019.
--- NOTE | 2019-09-18 18:00 | NUR ---
Resident stable, calm and mostly asleep the whole shift. Afebrile 98.6F. No s/s of pain. Trach secured and midline. On mechanical vent, tolerating well. No s/s of resp distress. Voiding freely. GT intact. JT intact and patent, used for meds and feeding. Abdominal surgical incision clean and dry, damian intact. Drain intact and patent on right side of abdomen, draining greenish fluid.. All meds tolerated well. Will continue to monitor.
[2019-09-18] MEDS: JEVITY 1.2 CAL 1,000 ML BOTTLE GT PRN (18:04)
--- NOTE | 2019-09-18 18:30 | NUR ---
Seen and examined by Ronda Méndez NP, made aware that patient mostly sleeping this shift but easily arousal. New order given to change routine Ativan to PRN. Spoke and updated resident's daughter Adry of patient's condition. appreciated the call.
--- NOTE | 2019-09-18 19:00 | NUR ---
Resident noted to be restless, moves both legs and tries to dangle on the left side of the bed. Tries also to pull her gt and jt tubes, removed her blanket and kicked all her pillows. Assessed resident, resident was wet and with BM. INSPECTOR GOVERNMENT PROPERTY changed her diaper and was repositioned. No s/s of pain. Explained to her not pull any of her tubings and not to dangle her legs d/t risk of fall. Resident still agitated and restless. PRN Ativan given as ordered.
[2019-09-18] MEDS: LORAZEPAM 1 MG TABLET GT PRN (19:35)
[2019-09-18 20:34] VITALS: BP 97/64
[2019-09-18] MEDS: PROSTAT (PYXIS) 30 ML UDC GT SCH (21:21)
[2019-09-18] MEDS: MONTELUKAST SODIUM (10MG) 10 MG TABLET GT SCH (21:22)
[2019-09-18] MEDS: ATORVASTATIN 40 MG TABLET GT SCH (21:22)
[2019-09-18] MEDS: AMITRIPTYLINE HCL 25 MG TABLET PO SCH (22:00)
--- NOTE | 2019-09-18 22:00 | NUR ---
Elavil missed dose d/t drug is not available in the omni cell. Asked nursing heat treat supervisor for meds and said to get from to psych,but also not available. Will follow up in the morning.
[2019-09-19] MEDS: OMEPRAZOLE 20 MG CAPSULE.DR GT SCH (05:58)
[2019-09-19] MEDS: LEVOTHYROXINE SODIUM 25 MCG TABLET GT SCH (05:59)
--- NOTE | 2019-09-19 06:00 | NUR ---
Patient vitals stable during the night. Patient slept intermittently.Noted to be anxious at times,kicking,removing blanket and tried to pulled tubings.Patient tried to get up and found dangling her feet @ side rails.Told patient not to do that because she might fall and hurt herself.Patient trying to talk and said she want to go to bathroom,reminded pt she have diaper on and she can pee and poop in there and we will clean her.Patient able to follow command at times. Soft wrist restraint applied for safety and checked for skin integrity q 2 hours,no skin issues and circulation is good.JT/GT intact. TORO draining with greenish output.Abdominal incision dry and clean no s/s of infection. Will continue to monitor for safety.
[2019-09-19 07:48] VITALS: BP 101/62
[2019-09-19] MEDS: METOPROLOL TARTRATE 50 MG TABLET GT SCH ×2 (09:00→17:00)
[2019-09-19] MEDS: NITROGLYCERIN 30 GM TUBE TP SCH ×2 (09:00→21:00)
[2019-09-19] MEDS: AMLODIPINE BESYLATE 5 MG TABLET GT SCH (09:00)
[2019-09-19] MEDS: HYDROGEN PEROXIDE 480 ML BOTTLE TP SCH ×2 (09:00→19:57)
[2019-09-19] MEDS: LOSARTAN POTASSIUM 50 MG TABLET GT SCH ×2 (09:00→21:04)
[2019-09-19] MEDS: LORAZEPAM 1 MG TABLET GT PRN ×2 (09:17→21:06)
[2019-09-19] MEDS: ASPIRIN 81 MG TAB.CHEW GT SCH (09:57)
[2019-09-19] MEDS: ALENDRONATE 10 MG TABLET GT SCH (09:57)
[2019-09-19] MEDS: PROSTAT (PYXIS) 30 ML UDC GT SCH ×2 (09:58→21:05)
[2019-09-19] MEDS: CLOTRIMAZOLE/BETAMETASONE DIPROPIONATE 15 GM TUBE TP SCH ×2 (09:58→21:05)
[2019-09-19] MEDS: GABAPENTIN 300 MG CAPSULE GT SCH (09:58)
[2019-09-19] MEDS: ZINC OXIDE 56.7 GM TUBE TP SCH (09:59)
[2019-09-19] MEDS: Z GUARD REMEDY 4 OZ OINT TP SCH ×6 (09:59→21:06)
[2019-09-19] MEDS: DULOXETINE HCL 30 MG CAPSULE.DR GT SCH (10:00)
[2019-09-19] MEDS: ONDANSETRON 4 MG TAB.RAPDIS GT PRN (10:00)
[2019-09-19] MEDS: HYDROXYCHLOROQUINE 200 MG TABLET GT SCH (10:00)
--- NOTE | 2019-09-19 10:37 | NUR ---
Seen and examined by Dr. Toure. Reported patient vomited yellow bile color in moderate amount after medication was given. No residual obtain. New order given to hold the feeding for now and start it after 6 hours at 20 cc/hr., start D5NS at 70cc/hr and abdominal KUB. Patient alert, responsive and follows command. Orders carried out.
[2019-09-19] MEDS: IV D5/ 0.9% NACL 1,000 ML IV PRN (12:29)
--- NOTE | 2019-09-19 14:00 | NUR ---
Patient calm at this time, she is alert, non verbal, has episodes of agitation, this morning she was medicated with ativan 1 mg via GT for restlessness, effective. Patient has episodes of coughing, trach site sensitive, no vomiting at this time. Suctioned as needed. JT site patent and intact, GT site clamped, dry and intact. Has sarai merritt draining to brownish output in small amount. Continue to keep on covid 19 isolation, all precautions observed. Patient closely monitored.
--- NOTE | 2019-09-19 14:15 | NUR ---
Reported abdominal KUB to Dr. Toure that indicates nonspecific bowel gas pattern with a few mildly distended air filled loops of small bowel. New order to connect JT to intermittent suction and repeat KUB in AM. Order carried out.
--- NOTE | 2019-09-19 17:05 | NUR ---
Spoke with resident's daughter Adry updated her of patient's condition. Patient vomited 2X with order to hold feeding, connect JT to low intermittent suction, IVF and abdominal KUB. Appreciated the call. Daughter verbalized that she wants to change the advance directive to NO CPR citing "because she's been through a lot". Suggested to make the changes in writing. She verbalized that she will call neonatal social worker on Saturday.
[2019-09-19] MEDS: MONTELUKAST SODIUM (10MG) 10 MG TABLET GT SCH (21:06)
[2019-09-19] MEDS: AMITRIPTYLINE HCL 25 MG TABLET PO SCH (21:06)
[2019-09-19] MEDS: ATORVASTATIN 40 MG TABLET GT SCH (21:06)
[2019-09-19 21:30] VITALS: BP 115/78
[2019-09-20] VITALS (7 sets, daily range): BP systolic 95–122; BP diastolic 59–82
[2019-09-20] MEDS: OMEPRAZOLE 20 MG CAPSULE.DR GT SCH (05:54)
[2019-09-20] MEDS: LEVOTHYROXINE SODIUM 25 MCG TABLET GT SCH (05:54)
[2019-09-20] MEDS ORDERED: ALENDRONATE 70 MG TABLET PO SCH ×2 (06:00)
[2019-09-20 06:27] LABS: BASOPHILS % (AUTO) 0.3 % (0.0-2.0); HEMATOCRIT 22 % (33-45); HEMOGLOBIN 7.2 g/dL (11.5-14.8); LYMPHOCYTES # (AUTO) 1.5 /CMM (0.8-4.8); LYMPHOCYTES % (AUTO) 13.2 % (20.0-44.0); MEAN CORPUSCULAR HGB CONC 33 g/dl (31.0-36.0); MEAN CORPUSCULAR VOLUME 90 fL (82-100); MONOCYTES # (AUTO) 1.5 /CMM (0.1-1.30); MONOCYTES % (AUTO) 12.8 % (2.0-12.0); NEUTROPHILS # (AUTO) 8.2 /CMM (1.8-8.9); NEUTROPHILS % (AUTO) 71.7 % (43.0-81.0); PLATELET COUNT (AUTO) 365 /CMM (150-450); RED BLOOD CELL COUNT(AUTO) 2.48 MIL/uL (4.0-5.2); WHITE BLOOD COUNT (AUTO) 11.5 K/uL (4.3-11.0)
[2019-09-20 06:50] LABS: ALBUMIN 2.1 g/dL (3.4-5.0); BILIRUBIN,TOTAL 0.5 mg/dL (0.2-1.0); CALCIUM, SERUM 7.9 mg/dL (8.5-10.1); CREATININE 0.9 mg/dL (0.6-1.3); MAGNESIUM 1.3 mg/dL (1.8-2.4); PHOSPHORUS 3.6 mg/dL (2.5-4.9); POTASSIUM 3.9 mmol/L (3.5-5.1); TOTAL PROTEIN, SERUM 6.6 g/dL (6.4-8.2)
--- NOTE | 2019-09-20 07:11 | NUR ---
Given ativan 1 mg via jt at 2100 d/t episodes of agitation and attempting to get out of bed. effective. pt asleep at this time. calm. no s/s of distress. vs stable. no emesis noted during shift. pt remains on continuous intermittent suctioning. safety measures in place. all needs attended.
[2019-09-20] MEDS: HYDROGEN PEROXIDE 480 ML BOTTLE TP SCH ×2 (08:20→21:00)
[2019-09-20] MEDS: CLOTRIMAZOLE/BETAMETASONE DIPROPIONATE 15 GM TUBE TP SCH ×2 (09:00→21:28)
[2019-09-20] MEDS: ZINC OXIDE 56.7 GM TUBE TP SCH (09:00)
[2019-09-20] MEDS: Z GUARD REMEDY 4 OZ OINT TP SCH ×6 (09:00→21:29)
[2019-09-20] MEDS: NITROGLYCERIN 30 GM TUBE TP SCH ×2 (09:00→21:29)
--- NOTE | 2019-09-20 10:50 | NUR ---
Called and notified Dr. Toure regarding KUB results, made him aware too of Hgb 7.2 and BUN [address] Loza too of his lab order results. No further nausea and vomiting noted since morning and at this time. He ordered to start JT feeding at 20 ml/hr and continue IV fluid D5Ns at 70 ml/hr until ajay. Ok to give meds too. Noted and carried out. Latest v/s 131/80, 103, 98.3, 02 sat 99%. Patient closely monitored.
[2019-09-20] MEDS: LOSARTAN POTASSIUM 50 MG TABLET GT SCH ×2 (11:00→21:28)
[2019-09-20] MEDS: ALENDRONATE 10 MG TABLET GT SCH (11:00)
[2019-09-20] MEDS: GABAPENTIN 300 MG CAPSULE GT SCH (11:00)
[2019-09-20] MEDS: ASPIRIN 81 MG TAB.CHEW GT SCH (11:00)
[2019-09-20] MEDS: METOPROLOL TARTRATE 50 MG TABLET GT SCH ×2 (11:00→16:50)
[2019-09-20] MEDS: AMLODIPINE BESYLATE 5 MG TABLET GT SCH (11:00)
[2019-09-20] MEDS: PROSTAT (PYXIS) 30 ML UDC GT SCH ×2 (11:00→21:28)
[2019-09-20] MEDS: HYDROXYCHLOROQUINE 200 MG TABLET GT SCH (11:00)
[2019-09-20] MEDS: DULOXETINE HCL 30 MG CAPSULE.DR GT SCH (11:00)
--- NOTE | 2019-09-20 11:00 | NUR ---
Called and left message to answering service of Dr. Loza regarding CBC , BMP, MG, Phosphorus results. Waiting for call back.
[2019-09-20] MEDS: JEVITY 1.2 CAL 1,000 ML BOTTLE GT PRN (11:04)
--- NOTE | 2019-09-20 14:15 | NUR ---
Dr. Loza called back and made aware of all lab results ordered, he will check all lab results in [facility].
--- NOTE | 2019-09-20 15:35 | NUR ---
Zofran 4mg. given via JT for nausea w/out episode of vomiting. effective, no s/s of nausea noted after an hour.
[2019-09-20] MEDS: ONDANSETRON 4 MG TAB.RAPDIS GT PRN (15:38)
--- NOTE | 2019-09-20 16:01 | NUR ---
RT NOTE RECEIVED PATIENT ON MECHANICAL VENT WITH ORDERED SETTINGS, ALARMS ON AND AUDIBLE. VENT PLUGGED IN TO THE RED OUTLET. AMBU BAG AND BACK UP TRACH BY THE BEDSIDE. TRACH TUBE IN PLACE, PATENT, AND SECURED WITH TRACH TIE. NO DISTRESS AT THIS TIME. MONITOR THROUGHOUT SHIFT.
[2019-09-20] MEDS: LORAZEPAM 1 MG TABLET GT PRN ×2 (16:50→23:45)
--- NOTE | 2019-09-20 16:50 | NUR ---
Patient was restless, pulling her blanket and gt tube, no s/s of pain, noted with wet diaper, changed and repositioned.
--- NOTE | 2019-09-20 16:50 | NUR ---
Ativan 1 mg. given via JT due to restlessness m/b trying to get out of bed. with effect patient has calm down. monitored frequently.
--- NOTE | 2019-09-20 18:00 | NUR ---
Dr. Loza ordered Magnesium Oxide 400 mg via JT X 2 days for low mg 1.3, noted and carried out.
[2019-09-20] MEDS: IV D5/ 0.9% NACL 1,000 ML IV PRN (19:13)
[2019-09-20] MEDS: MAGNESIUM OXIDE 400 MG TABLET PO SCH (21:28)
[2019-09-20] MEDS: ATORVASTATIN 40 MG TABLET GT SCH (21:29)
[2019-09-20] MEDS: MONTELUKAST SODIUM (10MG) 10 MG TABLET GT SCH (21:29)
[2019-09-20] MEDS: AMITRIPTYLINE HCL 25 MG TABLET PO SCH (21:29)
--- NOTE | 2019-09-20 23:50 | NUR ---
ATIVAN 1 MG GIVEN VIA JT FOR RESTLESSNESS M/B TRYING TO GET OUT OF BED. WILL CONTINUE TO MONITOR ACCORDINGLY.
[2019-09-21] MEDS: ONDANSETRON 4 MG TAB.RAPDIS GT PRN (02:12)
--- NOTE | 2019-09-21 03:30 | NUR ---
AT 02:12 AM ZOFRAN 4 MG GIVEN VIA JT FOR NAUSEA AND NOTED WITH SOME VOMITUS ON THE SHEET APPROXIMATELY 30 ML -60 ML. REPOSITIONED FOR COMFORT. ASPIRATION PRECAUTION EMPHASIZE. SAFETY MEASURES IN PLACE. ISOLATION PRECAUTION OBSERVE. NO S/SX OF NAUSEA OR VOMITING NOTED AFTER AN HOUR.
[2019-09-21] MEDS: OMEPRAZOLE 20 MG CAPSULE.DR GT SCH (06:17)
[2019-09-21] MEDS: LEVOTHYROXINE SODIUM 25 MCG TABLET GT SCH (06:17)
[2019-09-21 07:30] LABS: BASOPHILS % (AUTO) 0.4 % (0.0-2.0); EOSINOPHILS % (AUTO) 2.3 % (0.0-6.0); HEMATOCRIT 24 % (33-45); HEMOGLOBIN 7.2 g/dL (11.5-14.8); LYMPHOCYTES # (AUTO) 1.6 /CMM (0.8-4.8); LYMPHOCYTES % (AUTO) 13.8 % (20.0-44.0); MEAN CORPUSCULAR HGB CONC 30 g/dl (31.0-36.0); MEAN CORPUSCULAR VOLUME 93 fL (82-100); MONOCYTES # (AUTO) 1.6 /CMM (0.1-1.30); NEUTROPHILS # (AUTO) 7.9 /CMM (1.8-8.9); NEUTROPHILS % (AUTO) 69.5 % (43.0-81.0); PLATELET COUNT (AUTO) 382 /CMM (150-450); RED BLOOD CELL COUNT(AUTO) 2.55 MIL/uL (4.0-5.2); WHITE BLOOD COUNT (AUTO) 11.3 K/uL (4.3-11.0)
[2019-09-21 07:55] VITALS: BP 128/66
[2019-09-21 07:57] LABS: CALCIUM, SERUM 7.6 mg/dL (8.5-10.1); CREATININE 0.8 mg/dL (0.6-1.3); POTASSIUM 3.3 mmol/L (3.5-5.1)
--- NOTE | 2019-09-21 08:48 | NUR ---
David: LISBETH received completed [facility] Consent Form from the patient's DPOA, Adryjosé antonio Garnicajonathan. LISBETH enrolled patient in [employer] portal. LISBETH informed Charge Nurse. Addendum: 09/21/19 at 1045 by CANDIDA BOB David Consent form was filed under Assistant Chief Engineer tab in patient's chart.
[2019-09-21] MEDS: AMLODIPINE BESYLATE 5 MG TABLET GT SCH (09:00)
[2019-09-21] MEDS: LOSARTAN POTASSIUM 50 MG TABLET GT SCH ×2 (09:00→21:08)
[2019-09-21] MEDS: DULOXETINE HCL 30 MG CAPSULE.DR GT SCH (09:00)
[2019-09-21] MEDS: MAGNESIUM OXIDE 400 MG TABLET PO SCH ×2 (09:00→21:08)
[2019-09-21] MEDS: NITROGLYCERIN 30 GM TUBE TP SCH ×2 (09:00→21:00)
[2019-09-21] MEDS: Z GUARD REMEDY 4 OZ OINT TP SCH ×6 (09:00→21:09)
[2019-09-21] MEDS: PROSTAT (PYXIS) 30 ML UDC GT SCH ×2 (09:00→21:08)
[2019-09-21] MEDS: CLOTRIMAZOLE/BETAMETASONE DIPROPIONATE 15 GM TUBE TP SCH ×2 (09:00→21:08)
[2019-09-21] MEDS: ZINC OXIDE 56.7 GM TUBE TP SCH (09:00)
[2019-09-21] MEDS: HYDROGEN PEROXIDE 480 ML BOTTLE TP SCH ×2 (09:00→21:00)
[2019-09-21] MEDS: HYDROXYCHLOROQUINE 200 MG TABLET GT SCH (09:00)
[2019-09-21] MEDS: METOPROLOL TARTRATE 50 MG TABLET GT SCH ×2 (09:00→16:55)
[2019-09-21] MEDS: GABAPENTIN 300 MG CAPSULE GT SCH (09:00)
[2019-09-21] MEDS: ASPIRIN 81 MG TAB.CHEW GT SCH (09:00)
[2019-09-21] MEDS: ALENDRONATE 10 MG TABLET GT SCH (09:00)
--- NOTE | 2019-09-21 09:48 | NUR ---
Relayed lab results to Dr Rosado. Informed him that pt vomited once at 330am, 30-60 mL. Also informed him of Dr Toure's previous orders. Dr Rosado ordered to give Potassium Chloride 40 mEq IV and to resume feeding this afternoon at 20 mL/hr.
--- NOTE | 2019-09-21 10:38 | NUR ---
Referral for Psych Consult: Per Dr. Toure's request, this SW faxed the patient's facesheet and doctor's order to [facility] for Psych Consultation by Dr. Flores. SW called [facility] and spoke to Nurse, Erendira who stated that they received the fax and will inform Dr. Madelyn Tavarez. SW informed charge nurse.
--- NOTE | 2019-09-21 10:50 | NUR ---
Pharmacy asking if pt really needs to get Potassium Chloride via IV, if it is fine to give via JT. Dr Rosado said it is fine to give Potassium Chloride 40 mEQ via JT but give this afternoon once feeding is restarted. Notified and faxed order to pharmacy.
[2019-09-21] MEDS ORDERED: POTASSIUM CHLORIDE 20 MEQ POWDER PACKET GT ONE (13:00)
--- NOTE | 2019-09-21 15:01 | NUR ---
Preferres Intensity of Care: Per Charge Nurse's request, this SW called the patient's DPOA, Adry Lim and spoke to her regarding the preferred intensity of care. Per Adry, she would like to change the Code status to Maximum Treatment with No CPR. This SW mailed the new paperwork to Adry Lim at [[id number] [facility] [address] [place] [phone]]. Adry stated she will signed and mail back paperwork.
--- NOTE | 2019-09-21 16:50 | NUR ---
Pt was evaluated by PT. Received order for RNA to perform AAROM exercises of bilateral lower extremities daily 5x/wk or as tolerated. Spoke with pt's daughter today. Informed her that pt still has episodes of agitation, Ativan PRN being given as needed and pt still has bilateral wrist restraints which pt is able to loosen. She asked if Ativan can be changed to Xanax since pt used to take Xanax. Dr Rosado said he will see pt today, will ask him. Kept pt's environment safe, frequent roundings being done, repositioning pt in bed as needed to keep her safe, re-orienting pt periodically.
--- NOTE | 2019-09-21 19:15 | NUR ---
Seen by Dr Rosado. Informed him that pt's daughter is asking if Ativan can be DC'd and changed to Xanax since pt used to take Xanax. Dr Rosado ordered to DC Ativan and start Xanax 0.5 mg JT daily PRN. Daughter aware.
--- NOTE | 2019-09-21 19:19 | NUR ---
Seen by WORKERS COMPENSATION EXAMINER Ronda Méndez. Informed her that pt's Hgb 7.2. Received order to repeat CBC in AM.
[2019-09-21] MEDS ORDERED: ALPRAZOLAM 0.5 MG TABLET PO PRN (19:30)
[2019-09-21 20:25] VITALS: BP 110/74
[2019-09-21] MEDS: AMITRIPTYLINE HCL 25 MG TABLET PO SCH (21:09)
[2019-09-21] MEDS: ATORVASTATIN 40 MG TABLET GT SCH (21:09)
[2019-09-21] MEDS: MONTELUKAST SODIUM (10MG) 10 MG TABLET GT SCH (21:09)
[2019-09-22] MEDS: OMEPRAZOLE 20 MG CAPSULE.DR GT SCH (05:31)
[2019-09-22] MEDS: LEVOTHYROXINE SODIUM 25 MCG TABLET GT SCH (05:31)
[2019-09-22 08:25] LABS: BASOPHILS % (AUTO) 0.5 % (0.0-2.0); EOSINOPHILS % (AUTO) 2.9 % (0.0-6.0); HEMATOCRIT 22 % (33-45); HEMOGLOBIN 7.2 g/dL (11.5-14.8); MEAN CORPUSCULAR HGB CONC 33 g/dl (31.0-36.0); MEAN CORPUSCULAR VOLUME 89 fL (82-100); MONOCYTES % (AUTO) 11.6 % (2.0-12.0); PLATELET COUNT (AUTO) 363 /CMM (150-450); RED BLOOD CELL COUNT(AUTO) 2.43 MIL/uL (4.0-5.2); WHITE BLOOD COUNT (AUTO) 8.2 K/uL (4.3-11.0)
[2019-09-22] MEDS: NITROGLYCERIN 30 GM TUBE TP SCH ×2 (09:00→21:21)
[2019-09-22] MEDS: HYDROGEN PEROXIDE 480 ML BOTTLE TP SCH ×2 (09:21→21:00)
[2019-09-22] MEDS: LOSARTAN POTASSIUM 50 MG TABLET GT SCH ×2 (09:22→21:21)
[2019-09-22] MEDS: MAGNESIUM OXIDE 400 MG TABLET PO SCH ×2 (09:22→21:21)
[2019-09-22] MEDS: PROSTAT (PYXIS) 30 ML UDC GT SCH ×2 (09:22→21:21)
[2019-09-22] MEDS: AMLODIPINE BESYLATE 5 MG TABLET GT SCH (09:22)
[2019-09-22] MEDS: GABAPENTIN 300 MG CAPSULE GT SCH (09:22)
[2019-09-22] MEDS: HYDROXYCHLOROQUINE 200 MG TABLET GT SCH (09:22)
[2019-09-22] MEDS: METOPROLOL TARTRATE 50 MG TABLET GT SCH ×2 (09:22→17:00)
[2019-09-22] MEDS: ALENDRONATE 10 MG TABLET GT SCH (09:22)
[2019-09-22] MEDS: ASPIRIN 81 MG TAB.CHEW GT SCH (09:22)
[2019-09-22] MEDS: DULOXETINE HCL 30 MG CAPSULE.DR GT SCH (09:22)
--- NOTE | 2019-09-22 09:22 | NUR ---
Follow up regarding psych eval: This SW called [facility] and spoke to Lisandro regarding status of psych eval. Per Lisandro, Dr. Tavarez sees patient's int he evening and might be able to see the pt. this evening after 7 pm. Lisandro provided LISBETH with Dr. Tavarez's pager number. LISBETH paged Dr. Tavarez.
--- NOTE | 2019-09-22 09:24 | NUR ---
Seen by Dr Toure. Received order to give D5 NS at 50 mL/hr IV until feeding goal rate of 45 mL/hr is reached. Pt currently tolerating feeding at 35 mL/hr. Dr Toure aware of Hgb 7.2.
[2019-09-22] MEDS: MORPHINE SULFATE INJ 2 MG/ML DISP.SYRIN IV PRN (09:27)
--- NOTE | 2019-09-22 09:38 | NUR ---
DOWELING MACHINE OPERATOR reported that the rosario catheter is out. checked and noted the balloon was inflated. re inserted a new F/C FR 18x10 ml. flowing good w/out bleeding noted, no s/s of pain noted. Addendum: 09/22/19 at 1911 by IAM MONTES LVN ERROR IN CHARTING.
[2019-09-22 09:39] LABS: EOSINOPHILS % (MANUAL) 3 % (0-4); LYMPHOCYTES % (MANUAL) 18 % (16-48); METAMYELOCYTES % 2 % (0-0); MONOCYTES % (MANUAL) 5 % (0-11.0); MYELOCYTES % 1 % (0-0); NEUTROPHILS % (MANUAL) 71 (42-76)
[2019-09-22] MEDS: CLOTRIMAZOLE/BETAMETASONE DIPROPIONATE 15 GM TUBE TP SCH ×2 (10:00→21:21)
[2019-09-22] MEDS: ZINC OXIDE 56.7 GM TUBE TP SCH (10:00)
[2019-09-22] MEDS ORDERED: IV D5/ 0.9% NACL 1,000 ML IV PRN (10:00)
[2019-09-22] MEDS: Z GUARD REMEDY 4 OZ OINT TP SCH ×6 (10:00→21:21)
[2019-09-22 10:47] VITALS: BP 135/65
--- NOTE | 2019-09-22 14:59 | NUR ---
PATIENT'S GLASSES:Per Charge Nurse request this SW called the patient's daughter, Adry Lim [phone] and informed her that the patient is attempting to communicate by writing, however, she can't see. Adry stated that she will call [facility] [Address: [address] [place] [id number]; ] and cherry picker operator the patient's glasses and bring to [facility] for patient to use. Per Adry she will bring the glasses by this week. Noted and charge nurse informed.
--- NOTE | 2019-09-22 16:29 | NUR ---
Patient/ family video call: This SW received a call from the patient's daughter, Adry Lim requesting video call. However, upon interaction, the patient is lethargic and unable to be engaged. LISBETH relayed information to Adry. Adry stated she will call this SW 09/23/2019 10 am to make another attempt for video call. SW will be available as needed to facilitate video call.
--- NOTE | 2019-09-22 18:19 | NUR ---
Spoke with Dr Hairston. He ordered to remove all the damian from pt's abdominal incision and apply steri-strips, continue using J-tube and not G-tube for feeding and medications, and to have radiology remove the pigtail catheter (TORO drain). Notified Adry. Asked Adry if her mother has had the pneumonia vaccine, she is not aware whether she has received it or not.
--- NOTE | 2019-09-22 19:12 | NUR ---
Informed Dr Rosado that pt did not void since this morning. Dr Rosado ordered in and out catheterization. Obtained 800 mL of urine. Pt reached feeding goal rate of 45 mL/hr, tolerating feeding well, no vomiting, bowel sounds present.
--- NOTE | 2019-09-22 19:12 | NUR ---
SCALLOP RAKER reported no urine output for this shift. Dr. Ghotra notified with order to do in and out catheterization. In and out cath done with 800cc clear yellow urine. Pt felt relieved after in & out cath done. Denied pain during urination but verbalized urge to urinate. Proper beatriz care rendered. Increased GTF at 45cc/hr, tolerating feeding well. No nausea/ vomiting noted. Pt did have 1 loose BM. Continue to monitor. All pt's needs met and attended. Reality orientation done, pt had concerns regarding how long she's been in Sub-acute, how long does she have to wait to drink or walk, what medications are being given to her. Explained to pt her current condition, verbalized understanding. Pt alert and oriented x 3. Provided communication board to pt. Attempted to communicate with pt using pen and paper but pt unable to write at this time. Wrist restraints removed q 2hrs for circulation, no open skin/ discoloration noted. All needs met and attended, pt kept comfortable in bed.
[2019-09-22 20:28] VITALS: BP 135/67
[2019-09-22] MEDS ORDERED: clonazePAM 0.5 MG TABLET PO SCH (20:30)
--- NOTE | 2019-09-22 20:45 | NUR ---
RN NOTES Tele-psych consult with Dr. Tavarez, pt awake and responsive. spoke with pt and ask a series of questions, pt was able to communicate answering yes or no by nodding head. Pt determined pt's behavior appear to be from feeling anxiety. All medications were reviewed. Received new orders to d/c Xanax 0.5mg via gt prn anxiety and added Klonopin 0.25mg via GT q12hr for anxiety. Orders noted and carried out. Responsible alliance party, George, contacted and obtained consent for medication.
[2019-09-22] MEDS: MONTELUKAST SODIUM (10MG) 10 MG TABLET GT SCH (21:21)
[2019-09-22] MEDS: ATORVASTATIN 40 MG TABLET GT SCH (21:21)
[2019-09-22] MEDS: AMITRIPTYLINE HCL 25 MG TABLET PO SCH (21:21)
[2019-09-23] MEDS: MORPHINE SULFATE INJ 2 MG/ML DISP.SYRIN IV PRN ×2 (05:00→12:03)
[2019-09-23] MEDS: LEVOTHYROXINE SODIUM 25 MCG TABLET GT SCH (05:37)
[2019-09-23] MEDS: OMEPRAZOLE 20 MG CAPSULE.DR GT SCH (05:37)
[2019-09-23 08:00] VITALS: BP 128/77
[2019-09-23] MEDS: HYDROGEN PEROXIDE 480 ML BOTTLE TP SCH ×2 (08:34→21:00)
[2019-09-23] MEDS: LOSARTAN POTASSIUM 50 MG TABLET GT SCH ×2 (09:00→21:57)
[2019-09-23] MEDS: HYDROXYCHLOROQUINE 200 MG TABLET GT SCH (09:00)
[2019-09-23] MEDS: ZINC OXIDE 56.7 GM TUBE TP SCH (09:00)
[2019-09-23] MEDS: DULOXETINE HCL 30 MG CAPSULE.DR GT SCH (09:00)
[2019-09-23] MEDS: AMLODIPINE BESYLATE 5 MG TABLET GT SCH (09:00)
[2019-09-23] MEDS: CLOTRIMAZOLE/BETAMETASONE DIPROPIONATE 15 GM TUBE TP SCH ×2 (09:00→21:57)
[2019-09-23] MEDS: PROSTAT (PYXIS) 30 ML UDC GT SCH ×2 (09:00→21:57)
[2019-09-23] MEDS ORDERED: clonazePAM 0.5 MG TABLET GT SCH (09:00)
[2019-09-23] MEDS: Z GUARD REMEDY 4 OZ OINT TP SCH ×6 (09:00→21:58)
[2019-09-23] MEDS: NITROGLYCERIN 30 GM TUBE TP SCH ×2 (09:00→21:57)
[2019-09-23] MEDS: ASPIRIN 81 MG TAB.CHEW GT SCH (09:00)
[2019-09-23] MEDS: ALENDRONATE 10 MG TABLET GT SCH (09:00)
[2019-09-23] MEDS: METOPROLOL TARTRATE 50 MG TABLET GT SCH ×2 (09:00→17:00)
[2019-09-23] MEDS: GABAPENTIN 300 MG CAPSULE GT SCH (09:00)
--- NOTE | 2019-09-23 09:31 | NUR ---
Patient /Family Communication: Charge nurse informed SW that the patients sister, Sara Hunt [phone] was requesting to speak to the patient. SW called the patients daughter/DPOA, Adry Lim [phone] to inquire if SO can disclose information to Sara Hunt. Adry gave SW verbal consent to disclose medical information to the patients twin sister, Sraa Hunt. Noted and SW informed charge nurse. SW then called and spoke to the patients Sara fall to coordinate call with patient via Zoom application. Per Sara, she will download the application and call SW back in a couple of hours. Sw will be available to facilitate Zoom call as needed.
--- NOTE | 2019-09-23 09:33 | NUR ---
Per Charge Nurse's request, this LISBETH called [facility] and spoke to Lisandro to coordinate Psychiatrist, Dr. Tavarez to sign Medication consent. Per LISBETH Mcmahon to fax medication consent to [facility] and Dr. Tavarez should be able to sign it today when he comes in. LISBETH faxed medication consent form to [facility] FAX: [phone] and received completed fax receipt. LISBETH will await for consent form to be faxed back when signed or follow up as needed.
--- NOTE | 2019-09-23 14:56 | NUR ---
Patient/Family Video Call: SW received a call from the patient's [facility]Adry [facility] [phone] requesting video call with the patient. SW checked in on patient who was laying in bed awake alert. DANIEL Rodriguez asked patient if she would like to do video call with daughter, Adry, Patient nodded "yes". SW facilitated video call via ZOOM application between patient and Adry. Adry asked the patient if she knew why she was at the hospital. Patient nodded "no". Adry explained situation to patient. SW observed patient pulling at diaper. SW encouraged patient not to pull on tubing. Patient attempting to vocalize and mouthed, "I need to go to the bathroom". SW reminded patient that she is wearing a diaper. Patient observed nodding "yes". SW will be available to facilitate video calls as needed.
--- NOTE | 2019-09-23 16:30 | NUR ---
Seen and examined by PASSENGER LOCOMOTIVE ENGINEER Ronda Méndez, new order given for PRN breathing treatment. Order carried out. Abdominal damian partially removed and steri strips applied. According to Ronda Méndez, it is better to have Dr. Barron take a look at the surgical site and if it opens, it can be packed. Endorsed to notify Dr. Barron in AM. Patient also has an order for TORO drain removal, requested to create a new account from admitting department as it will be done through interventional radiologist. Awaiting for new account to be created.
[2019-09-23] MEDS ORDERED: ALBUTEROL FS 2.5 MG/3 ML VIAL.NEB NEB PRN (17:30)
[2019-09-23] MEDS ORDERED: IPRATROPIUM NEB FS 0.5 MG/2.5 ML AMPUL.NEB NEB PRN (17:30)
[2019-09-23 20:34] VITALS: BP 134/75
--- NOTE | 2019-09-23 21:41 | NUR ---
Spoke to charge nurse in to psyche regarding patient consent for Klonopin,per Dr. Tavarez no consent needed. He did not sign consent form.Will inform [facility] pharmacy in the morning.
[2019-09-23] MEDS: ATORVASTATIN 40 MG TABLET GT SCH (21:58)
[2019-09-23] MEDS: MONTELUKAST SODIUM (10MG) 10 MG TABLET GT SCH (21:58)
[2019-09-23] MEDS: AMITRIPTYLINE HCL 25 MG TABLET PO SCH (21:58)
[2019-09-23] MEDS: JEVITY 1.2 CAL 1,000 ML BOTTLE GT PRN (22:00)
[2019-09-24] MEDS: AMLODIPINE BESYLATE 5 MG TABLET GT SCH (09:00)
[2019-09-24] MEDS: CLOTRIMAZOLE/BETAMETASONE DIPROPIONATE 15 GM TUBE TP SCH ×2 (09:00→21:16)
[2019-09-24] MEDS: ASPIRIN 81 MG TAB.CHEW GT SCH (09:00)
[2019-09-24] MEDS: HYDROGEN PEROXIDE 480 ML BOTTLE TP SCH ×2 (09:00→20:35)
[2019-09-24] MEDS: HYDROXYCHLOROQUINE 200 MG TABLET GT SCH (09:00)
[2019-09-24] MEDS: LOSARTAN POTASSIUM 50 MG TABLET GT SCH ×2 (09:00→21:16)
[2019-09-24] MEDS: ZINC OXIDE 56.7 GM TUBE TP SCH (09:00)
[2019-09-24] MEDS: PROSTAT (PYXIS) 30 ML UDC GT SCH ×2 (09:00→21:16)
[2019-09-24] MEDS: GABAPENTIN 300 MG CAPSULE GT SCH (09:00)
[2019-09-24] MEDS: Z GUARD REMEDY 4 OZ OINT TP SCH ×6 (09:00→21:16)
[2019-09-24] MEDS: ALENDRONATE 10 MG TABLET GT SCH (09:00)
[2019-09-24] MEDS: NITROGLYCERIN 30 GM TUBE TP SCH ×2 (09:00→21:16)
[2019-09-24] MEDS: METOPROLOL TARTRATE 50 MG TABLET GT SCH ×2 (09:00→17:00)
[2019-09-24] MEDS: DULOXETINE HCL 30 MG CAPSULE.DR GT SCH (09:00)
[2019-09-24 12:17] VITALS: BP 132/80
--- NOTE | 2019-09-24 12:43 | NUR ---
Called Radiology twice today to follow-up on pigtail catheter removal. They said they will try to do it today and will call later.
--- NOTE | 2019-09-24 14:00 | NUR ---
Notified Dr Toure that pt is frequently coughing and unable to sleep at night because of it. Dr Toure ordered Hycodan 5 cc via [facility] PRN.
--- NOTE | 2019-09-24 14:25 | NUR ---
Pt vomited moderate amount of yellowish fluid. Held pt's feeding, HOB elevated, Zofran administered. Notified Dr Rosado. No new order. Radiology called and said they were going to mixing picker tender the pt at the same time that she was vomiting. Informed them that pt was vomiting and asked them if they can remove the pigtail catheter later this afternoon. They said they will do it tomorrow.
[2019-09-24] MEDS: ONDANSETRON 4 MG TAB.RAPDIS GT PRN (14:45)
--- NOTE | 2019-09-24 16:16 | NUR ---
Facility Update: Per [employer] request, this SW notified the patient's family, Adry Ziegler [phone] via [employer] system that a Sub[facility]Acute employee has tested positive for COVID-19. SW notified families that [facility] is following infection control guidelines at outlined by the [place] Department of Public Health. SW also informed family that all of the residents and staff will be re-tested for COVID-19. SW will be available as needed to support the patient and their family as needed.
--- NOTE | 2019-09-24 16:53 | NUR ---
Informed Dr Hairston that damian were removed alternately since a part of the incision site appears dehisced. He said he will see pt tomorrow.
--- NOTE | 2019-09-24 19:14 | NUR ---
Left message for Dr Rosado that pt's bladder is distended and she only voided in the morning.
[2019-09-24 20:57] VITALS: BP 127/69
--- NOTE | 2019-09-24 21:00 | NUR ---
Received order from to do in and out cath x 1. Will carried out.
[2019-09-24] MEDS: ATORVASTATIN 40 MG TABLET GT SCH (21:16)
[2019-09-24] MEDS: MONTELUKAST SODIUM (10MG) 10 MG TABLET GT SCH (21:17)
[2019-09-24] MEDS: AMITRIPTYLINE HCL 25 MG TABLET PO SCH (21:17)
--- NOTE | 2019-09-24 21:30 | NUR ---
in and out cath done as ordered. 850 ml clear yellow urine noted. patient tolerated well.
[2019-09-24] MEDS: MORPHINE SULFATE INJ 2 MG/ML DISP.SYRIN IV PRN (21:54)
--- NOTE | 2019-09-24 22:00 | NUR ---
Patient complaining of pain 9/10 back pain.Repositioned patient with no relief.Morphine 1mg given slow IV push as ordered. Vital signs stable. Call light within reach. Kept patient clean and comfortable.Will continue to monitor.
[2019-09-25] MEDS: LEVOTHYROXINE SODIUM 25 MCG TABLET GT SCH (05:53)
[2019-09-25] MEDS: OMEPRAZOLE 20 MG CAPSULE.DR GT SCH (05:53)
[2019-09-25] MEDS: JEVITY 1.2 CAL 1,000 ML BOTTLE GT PRN (06:02)
--- NOTE | 2019-09-25 06:45 | NUR ---
Patient bladder slightly distended. NO urine output after in and out @ 2130.No complaint of pain at this time. Will continue to monitor and will endorse.
[2019-09-25 07:27] VITALS: BP 128/68
[2019-09-25 07:30] VITALS: BP 128/68
[2019-09-25] MEDS: PROSTAT (PYXIS) 30 ML UDC GT SCH ×2 (09:00→21:31)
[2019-09-25] MEDS: HYDROGEN PEROXIDE 480 ML BOTTLE TP SCH ×2 (09:00→20:00)
[2019-09-25] MEDS: ASPIRIN 81 MG TAB.CHEW GT SCH (09:00)
[2019-09-25] MEDS: GABAPENTIN 300 MG CAPSULE GT SCH (09:00)
[2019-09-25] MEDS: clonazePAM 0.5 MG TABLET GT SCH ×2 (09:00→21:31)
[2019-09-25] MEDS: ALENDRONATE 10 MG TABLET GT SCH (09:00)
[2019-09-25] MEDS: ZINC OXIDE 56.7 GM TUBE TP SCH (09:00)
[2019-09-25] MEDS: AMLODIPINE BESYLATE 5 MG TABLET GT SCH (09:00)
[2019-09-25] MEDS: Z GUARD REMEDY 4 OZ OINT TP SCH ×6 (09:00→21:32)
[2019-09-25] MEDS: HYDROXYCHLOROQUINE 200 MG TABLET GT SCH (09:00)
[2019-09-25] MEDS: LOSARTAN POTASSIUM 50 MG TABLET GT SCH ×2 (09:00→21:31)
[2019-09-25] MEDS: CLOTRIMAZOLE/BETAMETASONE DIPROPIONATE 15 GM TUBE TP SCH ×2 (09:00→21:31)
[2019-09-25] MEDS: METOPROLOL TARTRATE 50 MG TABLET GT SCH ×2 (09:00→17:00)
[2019-09-25] MEDS: NITROGLYCERIN 30 GM TUBE TP SCH ×2 (09:00→21:00)
[2019-09-25] MEDS: DULOXETINE HCL 30 MG CAPSULE.DR GT SCH (09:00)
--- NOTE | 2019-09-25 12:10 | NUR ---
Seen and examined by Dr. Rosado, made aware that in and out catheterization was done last night, obtained 850 ml at 2130, since then patient has no urine output. Asked MD also to re-evaluate patient's pain medication. New order given to place indwelling F/C and added [place] as part of her pain regimen. Dr. Rosado made aware that pigtail catheter is schedule to be removed today and Dr. Hairston is expected to see patient's surgical site. Dr. Rosado said to ask Dr. Hairston when he plans to do a follow-up CT scan. Will inform MD when he visits the patient.
--- NOTE | 2019-09-25 12:20 | NUR ---
Dr. Hairston, surgeon seen and examined resident. Assessed surgical wound in the abdomen, he said to leave the remaining damian for another week and he wants to do a follow-up CT scan in 4 weeks. Order carried out.
--- NOTE | 2019-09-25 14:00 | NUR ---
Obtained telephone consent from resident's daughter Adry for removal of pigtail catheter, witnessed by 2 licensed nurses. Resident was taken to radiology for the procedure accompanied by auto electrical technician and RT. Resident transported via bed and attached to ventilator. Stable,awake and responsive to stimulation. In no signs of respiratory distress.
--- NOTE | 2019-09-25 15:30 | NUR ---
Resident returned back from procedure (pigtail catheter removal) in stable condition. Dressing intact covered with gauze and transparent dressing, no bleeding.
[2019-09-25] MEDS: HYDROCODONE/APAP 5/325MG TABLET GT PRN (15:53)
--- NOTE | 2019-09-25 18:37 | NUR ---
Spoke with resident's daughter updated her of patient's current condition and new orders. She was made aware that patient was seen by Dr. Hairston (surgeon) with order to remove remaining damian in one week and follow-up CT scan of abdomen to be done in 4 weeks. Resident's pigtail catheter was removed, tolerated procedure, no bleeding on the site, covered with gauze and transparent dressing. Daughter verbalized that she wanted to speak with Dr. Rosado. Endorsed to inform MD on his next round. Daughter also asked when will they start weening patient from ventilator, informed patient's daughter Adry that will ask Dr. Toure on his next round. Endorsed.
[2019-09-25 20:18] VITALS: BP 113/72
--- NOTE | 2019-09-25 20:48 | NUR ---
RT NOTE PT RECEIVED TRACHED ON MECHANICAL VENTILATION. CUFF CHECKED VIA HEALTH CLUB ATTENDANT. AMBU BAG/BACK UP TRACH @ BEDSIDE. SX DONE, TRACH SECURED AND PATENT. ALARMS ON AND AUDIBLE. NO DISTRESS NOTED. WILL CONTINUE TO MONITOR. Addendum: 09/25/19 at 2049 by GAVIOTA ROJAS RT Amended: Links added.
[2019-09-25] MEDS: MORPHINE SULFATE INJ 2 MG/ML DISP.SYRIN IV PRN (21:27)
--- NOTE | 2019-09-25 21:29 | NUR ---
Patient complaining of generalized body pain,asked the patient to rate her pain and she 9/10.Patient repositioned comfortably and bed bath given no improvement or decrease in pain. Morphine 1 mg via low IV push given. Noted also tracheal bleeding moderate amount.RT made aware. Will continue to monitor.
[2019-09-25] MEDS: AMITRIPTYLINE HCL 25 MG TABLET PO SCH (21:32)
[2019-09-25] MEDS: ATORVASTATIN 40 MG TABLET GT SCH (21:32)
[2019-09-25] MEDS: MONTELUKAST SODIUM (10MG) 10 MG TABLET GT SCH (21:32)
[2019-09-26] MEDS: OMEPRAZOLE 20 MG CAPSULE.DR GT SCH (05:52)
[2019-09-26] MEDS: LEVOTHYROXINE SODIUM 25 MCG TABLET GT SCH (05:52)
[2019-09-26 08:00] VITALS: BP 115/68
[2019-09-26] MEDS: HYDROGEN PEROXIDE 480 ML BOTTLE TP SCH ×2 (08:40→21:00)
[2019-09-26] MEDS: NITROGLYCERIN 30 GM TUBE TP SCH ×2 (09:00→21:00)
[2019-09-26] MEDS: ASPIRIN 81 MG TAB.CHEW GT SCH (09:54)
[2019-09-26] MEDS: METOPROLOL TARTRATE 50 MG TABLET GT SCH ×2 (09:55→17:00)
[2019-09-26] MEDS: clonazePAM 0.5 MG TABLET GT SCH ×2 (09:55→21:41)
[2019-09-26] MEDS: DULOXETINE HCL 30 MG CAPSULE.DR GT SCH (09:55)
[2019-09-26] MEDS: LOSARTAN POTASSIUM 50 MG TABLET GT SCH ×2 (09:55→21:00)
[2019-09-26] MEDS: GABAPENTIN 300 MG CAPSULE GT SCH (09:55)
[2019-09-26] MEDS: ALENDRONATE 10 MG TABLET GT SCH (09:55)
[2019-09-26] MEDS: PROSTAT (PYXIS) 30 ML UDC GT SCH ×2 (09:56→21:41)
[2019-09-26] MEDS: HYDROXYCHLOROQUINE 200 MG TABLET GT SCH (09:56)
[2019-09-26] MEDS: AMLODIPINE BESYLATE 5 MG TABLET GT SCH (09:56)
[2019-09-26] MEDS: CLOTRIMAZOLE/BETAMETASONE DIPROPIONATE 15 GM TUBE TP SCH ×2 (09:56→21:42)
[2019-09-26] MEDS: Z GUARD REMEDY 4 OZ OINT TP SCH ×6 (09:56→21:42)
[2019-09-26] MEDS: ZINC OXIDE 56.7 GM TUBE TP SCH (09:57)
--- NOTE | 2019-09-26 12:10 | NUR ---
Notified Dr. Rosado that resident having tracheal bleeding and patient also asking for something to drink. New order given to hold Aspirin for now and ST eval to assess swallowing. Informed MD that resident's daughter Adry is requesting to speak with him when he has a chance. Daughter's phone number given to MD. Order carried out.
[2019-09-26] MEDS: MORPHINE SULFATE INJ 2 MG/ML DISP.SYRIN IV PRN ×2 (12:17→21:52)
[2019-09-26] MEDS: JEVITY 1.2 CAL 1,000 ML BOTTLE GT PRN (12:45)
--- NOTE | 2019-09-26 19:00 | NUR ---
Awake. Alert to name. Responsive to verbal and tactile stimuli. Trach with vent working at prescribed settings. No further tracheal bleeding noted. HOB elevated. Aspiration precautions maintained. Tolerated JT formula well. Ojeda catheter draining clean urine. Total care provided. All medications given as ordered. Total care provided. All needs met and attended.
[2019-09-26 21:13] VITALS: BP 103/64
[2019-09-26] MEDS: MONTELUKAST SODIUM (10MG) 10 MG TABLET GT SCH (21:42)
[2019-09-26] MEDS: ATORVASTATIN 40 MG TABLET GT SCH (21:42)
[2019-09-26] MEDS: AMITRIPTYLINE HCL 25 MG TABLET PO SCH (21:42)
[2019-09-27] MEDS: HYDROCODONE BIT/HOMATROPINE 5 ML UDC GT PRN (04:17)
[2019-09-27] MEDS: LEVOTHYROXINE SODIUM 25 MCG TABLET GT SCH (05:24)
[2019-09-27] MEDS: OMEPRAZOLE 20 MG CAPSULE.DR GT SCH (05:24)
[2019-09-27 07:58] VITALS: BP 119/70
[2019-09-27] MEDS: HYDROGEN PEROXIDE 480 ML BOTTLE TP SCH ×2 (09:00→21:00)
[2019-09-27] MEDS: NITROGLYCERIN 30 GM TUBE TP SCH ×2 (09:00→21:00)
[2019-09-27] MEDS: LOSARTAN POTASSIUM 50 MG TABLET GT SCH ×2 (09:15→21:00)
[2019-09-27] MEDS: clonazePAM 0.5 MG TABLET GT SCH ×2 (09:15→21:19)
[2019-09-27] MEDS: DULOXETINE HCL 30 MG CAPSULE.DR GT SCH (09:15)
[2019-09-27] MEDS: ALENDRONATE 10 MG TABLET GT SCH (09:15)
[2019-09-27] MEDS: METOPROLOL TARTRATE 50 MG TABLET GT SCH ×2 (09:16→17:00)
[2019-09-27] MEDS: PROSTAT (PYXIS) 30 ML UDC GT SCH ×2 (09:16→21:19)
[2019-09-27] MEDS: CLOTRIMAZOLE/BETAMETASONE DIPROPIONATE 15 GM TUBE TP SCH ×2 (09:16→21:19)
[2019-09-27] MEDS: AMLODIPINE BESYLATE 5 MG TABLET GT SCH (09:16)
[2019-09-27] MEDS: GABAPENTIN 300 MG CAPSULE GT SCH (09:16)
[2019-09-27] MEDS: HYDROXYCHLOROQUINE 200 MG TABLET GT SCH (09:16)
[2019-09-27] MEDS: ZINC OXIDE 56.7 GM TUBE TP SCH (09:17)
[2019-09-27] MEDS: Z GUARD REMEDY 4 OZ OINT TP SCH ×6 (09:17→21:20)
[2019-09-27] MEDS: HYDROCODONE/APAP 5/325MG TABLET GT PRN ×2 (09:18→17:12)
[2019-09-27 12:00] VITALS: BP 109/60
[2019-09-27] MEDS: MORPHINE SULFATE INJ 2 MG/ML DISP.SYRIN IV PRN ×2 (13:25→21:15)
--- NOTE | 2019-09-27 13:25 | NUR ---
Resident was seen dangling her legs on the left side of the bed, appears restless. Asked why he tries to get out of bed and she answered that her surgical incision is hurting, 11/08. Helped her back to bed and repositioned comfortably. Checked diaper, dry and clean, no BM. Ojeda catheter in place and draining well. Suctioned trach. Talked to patient to divert attention. Gave her hand massage and combed hair. After doing all the interventions resident still complained of pain, 11/08. PRN Morphine IV given as ordered. Will continue to monitor.
[2019-09-27] MEDS: JEVITY 1.2 CAL 1,000 ML BOTTLE GT PRN (15:04)
[2019-09-27 18:00] VITALS: BP 98/70
[2019-09-27 19:59] VITALS: BP 92/58
[2019-09-27] MEDS: MONTELUKAST SODIUM (10MG) 10 MG TABLET GT SCH (21:20)
[2019-09-27] MEDS: AMITRIPTYLINE HCL 25 MG TABLET PO SCH (21:20)
[2019-09-27] MEDS: ATORVASTATIN 40 MG TABLET GT SCH (21:20)
[2019-09-28] MEDS: LEVOTHYROXINE SODIUM 25 MCG TABLET GT SCH (05:43)
[2019-09-28] MEDS: OMEPRAZOLE 20 MG CAPSULE.DR GT SCH (05:43)
[2019-09-28 07:53] VITALS: BP 123/72
[2019-09-28] MEDS: HYDROGEN PEROXIDE 480 ML BOTTLE TP SCH ×2 (08:06→21:00)
[2019-09-28] MEDS: Z GUARD REMEDY 4 OZ OINT TP SCH ×6 (09:00→21:18)
[2019-09-28] MEDS: clonazePAM 0.5 MG TABLET GT SCH ×2 (09:00→21:17)
[2019-09-28] MEDS: LOSARTAN POTASSIUM 50 MG TABLET GT SCH ×2 (09:00→21:17)
[2019-09-28] MEDS: NITROGLYCERIN 30 GM TUBE TP SCH ×2 (09:00→21:00)
[2019-09-28] MEDS: AMLODIPINE BESYLATE 5 MG TABLET GT SCH (09:00)
[2019-09-28] MEDS: CLOTRIMAZOLE/BETAMETASONE DIPROPIONATE 15 GM TUBE TP SCH ×2 (09:00→21:18)
[2019-09-28] MEDS: METOPROLOL TARTRATE 50 MG TABLET GT SCH ×2 (09:00→17:00)
[2019-09-28] MEDS: PROSTAT (PYXIS) 30 ML UDC GT SCH ×2 (09:00→21:17)
[2019-09-28] MEDS: DULOXETINE HCL 30 MG CAPSULE.DR GT SCH (09:00)
[2019-09-28] MEDS: GABAPENTIN 300 MG CAPSULE GT SCH (09:00)
[2019-09-28] MEDS: HYDROXYCHLOROQUINE 200 MG TABLET GT SCH (09:00)
[2019-09-28] MEDS: ZINC OXIDE 56.7 GM TUBE TP SCH (09:00)
[2019-09-28] MEDS: ALENDRONATE 10 MG TABLET GT SCH (09:00)
[2019-09-28] MEDS: MORPHINE SULFATE INJ 2 MG/ML DISP.SYRIN IV PRN ×2 (11:20→21:15)
--- NOTE | 2019-09-28 11:20 | NUR ---
Pt complaining of pain 9/10 in her abdomen where she has her surgical incision. No signs of infection noted on incision site. Pt restless, facial grimacing, and showing irritability when spoken to. She was just cleaned and repositioned. Morphine administered as ordered.
--- NOTE | 2019-09-28 11:50 | NUR ---
Pt awake, no complaint of pain at this time.
--- NOTE | 2019-09-28 12:12 | NUR ---
Notified Adry that Covid-19 test result came back negative.
--- NOTE | 2019-09-28 13:00 | NUR ---
Dr Toure ordered PMV trials and cuff deflation with speech therapy. Asked him how long pt's cuff should be deflated. He said it can be deflated as long as ST is working with her at bedside.
--- NOTE | 2019-09-28 14:02 | NUR ---
RT NOTE RT ASSISTED IN SWALLOW EVALUATION. SX PT , CUFF DEFLATED, AND PMV PLACED ON TRACH. SWALLOW EVAL PERFORMED WITH NO COMPLICATIONS. POST PROCEDURE PMV TAKEN OFF AND CUFF INFLATED. Addendum: 09/28/19 at 1839 by MANI COSTA RT CORRECT TIME @ 1593
[2019-09-28] MEDS: JEVITY 1.2 CAL 1,000 ML BOTTLE GT PRN (14:22)
--- NOTE | 2019-09-28 16:15 | NUR ---
Intake paperwork filed: This SW received the intake paperwork completed and signed by the DPOA, Adry Lim [phone]. LISBETH filed the paperwork in patient's chart. LISBETH mailed Adry a copy of the paperwork to [[id number] [facility]. [id number] [facility] [id number]]. LISBETH called and informed Adry Lim. Adry informed LISBETH that she brought over glasses for the patient to see better. Per Adry, she also brought and ipad for the patient to "watch [employer] and browse the internet". LISBETH discussed risks of bringing ipad for the patient. Adry expressed understanding.
--- NOTE | 2019-09-28 16:40 | NUR ---
Seen by TRINIDAD Méndez via Zoom video call. Received order to decrease vent setting from AC 18 to AC 10 tomorrow then ABG in an hour.
[2019-09-28 20:24] VITALS: BP 111/72
[2019-09-28] MEDS: AMITRIPTYLINE HCL 25 MG TABLET PO SCH (21:18)
[2019-09-28] MEDS: ATORVASTATIN 40 MG TABLET GT SCH (21:18)
[2019-09-28] MEDS: MONTELUKAST SODIUM (10MG) 10 MG TABLET GT SCH (21:18)
[2019-09-29] MEDS: OMEPRAZOLE 20 MG CAPSULE.DR GT SCH (06:08)
[2019-09-29] MEDS: LEVOTHYROXINE SODIUM 25 MCG TABLET GT SCH (06:08)
[2019-09-29 06:46] LABS: BASOPHILS % (AUTO) 0.1 % (0.0-2.0); EOSINOPHILS % (AUTO) 0.5 % (0.0-6.0); HEMATOCRIT 22 % (33-45); HEMOGLOBIN 7.3 g/dL (11.5-14.8); LYMPHOCYTES # (AUTO) 1.2 /CMM (0.8-4.8); MEAN CORPUSCULAR HGB CONC 33 g/dl (31.0-36.0); MEAN CORPUSCULAR VOLUME 90 fL (82-100); MONOCYTES # (AUTO) 1.6 /CMM (0.1-1.30); MONOCYTES % (AUTO) 13.5 % (2.0-12.0); NEUTROPHILS # (AUTO) 8.9 /CMM (1.8-8.9); NEUTROPHILS % (AUTO) 75.9 % (43.0-81.0); PLATELET COUNT (AUTO) 277 /CMM (150-450); RED BLOOD CELL COUNT(AUTO) 2.48 MIL/uL (4.0-5.2); WHITE BLOOD COUNT (AUTO) 11.7 K/uL (4.3-11.0)
[2019-09-29 07:01] LABS: ALBUMIN 2.4 g/dL (3.4-5.0); BILIRUBIN,TOTAL 0.5 mg/dL (0.2-1.0); CREATININE 0.6 mg/dL (0.6-1.3); MAGNESIUM 1.3 mg/dL (1.8-2.4); PHOSPHORUS 3.1 mg/dL (2.5-4.9); TOTAL PROTEIN, SERUM 7.3 g/dL (6.4-8.2)
[2019-09-29 07:31] LABS: CHLORIDE,URINE RANDOM 83 mmol/L (55-125); POTASSIUM RNDM,URINE 38 mmol/L (25-125); URINE SODIUM, RANDOM 85 mmol/l (40-220)
[2019-09-29 08:00] LABS: OSMOLALITY,URINE 432 mOS/kg (340-1090)
[2019-09-29] MEDS: LOSARTAN POTASSIUM 50 MG TABLET GT SCH ×2 (08:49→21:10)
[2019-09-29 08:50] VITALS: BP 128/62
[2019-09-29] MEDS: ALENDRONATE 10 MG TABLET GT SCH (09:02)
[2019-09-29] MEDS: DULOXETINE HCL 30 MG CAPSULE.DR GT SCH (09:02)
[2019-09-29] MEDS: clonazePAM 0.5 MG TABLET GT SCH ×2 (09:02→21:10)
[2019-09-29] MEDS: HYDROXYCHLOROQUINE 200 MG TABLET GT SCH (09:03)
[2019-09-29] MEDS: CLOTRIMAZOLE/BETAMETASONE DIPROPIONATE 15 GM TUBE TP SCH ×2 (09:03→21:11)
[2019-09-29] MEDS: GABAPENTIN 300 MG CAPSULE GT SCH (09:03)
[2019-09-29] MEDS: Z GUARD REMEDY 4 OZ OINT TP SCH ×6 (09:03→21:11)
[2019-09-29] MEDS: METOPROLOL TARTRATE 50 MG TABLET GT SCH ×2 (09:03→17:00)
[2019-09-29] MEDS: PROSTAT (PYXIS) 30 ML UDC GT SCH ×2 (09:03→21:10)
[2019-09-29] MEDS: NITROGLYCERIN 30 GM TUBE TP SCH ×2 (09:03→21:00)
[2019-09-29] MEDS: AMLODIPINE BESYLATE 5 MG TABLET GT SCH (09:03)
[2019-09-29] MEDS: ZINC OXIDE 56.7 GM TUBE TP SCH (09:04)
[2019-09-29] MEDS: ONDANSETRON 4 MG TAB.RAPDIS GT PRN ×2 (09:05→15:30)
--- NOTE | 2019-09-29 09:08 | NUR ---
Notified Dr Rosado that pt vomited and was given Zofran. Pt's K 3.[address] Rosado ordered to give Magnesium Sulfate 4 gm IV and Potassium Chloride 40 mEq IV. Notified Adry.
[2019-09-29] MEDS: HYDROGEN PEROXIDE 480 ML BOTTLE TP SCH ×2 (09:21→21:00)
[2019-09-29] MEDS: Potassium Chloride 10 MEQ in IV D5W 50 ML IV SCH ×3 (09:30→12:16)
[2019-09-29] MEDS: Magnesium 1GM/D5W 100ML PREMIX 100 ML IV SCH ×3 (09:30→12:16)
[2019-09-29] MEDS: MORPHINE SULFATE INJ 2 MG/ML DISP.SYRIN IV PRN (09:50)
--- NOTE | 2019-09-29 10:32 | NUR ---
RT NOTE: VENT CHANGES POSTPONED PER MARKETING PROFESSOR(NIKITA). WILL REASSESS PATIENT LATER IN THE DAY.
[2019-09-29] MEDS: HYDROCODONE/APAP 5/325MG TABLET GT PRN (14:20)
--- NOTE | 2019-09-29 14:48 | NUR ---
Pt vomited and given Zofran again. Notified Dr Rosado. No new order.
--- NOTE | 2019-09-29 15:40 | NUR ---
RT NOTE: PATIENT'S VENT CHANGES AND PMV TRIAL WERE DEFERRED DUE TO VOMITING THROUGHOUT THE DAY. CHARGE NURSE (NIKITA) AWARE. I WILL ENDORSE TO INCOMING SHIFT. PATIENT RECEIVED TRACHED ON MECHANICAL VENT. ALARMS VERIFIED AND AUDIBLE. VENT PLUGGED INTO RED OUTLET. AMBU BAG AT [facility].
[2019-09-29 20:22] VITALS: BP 116/71
[2019-09-29] MEDS: ATORVASTATIN 40 MG TABLET GT SCH (21:11)
[2019-09-29] MEDS: AMITRIPTYLINE HCL 25 MG TABLET PO SCH (21:11)
[2019-09-29] MEDS: MONTELUKAST SODIUM (10MG) 10 MG TABLET GT SCH (21:11)
[2019-09-30] MEDS: OMEPRAZOLE 20 MG CAPSULE.DR GT SCH (05:19)
[2019-09-30] MEDS: LEVOTHYROXINE SODIUM 25 MCG TABLET GT SCH (05:20)
[2019-09-30] MEDS: HYDROCODONE/APAP 5/325MG TABLET GT PRN (05:20)
[2019-09-30] MEDS: ONDANSETRON 4 MG TAB.RAPDIS GT PRN ×2 (05:20→20:56)
[2019-09-30] MEDS: MORPHINE SULFATE INJ 2 MG/ML DISP.SYRIN IV PRN ×2 (06:00→20:14)
[2019-09-30 07:33] VITALS: BP 118/70
[2019-09-30] MEDS: ALENDRONATE 10 MG TABLET GT SCH (08:52)
[2019-09-30] MEDS: DULOXETINE HCL 30 MG CAPSULE.DR GT SCH (08:52)
[2019-09-30] MEDS: clonazePAM 0.5 MG TABLET GT SCH ×2 (08:52→20:45)
[2019-09-30] MEDS: LOSARTAN POTASSIUM 50 MG TABLET GT SCH ×2 (08:52→20:54)
[2019-09-30] MEDS: GABAPENTIN 300 MG CAPSULE GT SCH (08:52)
[2019-09-30] MEDS: METOPROLOL TARTRATE 50 MG TABLET GT SCH ×2 (08:52→17:00)
[2019-09-30] MEDS: Z GUARD REMEDY 4 OZ OINT TP SCH ×6 (08:53→20:45)
[2019-09-30] MEDS: ZINC OXIDE 56.7 GM TUBE TP SCH (08:53)
[2019-09-30] MEDS: PROSTAT (PYXIS) 30 ML UDC GT SCH ×2 (08:53→20:45)
[2019-09-30] MEDS: HYDROXYCHLOROQUINE 200 MG TABLET GT SCH (08:53)
[2019-09-30] MEDS: NITROGLYCERIN 30 GM TUBE TP SCH ×2 (08:53→20:55)
[2019-09-30] MEDS: AMLODIPINE BESYLATE 5 MG TABLET GT SCH (08:53)
[2019-09-30] MEDS: HYDROGEN PEROXIDE 480 ML BOTTLE TP SCH ×2 (09:00→21:00)
[2019-09-30] MEDS: CLOTRIMAZOLE/BETAMETASONE DIPROPIONATE 15 GM TUBE TP SCH ×2 (09:00→20:45)
--- NOTE | 2019-09-30 13:00 | NUR ---
Notified OYSTER GROWER Ronda Méndez of ABG result with order to place patient on SIMV 8, PS 15, Peep 5 in AM and ABG to be done 2 hours later. Resident's daughter Adry informed of patient's response to weaning and happy to hear that weaning was started and she is responding well. Appreciated the call.
[2019-09-30 17:20] VITALS: BP 94/54
--- NOTE | 2019-09-30 19:00 | NUR ---
Addendum: V/S BP:94/54, P: 84, R: 14, T: 99.7 PA 0. RN supervisory forester notified.
--- NOTE | 2019-09-30 19:00 | NUR ---
Patient is awake. Responsive to verbal and tactile stimuli. Trach with vent working at prescribed settings. GT in place. JT in place. HOB elevated. Aspiration precautions maintained. Total care provided with all care. Incontinent of bowel times two. Ojeda catheter output 150 ml yellow clear urine. Patent. No bladder distension noted. No N/V noted. No acute distress noted during shift. IV line in left arm intact. No episodes of pulling life sustaining tubes noted. Formula at 45 cc per hour. Water provided as ordered. Abdominal wound with steri -strips and damian intact.
--- NOTE | 2019-09-30 19:15 | NUR ---
While making rounds endorsing patient noted with episode of vomiting green emesis moderate amount. Oral secretions suctioned as needed. Trach with vent and GT noted with moderate amount of gas and 50 cc green residual. JT in place attached with formula put on hold. RN supervisors notified. Patient coughing white minimal secretions. Secretions suctioned as needed. Isolation precautions maintained. HOB elevated. Aspiration precautions maintained. At this time patient complaints of 8/10 abdominal pain. Endorsed to RN and incoming nurse.
--- NOTE | 2019-09-30 20:00 | NUR ---
Patient noted with temp 101. 4,HR 101,o2 sats 97%,no respiratory distress noted,patient alert oriented x 4. Patient had episodes of emesis x 1 as endorsed by AM nurse greenish in color. Patient verbalized she have pain in left abdominal pain 9/10,no distention noted.no s/s of infection @ surgical site,steri strips clean and intact.Per report urine output was 150ml.Cooling measures provided and Tylenol given as ordered. Morphine 1 mg given IV for pain. Left message to regarding WYATT waiting for call back. Will continue to monitor.
[2019-09-30 20:06] VITALS: BP 111/56
[2019-09-30] MEDS: ACETAMINOPHEN 650 MG/20 ML UDC- SA PATIENTS-PAIN ONLY GT PRN (20:56)
[2019-09-30] MEDS: MONTELUKAST SODIUM (10MG) 10 MG TABLET GT SCH (21:51)
[2019-09-30] MEDS: ATORVASTATIN 40 MG TABLET GT SCH (21:51)
[2019-09-30] MEDS: AMITRIPTYLINE HCL 25 MG TABLET PO SCH (21:52)
--- NOTE | 2019-09-30 22:00 | NUR ---
Temp 99.6 ,sleeping no distress noted. Will continue to monitor.
--- NOTE | 2019-10-01 00:19 | NUR ---
Notified CLEANER Milena Webb (epic hauling contractor) regarding fever of 101.4 and emesis earlier @ 1999 with new order for CBC,CMP,and CXR in AM.
--- NOTE | 2019-10-01 04:45 | NUR ---
Patient pooped and when SENIOR ASP NET DEVELOPER and trying to change and clean her she refused and start kicking and trying to grab the SENIOR ASP NET DEVELOPER.2 nurses came to help the SENIOR ASP NET DEVELOPER but patient still refusing to be change and mouthing word that she don't need help and leave her alone. Nurse explained to her she need to be change and clean because she might develop redness/sore in her buttocks. Patient seems so mad and tried to grab her trach and told nurse "fuck you".Nurse told her what she said is not nice,where here to help make you comfortable and will leave you alone after we clean you.She let nurses cleaned her but still so irritable. Kept her comfortable,call light within reach,bilateral soft wrist restraint applied for safety.Will continue to monitor.
[2019-10-01] MEDS: LEVOTHYROXINE SODIUM 25 MCG TABLET GT SCH (05:15)
[2019-10-01] MEDS: OMEPRAZOLE 20 MG CAPSULE.DR GT SCH (05:15)
--- NOTE | 2019-10-01 06:37 | NUR ---
Urine output 800ml.no emesis noted during the shift.
[2019-10-01 07:50] VITALS: BP 100/66
[2019-10-01] MEDS: AMLODIPINE BESYLATE 5 MG TABLET GT SCH (09:00)
[2019-10-01] MEDS: LOSARTAN POTASSIUM 50 MG TABLET GT SCH ×2 (09:00→21:00)
[2019-10-01] MEDS: METOPROLOL TARTRATE 50 MG TABLET GT SCH ×2 (09:00→17:46)
[2019-10-01] MEDS: NITROGLYCERIN 30 GM TUBE TP SCH ×2 (09:00→21:00)
[2019-10-01] MEDS: clonazePAM 0.5 MG TABLET GT SCH ×2 (09:31→21:44)
[2019-10-01] MEDS: DULOXETINE HCL 30 MG CAPSULE.DR GT SCH (09:31)
[2019-10-01] MEDS: ALENDRONATE 10 MG TABLET GT SCH (09:31)
[2019-10-01] MEDS: Z GUARD REMEDY 4 OZ OINT TP SCH ×6 (09:32→21:45)
[2019-10-01] MEDS: CLOTRIMAZOLE/BETAMETASONE DIPROPIONATE 15 GM TUBE TP SCH (09:32)
[2019-10-01] MEDS: HYDROXYCHLOROQUINE 200 MG TABLET GT SCH (09:32)
[2019-10-01] MEDS: PROSTAT (PYXIS) 30 ML UDC GT SCH ×2 (09:32→21:45)
[2019-10-01] MEDS: ZINC OXIDE 56.7 GM TUBE TP SCH (09:32)
[2019-10-01] MEDS: GABAPENTIN 300 MG CAPSULE GT SCH (09:32)
[2019-10-01] MEDS: HYDROGEN PEROXIDE 480 ML BOTTLE TP SCH ×2 (09:33→20:10)
--- NOTE | 2019-10-01 09:35 | NUR ---
Patient/Family Communication: LISBETH received a call from the patient's sister, Jenise Clarke [phone] requesting video call with the patient. Per Jenise, the patient's mother, Iza was also on the line and would be participating in the video call. SW met with the patient at bedside and informed her that Jenise and Iza wanted to video chat with her. Patient presented irritable and mouthed. "I don't want to talk to them". SW asked patient why that was. Patient mouthed, "because I'm trying to sleep". SW observed patient grinding her teeth as she mouthed. SW asked patient if she would like SW to try later. Patient rolled her eyes and nodded "no". SW informed Jenise of above stated information. Jenise expressed understanding and stated, "we can try another day". SW will facilitate video calls as needed.
--- NOTE | 2019-10-01 10:04 | NUR ---
RT NOTE: PATIENT PLACED ON SIMV THIS MORNING PER MD ORDER. PATIENT IS TOLERATING WELL BUT REFUSES FOLLOW UP ABG. PATIENT EDUCATED ON THE IMPORTANCE OF THE TEST BUT PATIENT BECAME UPSET STATES "I DON'T CARE. LET ME SLEEP." AT THIS TIME RESPIRATIONS ARE EVEN AND UNLABORED, AND OXYGEN [id number]%. CHUCKING AND SAWING MACHINE OPERATOR NOTIFIED. WILL CONTINUE TO MONITOR AND ATTEMPT AGAIN LATER TODAY.
--- NOTE | 2019-10-01 10:18 | NUR ---
Notified RESIDENTIAL LIFE DIRECTOR Ronda Méndez that pt is on SIMV and tolerating well, O2 sat 100%, no respiratory distress, but refusing ABG. RT Michelle explained importance of ABG but pt still refused.
--- NOTE | 2019-10-01 10:24 | NUR ---
ARBOR PRESS OPERATOR Ronda Méndez said to keep pt on SIMV and see if pt agrees to do an ABG later. Notified RT Michelle.
--- NOTE | 2019-10-01 14:00 | NUR ---
Notified Dr Loza that pt is refusing blood draw.
--- NOTE | 2019-10-01 14:45 | NUR ---
RT NOTE: PATIENT REMAINS ON SIMV TOLERATING WELL. AT THIS TIME PATIENT IS REFUSING ABG, TRACHEAL SUCTION, AND TRACH CARE. PATIENT EDUCATED ON THE IMPORTANCE OF ALL OF THESE PROCEDURES AND THAT REFUSING CARE CAN ADVERSELY AFFECT HER RECOVERY. SHE CONTINUES TO BECOME UPSET WHEN I TALK TO HER, AND STATES THAT SHE UNDERSTANDS AND "DOES NOT CARE". ALL SUPPLIES LEFT AT BEDSIDE INCASE PATIENT CHANGES HER MIND. CHARGE NURSE(NIKITA) NOTIFIED.
--- NOTE | 2019-10-01 15:55 | NUR ---
Covid test done today. Pt irritable and initially refused but was able to convince pt to do test. Offered to clean/ change patient since pt had been refusing but pt still strongly refused. Pt stated she was in pain, offered pain medication PRN but pt refused. Pt kept comfortable, needs met and attended.
--- NOTE | 2019-10-01 17:33 | NUR ---
Pt vomited a moderate amount of greenish fluid. Zofran given. Notified Dr Rosado. Also notified Dr Rosado that pt had a temp last night, pt refusing blood draw. T 97.6.
--- NOTE | 2019-10-01 17:40 | NUR ---
Pt with vomiting episode x 2, emesis noted to be green in color. Was able to do trach care and GT/JT care. Tye wrist restraints removed d/t pt able to follow commands and was calm and cooperative. No skin discoloration, open skin noted.
[2019-10-01] MEDS: ONDANSETRON 4 MG TAB.RAPDIS GT PRN (17:46)
--- NOTE | 2019-10-01 17:57 | NUR ---
Asked lab to come back to draw blood. Explained to pt the importance of doing labs. Pt still refused.
--- NOTE | 2019-10-01 19:00 | NUR ---
Attempted to put back wrist restraint d/t pt noted to be trying to get out of bed. Pt was combative and stated "fuck off, fuck you bitch". Explained risks and benefits but pt very irritable and refused to listen to nurse, kept on rolling eyes at nurse. Asked another nurse to assist with putting back wrist restraint and was successful. Pt was kicking nurse and stating for nurse to "fuck off and leave her alone". Reinforced to pt that she should not talk to her nurse that way because the nurse was just doing her job and that nurse cared for her. Pt just stated "okay" and closed her eyes. Needs met and attended. Pt kept as comfortable as possible.
[2019-10-01] MEDS: HYDROCODONE/APAP 5/325MG TABLET GT PRN (19:14)
[2019-10-01 19:52] VITALS: BP 103/54
[2019-10-01] MEDS: ATORVASTATIN 40 MG TABLET GT SCH (21:45)
[2019-10-01] MEDS: AMITRIPTYLINE HCL 25 MG TABLET PO SCH (21:45)
[2019-10-01] MEDS: MONTELUKAST SODIUM (10MG) 10 MG TABLET GT SCH (21:45)
[2019-10-02] MEDS: OMEPRAZOLE 20 MG CAPSULE.DR GT SCH (05:08)
[2019-10-02] MEDS: LEVOTHYROXINE SODIUM 25 MCG TABLET GT SCH (05:08)
--- NOTE | 2019-10-02 06:50 | NUR ---
Patient tolerated SIMV settings no distress. No vomiting episodes during the night. Patient refusing blood draw,explained to patient the importance of labs test but still refused and said to the nurse "no" leave her alone. Very irritable.Urine collected.Told cook pickled meat to come back later and try again. Will endorse to oncoming nurse.
[2019-10-02 07:16] VITALS: BP 130/70
[2019-10-02] MEDS: ZINC OXIDE 56.7 GM TUBE TP SCH (09:00)
[2019-10-02] MEDS: HYDROGEN PEROXIDE 480 ML BOTTLE TP SCH ×2 (09:37→20:27)
[2019-10-02] MEDS: METOPROLOL TARTRATE 50 MG TABLET GT SCH ×2 (09:41→16:45)
[2019-10-02] MEDS: ALENDRONATE 10 MG TABLET GT SCH (09:41)
[2019-10-02] MEDS: DULOXETINE HCL 30 MG CAPSULE.DR GT SCH (09:41)
[2019-10-02] MEDS: clonazePAM 0.5 MG TABLET GT SCH ×2 (09:41→21:10)
[2019-10-02] MEDS: LOSARTAN POTASSIUM 50 MG TABLET GT SCH ×2 (09:41→21:00)
[2019-10-02] MEDS: HYDROXYCHLOROQUINE 200 MG TABLET GT SCH (09:42)
[2019-10-02] MEDS: GABAPENTIN 300 MG CAPSULE GT SCH (09:42)
[2019-10-02] MEDS: PROSTAT (PYXIS) 30 ML UDC GT SCH ×2 (09:42→21:10)
[2019-10-02] MEDS: Z GUARD REMEDY 4 OZ OINT TP SCH ×6 (09:42→21:11)
[2019-10-02] MEDS: AMLODIPINE BESYLATE 5 MG TABLET GT SCH (09:42)
[2019-10-02] MEDS: NITROGLYCERIN 30 GM TUBE TP SCH ×2 (09:54→21:00)
[2019-10-02 10:11] LABS: CHLORIDE,URINE RANDOM 41 mmol/L (55-125); POTASSIUM RNDM,URINE 33 mmol/L (25-125); URINE SODIUM, RANDOM 15 mmol/l (40-220)
--- NOTE | 2019-10-02 10:54 | NUR ---
Seen and examined by ASSISTANT DISTRICT ATTORNEY Ronda Méndez, reviewed ABG result with order to change vent setting to SIMV 4, PS 12 Peep 5, FI02 35% and on Saturday CPAP, PS 12 Peep 5 and ABG. Order carried out. Resident has been refusing blood draw but after talking to her, she allowed the RT to draw ABG and labs for CBC and BMP.
[2019-10-02 11:21] LABS: BASOPHILS % (AUTO) 0.2 % (0.0-2.0); EOSINOPHILS % (AUTO) 1.3 % (0.0-6.0); LYMPHOCYTES % (AUTO) 11.1 % (20.0-44.0); MEAN CORPUSCULAR HGB CONC 33 g/dl (31.0-36.0); MEAN CORPUSCULAR VOLUME 92 fL (82-100); MONOCYTES # (AUTO) 1.5 /CMM (0.1-1.30); MONOCYTES % (AUTO) 16.9 % (2.0-12.0); NEUTROPHILS # (AUTO) 6.3 /CMM (1.8-8.9); NEUTROPHILS % (AUTO) 70.5 % (43.0-81.0); PLATELET COUNT (AUTO) 289 /CMM (150-450); RED BLOOD CELL COUNT(AUTO) 2.23 MIL/uL (4.0-5.2); WHITE BLOOD COUNT (AUTO) 8.9 K/uL (4.3-11.0)
[2019-10-02 11:25] LABS: HEMOGLOBIN 6.7 g/dL (11.5-14.8)
[2019-10-02 11:26] LABS: HEMATOCRIT 20 % (33-45)
[2019-10-02 11:46] LABS: BILIRUBIN,TOTAL 0.3 mg/dL (0.2-1.0); CALCIUM, SERUM 7.7 mg/dL (8.5-10.1); CREATININE 0.8 mg/dL (0.6-1.3); POTASSIUM 3.8 mmol/L (3.5-5.1); TOTAL PROTEIN, SERUM 6.6 g/dL (6.4-8.2)
[2019-10-02 12:08] LABS: EOSINOPHILS % (MANUAL) 1 % (0-4); LYMPHOCYTES % (MANUAL) 6 % (16-48); MONOCYTES % (MANUAL) 6 % (0-11.0); NEUTROPHILS % (MANUAL) 87 (42-76)
--- NOTE | 2019-10-02 13:00 | NUR ---
Relayed CBC and BMP result to Dr. Rosado with Hbg of 6.7 with order to transfuse 1 unit of PRBC. Order carried out. Obtained consent from resident's daughter Adry (DPOA) to transfuse 1 unit of PRBC witnessed by two licensed nurses.
[2019-10-02 14:42] LABS: ABG BASE EXCESS 0.2 mmol/L; ABG OXYGEN SATURATION 99.4 % (92.0-98.5); ABG PCO2 29.3 mmHg (35.0-45.0); ABG PH 7.513 (7.350-7.450); ABG PO2 168.1 mmHg (75.0-100.0); AaDO2 83.4 mmHg; COHb 0.4 % (0.5-1.5); MetHb 0.5 % (0.0-1.5); O2Hb 98.5 % (94.0-97.0); PEEP,BG 5 cm H2O; SITE, ABG Right Radial; VT, ABG 450 mL
[2019-10-02 16:37] VITALS: BP 112/80
[2019-10-02 16:54] VITALS: BP 105/59
--- NOTE | 2019-10-02 17:00 | NUR ---
Blood transfusion started, verification done per protocol by two licensed nurses. Resident awake and conversant, denies any SOB, no rashes or any reaction observed from blood transfusion. Continue to monitor. Midline in the L upper arm patent, no redness no signs of infiltration noted.
[2019-10-02 17:40] VITALS: BP 101/56
[2019-10-02 20:12] VITALS: BP 104/64
[2019-10-02 20:29] VITALS: BP 104/64
--- NOTE | 2019-10-02 20:30 | NUR ---
Blood transfusion completed. No adverse reaction noted.Vital signs stable. patient awake and alert very irritable,trying to remove her wrist restraint. patient want to get up from bed. Explained to patient that she needs the restraint for her safety. Kept comfortable and clean. Call light within reach,will continue to monitor.
[2019-10-02] MEDS: MONTELUKAST SODIUM (10MG) 10 MG TABLET GT SCH (21:11)
[2019-10-02] MEDS: ONDANSETRON 4 MG TAB.RAPDIS GT PRN (21:11)
[2019-10-02] MEDS: ATORVASTATIN 40 MG TABLET GT SCH (21:11)
[2019-10-02] MEDS: MORPHINE SULFATE INJ 2 MG/ML DISP.SYRIN IV PRN (21:26)
--- NOTE | 2019-10-02 21:30 | NUR ---
Patient complaining of lower back pain / repositioned comfortably not effective patient given Morphine 1mg Iv push for severe pain. Patient also asked to turn off light in her room she said want sleep.Kept patient comfortable ,HOB elevated. Will continue to monitor.
--- NOTE | 2019-10-02 22:10 | NUR ---
MANAGER OUTPATIENT reported unable to remove Elavil from the omnicele d/t non intended dose. Per omnicell only 3 tablets in the bin (75mg) but intended dose is 100mg. But when we open the bin found 6 tablets (25 mg each)Pulled out 4 tablets equivalent to 100mg given as ordered.Will notify pharmacy in AM.
[2019-10-02] MEDS: AMITRIPTYLINE HCL 25 MG TABLET PO SCH (22:44)
[2019-10-03] MEDS: OMEPRAZOLE 20 MG CAPSULE.DR GT SCH (05:44)
[2019-10-03] MEDS: JEVITY 1.2 CAL 1,000 ML BOTTLE GT PRN (05:44)
[2019-10-03] MEDS: LEVOTHYROXINE SODIUM 25 MCG TABLET GT SCH (05:44)
[2019-10-03 07:46] VITALS: BP 112/72
[2019-10-03] MEDS ORDERED: ACETAMINOPHEN 650 MG/20 ML UDC- SA PATIENTS-FEVER ONLY GT PRN (08:00)
[2019-10-03] MEDS: HYDROGEN PEROXIDE 480 ML BOTTLE TP SCH ×2 (08:24→19:57)
[2019-10-03] MEDS: NITROGLYCERIN 30 GM TUBE TP SCH ×2 (09:00→20:45)
[2019-10-03] MEDS: METOPROLOL TARTRATE 50 MG TABLET GT SCH ×2 (09:48→17:00)
[2019-10-03] MEDS: clonazePAM 0.5 MG TABLET GT SCH ×2 (09:48→20:45)
[2019-10-03] MEDS: ALENDRONATE 10 MG TABLET GT SCH (09:48)
[2019-10-03] MEDS: LOSARTAN POTASSIUM 50 MG TABLET GT SCH ×2 (09:48→20:45)
[2019-10-03] MEDS: DULOXETINE HCL 30 MG CAPSULE.DR GT SCH (09:48)
[2019-10-03] MEDS: GABAPENTIN 300 MG CAPSULE GT SCH (09:49)
[2019-10-03] MEDS: Z GUARD REMEDY 4 OZ OINT TP SCH ×6 (09:49→20:46)
[2019-10-03] MEDS: PROSTAT (PYXIS) 30 ML UDC GT SCH ×2 (09:49→20:45)
[2019-10-03] MEDS: AMLODIPINE BESYLATE 5 MG TABLET GT SCH (09:49)
[2019-10-03] MEDS: HYDROXYCHLOROQUINE 200 MG TABLET GT SCH (09:49)
--- NOTE | 2019-10-03 10:46 | NUR ---
Notified pharmacy of the incorrect count of Elavil in the bin. supervisor microbiology technologists corrected the count. Dr. Rosado seen and examined resident, patient s/p blood transfusion. New order given to repeat CBC, order carried out.
[2019-10-03 11:28] LABS: BASOPHILS % (AUTO) 0.4 % (0.0-2.0); EOSINOPHILS % (AUTO) 1.8 % (0.0-6.0); HEMATOCRIT 25 % (33-45); HEMOGLOBIN 8.3 g/dL (11.5-14.8); LYMPHOCYTES # (AUTO) 1.2 /CMM (0.8-4.8); LYMPHOCYTES % (AUTO) 13.4 % (20.0-44.0); MEAN CORPUSCULAR HGB CONC 33 g/dl (31.0-36.0); MEAN CORPUSCULAR VOLUME 90 fL (82-100); MONOCYTES # (AUTO) 1.9 /CMM (0.1-1.30); NEUTROPHILS # (AUTO) 5.4 /CMM (1.8-8.9); NEUTROPHILS % (AUTO) 62.4 % (43.0-81.0); PLATELET COUNT (AUTO) 308 /CMM (150-450); RED BLOOD CELL COUNT(AUTO) 2.77 MIL/uL (4.0-5.2); WHITE BLOOD COUNT (AUTO) 8.7 K/uL (4.3-11.0)
[2019-10-03 12:46] VITALS: BP 90/60
--- NOTE | 2019-10-03 12:47 | NUR ---
Awake. Responsive to verbal and tactile stimuli. HOB elevated. Aspiration precautions maintained. Trach with vent working at prescribed settings. GT in place. JT with formula as ordered. Noted with episode of moderate amount of green emesis. Trach care by RT and secretions suctioned as needed. Declines pain. Ojeda catheter patent with clean urine. Abdomen is soft non distended. 12 Abdominal damian removed as ordered and steri-stirps applied per RN. Noted with slight redness in some areas along the incision line. Edges well approximated with one area of moist hypergranulation on the lower part of the incision site. No drainage. Kept clean and comfortable. All need met and attended.
[2019-10-03] MEDS: ONDANSETRON 4 MG TAB.RAPDIS GT PRN (12:58)
--- NOTE | 2019-10-03 14:00 | NUR ---
Relayed CBC result, Hbg 8.[address] Rosado, no new order given. He also mentioned that he has spoken with patient's daughter as requested by family to discuss patient's condition.
[2019-10-03 14:27] LABS: LYMPHOCYTES % (MANUAL) 7 % (16-48); MONOCYTES % (MANUAL) 24 % (0-11.0); NEUTROPHILS % (MANUAL) 69 (42-76)
[2019-10-03 18:00] VITALS: BP 105/66
--- NOTE | 2019-10-03 18:30 | NUR ---
Awake. Alert. Able to make needs known. Responsive to verbal and tactile stimuli. Antiemetic medication given as ordered and effective. No further episodes of N/V noted. Total care provided. Kept clean and comfortable. HOB elevated. GT in place. JT with formula as ordered. Ojeda catheter with clean yellow urine with 500 ml output. C/O Abdominal pain and requesting for Morphine. No bladder distension. RN cardiopulmonary supervisor notified. All need met and attended. Kept clean and comfortable.
[2019-10-03] MEDS: MORPHINE SULFATE INJ 2 MG/ML DISP.SYRIN IV PRN (18:46)
[2019-10-03 20:14] VITALS: BP 122/72
--- NOTE | 2019-10-03 21:00 | NUR ---
Klonopin .25 mg given as ordered. Patient awake with no s/s distress or discomfort noted. No adverse reaction. Will con't to monitor.
[2019-10-03] MEDS: MONTELUKAST SODIUM (10MG) 10 MG TABLET GT SCH (21:19)
[2019-10-03] MEDS: ATORVASTATIN 40 MG TABLET GT SCH (21:19)
[2019-10-03] MEDS: AMITRIPTYLINE HCL 25 MG TABLET PO SCH (21:19)
[2019-10-04] MEDS: MORPHINE SULFATE INJ 2 MG/ML DISP.SYRIN IV PRN ×2 (04:18→16:37)
[2019-10-04] MEDS: LEVOTHYROXINE SODIUM 25 MCG TABLET GT SCH (05:59)
[2019-10-04] MEDS: OMEPRAZOLE 20 MG CAPSULE.DR GT SCH (05:59)
[2019-10-04 07:32] VITALS: BP 118/71
[2019-10-04] MEDS: HYDROGEN PEROXIDE 480 ML BOTTLE TP SCH ×2 (08:16→21:59)
[2019-10-04] MEDS: NITROGLYCERIN 30 GM TUBE TP SCH ×2 (09:00→21:35)
[2019-10-04] MEDS: DULOXETINE HCL 30 MG CAPSULE.DR GT SCH (09:13)
[2019-10-04] MEDS: GABAPENTIN 300 MG CAPSULE GT SCH (09:13)
[2019-10-04] MEDS: METOPROLOL TARTRATE 50 MG TABLET GT SCH ×2 (09:13→17:00)
[2019-10-04] MEDS: ALENDRONATE 10 MG TABLET GT SCH (09:13)
[2019-10-04] MEDS: LOSARTAN POTASSIUM 50 MG TABLET GT SCH ×2 (09:13→21:35)
[2019-10-04] MEDS: HYDROXYCHLOROQUINE 200 MG TABLET GT SCH (09:13)
[2019-10-04] MEDS: AMLODIPINE BESYLATE 5 MG TABLET GT SCH (09:13)
[2019-10-04] MEDS: PROSTAT (PYXIS) 30 ML UDC GT SCH ×2 (09:13→21:35)
[2019-10-04] MEDS: clonazePAM 0.5 MG TABLET GT SCH ×2 (09:13→21:35)
[2019-10-04] MEDS: Z GUARD REMEDY 4 OZ OINT TP SCH ×6 (09:14→21:37)
--- NOTE | 2019-10-04 16:00 | NUR ---
Patient awake, complained of abdominal pain, surgical site, intact with steri strips, no s/s of infection. Abdomen not distended. Medicated with morphine sulfate IV push 1 mg - 0.5ml, has midline to left antecubital, patent and intact, dressing changed, not infiltrated. Patient has bilateral soft wrist restraints to prevent patient from pulling her trach tube. Released q 2 hrs to check skin condition and circulation. Patient calm at this time, on psychotropic medications for agitation, restlessness, no adverse reactions. Patient not in distress, on vent tolerating well. Patient kept on covid isolation for surveillance, all precautions observed. Kept patient safe and comfortable at all times. Patient closely monitored. Latest temp 99.
[2019-10-04 17:30] VITALS: BP 114/75
[2019-10-04] MEDS: ONDANSETRON 4 MG TAB.RAPDIS GT PRN (17:31)
[2019-10-04] MEDS: JEVITY 1.2 CAL 1,000 ML BOTTLE GT PRN (17:31)
[2019-10-04 20:15] VITALS: BP_SYST 103; BP_SYST 108; BP_DIAS 61
[2019-10-04] MEDS ORDERED: AMITRIPTYLINE HCL 25 MG TABLET ONE (20:59)
[2019-10-04] MEDS: MONTELUKAST SODIUM (10MG) 10 MG TABLET GT SCH (21:37)
[2019-10-04] MEDS: ATORVASTATIN 40 MG TABLET GT SCH (21:37)
[2019-10-04] MEDS: AMITRIPTYLINE HCL 25 MG TABLET PO SCH (21:37)
[2019-10-05] MEDS: LEVOTHYROXINE SODIUM 25 MCG TABLET GT SCH (05:47)
[2019-10-05] MEDS: OMEPRAZOLE 20 MG CAPSULE.DR GT SCH (05:47)
[2019-10-05] MEDS: ONDANSETRON 4 MG TAB.RAPDIS GT PRN (05:48)
[2019-10-05] MEDS: HYDROGEN PEROXIDE 480 ML BOTTLE TP SCH ×2 (08:29→21:20)
[2019-10-05] MEDS: MORPHINE SULFATE INJ 2 MG/ML DISP.SYRIN IV PRN (08:46)
[2019-10-05] MEDS: PROSTAT (PYXIS) 30 ML UDC GT SCH (09:00)
[2019-10-05] MEDS: NITROGLYCERIN 30 GM TUBE TP SCH ×2 (09:00→21:00)
[2019-10-05] MEDS: LOSARTAN POTASSIUM 50 MG TABLET GT SCH ×2 (09:00→21:28)
[2019-10-05] MEDS: clonazePAM 0.5 MG TABLET GT SCH ×2 (09:00→21:28)
[2019-10-05] MEDS: AMLODIPINE BESYLATE 5 MG TABLET GT SCH (09:00)
[2019-10-05] MEDS: HYDROXYCHLOROQUINE 200 MG TABLET GT SCH (09:00)
[2019-10-05] MEDS: Z GUARD REMEDY 4 OZ OINT TP SCH ×6 (09:00→21:21)
[2019-10-05] MEDS: DULOXETINE HCL 30 MG CAPSULE.DR GT SCH (09:00)
[2019-10-05] MEDS: GABAPENTIN 300 MG CAPSULE GT SCH (09:00)
[2019-10-05] MEDS: ALENDRONATE 10 MG TABLET GT SCH (09:00)
[2019-10-05] MEDS: METOPROLOL TARTRATE 50 MG TABLET GT SCH ×2 (09:00→17:45)
[2019-10-05 09:24] LABS: ABG BASE EXCESS -1.8 mmol/L; ABG OXYGEN SATURATION 98.8 % (92.0-98.5); ABG PCO2 32.7 mmHg (35.0-45.0); ABG PH 7.443 (7.350-7.450); ABG PO2 149.7 mmHg (75.0-100.0); AaDO2 61.8 mmHg; COHb 0.2 % (0.5-1.5); MetHb 0.3 % (0.0-1.5); O2Hb 98.3 % (94.0-97.0); PEEP,BG 5 cm H2O; SITE, ABG Right Radial; VENT MODE, BG CPAP 35% PS 12; VT, ABG 450 mL
[2019-10-05 09:33] VITALS: BP 135/77
--- NOTE | 2019-10-05 16:46 | NUR ---
RT NOTE RECEIVED ON MECHANICAL VENT WITH ORDERED SETTINGS PLACED ON CPAP, 35%, +5, 450, PS12 PER PERSONAL PROPERTY APPRAISER ORDER. ABG DRAWN AND ANALYZED. RESULTS ENDORSED TO SITE LEASING AGENT. PT TOLERATE WELL. NO CHANGES PER DR. HARDWICK. ALARMS ON AND AUDIBLE. VENT PLUGGED IN TO THE RED OUTLET. AMBU BAG AND BACK UP TRACH BY THE BEDSIDE. TRACH TUBE IN PLACE PATENT AND SECURED WITH TRACH TIE. NO DISTRESS AT THIS TIME. MONITOR THROUGHOUT SHIFT.
--- NOTE | 2019-10-05 18:41 | NUR ---
Informed pt's daughter that Covid test is negative.
[2019-10-05 21:19] VITALS: BP 116/68
[2019-10-05] MEDS: PROSOURCE / PROSTAT (PYXIS) 30 ML UDC GT SCH (21:20)
[2019-10-05] MEDS: MONTELUKAST SODIUM (10MG) 10 MG TABLET GT SCH (21:27)
[2019-10-05] MEDS: AMITRIPTYLINE HCL 25 MG TABLET PO SCH (21:27)
[2019-10-05] MEDS: ATORVASTATIN 40 MG TABLET GT SCH (21:27)
[2019-10-06] MEDS: OMEPRAZOLE 20 MG CAPSULE.DR GT SCH (05:18)
[2019-10-06] MEDS: LEVOTHYROXINE SODIUM 25 MCG TABLET GT SCH (05:19)
[2019-10-06] MEDS: ONDANSETRON 4 MG TAB.RAPDIS GT PRN (06:17)
--- NOTE | 2019-10-06 06:17 | NUR ---
RN NOTES: PT VOMITED ONCE. ADMINISTERED 4MG ZOFRAN VIA GT. FEEDING HELD FOR NOW.
[2019-10-06] MEDS: ALENDRONATE 10 MG TABLET GT SCH (08:33)
[2019-10-06] MEDS: LOSARTAN POTASSIUM 50 MG TABLET GT SCH ×2 (08:33→21:38)
[2019-10-06] MEDS: METOPROLOL TARTRATE 50 MG TABLET GT SCH ×2 (08:33→16:24)
[2019-10-06] MEDS: DULOXETINE HCL 30 MG CAPSULE.DR GT SCH (08:33)
[2019-10-06] MEDS: GABAPENTIN 300 MG CAPSULE GT SCH (08:33)
[2019-10-06] MEDS: HYDROXYCHLOROQUINE 200 MG TABLET GT SCH (08:33)
[2019-10-06] MEDS: clonazePAM 0.5 MG TABLET GT SCH ×2 (08:34→21:38)
[2019-10-06] MEDS: PROSOURCE / PROSTAT (PYXIS) 30 ML UDC GT SCH ×2 (08:34→21:38)
[2019-10-06] MEDS: AMLODIPINE BESYLATE 5 MG TABLET GT SCH (08:34)
[2019-10-06] MEDS: HYDROGEN PEROXIDE 480 ML BOTTLE TP SCH ×2 (08:34→21:00)
[2019-10-06] MEDS: Z GUARD REMEDY 4 OZ OINT TP SCH ×6 (08:34→21:38)
[2019-10-06] MEDS: NITROGLYCERIN 30 GM TUBE TP SCH ×2 (08:35→21:38)
[2019-10-06] MEDS: HYDROCODONE/APAP 5/325MG TABLET GT PRN (09:36)
--- NOTE | 2019-10-06 10:57 | NUR ---
Seen by Dr Toure today. Pt tolerating CPAP well. Dr Toure ordered to place pt on cool aerosol tomorrow and do ABG 1 hour post vent change. Pt negative for Covid and isolation was DC'd. [facility]. Facilitated video call with her daughter. Notified her of new orders.
[2019-10-06] MEDS: JEVITY 1.2 CAL 1,000 ML BOTTLE GT PRN (12:25)
--- NOTE | 2019-10-06 14:00 | NUR ---
Dr Loza decreased JT water flushes from 200 mL to 100 mL q 8 hours for hydration. Notified pt's daughter.
[2019-10-06 14:27] VITALS: BP 135/76
--- NOTE | 2019-10-06 16:34 | NUR ---
Received order from Dr Rosado to LA Ojeda catheter. He said straight catheterization may be done as needed for urinary retention.
[2019-10-06 20:06] VITALS: BP 117/70
[2019-10-06] MEDS: MONTELUKAST SODIUM (10MG) 10 MG TABLET GT SCH (21:39)
[2019-10-06] MEDS: AMITRIPTYLINE HCL 25 MG TABLET PO SCH (21:39)
[2019-10-06] MEDS: ATORVASTATIN 40 MG TABLET GT SCH (21:39)
--- NOTE | 2019-10-07 04:30 | NUR ---
Resident tolerated clamping and un clamping of rosario cath well. Rosario cath DC'd as ordered. Will continue to monitor for urinary retention. No bladder distention or discomfort noted. Bladder soft to touch.
[2019-10-07] MEDS: ONDANSETRON 4 MG TAB.RAPDIS GT PRN ×3 (05:37→18:05)
[2019-10-07] MEDS: LEVOTHYROXINE SODIUM 25 MCG TABLET GT SCH (05:45)
[2019-10-07] MEDS: OMEPRAZOLE 20 MG CAPSULE.DR GT SCH (05:45)
[2019-10-07 07:51] VITALS: BP 110/72
[2019-10-07] MEDS: Z GUARD REMEDY 4 OZ OINT TP SCH ×6 (09:00→21:08)
[2019-10-07] MEDS: clonazePAM 0.5 MG TABLET GT SCH ×2 (09:00→21:07)
[2019-10-07] MEDS: DULOXETINE HCL 30 MG CAPSULE.DR GT SCH (09:00)
[2019-10-07] MEDS: HYDROXYCHLOROQUINE 200 MG TABLET GT SCH (09:00)
[2019-10-07] MEDS: LOSARTAN POTASSIUM 50 MG TABLET GT SCH ×2 (09:00→21:00)
[2019-10-07] MEDS: ALENDRONATE 10 MG TABLET GT SCH (09:00)
[2019-10-07] MEDS: PROSOURCE / PROSTAT (PYXIS) 30 ML UDC GT SCH ×2 (09:00→21:07)
[2019-10-07] MEDS: AMLODIPINE BESYLATE 5 MG TABLET GT SCH (09:00)
[2019-10-07] MEDS: METOPROLOL TARTRATE 50 MG TABLET GT SCH ×2 (09:00→16:48)
[2019-10-07] MEDS: GABAPENTIN 300 MG CAPSULE GT SCH (09:00)
[2019-10-07] MEDS: NITROGLYCERIN 30 GM TUBE TP SCH ×2 (09:00→21:00)
[2019-10-07] MEDS: HYDROGEN PEROXIDE 480 ML BOTTLE TP SCH ×2 (09:58→20:03)
[2019-10-07 10:34] LABS: ABG OXYGEN SATURATION 98.6 % (92.0-98.5); ABG PCO2 29.8 mmHg (35.0-45.0); ABG PO2 150.4 mmHg (75.0-100.0); AaDO2 64.5 mmHg; COHb 0.3 % (0.5-1.5); MetHb 0.3 % (0.0-1.5); SITE, ABG Right Radial
--- NOTE | 2019-10-07 10:50 | NUR ---
Reported ABG result to Dr. Toure, with order to continue cool aerosol as tolerated. RT informed.
--- NOTE | 2019-10-07 11:02 | NUR ---
Family Invitation to IDT: This SW made 3 attempts to call the patient's daughter, Елена Cage and left a voicemail inviting her to participate in 10/09/2019 12:30 pm IDT meeting via phone conference. SW will await response.
--- NOTE | 2019-10-07 15:19 | NUR ---
RT NOTE PT PLACED ON 35% COOL AEROSOL PER MD ORDERS. PT TOLERATING WELL WITH NO SIGNS OF RESPIRATORY DISTRESS. SAT 99% HR 100. WILL CONTINUE TO MONITOR PT. ABG IN 1 HOUR Addendum: 10/07/19 at 1524 by SIDRA LANDRY RT Amended: Links added.
--- NOTE | 2019-10-07 15:23 | NUR ---
RT NOTE FIO2 TITRATED TO 28% POST ABG. CHARGE JACY HAYDEE IS AWARE. PT TOLERATING COOL AEROSOL WELL WITH NO SOB NOTED. WILL CONTINUE TO MONITOR PT. Addendum: 10/07/19 at 1524 by SIDRA LANDRY RT Amended: Links added.
[2019-10-07] MEDS: HYDROCODONE/APAP 5/325MG TABLET GT PRN (17:00)
[2019-10-07 20:00] VITALS: BP 100/66
[2019-10-07] MEDS: VITAL AF 1.2 1,000 ML BOTTLE GT PRN (20:30)
[2019-10-07] MEDS: AMITRIPTYLINE HCL 25 MG TABLET PO SCH (21:08)
[2019-10-07] MEDS: MONTELUKAST SODIUM (10MG) 10 MG TABLET GT SCH (21:08)
[2019-10-07] MEDS: ATORVASTATIN 40 MG TABLET GT SCH (21:08)
[2019-10-07] MEDS: HYDROCODONE BIT/HOMATROPINE 5 ML UDC GT PRN (21:09)
[2019-10-08] MEDS: ONDANSETRON 4 MG TAB.RAPDIS GT PRN ×2 (04:13→10:31)
[2019-10-08] MEDS: OMEPRAZOLE 20 MG CAPSULE.DR GT SCH (05:10)
[2019-10-08] MEDS: LEVOTHYROXINE SODIUM 25 MCG TABLET GT SCH (05:10)
--- NOTE | 2019-10-08 06:27 | NUR ---
0400 vomited greenish color @ 200 ml,Zofran given as ordered. In and cath done with 300 ml urine output. Patient tolerated cool aerosol.
[2019-10-08 07:47] VITALS: BP 116/71
[2019-10-08] MEDS: Z GUARD REMEDY 4 OZ OINT TP SCH ×6 (09:00→20:22)
[2019-10-08] MEDS: clonazePAM 0.5 MG TABLET GT SCH ×2 (09:00→20:22)
[2019-10-08] MEDS: ALENDRONATE 10 MG TABLET GT SCH (09:00)
[2019-10-08] MEDS: LOSARTAN POTASSIUM 50 MG TABLET GT SCH ×2 (09:00→20:21)
[2019-10-08] MEDS: METOPROLOL TARTRATE 50 MG TABLET GT SCH ×2 (09:00→17:00)
[2019-10-08] MEDS: AMLODIPINE BESYLATE 5 MG TABLET GT SCH (09:00)
[2019-10-08] MEDS: NITROGLYCERIN 30 GM TUBE TP SCH ×2 (09:00→20:22)
[2019-10-08] MEDS: GABAPENTIN 300 MG CAPSULE GT SCH (09:00)
[2019-10-08] MEDS: HYDROXYCHLOROQUINE 200 MG TABLET GT SCH (09:00)
[2019-10-08] MEDS: DULOXETINE HCL 30 MG CAPSULE.DR GT SCH (09:00)
[2019-10-08] MEDS: HYDROGEN PEROXIDE 480 ML BOTTLE TP SCH ×2 (09:16→20:06)
--- NOTE | 2019-10-08 10:35 | NUR ---
Left message for Dr Rosado that pt vomited 3 times yesterday during the day and twice last night. Also notified him that pt has a gastric residual of 300 mL of dark greenish liquid (GT). Pt's feeding and medications being given via JT.
--- NOTE | 2019-10-08 12:30 | NUR ---
Received order for pt to receive 4oz - 6oz thin water per her request for oral gratification, maximum of 3 times per day, cuff must be deflated, one sip at a time at slow rate. Notified pt's daughter.
--- NOTE | 2019-10-08 14:00 | NUR ---
Straight catheterization done, obtained 300 mL of yellowish urine. No complaints of pain during this shift.
--- NOTE | 2019-10-08 14:50 | NUR ---
RT NOTE: PATIENT'S TRACH CUFF INFLATED DUE TO SMALL AMOUNT OF EMESIS AT THIS TIME. PATIENT IS SITTING UP 90 DEGREES IN BED. PATIENT IS ALERT AND RESPIRATIONS ARE EVEN AND UNLABORED. OXYGEN SATURATION= 100% ON 28% COOL AEROSOL. CHARGE NURSE NOTIFIED.
--- NOTE | 2019-10-08 17:12 | NUR ---
Dr Toure said to hold off on Pneumococcal vaccine due to medical condition. Informed pharmacist Connie.
[2019-10-08 20:00] VITALS: BP 103/70
[2019-10-08] MEDS: MONTELUKAST SODIUM (10MG) 10 MG TABLET GT SCH (21:48)
[2019-10-08] MEDS: ATORVASTATIN 40 MG TABLET GT SCH (21:48)
[2019-10-08] MEDS: AMITRIPTYLINE HCL 25 MG TABLET PO SCH (21:48)
[2019-10-09] MEDS: ONDANSETRON 4 MG TAB.RAPDIS GT PRN (02:27)
[2019-10-09] MEDS: OMEPRAZOLE 20 MG CAPSULE.DR GT SCH (05:27)
[2019-10-09] MEDS: LEVOTHYROXINE SODIUM 25 MCG TABLET GT SCH (05:27)
[2019-10-09 08:00] VITALS: BP 108/67
[2019-10-09] MEDS: NITROGLYCERIN 30 GM TUBE TP SCH ×2 (09:00→21:00)
[2019-10-09] MEDS: HYDROGEN PEROXIDE 480 ML BOTTLE TP SCH ×2 (09:30→20:24)
[2019-10-09] MEDS: HYDROXYCHLOROQUINE 200 MG TABLET GT SCH (09:46)
[2019-10-09] MEDS: GABAPENTIN 300 MG CAPSULE GT SCH (09:46)
[2019-10-09] MEDS: METOPROLOL TARTRATE 50 MG TABLET GT SCH ×2 (09:46→17:00)
[2019-10-09] MEDS: AMLODIPINE BESYLATE 5 MG TABLET GT SCH (09:46)
[2019-10-09] MEDS: clonazePAM 0.5 MG TABLET GT SCH ×2 (09:46→21:17)
[2019-10-09] MEDS: LOSARTAN POTASSIUM 50 MG TABLET GT SCH ×2 (09:47→21:00)
[2019-10-09] MEDS: DULOXETINE HCL 30 MG CAPSULE.DR GT SCH (09:47)
[2019-10-09] MEDS: Z GUARD REMEDY 4 OZ OINT TP SCH ×6 (09:47→21:18)
[2019-10-09] MEDS: ALENDRONATE 10 MG TABLET GT SCH (09:47)
--- NOTE | 2019-10-09 11:28 | NUR ---
Seen and examined by Dr. Rosado, reported frequent episode of vomiting from previous days and today. According to speech pathologist also mentioned to Dr. Rosado that patient clearly is aspirating by vomiting, she reported gastric juices coming out from the trach tubing. RT at bedside and suctioned trach. According to Dr. Rosado to do the CT scan now and not wait till the end of the month to evaluate if pseudocyst is getting bigger. He also ordered to connect GT to bedside drainage bag and if not, it can be aspirated every couple of hours. Dr. Rosado explained to patient the plan of care and she verbalized understanding. Obtained telephone consent from resident's daughter Adry for CT scan with contrast witnessed by [address] Awaiting new account from admitting department.
--- NOTE | 2019-10-09 11:30 | NUR ---
LISBETH received call from [employer] Sales Representative, Ramez Arriaga [phone] stating he needs and update regarding patients current medical condition. LISBETH called the patients ANTONIO, Adry Lim [phone] and got verbal consent to disclose information to airframe technical officer. LISBETH addressed Jaz questions. Ramez stated he will be checking in on patient monthly and should be contacted if there is a change in her condition or if she I discharged.
--- NOTE | 2019-10-09 13:44 | NUR ---
RT NOTE: ALERT PATIENT RECEIVED WITH TRACH ON 28% COOL AEROSOL. TRACH CUFF REMAINS INFLATED PATIENT IS SITTING UP 90 DEGREES IN BED. PATIENT'S RESPIRATIONS ARE EVEN AND UNLABORED. OXYGEN SATURATION= 100%. SUCTIONED AND LAVAGED MODERATE TO LARGE AMOUNT OF YELLOW SECRETIONS AND OCCASIONAL GASTRIC CONTENT. CHARGE NURSE AND MD AWARE. WILL CONTINUE TO MONITOR.
--- NOTE | 2019-10-09 15:00 | NUR ---
INTERDISCIPLINARY PLAN OF CARE CONFERENCE took place today. The patients responsible alliance party/ Adry Raphael [phone] participated [address] Toure and Interdisciplinary team discussed the plan of care in detail. Current orders as well as treatments and medications were reviewed. IDT addressed the familys questions. Charge Nurse discussed D/C contact isolation 10/05; CT scan of abdomen to be done DANYELL; placed on cool aerosol 10/05. See other disciplines IDT notes for further details.
--- NOTE | 2019-10-09 15:00 | NUR ---
Resident taken to CT scan accompanied by equipment engineering technician in stable condition connected to portable oxygen. Result pending.
[2019-10-09] MEDS: VITAL AF 1.2 1,000 ML BOTTLE GT PRN (18:31)
--- NOTE | 2019-10-09 19:20 | NUR ---
Dr. Rosado made aware of CT scan result and updated him of patient's status with gastric output from the drainage bag = 600 ml., urine output 200 ml., from straight cath, and bilateral wrist restraints not use, patient has been cooperative. New order given to refer CT scan result to Dr. Hairston and MD Hairston made aware of the result, he said that he will see patient tomorrow. MORTICIAN SUPPLIES SALES REPRESENTATIVE Ronda Méndez has also seen and examined the patient, tolerating cool aerosol. Ronda also reviewed CT scan. MORTICIAN SUPPLIES SALES REPRESENTATIVE ordered PRN Dulcolax supp and PRN enema, patient no BM x 2 days. Endorsed to incoming shift.
[2019-10-09] MEDS ORDERED: NA PHOS,M-B/NA PHOS,DI-BA 1 EA ENEMA RC PRN (20:00)
[2019-10-09 20:37] VITALS: BP 89/59
[2019-10-09] MEDS: MONTELUKAST SODIUM (10MG) 10 MG TABLET GT SCH (21:18)
[2019-10-09] MEDS: ATORVASTATIN 40 MG TABLET GT SCH (21:18)
[2019-10-09] MEDS: AMITRIPTYLINE HCL 25 MG TABLET PO SCH (21:18)
[2019-10-09] MEDS: BISACODYL SUPP (10 MG) 10 MG/SUPP.RECT SUPP.RECT RC PRN (21:54)
[2019-10-10] MEDS: LEVOTHYROXINE SODIUM 25 MCG TABLET GT SCH (05:35)
[2019-10-10] MEDS: OMEPRAZOLE 20 MG CAPSULE.DR GT SCH (05:35)
--- NOTE | 2019-10-10 06:56 | NUR ---
Patient cooperative during shift. No episodes of agitation noted. Gastric output of 500 cc and straight cath of 15o cc obtained during shift. No emesis. Rectal suppository given as ordered but ineffective, offered to give enema but patient refused at this time and requested to do it later in the day. Oral gratification of H20 50 cc given with RT EDUARD at bedside, cuff inflated , HOB up at 90 degrees, tolerated well.
--- NOTE | 2019-10-10 07:11 | NUR ---
no restrained use during the whole date night caregiver. patient able to cooperate and follow command. will continue to monitor.
[2019-10-10 07:34] VITALS: BP 119/74
[2019-10-10] MEDS: NITROGLYCERIN 30 GM TUBE TP SCH ×2 (09:00→21:00)
[2019-10-10] MEDS: HYDROGEN PEROXIDE 480 ML BOTTLE TP SCH ×2 (09:18→21:05)
[2019-10-10] MEDS: DULOXETINE HCL 30 MG CAPSULE.DR GT SCH (09:47)
[2019-10-10] MEDS: LOSARTAN POTASSIUM 50 MG TABLET GT SCH ×2 (09:47→21:00)
[2019-10-10] MEDS: ALENDRONATE 10 MG TABLET GT SCH (09:47)
[2019-10-10] MEDS: HYDROXYCHLOROQUINE 200 MG TABLET GT SCH (09:48)
[2019-10-10] MEDS: AMLODIPINE BESYLATE 5 MG TABLET GT SCH (09:48)
[2019-10-10] MEDS: clonazePAM 0.5 MG TABLET GT SCH ×2 (09:48→21:25)
[2019-10-10] MEDS: METOPROLOL TARTRATE 50 MG TABLET GT SCH ×2 (09:48→18:29)
[2019-10-10] MEDS: GABAPENTIN 300 MG CAPSULE GT SCH (09:48)
[2019-10-10] MEDS: Z GUARD REMEDY 4 OZ OINT TP SCH ×6 (09:49→21:25)
[2019-10-10] MEDS: VITAL AF 1.2 1,000 ML BOTTLE GT PRN (10:21)
--- NOTE | 2019-10-10 16:00 | NUR ---
Seen and examined by Dr. Hairston, he look at the surgical incision site in her abdomen which he said is looking good, no s/s of infection and healing well. He said that after reviewing CT scan of abd/pelvis, patient may need a surgery in the future because it reveals a new development of pseudocyst. He wants to repeat CT scan in 6 weeks to determine cyst maturity. According to Dr. Hairston, the patient may need surgery to remove the pseudocyst. He also wants to inform Dr. Rosado to have GI on the case. Left a message to Dr. Rosado regarding Dr. Hairston's recommendation and updated MD of patient's condition including output from GT drainage bag and no urine output obtain from straight catheterization this shift. Awaiting for return call. Meanwhile resident is calm, sleeping in no acute distress/ discomfort, denies pain. Patient has not been pulling any of the tube.
--- NOTE | 2019-10-10 16:36 | NUR ---
RT NOTE: ALERT PATIENT RECEIVED WITH TRACH ON 28% COOL AEROSOL. TRACH CUFF REMAINS INFLATED THROUGHOUT THE SHIFT. RESPIRATIONS ARE EVEN AND UNLABORED. SUCTIONED AND LAVAGED SMALL AMOUNT OF THICK YELLOW SECRETIONS. NO EMESIS NOTED THROUGHOUT SHIFT. WILL CONTINUE TO MONITOR.
[2019-10-10] MEDS: BISACODYL SUPP (10 MG) 10 MG/SUPP.RECT SUPP.RECT RC PRN (18:29)
--- NOTE | 2019-10-10 20:15 | NUR ---
Charge nurse informed Dr. Rosado about patient Vital Signs. Temp=99.5 CI=265, RR=19, BP=83/45. New order to start IV NS @80cc/hr and also to increase water flush to 250cc every 6hrs, keep jtube feeding unless emesis, and GI eval.
--- NOTE | 2019-10-10 20:20 | NUR ---
started IV NS @80cc/hr. patient is alert and orientated and charge nurse was able to explained the reason of the IV fluids. will continue to monitor.
[2019-10-10 20:26] VITALS: BP 83/45
[2019-10-10] MEDS: MONTELUKAST SODIUM (10MG) 10 MG TABLET GT SCH (21:25)
[2019-10-10] MEDS: ATORVASTATIN 40 MG TABLET GT SCH (21:25)
[2019-10-10] MEDS: AMITRIPTYLINE HCL 25 MG TABLET PO SCH (21:25)
[2019-10-10] MEDS: ACETAMINOPHEN 650 MG/20 ML UDC- SA PATIENTS-PAIN ONLY GT PRN (22:23)
[2019-10-11] MEDS: LEVOTHYROXINE SODIUM 25 MCG TABLET GT SCH (05:24)
[2019-10-11] MEDS: OMEPRAZOLE 20 MG CAPSULE.DR GT SCH (05:24)
[2019-10-11] MEDS: VITAL AF 1.2 1,000 ML BOTTLE GT PRN (06:00)
--- NOTE | 2019-10-11 06:50 | NUR ---
Charge nurse update Dr. Rosado regarding patient current vital sign temp=98.8 hr=92, rr=19, bp=69/39. charge nurse also informed him about patient's bp meds and patient output. new order to hold her bp meds, give bolus 500ml NS and to DC nitroglycerin patch.
--- NOTE | 2019-10-11 06:57 | NUR ---
charge nurse started iv ns bolus. will continue to monitor
--- NOTE | 2019-10-11 07:27 | NUR ---
Patient cooperative during the shift, wrist restraint off, without any attempt of getting out of bed. Bed alarm on. Will closely monitor.
--- NOTE | 2019-10-11 07:30 | NUR ---
Received patient asleep, wakes up easily with touched or when her name is called. Appears comfortable, no s/s of pain or resp. distress. On cool aerosol at 28% FIO2 via T-piece, tolerating well. Resp. even and unlabored. BP- 81/37, HR-88, Temp. 98.3, RR- 20. With ongoing IV bolus 500cc d/t low BP. GT connected to drainage bag by gravity draining greenish gastric juice. JT intact and patent with ongoing feeding. Abdomen soft, nondistended, active bowel sound. Able to move all extremities. Will continue to monitor.
[2019-10-11 07:42] VITALS: BP 76/39
[2019-10-11] MEDS: HYDROGEN PEROXIDE 480 ML BOTTLE TP SCH ×2 (08:55→21:00)
[2019-10-11 09:00] VITALS: BP 91/51
--- NOTE | 2019-10-11 09:00 | NUR ---
BP- 91/51, HR-87. Awake, responsive. No s/s of resp. distress. Denies pain. Calm and follows instructions. No pulling of tubes and not trying to get out of bed. Dr. Rosado updated of latest BP. Will continue to monitor.
[2019-10-11] MEDS: clonazePAM 0.5 MG TABLET GT SCH ×2 (09:40→21:08)
[2019-10-11] MEDS: GABAPENTIN 300 MG CAPSULE GT SCH (09:40)
[2019-10-11] MEDS: DULOXETINE HCL 30 MG CAPSULE.DR GT SCH (09:40)
[2019-10-11] MEDS: HYDROXYCHLOROQUINE 200 MG TABLET GT SCH (09:40)
[2019-10-11] MEDS: ALENDRONATE 10 MG TABLET GT SCH (09:40)
[2019-10-11] MEDS: Z GUARD REMEDY 4 OZ OINT TP SCH ×6 (09:40→21:08)
[2019-10-11 11:00] VITALS: BP 92/45
--- NOTE | 2019-10-11 11:00 | NUR ---
BP- 92/45, HR- 86. Awake and responsive, denies pain. No s/s of resp. distress. With ongoing 0.9 NS at 80 cc/hr for hydration. Tolerating JT feeding well, no vomiting noted. Aspiration precaution observed. Will continue to monitor.
--- NOTE | 2019-10-11 12:00 | NUR ---
Left a message to Dr. Choudhury () for consult, waiting for call back.
[2019-10-11 14:30] VITALS: BP 91/54
--- NOTE | 2019-10-11 14:30 | NUR ---
BP- 91/54, HR- 85. Awake, responsive. Denies pain. Routine straight cath done drained 250 cc light orange colored urine. Afebrile. Calm, listens and follows instructions. Will continue to monitor.
[2019-10-11] MEDS: IV NS 0.9% 1,000 ML IV PRN ×3 (16:00→19:30)
[2019-10-11 18:00] VITALS: BP 96/54
--- NOTE | 2019-10-11 18:53 | NUR ---
BP- 96/54, HR-85. Awake, responsive. Calm the whole shift. Resident's daughter updated about current condition and treatment. Will continue to monitor.
[2019-10-11 19:36] VITALS: BP 94/63
[2019-10-11] MEDS: MONTELUKAST SODIUM (10MG) 10 MG TABLET GT SCH (21:08)
[2019-10-11] MEDS: ATORVASTATIN 40 MG TABLET GT SCH (21:08)
[2019-10-11] MEDS: AMITRIPTYLINE HCL 25 MG TABLET PO SCH (21:08)
[2019-10-12] MEDS: IV NS 0.9% 1,000 ML IV PRN ×2 (04:34→18:57)
[2019-10-12] MEDS: LEVOTHYROXINE SODIUM 25 MCG TABLET GT SCH (05:17)
[2019-10-12] MEDS: OMEPRAZOLE 20 MG CAPSULE.DR GT SCH (05:17)
[2019-10-12] MEDS: VITAL AF 1.2 1,000 ML BOTTLE GT PRN (05:59)
[2019-10-12] MEDS: HYDROGEN PEROXIDE 480 ML BOTTLE TP SCH ×2 (08:14→21:00)
[2019-10-12] MEDS: ALENDRONATE 10 MG TABLET GT SCH (09:32)
[2019-10-12] MEDS: DULOXETINE HCL 30 MG CAPSULE.DR GT SCH (09:32)
[2019-10-12] MEDS: GABAPENTIN 300 MG CAPSULE GT SCH (09:33)
[2019-10-12] MEDS: clonazePAM 0.5 MG TABLET GT SCH ×2 (09:33→21:27)
[2019-10-12] MEDS: HYDROXYCHLOROQUINE 200 MG TABLET GT SCH (09:34)
[2019-10-12] MEDS: Z GUARD REMEDY 4 OZ OINT TP SCH ×6 (09:34→21:27)
--- NOTE | 2019-10-12 19:08 | NUR ---
Resident calm whole shift, didn't attempt to pull life sustaining tubes and didn't attempt to get out of bed. Alert, awake and responsive, oriented x 4. Denies pain. Tolerated thin liquid for oral gratification, no coughing, no aspiration noted. Voided freely x 3, no straight cath. done whole shift. GT drained 825 cc, greenish gastric juice by gravity. Afebrile 97.3F. Will continue to monitor.
[2019-10-12 19:59] VITALS: BP 109/56
[2019-10-12] MEDS: MONTELUKAST SODIUM (10MG) 10 MG TABLET GT SCH (21:27)
[2019-10-12] MEDS: ATORVASTATIN 40 MG TABLET GT SCH (21:27)
[2019-10-12] MEDS: AMITRIPTYLINE HCL 25 MG TABLET PO SCH (21:27)
[2019-10-13] MEDS: OMEPRAZOLE 20 MG CAPSULE.DR GT SCH (05:46)
[2019-10-13] MEDS: LEVOTHYROXINE SODIUM 25 MCG TABLET GT SCH (05:47)
[2019-10-13] MEDS: HYDROGEN PEROXIDE 480 ML BOTTLE TP SCH ×2 (08:28→20:55)
[2019-10-13] MEDS: GABAPENTIN 300 MG CAPSULE GT SCH (08:28)
[2019-10-13] MEDS: HYDROXYCHLOROQUINE 200 MG TABLET GT SCH (08:28)
[2019-10-13] MEDS: DULOXETINE HCL 30 MG CAPSULE.DR GT SCH (08:28)
[2019-10-13] MEDS: Z GUARD REMEDY 4 OZ OINT TP SCH ×6 (08:29→20:50)
[2019-10-13] MEDS: ALENDRONATE 10 MG TABLET GT SCH (08:32)
[2019-10-13] MEDS: clonazePAM 0.5 MG TABLET GT SCH ×2 (08:32→20:55)
[2019-10-13] MEDS: IV NS 0.9% 1,000 ML IV PRN ×2 (09:14→21:51)
--- NOTE | 2019-10-13 09:30 | NUR ---
Seen and examined by Dr. Toure no new orders.
[2019-10-13] MEDS: ONDANSETRON 4 MG TAB.RAPDIS GT PRN ×2 (10:16→21:43)
--- NOTE | 2019-10-13 10:16 | NUR ---
rn notes administered Zofran 4 mg via gt for nausea per patient request.
--- NOTE | 2019-10-13 10:27 | NUR ---
Spoke to responsible constitution party Adry, informed Adry about room change.
[2019-10-13 19:57] VITALS: BP 112/65
[2019-10-13] MEDS: MONTELUKAST SODIUM (10MG) 10 MG TABLET GT SCH (20:56)
[2019-10-13] MEDS: AMITRIPTYLINE HCL 25 MG TABLET PO SCH (20:56)
[2019-10-13] MEDS: ATORVASTATIN 40 MG TABLET GT SCH (20:56)
[2019-10-13] MEDS: HYDROCODONE/APAP 5/325MG TABLET GT PRN (21:44)
[2019-10-14] MEDS: LEVOTHYROXINE SODIUM 25 MCG TABLET GT SCH (05:22)
[2019-10-14] MEDS: OMEPRAZOLE 20 MG CAPSULE.DR GT SCH (05:22)
[2019-10-14 07:48] VITALS: BP 127/75
[2019-10-14] MEDS: DULOXETINE HCL 30 MG CAPSULE.DR GT SCH (08:16)
[2019-10-14] MEDS: clonazePAM 0.5 MG TABLET GT SCH ×2 (08:16→21:23)
[2019-10-14] MEDS: Z GUARD REMEDY 4 OZ OINT TP SCH ×6 (08:16→21:23)
[2019-10-14] MEDS: ALENDRONATE 10 MG TABLET GT SCH (08:16)
[2019-10-14] MEDS: HYDROXYCHLOROQUINE 200 MG TABLET GT SCH (08:16)
[2019-10-14] MEDS: GABAPENTIN 300 MG CAPSULE GT SCH (08:16)
[2019-10-14] MEDS: HYDROGEN PEROXIDE 480 ML BOTTLE TP SCH ×2 (09:21→20:00)
--- NOTE | 2019-10-14 10:33 | NUR ---
It was discussed last week in IDT that due to risk of reflux aspiration, to keep patient's trach balloon inflated per ST. However since there is no episode of vomiting in the last couple of days, ST is recommending to deflate patient's balloon when drinking water. Dr. Toure made aware, with order to DC previous order of inflating balloon when giving oral gratification and keep it deflated instead. Order carried out. RT informed.
--- NOTE | 2019-10-14 11:18 | NUR ---
Seen and examined by Dr. Ashlee MD explained to resident the result of CT scan and the plan of Dr. Hairston (surgeon), however still awaiting for GI to see patient for consult. Dr. Rosado said that it is OK to DC IVF if patient is urinating. Patient is urinating in adequate amount through her diaper. No other order given at this time.
--- NOTE | 2019-10-14 12:00 | NUR ---
Spoke with resident's sister Tiara Cardoso and requested an update of patient's condition. She asked whether she can call her sister via video call, transferred her call to speak with SSD to schedule video call with patient.
[2019-10-14] MEDS: VITAL AF 1.2 1,000 ML BOTTLE GT PRN (13:48)
--- NOTE | 2019-10-14 16:30 | NUR ---
Placed a follow-up call to Dr. Choudhury, spoke with Anushka regarding GI consult. She called to ask the reason for the consult which is pancreatic pseudocyst. Result of CT scan also faxed to MD's office at . Endorsed to follow-up.
[2019-10-14] MEDS: ONDANSETRON 4 MG TAB.RAPDIS GT PRN (19:01)
[2019-10-14] MEDS: HYDROCODONE/APAP 5/325MG TABLET GT PRN (19:02)
[2019-10-14 20:16] VITALS: BP 147/88
[2019-10-14] MEDS: ATORVASTATIN 40 MG TABLET GT SCH (21:23)
[2019-10-14] MEDS: AMITRIPTYLINE HCL 25 MG TABLET PO SCH (21:23)
[2019-10-14] MEDS: MONTELUKAST SODIUM (10MG) 10 MG TABLET GT SCH (21:23)
[2019-10-15] MEDS: OMEPRAZOLE 20 MG CAPSULE.DR GT SCH (05:18)
[2019-10-15] MEDS: LEVOTHYROXINE SODIUM 25 MCG TABLET GT SCH (05:18)
[2019-10-15] MEDS: BISACODYL SUPP (10 MG) 10 MG/SUPP.RECT SUPP.RECT RC PRN (06:34)
[2019-10-15 07:41] VITALS: BP 141/85
[2019-10-15] MEDS: clonazePAM 0.5 MG TABLET GT SCH ×2 (09:00→21:11)
[2019-10-15] MEDS: HYDROXYCHLOROQUINE 200 MG TABLET GT SCH (09:00)
[2019-10-15] MEDS: ALENDRONATE 10 MG TABLET GT SCH (09:00)
[2019-10-15] MEDS: GABAPENTIN 300 MG CAPSULE GT SCH (09:00)
[2019-10-15] MEDS: DULOXETINE HCL 30 MG CAPSULE.DR GT SCH (09:00)
[2019-10-15] MEDS: Z GUARD REMEDY 4 OZ OINT TP SCH ×6 (09:00→21:12)
[2019-10-15] MEDS: HYDROGEN PEROXIDE 480 ML BOTTLE TP SCH ×2 (09:03→20:01)
[2019-10-15] MEDS: VITAL AF 1.2 1,000 ML BOTTLE GT PRN (12:40)
--- NOTE | 2019-10-15 12:49 | NUR ---
Received order for pt to have pureed diet with thin liquids for oral gratification at lunch only. Pt aware. Extrusion Machine Operator Suma said to continue current tube feeding order at this time and she will re-evaluate next week. Notified pt's daughter.
[2019-10-15] MEDS: HYDROCODONE/APAP 5/325MG TABLET GT PRN (13:01)
--- NOTE | 2019-10-15 15:37 | NUR ---
Facility Update: Per SA Line Service Attendant's request, this SW notified the patient's family, Adry Lim [phone] via [employer] system that a [facility] employee has tested positive for COVID-19. SW notified families that [facility] is following infection control guidelines at outlined by the [place] Department of Public Health. SW also informed family that all of the residents and staff will be re-tested for COVID-19. SW will be available as needed to support the patient and their family as needed.
[2019-10-15 20:06] VITALS: BP 134/82
[2019-10-15] MEDS: AMITRIPTYLINE HCL 25 MG TABLET PO SCH (21:12)
[2019-10-15] MEDS: ATORVASTATIN 40 MG TABLET GT SCH (21:12)
[2019-10-15] MEDS: MONTELUKAST SODIUM (10MG) 10 MG TABLET GT SCH (21:12)
[2019-10-15] MEDS: ONDANSETRON 4 MG TAB.RAPDIS GT PRN (21:12)
[2019-10-16] MEDS: OMEPRAZOLE 20 MG CAPSULE.DR GT SCH (05:28)
[2019-10-16] MEDS: LEVOTHYROXINE SODIUM 25 MCG TABLET GT SCH (05:28)
[2019-10-16] MEDS: VITAL AF 1.2 1,000 ML BOTTLE GT PRN (05:52)
[2019-10-16 07:48] VITALS: BP 144/91
[2019-10-16] MEDS: HYDROGEN PEROXIDE 480 ML BOTTLE TP SCH ×2 (09:00→19:54)
[2019-10-16] MEDS: ALENDRONATE 10 MG TABLET GT SCH (09:38)
[2019-10-16] MEDS: HYDROXYCHLOROQUINE 200 MG TABLET GT SCH (09:38)
[2019-10-16] MEDS: DULOXETINE HCL 30 MG CAPSULE.DR GT SCH (09:38)
[2019-10-16] MEDS: GABAPENTIN 300 MG CAPSULE GT SCH (09:38)
[2019-10-16] MEDS: clonazePAM 0.5 MG TABLET GT SCH ×2 (09:38→21:09)
[2019-10-16] MEDS: Z GUARD REMEDY 4 OZ OINT TP SCH ×6 (09:38→21:09)
[2019-10-16] MEDS: ONDANSETRON 4 MG TAB.RAPDIS GT PRN ×2 (09:46→18:32)
--- NOTE | 2019-10-16 12:15 | NUR ---
Asked ST if patient should have PMV when eating. She said that in her previous assessment patient cannot tolerate PMV, but will reassess patient on Saturday if she will be able to tolerate PMV use.
--- NOTE | 2019-10-16 16:08 | NUR ---
Made a follow-up call to Dr. Choudhury, spoke with MD and reminded him of GI consult. Briefly explained the reason for consult and said that he will see the patient tomorrow.
[2019-10-16 20:16] VITALS: BP 105/71
[2019-10-16 20:19] VITALS: BP 138/86
[2019-10-16] MEDS: ATORVASTATIN 40 MG TABLET GT SCH (21:09)
[2019-10-16] MEDS: AMITRIPTYLINE HCL 25 MG TABLET PO SCH (21:09)
[2019-10-16] MEDS: MONTELUKAST SODIUM (10MG) 10 MG TABLET GT SCH (21:09)
[2019-10-16] MEDS: HYDROCODONE/APAP 5/325MG TABLET GT PRN (21:13)
[2019-10-17] MEDS: LEVOTHYROXINE SODIUM 25 MCG TABLET GT SCH (05:27)
[2019-10-17] MEDS: OMEPRAZOLE 20 MG CAPSULE.DR GT SCH (05:27)
[2019-10-17] MEDS: VITAL AF 1.2 1,000 ML BOTTLE GT PRN (05:28)
--- NOTE | 2019-10-17 06:47 | NUR ---
Patient had 750ml output via gt drainage and voided x 2. Patient HR increase to 100-110 during the night. Patient slept well. will continue to monitor and will endorse to oncoming shift.
[2019-10-17 07:51] VITALS: BP 110/77
[2019-10-17] MEDS: Z GUARD REMEDY 2 OZ OINT TP SCH ×2 (09:00→21:54)
[2019-10-17] MEDS: HYDROGEN PEROXIDE 480 ML BOTTLE TP SCH ×2 (09:00→21:24)
[2019-10-17] MEDS: clonazePAM 0.5 MG TABLET GT SCH ×2 (09:24→21:53)
[2019-10-17] MEDS: HYDROXYCHLOROQUINE 200 MG TABLET GT SCH (09:24)
[2019-10-17] MEDS: DULOXETINE HCL 30 MG CAPSULE.DR GT SCH (09:24)
[2019-10-17] MEDS: GABAPENTIN 300 MG CAPSULE GT SCH (09:24)
[2019-10-17] MEDS: ALENDRONATE 10 MG TABLET GT SCH (09:24)
[2019-10-17] MEDS: Z GUARD REMEDY 4 OZ OINT TP SCH ×3 (09:25)
--- NOTE | 2019-10-17 14:20 | NUR ---
Monthly progress notes.Resident is alert, able to make needs known. Resident refused to watch Tv in her room as she sleeps a lot. She prefers to watch tv in the activity room and she likes to engage in conversation.She received daily visits such as reality orientation, tv,music,hand massage, sensory stimulation. These activities are provided as needed.
--- NOTE | 2019-10-17 15:37 | NUR ---
PT. IS AWAKE AND ALERT, TRACH CHANGE TOLERATED WELL WITH MINIMAL BLEEDING ON POST TRACH CHANGED. BREATH SOUNDS BILATERAL COARSE RHONCHI POST TRACH CHANGED. Addendum: 10/17/19 at 1537 by FERNANDEZ JOHN RT Amended: Links added.
[2019-10-17] MEDS: BISACODYL SUPP (10 MG) 10 MG/SUPP.RECT SUPP.RECT RC PRN (16:28)
--- NOTE | 2019-10-17 19:00 | NUR ---
Awake. Alert. Able to make needs known by mouthing words signs and gestures. Trach with cool aerosol with minimal bleeding. S/P trach tube change done by RT as ordered. No swelling. JT formula tolerating well. No N/V noted. GT drainage with 1800 mls of green and clear output. Abdomen is soft non distended. No bladder distension. Incontinent of bladder time two with large amount of urine. Dulcolax suppository given as ordered with no bowel movement yet. RN senior manufacturing supervisor notified. Abdominal surgical incision with steri-strips and on the lower area of incision continue to note area of hypergranulated tissue along incision line moist. Kept clean and dry. Patient had shower this am with total assist with all care and transfers. Up in rebekah-chair in dining room for lunch consumed 70 percent for oral gratification with supervision. Able to consume po fluids well with cuff deflated. No s/s of aspiration noted. Infection control maintained. All needs met and attended. All medications given as ordered. No acute distress noted. Call light in reach.
[2019-10-17 20:31] VITALS: BP 117/79
[2019-10-17] MEDS: AMITRIPTYLINE HCL 25 MG TABLET PO SCH (22:00)
[2019-10-17] MEDS: MONTELUKAST SODIUM (10MG) 10 MG TABLET GT SCH (22:00)
[2019-10-17] MEDS: ATORVASTATIN 40 MG TABLET GT SCH (22:00)
[2019-10-18] MEDS: VITAL AF 1.2 1,000 ML BOTTLE GT PRN (02:45)
[2019-10-18] MEDS: LEVOTHYROXINE SODIUM 25 MCG TABLET GT SCH (05:32)
[2019-10-18] MEDS: OMEPRAZOLE 20 MG CAPSULE.DR GT SCH (05:32)
[2019-10-18 07:38] VITALS: BP 98/63
[2019-10-18] MEDS: HYDROGEN PEROXIDE 480 ML BOTTLE TP SCH ×2 (08:27→19:54)
[2019-10-18] MEDS ORDERED: POLYETHYLENE GLYCOL 3350 17 GM POWD.PACK GT SCH (09:00)
[2019-10-18] MEDS: ALENDRONATE 10 MG TABLET GT SCH (09:45)
[2019-10-18] MEDS: clonazePAM 0.5 MG TABLET GT SCH ×2 (09:45→21:14)
[2019-10-18] MEDS: GABAPENTIN 300 MG CAPSULE GT SCH (09:45)
[2019-10-18] MEDS: Z GUARD REMEDY 2 OZ OINT TP SCH ×2 (09:45→21:14)
[2019-10-18] MEDS: DULOXETINE HCL 30 MG CAPSULE.DR GT SCH (09:45)
[2019-10-18] MEDS: HYDROXYCHLOROQUINE 200 MG TABLET GT SCH (09:45)
--- NOTE | 2019-10-18 10:00 | NUR ---
Called Dr. aRfaela Brannon' answering service to follow up regarding his GI consult, left message that patient has no BM for 5 days, vomited x1 today, patient has large amount of GT drainage about 800 ml at this time. Waiting for call back.
[2019-10-18] MEDS: ONDANSETRON 4 MG TAB.RAPDIS GT PRN (10:02)
--- NOTE | 2019-10-18 10:16 | NUR ---
Dr. Rafaela Choudhury called back, made him aware of patient not having BM for 5 days despite of prn laxatives given, fleet enema given 2 days ago and dulcolax yesterday given. He ordered miralax via jt daily. Dr. Choudhury stated he will come to see patient today. Noted and carried out.
[2019-10-18] MEDS: POLYETHYLENE GLYCOL 3350 17 GM POWD.PACK GT SCH (11:08)
--- NOTE | 2019-10-18 13:45 | NUR ---
Dr. Choudhury came and visited patient with new order to do KUB now and call him for results.
--- NOTE | 2019-10-18 16:10 | NUR ---
Called and left message to answering service of Dr. Choudhury regarding results of stat KUB,waiting for call back. Patient not in distress, closely monitored.
--- NOTE | 2019-10-18 17:43 | NUR ---
Patient has BM now, large soft stools,abdomen not distended anymore, soft to touch, patient feels relieved at this time. Kept patient safe and comfortable. Closely monitored
--- NOTE | 2019-10-18 18:25 | NUR ---
Called Dr. Choudhury second time, he replied, relayed to him KUB results, he is aware of result that drainage catheter within right side of abdomen is no longer in place. He stated " just leave everything the same, i can't do anything anymore". Patient awake, not in distress, no nausea and vomiting. Latest HR 109.
[2019-10-18 19:43] VITALS: BP 125/89
[2019-10-18] MEDS: HYDROCODONE/APAP 5/325MG TABLET GT PRN (20:00)
[2019-10-18] MEDS: ATORVASTATIN 40 MG TABLET GT SCH (21:14)
[2019-10-18] MEDS: MONTELUKAST SODIUM (10MG) 10 MG TABLET GT SCH (21:14)
[2019-10-18] MEDS: AMITRIPTYLINE HCL 25 MG TABLET PO SCH (21:14)
[2019-10-19] MEDS: LEVOTHYROXINE SODIUM 25 MCG TABLET GT SCH (05:23)
[2019-10-19] MEDS: OMEPRAZOLE 20 MG CAPSULE.DR GT SCH (05:23)
[2019-10-19] MEDS: VITAL AF 1.2 1,000 ML BOTTLE GT PRN (05:53)
[2019-10-19 07:42] VITALS: BP 144/87
[2019-10-19] MEDS ORDERED: POLYETHYLENE GLYCOL 3350 17 GM POWD.PACK GT SCH (09:00)
[2019-10-19] MEDS: HYDROGEN PEROXIDE 480 ML BOTTLE TP SCH ×2 (09:00→21:00)
[2019-10-19] MEDS: ALENDRONATE 10 MG TABLET GT SCH (09:20)
[2019-10-19] MEDS: DULOXETINE HCL 30 MG CAPSULE.DR GT SCH (09:20)
[2019-10-19] MEDS: HYDROXYCHLOROQUINE 200 MG TABLET GT SCH (09:23)
[2019-10-19] MEDS: clonazePAM 0.5 MG TABLET GT SCH ×2 (09:23→21:25)
[2019-10-19] MEDS: POLYETHYLENE GLYCOL 3350 17 GM POWD.PACK GT SCH (09:23)
[2019-10-19] MEDS: Z GUARD REMEDY 2 OZ OINT TP SCH ×2 (09:23→21:25)
[2019-10-19] MEDS: GABAPENTIN 300 MG CAPSULE GT SCH (09:23)
--- NOTE | 2019-10-19 10:45 | NUR ---
Seen and examined by Dr. Rosado, patient complained of stomach upset, gave order to d/c Omeprazole. Start Protonix 40 mg BID and Sucralfate 1 gram q 6Hrs for GERD. Abdomen soft and nondistended, active bowel sound in all quadrants, no vomiting noted. Showed also the result of KUB that was done yesterday, he said he will talk to radiology. Trach secured and midline. GT intact and patent connected to drainage bag by gravity draining greenish color gastric juice. JT intact and patent with ongoing feeding, tolerating well. Will continue to monitor.
[2019-10-19] MEDS: HYDROCODONE/APAP 5/325MG TABLET GT PRN (12:15)
[2019-10-19] MEDS ORDERED: SUCRALFATE 1 G/10 ML UDC GT SCH (12:19)
--- NOTE | 2019-10-19 12:19 | NUR ---
Daughter Adry informed about the new meds ordered by Dr. Rosado. Appreciated the call. She said she will call the to arrange for video call.
[2019-10-19] MEDS ORDERED: PANTOPRAZOLE 40 MG VIAL IV SCH (17:00)
[2019-10-19] MEDS: SUCRALFATE 1 G/10 ML UDC JT SCH ×2 (18:14→23:49)
[2019-10-19] MEDS: ONDANSETRON 4 MG TAB.RAPDIS GT PRN (18:22)
[2019-10-19 20:01] VITALS: BP 139/93
[2019-10-19] MEDS: AMITRIPTYLINE HCL 25 MG TABLET PO SCH (21:25)
[2019-10-19] MEDS: PANTOPRAZOLE 40 MG/PACK PACK JT SCH (21:25)
[2019-10-19] MEDS: MONTELUKAST SODIUM (10MG) 10 MG TABLET GT SCH (21:25)
[2019-10-19] MEDS: ATORVASTATIN 40 MG TABLET GT SCH (21:25)
[2019-10-20] MEDS: SUCRALFATE 1 G/10 ML UDC JT SCH ×3 (05:24→17:38)
[2019-10-20] MEDS: LEVOTHYROXINE SODIUM 25 MCG TABLET GT SCH (05:24)
[2019-10-20] MEDS: HYDROCODONE/APAP 5/325MG TABLET GT PRN ×2 (06:06→12:19)
[2019-10-20 08:01] VITALS: BP 145/76
[2019-10-20] MEDS: HYDROGEN PEROXIDE 480 ML BOTTLE TP SCH ×2 (08:25→21:00)
[2019-10-20 08:27] LABS: THYROID STIMULATING HORMONE 2.051 uIU/mL (0.358-3.74); URIC ACID 7.9 mg/dL (2.6-7.2)
[2019-10-20] MEDS: clonazePAM 0.5 MG TABLET GT SCH ×2 (08:27→21:36)
[2019-10-20] MEDS: DULOXETINE HCL 30 MG CAPSULE.DR GT SCH (08:27)
[2019-10-20] MEDS: GABAPENTIN 300 MG CAPSULE GT SCH (08:27)
[2019-10-20] MEDS: PANTOPRAZOLE 40 MG/PACK PACK JT SCH ×2 (08:27→21:38)
[2019-10-20] MEDS: Z GUARD REMEDY 2 OZ OINT TP SCH ×2 (08:28→21:38)
[2019-10-20] MEDS: ALENDRONATE 10 MG TABLET GT SCH (08:28)
[2019-10-20] MEDS: HYDROXYCHLOROQUINE 200 MG TABLET GT SCH (08:28)
[2019-10-20] MEDS: POLYETHYLENE GLYCOL 3350 17 GM POWD.PACK GT SCH (08:29)
[2019-10-20 08:46] LABS: CALCIUM, SERUM 9.2 mg/dL (8.5-10.1); CREATININE 1.1 mg/dL (0.6-1.3); MAGNESIUM 2.3 mg/dL (1.8-2.4); PHOSPHORUS 4.1 mg/dL (2.5-4.9)
[2019-10-20 08:51] LABS: POTASSIUM 2.3 mmol/L (3.5-5.1)
--- NOTE | 2019-10-20 09:00 | NUR ---
call from lab regarding critical lab value potassium 2.3. Charge nurse informed. Per charge nurse isabella she will contact Dr. Rosado regarding orders.
--- NOTE | 2019-10-20 09:25 | NUR ---
Relayed BMP, Mg. Phos, TSH and uric acid level to Dr. Loza. awaiting for orders.
--- NOTE | 2019-10-20 09:50 | NUR ---
Seen and examined by Dr. Toure, made aware that patient has a KUB done due to episode of not having BM for 5 days and increase gastric drainage. He said to inform Dr. Hairston (surgeon) and notify him of the result. No other order given.
--- NOTE | 2019-10-20 10:17 | NUR ---
Relayed K+ level 2.3 and the rest of the labs to Dr. Rosado including resident's HR which is trending high. Resident's B/P medications were held since 10/11/19 (Pola [facility] and Norvasc) Dr. Rosado resumed [place].
--- NOTE | 2019-10-20 11:01 | NUR ---
Per charge nurse Alexei orders received from and will replace potassium per MD order. Per charge nurse Alexei she faxed orders to pharmacy per MD order for potassium replacement.
--- NOTE | 2019-10-20 11:30 | NUR ---
Resident seen by ST, evaluated regarding the use of PMV. According to ST, resident wheezing with PMV use and she tolerates PMV for a short period about 10 minutes. New order given for patient to have small portion of pureed diet at lunch, deflate cuff for oral PO intake and use of PMV as tolerated. Order carried out.
[2019-10-20] MEDS: METOPROLOL TARTRATE 50 MG TABLET JT SCH ×2 (11:59→21:00)
[2019-10-20] MEDS: LOSARTAN POTASSIUM 50 MG TABLET JT SCH ×2 (12:00→21:00)
--- NOTE | 2019-10-20 12:07 | NUR ---
Patient/ Family Communication: Per patient's request, SW facilitated video call via Zoom between patient and the pt.'s daughter, Adry Lim [phone]. Patient observed smiling and becoming tearful. Patient stated she misses her daughter and is happy to see her. Adry was receptive to speaking with the pt. SW provided encouragement for the tp. and their family. SW will be available as needed to facilitate video call and provide support to the pt. and their family.
[2019-10-20] MEDS: POTASSIUM CHLORIDE 20 MEQ POWDER PACKET JT SCH ×2 (12:16→15:47)
[2019-10-20] MEDS: VITAL AF 1.2 1,000 ML BOTTLE GT PRN (12:19)
--- NOTE | 2019-10-20 12:19 | NUR ---
patient stating abdominal pain 11/08. patient requesting norco as ordered.
--- NOTE | 2019-10-20 12:40 | NUR ---
Notified Dr. Hairston of KUB result and patient having high gastric drainage from the drainage bag. He said that he will see patient tomorrow.
--- NOTE | 2019-10-20 14:56 | NUR ---
Patient refusing to have straight catheterization per existing md order. Patient voiding freely twice, no immediate need for straight catheterization. No complaints of nausea or abdominal distention noted.
[2019-10-20 19:54] VITALS: BP 100/48
[2019-10-20] MEDS: MONTELUKAST SODIUM (10MG) 10 MG TABLET GT SCH (21:38)
[2019-10-20] MEDS: AMITRIPTYLINE HCL 25 MG TABLET PO SCH (21:38)
[2019-10-20] MEDS: ATORVASTATIN 40 MG TABLET GT SCH (21:38)
[2019-10-21] MEDS: SUCRALFATE 1 G/10 ML UDC JT SCH ×5 (00:11→23:31)
[2019-10-21] MEDS: HYDROCODONE/APAP 5/325MG TABLET GT PRN (06:11)
[2019-10-21] MEDS: LEVOTHYROXINE SODIUM 25 MCG TABLET GT SCH (06:11)
[2019-10-21 07:46] VITALS: BP 96/51
[2019-10-21] MEDS: LOSARTAN POTASSIUM 50 MG TABLET JT SCH ×2 (09:00→21:00)
[2019-10-21] MEDS: METOPROLOL TARTRATE 50 MG TABLET JT SCH ×2 (09:00→21:00)
[2019-10-21] MEDS: HYDROGEN PEROXIDE 480 ML BOTTLE TP SCH ×2 (09:00→20:01)
--- NOTE | 2019-10-21 09:30 | NUR ---
Received a call from Dr. Hairston, surgeon. He said that he reviewed patient's previous CT scan with radiologist and ordered CT drainage of pancreatic pseudocyst. Requested outpatient account from admitting department, spoke with Shira and faxed order. Spoke with Manpreet from nuclear medicine, he said that patient should be NPO for the procedure and consent should be obtained from responsible green party. Will call family.
[2019-10-21] MEDS: clonazePAM 0.5 MG TABLET GT SCH ×2 (09:42→21:00)
[2019-10-21] MEDS: ALENDRONATE 10 MG TABLET GT SCH (09:42)
[2019-10-21] MEDS: DULOXETINE HCL 30 MG CAPSULE.DR GT SCH (09:42)
[2019-10-21] MEDS: POLYETHYLENE GLYCOL 3350 17 GM POWD.PACK GT SCH (09:43)
[2019-10-21] MEDS: HYDROXYCHLOROQUINE 200 MG TABLET GT SCH (09:43)
[2019-10-21] MEDS: GABAPENTIN 300 MG CAPSULE GT SCH (09:43)
[2019-10-21] MEDS: Z GUARD REMEDY 2 OZ OINT TP SCH (09:46)
[2019-10-21] MEDS: PANTOPRAZOLE 40 MG/PACK PACK JT SCH ×2 (09:46→21:52)
--- NOTE | 2019-10-21 10:00 | NUR ---
Obtained telephone consent from patient's daughter Adry for CT drainage of pancreatic pseudocyst, witnessed by two licensed nurses. Left a message to Manpreet to find out when they will be able to do the procedure, awaiting for call back. Meanwhile patient remain NPO.
--- NOTE | 2019-10-21 11:39 | NUR ---
FAMILY INVITATION TO PLAN OF CARE CONFERENCE: This SW called the patient's daughter,Adry Lim [phone] to invite her to the 10/23/2019 12:30-1:30pm IDT meeting. Per Adry, she will be able to participate in IDT. SW will follow up and call Adry for her participation.
--- NOTE | 2019-10-21 15:00 | NUR ---
Placed a follow-up call to nuclear medicine x2 to find out the status of patient's CT drainage, no response, awaiting for call back.
--- NOTE | 2019-10-21 16:05 | NUR ---
Resident was taken down to radiology for CT drainage of pancreatic pseudocyst, accompanied by loader technician. Patient in stable condition.
--- NOTE | 2019-10-21 18:00 | NUR ---
Resident returned back to the floor with TORO suction in place. GT draining by gravity with yellow to greenish in color. According to report MD would like to send specimen obtained from the drainage to be sent for culture. Order carried out. Feeding resumed. At this time report from CT still pending. Endorsed.
[2019-10-21 20:14] LABS: CHLORIDE,URINE RANDOM 50 mmol/L (55-125); POTASSIUM RNDM,URINE 31 mmol/L (25-125); URINE SODIUM, RANDOM 13 mmol/l (40-220)
[2019-10-21 20:14] LABS: CALCIUM, SERUM 8.5 mg/dL (8.5-10.1); CREATININE 2.8 mg/dL (0.6-1.3); POTASSIUM 4.1 mmol/L (3.5-5.1)
[2019-10-21 20:19] VITALS: BP 105/50
[2019-10-21] MEDS: ATORVASTATIN 40 MG TABLET GT SCH (21:52)
[2019-10-21] MEDS: Z GUARD REMEDY 4 OZ OINT TP SCH (21:52)
[2019-10-21] MEDS: AMITRIPTYLINE HCL 25 MG TABLET PO SCH (21:52)
[2019-10-21] MEDS: MONTELUKAST SODIUM (10MG) 10 MG TABLET GT SCH (21:52)
[2019-10-22] MEDS: VITAL AF 1.2 1,000 ML BOTTLE GT PRN (05:48)
[2019-10-22] MEDS: SUCRALFATE 1 G/10 ML UDC JT SCH ×4 (05:48→23:16)
[2019-10-22] MEDS: LEVOTHYROXINE SODIUM 25 MCG TABLET GT SCH (05:48)
[2019-10-22 07:32] VITALS: BP 115/63
--- NOTE | 2019-10-22 07:38 | NUR ---
Dr Hairston called and said that there will be a markedly diminished drainage from the gastrostomy.
[2019-10-22] MEDS: HYDROGEN PEROXIDE 480 ML BOTTLE TP SCH ×2 (08:40→19:41)
[2019-10-22] MEDS: ALENDRONATE 10 MG TABLET GT SCH (09:00)
[2019-10-22] MEDS: LOSARTAN POTASSIUM 50 MG TABLET JT SCH (09:00)
[2019-10-22] MEDS: clonazePAM 0.5 MG TABLET GT SCH ×2 (09:00→21:12)
[2019-10-22] MEDS: METOPROLOL TARTRATE 50 MG TABLET JT SCH ×2 (09:00→21:12)
[2019-10-22] MEDS: GABAPENTIN 300 MG CAPSULE GT SCH (09:00)
[2019-10-22] MEDS: DULOXETINE HCL 30 MG CAPSULE.DR GT SCH (09:00)
[2019-10-22] MEDS: POLYETHYLENE GLYCOL 3350 17 GM POWD.PACK GT SCH (09:00)
[2019-10-22] MEDS: Z GUARD REMEDY 4 OZ OINT TP SCH ×2 (09:00→21:12)
[2019-10-22] MEDS: PANTOPRAZOLE 40 MG/PACK PACK JT SCH ×2 (09:00→21:12)
[2019-10-22] MEDS: HYDROXYCHLOROQUINE 200 MG TABLET GT SCH (09:00)
[2019-10-22] MEDS: HYDROCODONE/APAP 5/325MG TABLET GT PRN ×2 (11:13→21:23)
--- NOTE | 2019-10-22 11:20 | NUR ---
Relayed lab results to Dr Loza. He said he will follow up.
[2019-10-22] MEDS ORDERED: IV NS 0.9% 1,000 ML IV PRN (11:50)
[2019-10-22 12:44] LABS: BASOPHILS % (AUTO) 0.2 % (0.0-2.0); HEMATOCRIT 29 % (33-45); HEMOGLOBIN 8.9 g/dL (11.5-14.8); LYMPHOCYTES # (AUTO) 0.9 /CMM (0.8-4.8); LYMPHOCYTES % (AUTO) 5.6 % (20.0-44.0); MEAN CORPUSCULAR HGB CONC 31 g/dl (31.0-36.0); MEAN CORPUSCULAR VOLUME 93 fL (82-100); MONOCYTES # (AUTO) 1.6 /CMM (0.1-1.30); MONOCYTES % (AUTO) 10.4 % (2.0-12.0); NEUTROPHILS # (AUTO) 12.6 /CMM (1.8-8.9); NEUTROPHILS % (AUTO) 83.8 % (43.0-81.0); PLATELET COUNT (AUTO) 325 /CMM (150-450); RED BLOOD CELL COUNT(AUTO) 3.07 MIL/uL (4.0-5.2); WHITE BLOOD COUNT (AUTO) 15.1 K/uL (4.3-11.0)
--- NOTE | 2019-10-22 14:21 | NUR ---
Pt was seen by Dr Loza. He ordered to give NS at 100 mL/hr and DC Cozaar. Notified pt's daughter.
--- NOTE | 2019-10-22 15:19 | NUR ---
Facility Update: Per SA Wire Loop Machine Operator's request, this SW notified the patient's family, Adry Lim [phone] via [employer] system that a Sub-Acute employee has tested positive for COVID-19. SW notified families that [facility] is following infection control guidelines at outlined by the [place] Department of Public Health. SW also informed family that all of the residents and staff will be re-tested for COVID-19. SW will be available as needed to support the patient and their family as needed.
[2019-10-22 16:05] LABS: ALBUMIN 2.6 g/dL (3.4-5.0); BILIRUBIN,TOTAL 0.2 mg/dL (0.2-1.0); CALCIUM, SERUM 8.4 mg/dL (8.5-10.1); CREATININE 1.7 mg/dL (0.6-1.3); MAGNESIUM 2.2 mg/dL (1.8-2.4); PHOSPHORUS 3.8 mg/dL (2.5-4.9); POTASSIUM 3.9 mmol/L (3.5-5.1); TOTAL PROTEIN, SERUM 8.3 g/dL (6.4-8.2)
--- NOTE | 2019-10-22 16:10 | NUR ---
Dr Loza ordered to place Ojeda catheter Fr 16 x 10 mL for urine output monitoring. Notified Adry.
--- NOTE | 2019-10-22 17:37 | NUR ---
Dr Loza wrote in his noted to considering discontinuing Cymbalta. Asked him if he wanted to DC it. He said he will wait for repeat labs.
[2019-10-22 20:09] VITALS: BP 107/52
[2019-10-22] MEDS: MONTELUKAST SODIUM (10MG) 10 MG TABLET GT SCH (21:12)
[2019-10-22] MEDS: AMITRIPTYLINE HCL 25 MG TABLET PO SCH (21:12)
[2019-10-22] MEDS: ATORVASTATIN 40 MG TABLET GT SCH (21:12)
[2019-10-23] MEDS: SUCRALFATE 1 G/10 ML UDC JT SCH ×3 (05:00→18:45)
[2019-10-23] MEDS: LEVOTHYROXINE SODIUM 25 MCG TABLET GT SCH (05:00)
[2019-10-23] MEDS: VITAL AF 1.2 1,000 ML BOTTLE GT PRN (05:45)
[2019-10-23 07:53] VITALS: BP 99/50
[2019-10-23] MEDS: GABAPENTIN 300 MG CAPSULE GT SCH (09:00)
[2019-10-23] MEDS: clonazePAM 0.5 MG TABLET GT SCH ×2 (09:00→21:24)
[2019-10-23] MEDS: PANTOPRAZOLE 40 MG/PACK PACK JT SCH ×2 (09:00→21:25)
[2019-10-23] MEDS: ALENDRONATE 10 MG TABLET GT SCH (09:00)
[2019-10-23] MEDS: HYDROXYCHLOROQUINE 200 MG TABLET GT SCH (09:00)
[2019-10-23] MEDS: Z GUARD REMEDY 4 OZ OINT TP SCH ×2 (09:00→21:25)
[2019-10-23] MEDS: POLYETHYLENE GLYCOL 3350 17 GM POWD.PACK GT SCH (09:00)
[2019-10-23] MEDS: DULOXETINE HCL 30 MG CAPSULE.DR GT SCH (09:00)
[2019-10-23] MEDS: METOPROLOL TARTRATE 50 MG TABLET JT SCH ×2 (09:00→21:00)
--- NOTE | 2019-10-23 09:00 | NUR ---
Seen and examined by Dr. Loza, no new order given at this time. Will continue to monitor.
--- NOTE | 2019-10-23 09:28 | NUR ---
Received electronic order from Dr. Loza to do CBC, CMP, Mg, Phosphorus today 10/23/19.
[2019-10-23] MEDS: HYDROGEN PEROXIDE 480 ML BOTTLE TP SCH ×2 (09:31→21:00)
[2019-10-23 10:32] LABS: BASOPHILS % (AUTO) 0.1 % (0.0-2.0); EOSINOPHILS % (AUTO) 0.2 % (0.0-6.0); HEMATOCRIT 29 % (33-45); HEMOGLOBIN 9.2 g/dL (11.5-14.8); LYMPHOCYTES # (AUTO) 0.9 /CMM (0.8-4.8); MEAN CORPUSCULAR HGB CONC 32 g/dl (31.0-36.0); MEAN CORPUSCULAR VOLUME 92 fL (82-100); MONOCYTES # (AUTO) 1.3 /CMM (0.1-1.30); MONOCYTES % (AUTO) 8.7 % (2.0-12.0); NEUTROPHILS # (AUTO) 12.2 /CMM (1.8-8.9); PLATELET COUNT (AUTO) 316 /CMM (150-450); RED BLOOD CELL COUNT(AUTO) 3.13 MIL/uL (4.0-5.2); WHITE BLOOD COUNT (AUTO) 14.4 K/uL (4.3-11.0)
[2019-10-23] MEDS: HYDROCODONE/APAP 5/325MG TABLET GT PRN ×2 (10:32→21:03)
[2019-10-23 11:16] LABS: ALBUMIN 2.7 g/dL (3.4-5.0); BILIRUBIN,TOTAL 0.2 mg/dL (0.2-1.0); CALCIUM, SERUM 8.8 mg/dL (8.5-10.1); CREATININE 1.2 mg/dL (0.6-1.3); MAGNESIUM 2.2 mg/dL (1.8-2.4); PHOSPHORUS 2.7 mg/dL (2.5-4.9); POTASSIUM 3.3 mmol/L (3.5-5.1)
--- NOTE | 2019-10-23 12:20 | NUR ---
Seen and examined by Dr. Rosado, checked drain output, F/C output and gastric output. Reviewed lab results with new order to give KCL 40 meq via JT x 1 dose d/t K+ 3.3.
[2019-10-23] MEDS ORDERED: POTASSIUM CHLORIDE 20 MEQ POWDER PACKET JT ONE (13:00)
--- NOTE | 2019-10-23 15:47 | NUR ---
INTERDISCIPLINARY PLAN OF CARE CONFERENCE took place today. The patients responsible alliance party/ Adry Raphael [phone] participated via [address] conference[address] Toure and Interdisciplinary team discussed the plan of care in detail. Current orders as well as treatments and medications were reviewed. 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 Toure ordered downsize trach from shiley 8 to shiley 6 cuffed on 10/26/2019. See other disciplines IDT notes for further details.
--- NOTE | 2019-10-23 16:47 | NUR ---
Sent lab results to Dr. Loza, no new order.
[2019-10-23] MEDS: ONDANSETRON 4 MG TAB.RAPDIS GT PRN (16:56)
[2019-10-23 20:03] VITALS: BP 97/64
[2019-10-23] MEDS: MONTELUKAST SODIUM (10MG) 10 MG TABLET GT SCH (21:25)
[2019-10-23] MEDS: ATORVASTATIN 40 MG TABLET GT SCH (21:25)
[2019-10-23] MEDS: AMITRIPTYLINE HCL 25 MG TABLET PO SCH (21:25)
[2019-10-24] MEDS: SUCRALFATE 1 G/10 ML UDC JT SCH ×5 (00:08→23:28)
[2019-10-24] MEDS: VITAL AF 1.2 1,000 ML BOTTLE GT PRN (05:31)
[2019-10-24] MEDS: LEVOTHYROXINE SODIUM 25 MCG TABLET GT SCH (05:31)
[2019-10-24 07:45] VITALS: BP 113/76
[2019-10-24] MEDS: DULOXETINE HCL 30 MG CAPSULE.DR GT SCH (08:07)
[2019-10-24] MEDS: ALENDRONATE 10 MG TABLET GT SCH (08:07)
[2019-10-24] MEDS: clonazePAM 0.5 MG TABLET GT SCH ×2 (08:08→21:18)
[2019-10-24] MEDS: PANTOPRAZOLE 40 MG/PACK PACK JT SCH ×2 (08:08→21:18)
[2019-10-24] MEDS: METOPROLOL TARTRATE 50 MG TABLET JT SCH ×2 (08:08→21:18)
[2019-10-24] MEDS: HYDROXYCHLOROQUINE 200 MG TABLET GT SCH (08:08)
[2019-10-24] MEDS: POLYETHYLENE GLYCOL 3350 17 GM POWD.PACK GT SCH (08:08)
[2019-10-24] MEDS: GABAPENTIN 300 MG CAPSULE GT SCH (08:08)
[2019-10-24] MEDS: HYDROGEN PEROXIDE 480 ML BOTTLE TP SCH ×2 (08:25→21:18)
[2019-10-24] MEDS: Z GUARD REMEDY 4 OZ OINT TP SCH ×2 (09:00→21:18)
--- NOTE | 2019-10-24 16:59 | NUR ---
RT NOTE PATIENT RECEIVED ON COOL AEROSOL WITH ORDERED FIO2 AND LITER FLOW. TRACH TUBE IN PLACE, PATENT, AND SECURE WITH TRACH TIE. AMBU BAG, AND BACK UP TRACH BY THE BEDSIDE. NO DISTRESS AT THIS TIME. MONITOR THROUGHOUT SHIFT.
[2019-10-24 20:08] VITALS: BP 116/72
[2019-10-24 20:11] LABS: CREATININE, URINE 34.2 MG/DL (30.0-125.0)
[2019-10-24 20:19] LABS: APPEARANCE,URINE CLOUDY (CLEAR); BILIRUBIN,URINE NEGATIVE (NEGATIVE); BLOOD, URINE LARGE Ery/uL (NEGATIVE); COLOR,URINE YELLOW (YELLOW); KETONES,URINE NEGATIVE (NEGATIVE); LEUKOCYTE ESTERASE ,URINE MODERATE (NEGATIVE); NITRITE, URINE NEGATIVE (NEGATIVE); PROTEIN,URINE 30 mg/dl (NEGATIVE); UGLUCOSE NEGATIVE (NEGATIVE); UROBILINOGEN,URINE 0.2 EU/dL (0.2)
[2019-10-24 20:42] LABS: BACTERIA,URINE 4+ /HPF (None Seen); RBC,URINE 51-80 /HPF (0-2); SQUAMOUS EPITHELIAL CELL,UR 0-2 /HPF (None Seen); WBC,URINE 21-50 /HPF (0-3)
[2019-10-24 20:52] LABS: EOSINOPHIL,URINE None Seen
[2019-10-24] MEDS: AMITRIPTYLINE HCL 25 MG TABLET PO SCH (21:18)
[2019-10-24] MEDS: ATORVASTATIN 40 MG TABLET GT SCH (21:18)
[2019-10-24] MEDS: MONTELUKAST SODIUM (10MG) 10 MG TABLET GT SCH (21:18)
[2019-10-24] MEDS: HYDROCODONE/APAP 5/325MG TABLET GT PRN (21:19)
[2019-10-25] MEDS: VITAL AF 1.2 1,000 ML BOTTLE GT PRN ×2 (00:17→18:50)
[2019-10-25] MEDS: LEVOTHYROXINE SODIUM 25 MCG TABLET GT SCH (05:39)
[2019-10-25] MEDS: SUCRALFATE 1 G/10 ML UDC JT SCH ×3 (05:39→18:04)
[2019-10-25 07:07] LABS: BASOPHILS % (AUTO) 0.3 % (0.0-2.0); EOSINOPHILS % (AUTO) 0.7 % (0.0-6.0); HEMATOCRIT 31 % (33-45); HEMOGLOBIN 9.8 g/dL (11.5-14.8); LYMPHOCYTES # (AUTO) 1.5 /CMM (0.8-4.8); LYMPHOCYTES % (AUTO) 10.7 % (20.0-44.0); MEAN CORPUSCULAR HGB CONC 32 g/dl (31.0-36.0); MEAN CORPUSCULAR VOLUME 93 fL (82-100); MONOCYTES # (AUTO) 2.5 /CMM (0.1-1.30); MONOCYTES % (AUTO) 17.5 % (2.0-12.0); NEUTROPHILS # (AUTO) 10.2 /CMM (1.8-8.9); NEUTROPHILS % (AUTO) 70.8 % (43.0-81.0); PLATELET COUNT (AUTO) 349 /CMM (150-450); WHITE BLOOD COUNT (AUTO) 14.5 K/uL (4.3-11.0)
[2019-10-25 07:25] LABS: ALBUMIN 2.8 g/dL (3.4-5.0); BILIRUBIN,TOTAL 0.3 mg/dL (0.2-1.0); CALCIUM, SERUM 9.4 mg/dL (8.5-10.1); CREATININE 0.8 mg/dL (0.6-1.3); MAGNESIUM 2.1 mg/dL (1.8-2.4); PHOSPHORUS 2.7 mg/dL (2.5-4.9); POTASSIUM 4.2 mmol/L (3.5-5.1); TOTAL PROTEIN, SERUM 8.5 g/dL (6.4-8.2)
[2019-10-25 07:34] VITALS: BP 112/70
[2019-10-25] MEDS: DULOXETINE HCL 30 MG CAPSULE.DR GT SCH (08:26)
[2019-10-25] MEDS: POLYETHYLENE GLYCOL 3350 17 GM POWD.PACK GT SCH (08:29)
[2019-10-25] MEDS: clonazePAM 0.5 MG TABLET GT SCH ×2 (08:29→21:20)
[2019-10-25] MEDS: ALENDRONATE 10 MG TABLET GT SCH (08:29)
[2019-10-25] MEDS: GABAPENTIN 300 MG CAPSULE GT SCH (08:29)
[2019-10-25] MEDS: METOPROLOL TARTRATE 50 MG TABLET JT SCH ×2 (08:31→21:20)
[2019-10-25] MEDS: PANTOPRAZOLE 40 MG/PACK PACK JT SCH ×2 (08:31→21:20)
[2019-10-25] MEDS: HYDROXYCHLOROQUINE 200 MG TABLET GT SCH (08:32)
[2019-10-25] MEDS: Z GUARD REMEDY 4 OZ OINT TP SCH ×2 (08:32→21:20)
[2019-10-25] MEDS: HYDROGEN PEROXIDE 480 ML BOTTLE TP SCH ×2 (09:00→21:00)
[2019-10-25] MEDS: ONDANSETRON 4 MG TAB.RAPDIS GT PRN (13:24)
[2019-10-25] MEDS: HYDROCODONE/APAP 5/325MG TABLET GT PRN (16:34)
[2019-10-25 20:29] VITALS: BP_SYST 112; BP_SYST 126; BP_DIAS 71; BP_DIAS 74
[2019-10-25] MEDS: MONTELUKAST SODIUM (10MG) 10 MG TABLET GT SCH (21:21)
[2019-10-25] MEDS: ATORVASTATIN 40 MG TABLET GT SCH (21:21)
[2019-10-25] MEDS: AMITRIPTYLINE HCL 25 MG TABLET PO SCH (21:21)
[2019-10-26] MEDS: SUCRALFATE 1 G/10 ML UDC JT SCH ×5 (00:12→23:18)
[2019-10-26] MEDS: LEVOTHYROXINE SODIUM 25 MCG TABLET GT SCH (05:48)
[2019-10-26] MEDS: HYDROCODONE/APAP 5/325MG TABLET GT PRN ×3 (06:35→21:52)
[2019-10-26] MEDS: HYDROGEN PEROXIDE 480 ML BOTTLE TP SCH ×2 (08:38→21:00)
[2019-10-26] MEDS: ALENDRONATE 10 MG TABLET GT SCH (09:13)
[2019-10-26] MEDS: clonazePAM 0.5 MG TABLET GT SCH ×2 (09:13→20:18)
[2019-10-26] MEDS: GABAPENTIN 300 MG CAPSULE GT SCH (09:13)
[2019-10-26] MEDS: POLYETHYLENE GLYCOL 3350 17 GM POWD.PACK GT SCH (09:13)
[2019-10-26] MEDS: DULOXETINE HCL 30 MG CAPSULE.DR GT SCH (09:13)
[2019-10-26] MEDS: Z GUARD REMEDY 4 OZ OINT TP SCH ×2 (09:14→20:19)
[2019-10-26] MEDS: PANTOPRAZOLE 40 MG/PACK PACK JT SCH ×2 (09:14→20:19)
[2019-10-26] MEDS: HYDROXYCHLOROQUINE 200 MG TABLET GT SCH (09:14)
[2019-10-26] MEDS: METOPROLOL TARTRATE 50 MG TABLET JT SCH ×2 (09:14→20:19)
[2019-10-26 11:59] VITALS: BP 122/64
--- NOTE | 2019-10-26 14:09 | NUR ---
RT NOTE DOWNSIZED TRACH FROM SHILEY 8 CUFFED TO SHILEY 6 CUFFED, PER MD ORDER. MINIMAL BLEEDING NOTED POST TRACH CHANGE. SX DONE PRE/POST PROCEDURE. EQUAL BILATERAL BREATH SOUNDS AND CHEST RISE NOTED. PT TRACH IS PATENT AND SECURE. NO ACUTE RESPIRATORY DISTRESS NOTED. CHARGE NURSE ANIBAL AND DANIEL AMARAL AWARE. Addendum: 10/26/19 at 1413 by MANI COSTA RT Amended: Links added.
--- NOTE | 2019-10-26 16:04 | NUR ---
Pt has not been pulling out life-sustaining tubings, bilateral soft wrist restraints not being used anymore. Pt calm and cooperative. She has been moved to a room next to nurses station. Received order to DC bilateral soft wrist restraints. Notified pt's daughter Adry. Addendum: 10/27/19 at 1035 by CHARLIE GRULLON RN Reminded pt on how to use her call light. Provided safe environment and placed the things she frequently uses within easy reach.
[2019-10-26 20:29] VITALS: BP 97/60
[2019-10-26] MEDS: ATORVASTATIN 40 MG TABLET GT SCH (21:21)
[2019-10-26] MEDS: MONTELUKAST SODIUM (10MG) 10 MG TABLET GT SCH (21:21)
[2019-10-26] MEDS: ONDANSETRON 4 MG TAB.RAPDIS GT PRN (21:22)
[2019-10-26] MEDS: AMITRIPTYLINE HCL 25 MG TABLET PO SCH (21:22)
[2019-10-27] MEDS: LEVOTHYROXINE SODIUM 25 MCG TABLET GT SCH (05:13)
[2019-10-27] MEDS: SUCRALFATE 1 G/10 ML UDC JT SCH ×4 (05:13→23:18)
[2019-10-27] MEDS: HYDROCODONE/APAP 5/325MG TABLET GT PRN ×2 (05:14→17:05)
[2019-10-27] MEDS: HYDROGEN PEROXIDE 480 ML BOTTLE TP SCH ×2 (08:13→21:43)
[2019-10-27] MEDS: POLYETHYLENE GLYCOL 3350 17 GM POWD.PACK GT SCH (09:18)
[2019-10-27] MEDS: HYDROXYCHLOROQUINE 200 MG TABLET GT SCH (09:18)
[2019-10-27] MEDS: GABAPENTIN 300 MG CAPSULE GT SCH (09:18)
[2019-10-27] MEDS: METOPROLOL TARTRATE 50 MG TABLET JT SCH ×2 (09:18→21:30)
[2019-10-27] MEDS: Z GUARD REMEDY 4 OZ OINT TP SCH ×2 (09:18→21:30)
[2019-10-27] MEDS: ALENDRONATE 10 MG TABLET GT SCH (09:18)
[2019-10-27] MEDS: clonazePAM 0.5 MG TABLET GT SCH ×2 (09:18→21:29)
[2019-10-27] MEDS: PANTOPRAZOLE 40 MG/PACK PACK JT SCH ×2 (09:18→21:30)
[2019-10-27] MEDS: DULOXETINE HCL 30 MG CAPSULE.DR GT SCH (09:18)
[2019-10-27] MEDS: ONDANSETRON 4 MG TAB.RAPDIS GT PRN (09:19)
--- NOTE | 2019-10-27 10:27 | NUR ---
Seen by Dr Toure today. Asked him when pt can be given pneumonia vaccine. He said to hold off for now. Pt might need antibiotics. Preliminary urine culture shows gram negative rods and abdominal fluid culture shows gram positive cocci in clusters. Left message for Dr Rosado regarding culture results. Pharmacy is recommending Rocephin for both cultures. Informed Dr Toure that pt vomited once yesterday and still having output via GT. Pt's trach tube was downsized from Shiley # 8 to Shiley # 6, pt tolerating well. She is also tolerating PMV well.
[2019-10-27 11:13] VITALS: BP 111/63
--- NOTE | 2019-10-27 11:51 | NUR ---
Pt refused to eat lunch (oral gratification only). She said, "the food is awful." Encouraged her to try the food and explained to her that she has to start with eating pureed diet to advance to regular diet, but she still refused. Offered her alternative foods but she still refused. Continued JT feeding.
[2019-10-27] MEDS: VITAL AF 1.2 1,000 ML BOTTLE GT PRN (13:46)
--- NOTE | 2019-10-27 16:17 | NUR ---
Left final urine culture result to Dr Rosado.
--- NOTE | 2019-10-27 18:39 | NUR ---
Relayed urine and abdominal fluid cultures to HELP DESK ENGINEER Ronda Méndez. She said to refer pt to ID. Notified HELP DESK ENGINEER Camelia.
[2019-10-27 20:22] VITALS: BP 112/70
[2019-10-27] MEDS: MONTELUKAST SODIUM (10MG) 10 MG TABLET GT SCH (21:30)
[2019-10-27] MEDS: ATORVASTATIN 40 MG TABLET GT SCH (21:30)
[2019-10-27] MEDS: AMITRIPTYLINE HCL 25 MG TABLET PO SCH (21:30)
--- NOTE | 2019-10-28 05:00 | NUR ---
DANIEL NOTES Collected specimen for Covid testing. Pt tolerated well. Specimen sent to lab. Addendum: 10/28/19 at 0640 by SANCHEZ HARRELL RN ERROR: please disregard notes above
[2019-10-28] MEDS: LEVOTHYROXINE SODIUM 25 MCG TABLET GT SCH (05:36)
[2019-10-28] MEDS: SUCRALFATE 1 G/10 ML UDC JT SCH ×3 (05:36→18:20)
--- NOTE | 2019-10-28 07:10 | NUR ---
RN NOTES received new order from TRINIDAD Sandy to start IV vancomycin, pharm to dose, Levaquin 500mg via gt daily, noted and carried out. Faxed to pharmacy.
[2019-10-28 07:46] VITALS: BP 102/60
[2019-10-28] MEDS ORDERED: FEE PK DOSING 1 MIN EA MC ONE (08:17)
--- NOTE | 2019-10-28 08:20 | NUR ---
[facility] pharmacist Ashish dosed Vancomycin. 1 gram IV given as loading dose then 750 mg q 12 hours.
[2019-10-28] MEDS: ALENDRONATE 10 MG TABLET GT SCH (09:00)
[2019-10-28] MEDS: POLYETHYLENE GLYCOL 3350 17 GM POWD.PACK GT SCH (09:00)
[2019-10-28] MEDS: METOPROLOL TARTRATE 50 MG TABLET JT SCH ×2 (09:00→21:00)
[2019-10-28] MEDS ORDERED: VANCOMYCIN 1 GM in IV D5W 250 ML IV ONE (09:00)
[2019-10-28] MEDS: DULOXETINE HCL 30 MG CAPSULE.DR GT SCH (09:00)
[2019-10-28] MEDS: GABAPENTIN 300 MG CAPSULE GT SCH (09:00)
[2019-10-28] MEDS: LEVOFLOXACIN (500MG) 500 MG TABLET PO SCH (09:00)
[2019-10-28] MEDS: clonazePAM 0.5 MG TABLET GT SCH ×2 (09:00→21:00)
[2019-10-28] MEDS: Z GUARD REMEDY 4 OZ OINT TP SCH ×2 (09:00→21:11)
[2019-10-28] MEDS: PANTOPRAZOLE 40 MG/PACK PACK JT SCH ×2 (09:00→21:11)
[2019-10-28] MEDS: HYDROXYCHLOROQUINE 200 MG TABLET GT SCH (09:00)
[2019-10-28] MEDS: HYDROGEN PEROXIDE 480 ML BOTTLE TP SCH ×2 (09:22→19:40)
--- NOTE | 2019-10-28 12:58 | NUR ---
Notified family that Covid-19 test is negative via [employer].
[2019-10-28] MEDS: HYDROCODONE/APAP 5/325MG TABLET GT PRN (16:56)
[2019-10-28] MEDS: VITAL AF 1.2 1,000 ML BOTTLE GT PRN (18:20)
--- NOTE | 2019-10-28 18:47 | NUR ---
Seen and examined by TRINIDAD Denise with new order to give Levaquin and Vancomycin IV x 7 days.
[2019-10-28] MEDS: VANCOMYCIN 0.75 GM in IV D5W 250 ML IV SCH (20:20)
[2019-10-28 20:29] VITALS: BP 99/61
[2019-10-28] MEDS: ATORVASTATIN 40 MG TABLET GT SCH (21:11)
[2019-10-28] MEDS: MONTELUKAST SODIUM (10MG) 10 MG TABLET GT SCH (21:11)
[2019-10-28] MEDS: AMITRIPTYLINE HCL 25 MG TABLET PO SCH (21:12)
[2019-10-29] MEDS: HYDROCODONE/APAP 5/325MG TABLET GT PRN (05:42)
[2019-10-29] MEDS: LEVOTHYROXINE SODIUM 25 MCG TABLET GT SCH (05:43)
[2019-10-29] MEDS: SUCRALFATE 1 G/10 ML UDC JT SCH ×5 (05:43→23:22)
[2019-10-29 07:14] LABS: CALCIUM, SERUM 8.7 mg/dL (8.5-10.1); POTASSIUM 3.6 mmol/L (3.5-5.1)
[2019-10-29 07:33] VITALS: BP 100/65
[2019-10-29] MEDS: HYDROGEN PEROXIDE 480 ML BOTTLE TP SCH ×2 (09:00→19:55)
[2019-10-29] MEDS: METOPROLOL TARTRATE 50 MG TABLET JT SCH ×2 (09:00→20:35)
[2019-10-29] MEDS: FLUCONAZOLE (100 MG) 100 MG TABLET PO SCH (09:00)
[2019-10-29] MEDS: VANCOMYCIN 0.75 GM in IV D5W 250 ML IV SCH ×2 (09:05→21:00)
[2019-10-29] MEDS: POLYETHYLENE GLYCOL 3350 17 GM POWD.PACK GT SCH (09:25)
[2019-10-29] MEDS: DULOXETINE HCL 30 MG CAPSULE.DR GT SCH (09:25)
[2019-10-29] MEDS: PANTOPRAZOLE 40 MG/PACK PACK JT SCH ×2 (09:25→20:36)
[2019-10-29] MEDS: GABAPENTIN 300 MG CAPSULE GT SCH (09:25)
[2019-10-29] MEDS: LEVOFLOXACIN (500MG) 500 MG TABLET PO SCH (09:25)
[2019-10-29] MEDS: Z GUARD REMEDY 4 OZ OINT TP SCH ×2 (09:25→20:36)
[2019-10-29] MEDS: ALENDRONATE 10 MG TABLET GT SCH (09:25)
[2019-10-29] MEDS: clonazePAM 0.5 MG TABLET GT SCH ×2 (09:25→20:35)
[2019-10-29] MEDS: HYDROXYCHLOROQUINE 200 MG TABLET GT SCH (09:25)
--- NOTE | 2019-10-29 14:44 | NUR ---
Seen by Dr Rosado. Pt informed Dr Rosado she is concerned about her vomiting. Dr Rosado explained to her why she is vomiting and also explained that another CT needs to be done to find out if the pseudocyst is smaller. He told her that if has not gotten smaller, she might need surgery. Dr Rosado requested charge nurse to ask Dr Hairston what is the plan for the pt. Dr Hairston ordered CT abdomen pelvis with oral and IV contrast on 11/02/19. Notified Dr Rosado that pt has been refusing her pureed diet. He said to refer to boat cleaner for supplements. Received order to give Ensure 1 can po BID. Notified Adry.
--- NOTE | 2019-10-29 17:48 | NUR ---
Dr Loza ordered to decrease JT water flushes from 250 mL to 50 mL q 6 hours. Notified Adry.
[2019-10-29] MEDS: ENSURE ENLIVE 237 ML LIQUID (VANILLA) PO SCH (17:59)
[2019-10-29] MEDS: BISACODYL SUPP (10 MG) 10 MG/SUPP.RECT SUPP.RECT RC PRN (18:04)
[2019-10-29] MEDS: VITAL AF 1.2 1,000 ML BOTTLE GT PRN (18:05)
--- NOTE | 2019-10-29 19:20 | NUR ---
Informed family that an asymptomatic staff tested positive for Covid-19 with routine testing, pt will be tested weekly for Covid-19. Pt asymptomatic.
[2019-10-29 19:33] VITALS: BP 96/60
--- NOTE | 2019-10-29 21:03 | NUR ---
Vancomycin 750 mg not given d/t level is 32mg/dl. Will notify IV pharmacist for new dosing in AM.
[2019-10-29] MEDS: ATORVASTATIN 40 MG TABLET GT SCH (21:11)
[2019-10-29] MEDS: AMITRIPTYLINE HCL 25 MG TABLET PO SCH (21:12)
[2019-10-29] MEDS: MONTELUKAST SODIUM (10MG) 10 MG TABLET GT SCH (21:12)
[2019-10-30] MEDS: SUCRALFATE 1 G/10 ML UDC JT SCH ×3 (05:10→17:25)
[2019-10-30] MEDS: LEVOTHYROXINE SODIUM 25 MCG TABLET GT SCH (05:10)
[2019-10-30] MEDS: HYDROCODONE/APAP 5/325MG TABLET GT PRN ×2 (05:40→12:56)
[2019-10-30 07:26] LABS: CALCIUM, SERUM 8.6 mg/dL (8.5-10.1)
[2019-10-30 07:35] VITALS: BP 97/71
[2019-10-30] MEDS: HYDROGEN PEROXIDE 480 ML BOTTLE TP SCH ×2 (07:47→19:51)
[2019-10-30] MEDS: FLUCONAZOLE (100 MG) 100 MG TABLET PO SCH (09:00)
[2019-10-30] MEDS: Z GUARD REMEDY 4 OZ OINT TP SCH ×2 (09:00→20:25)
[2019-10-30] MEDS: ENSURE ENLIVE 237 ML LIQUID (VANILLA) PO SCH ×2 (09:00→17:25)
[2019-10-30] MEDS: METOPROLOL TARTRATE 50 MG TABLET JT SCH ×2 (09:00→20:24)
--- NOTE | 2019-10-30 09:00 | NUR ---
Vancomycin IV scheduled for 0900 was held per pharmacist Patricia d/t high Vanco trough level- 32. For Vanco trough level in AM at 0600.
[2019-10-30] MEDS: GABAPENTIN 300 MG CAPSULE GT SCH (09:58)
[2019-10-30] MEDS: clonazePAM 0.5 MG TABLET GT SCH ×2 (09:58→20:24)
[2019-10-30] MEDS: HYDROXYCHLOROQUINE 200 MG TABLET GT SCH (09:58)
[2019-10-30] MEDS: DULOXETINE HCL 30 MG CAPSULE.DR GT SCH (09:58)
[2019-10-30] MEDS: POLYETHYLENE GLYCOL 3350 17 GM POWD.PACK GT SCH (09:58)
[2019-10-30] MEDS: ALENDRONATE 10 MG TABLET GT SCH (09:58)
[2019-10-30] MEDS: PANTOPRAZOLE 40 MG/PACK PACK JT SCH ×2 (09:58→20:24)
[2019-10-30] MEDS: LEVOFLOXACIN (500MG) 500 MG TABLET PO SCH (09:59)
--- NOTE | 2019-10-30 15:23 | NUR ---
RT NOTE: RECEIVED TRACH PT ON COOL AEROSOL. NO RESPIRATORY DISTRESS NOTED. TRACH CHECKED SECURE AND PATENT. SXD AND LAVAGE Q ROUND AND NEEDED. TRACH CARE DONE. SPARE TRACH AND AMBU BAG @ BEDSIDE. PMV ON/OFF PER PT'S REQUEST. XIOMY WELL. RN AWARE. VENT @ BEDSIDE ON STANDBY.
[2019-10-30] MEDS: VITAL AF 1.2 1,000 ML BOTTLE GT PRN (17:27)
[2019-10-30 19:34] VITALS: BP 116/80
[2019-10-30] MEDS: MONTELUKAST SODIUM (10MG) 10 MG TABLET GT SCH (21:23)
[2019-10-30] MEDS: ATORVASTATIN 40 MG TABLET GT SCH (21:23)
[2019-10-30] MEDS: AMITRIPTYLINE HCL 25 MG TABLET PO SCH (21:23)
[2019-10-31] MEDS: SUCRALFATE 1 G/10 ML UDC JT SCH ×4 (00:05→18:20)
[2019-10-31] MEDS: HYDROCODONE/APAP 5/325MG TABLET GT PRN ×2 (05:10→18:05)
[2019-10-31] MEDS: LEVOTHYROXINE SODIUM 25 MCG TABLET GT SCH (05:36)
[2019-10-31 07:19] LABS: CALCIUM, SERUM 8.2 mg/dL (8.5-10.1); POTASSIUM 4.2 mmol/L (3.5-5.1)
[2019-10-31 07:23] VITALS: BP 111/73
[2019-10-31] MEDS: DULOXETINE HCL 30 MG CAPSULE.DR GT SCH (08:35)
[2019-10-31] MEDS: METOPROLOL TARTRATE 50 MG TABLET JT SCH ×2 (08:37→20:43)
[2019-10-31] MEDS: ALENDRONATE 10 MG TABLET GT SCH (08:42)
[2019-10-31] MEDS: POLYETHYLENE GLYCOL 3350 17 GM POWD.PACK GT SCH (08:42)
[2019-10-31] MEDS: clonazePAM 0.5 MG TABLET GT SCH ×2 (08:42→21:03)
[2019-10-31] MEDS: HYDROXYCHLOROQUINE 200 MG TABLET GT SCH (08:42)
[2019-10-31] MEDS: PANTOPRAZOLE 40 MG/PACK PACK JT SCH ×2 (08:43→20:44)
[2019-10-31] MEDS: LEVOFLOXACIN (500MG) 500 MG TABLET PO SCH (08:44)
[2019-10-31] MEDS: GABAPENTIN 300 MG CAPSULE GT SCH (08:46)
[2019-10-31] MEDS: ENSURE ENLIVE 237 ML LIQUID (VANILLA) PO SCH ×2 (08:56→17:00)
[2019-10-31] MEDS: Z GUARD REMEDY 4 OZ OINT TP SCH ×2 (08:56→20:45)
[2019-10-31] MEDS: FLUCONAZOLE (100 MG) 100 MG TABLET PO SCH (09:00)
[2019-10-31] MEDS: HYDROGEN PEROXIDE 480 ML BOTTLE TP SCH ×2 (09:00→21:00)
[2019-10-31] MEDS: VITAL AF 1.2 1,000 ML BOTTLE GT PRN (12:18)
--- NOTE | 2019-10-31 12:40 | NUR ---
Relayed lab results sodium 125, calcium 8.2, BUN 76, awaiting for further orders.
--- NOTE | 2019-10-31 13:15 | NUR ---
Received lab results trough (15), order was obtained to get dosing for vancomycin, Per Patricia dosing order is vancomycin 0.75 gm in IV d5w 250ml (IV d5W 250ml) IV every 48 hours, order carried out.
[2019-10-31] MEDS: VANCOMYCIN 0.75 GM in IV D5W 250 ML IV SCH (13:33)
[2019-10-31 19:37] VITALS: BP 101/55
[2019-10-31 20:00] VITALS: BP 101/55
[2019-10-31] MEDS: MONTELUKAST SODIUM (10MG) 10 MG TABLET GT SCH (21:02)
[2019-10-31] MEDS: AMITRIPTYLINE HCL 25 MG TABLET PO SCH (21:02)
[2019-10-31] MEDS: ATORVASTATIN 40 MG TABLET GT SCH (21:02)
[2019-11-01] MEDS: SUCRALFATE 1 G/10 ML UDC JT SCH ×4 (00:35→17:21)
[2019-11-01] MEDS: ONDANSETRON 4 MG TAB.RAPDIS GT PRN (03:54)
[2019-11-01] MEDS: LEVOTHYROXINE SODIUM 25 MCG TABLET GT SCH (05:12)
[2019-11-01 06:58] LABS: CALCIUM, SERUM 8.6 mg/dL (8.5-10.1); POTASSIUM 4.1 mmol/L (3.5-5.1)
[2019-11-01 07:37] VITALS: BP 97/64
[2019-11-01] MEDS: FLUCONAZOLE (100 MG) 100 MG TABLET PO SCH (08:22)
[2019-11-01] MEDS: ALENDRONATE 10 MG TABLET GT SCH (08:22)
[2019-11-01] MEDS: GABAPENTIN 300 MG CAPSULE GT SCH (08:22)
[2019-11-01] MEDS: DULOXETINE HCL 30 MG CAPSULE.DR GT SCH (08:22)
[2019-11-01] MEDS: LEVOFLOXACIN (500MG) 500 MG TABLET PO SCH (08:22)
[2019-11-01] MEDS: HYDROXYCHLOROQUINE 200 MG TABLET GT SCH (08:22)
[2019-11-01] MEDS: PANTOPRAZOLE 40 MG/PACK PACK JT SCH ×2 (08:23→20:39)
[2019-11-01] MEDS: ENSURE ENLIVE 237 ML LIQUID (VANILLA) PO SCH ×2 (08:23→16:08)
[2019-11-01] MEDS: HYDROGEN PEROXIDE 480 ML BOTTLE TP SCH ×2 (08:23→21:00)
[2019-11-01] MEDS: POLYETHYLENE GLYCOL 3350 17 GM POWD.PACK GT SCH (08:23)
[2019-11-01] MEDS: clonazePAM 0.5 MG TABLET GT SCH ×2 (08:23→20:39)
[2019-11-01] MEDS: Z GUARD REMEDY 4 OZ OINT TP SCH ×2 (08:24→20:39)
[2019-11-01] MEDS: ACETAMINOPHEN 650 MG/20 ML UDC- SA PATIENTS-PAIN ONLY GT PRN (08:29)
[2019-11-01] MEDS: METOPROLOL TARTRATE 50 MG TABLET JT SCH ×2 (08:40→20:38)
[2019-11-01] MEDS: VITAL AF 1.2 1,000 ML BOTTLE GT PRN (13:33)
[2019-11-01 13:45] VITALS: BP 108/65
[2019-11-01] MEDS: HYDROCODONE/APAP 5/325MG TABLET GT PRN (16:11)
[2019-11-01 20:40] VITALS: BP 111/84
[2019-11-01] MEDS: AMITRIPTYLINE HCL 25 MG TABLET PO SCH (22:02)
[2019-11-01] MEDS: MONTELUKAST SODIUM (10MG) 10 MG TABLET GT SCH (22:02)
[2019-11-01] MEDS: ATORVASTATIN 40 MG TABLET GT SCH (22:02)
[2019-11-02] MEDS: HYDROCODONE/APAP 5/325MG TABLET GT PRN ×2 (00:16→05:53)
[2019-11-02] MEDS: SUCRALFATE 1 G/10 ML UDC JT SCH ×4 (00:17→17:20)
[2019-11-02] MEDS: LEVOTHYROXINE SODIUM 25 MCG TABLET GT SCH (05:53)
[2019-11-02] MEDS: VITAL AF 1.2 1,000 ML BOTTLE GT PRN (06:48)
[2019-11-02 06:58] LABS: CALCIUM, SERUM 8.7 mg/dL (8.5-10.1); CREATININE 1.1 mg/dL (0.6-1.3); POTASSIUM 4.3 mmol/L (3.5-5.1)
[2019-11-02 07:49] VITALS: BP 87/53
[2019-11-02] MEDS: HYDROGEN PEROXIDE 480 ML BOTTLE TP SCH ×2 (09:00→20:07)
[2019-11-02] MEDS: FLUCONAZOLE (100 MG) 100 MG TABLET PO SCH (09:00)
[2019-11-02] MEDS: clonazePAM 0.5 MG TABLET GT SCH ×2 (09:31→20:22)
[2019-11-02] MEDS: DULOXETINE HCL 30 MG CAPSULE.DR GT SCH (09:31)
[2019-11-02] MEDS: HYDROXYCHLOROQUINE 200 MG TABLET GT SCH (09:31)
[2019-11-02] MEDS: GABAPENTIN 300 MG CAPSULE GT SCH (09:31)
[2019-11-02] MEDS: ALENDRONATE 10 MG TABLET GT SCH (09:31)
[2019-11-02] MEDS: POLYETHYLENE GLYCOL 3350 17 GM POWD.PACK GT SCH (09:31)
[2019-11-02] MEDS: Z GUARD REMEDY 4 OZ OINT TP SCH ×2 (09:32→20:24)
[2019-11-02] MEDS: ENSURE ENLIVE 237 ML LIQUID (VANILLA) PO SCH ×2 (09:32→17:00)
[2019-11-02] MEDS: LEVOFLOXACIN (500MG) 500 MG TABLET PO SCH (09:32)
[2019-11-02] MEDS: PANTOPRAZOLE 40 MG/PACK PACK JT SCH ×2 (09:32→20:23)
[2019-11-02] MEDS: METOPROLOL TARTRATE 50 MG TABLET JT SCH (09:34)
[2019-11-02] MEDS: VANCOMYCIN 0.75 GM in IV D5W 250 ML IV SCH (12:22)
--- NOTE | 2019-11-02 12:30 | NUR ---
Pt's midline was found out. Inserted peripheral IV line on right forearm G 22 with good blood return.
--- NOTE | 2019-11-02 15:07 | NUR ---
Notified Dr Rosado that BP 84/50 HR 82. Pt said she feels fine. Placed flat on bed. Notified Dr Rosado. He ordered to decrease Metoprolol from 50 to 25 mg JT q 12. Also notified Dr Rosado that pt will have CT abdomen and pelvis today. Informed pt's daughter Adry.
--- NOTE | 2019-11-02 16:05 | NUR ---
Notified Dr Rosado pt's BP 78/46 HR 73. Pt said she feels tired. Dr Rosado ordered 1 L NS IV bolus x 1.
[2019-11-02] MEDS ORDERED: IV NS 0.9% 1,000 ML IV ONE (18:00)
--- NOTE | 2019-11-02 18:20 | NUR ---
Notified Dr Rosado that pt's BP 76/48 HR 73, upon rechecking, BP 83/[address] Rosado ordered to give another bolus of 1 L NS IV. Informed Dr Rosado that pt already took oral contrast but CT abdomen pelvis has not been done yet. Asked him if CT can be held off until blood pressure is better. Addendum: 11/02/19 at 1908 by CHARLIE GRULLON RN Informed Dr Rosado that 1L NS IV bolus was already given earlier but BP did not improve.
[2019-11-02 20:06] VITALS: BP 87/57
--- NOTE | 2019-11-02 20:09 | NUR ---
RT NOTE PT RECEIVED TRACHED ON COOL AEROSOL @ 28%. CUFF CHECKED VIA COMMUNICATIONS SCIENTIST. AMBU BAG/BACK UP TRACH @ BEDSIDE. SX DONE, TRACH SECURED AND PATENT. ALARMS ON AND AUDIBLE. NO DISTRESS NOTED AT THIS TIME. WILL MONITOR T/O SHIFT. CONT. PULSE OX CONNECTED. Addendum: 11/02/19 at 2011 by GAVIOTA ROJAS RT Amended: Links added. Addendum: 11/02/19 at 2014 by GAVIOTA ROJAS RT PT RECEIVED TRACHED ON COOL AEROSOL @ 28%. AMBU BAG/BACK UP TRACH @ BEDSIDE. SX DONE, TRACH SECURED AND PATENT. AEROSOL WATER LEVEL GOOD. NO DISTRESS NOTED AT THIS TIME. WILL MONITOR T/O SHIFT. CONT. PULSE OX CONNECTED.
[2019-11-02] MEDS: METOPROLOL TARTRATE 25 MG TABLET JT SCH (20:23)
[2019-11-02] MEDS: ATORVASTATIN 40 MG TABLET GT SCH (22:16)
[2019-11-02] MEDS: AMITRIPTYLINE HCL 25 MG TABLET PO SCH (22:17)
[2019-11-02] MEDS: MONTELUKAST SODIUM (10MG) 10 MG TABLET GT SCH (22:17)
[2019-11-03] MEDS: SUCRALFATE 1 G/10 ML UDC JT SCH ×5 (00:22→23:19)
[2019-11-03] MEDS: LEVOTHYROXINE SODIUM 25 MCG TABLET GT SCH (05:03)
[2019-11-03 07:26] VITALS: BP 92/57
[2019-11-03 07:26] LABS: CALCIUM, SERUM 8.2 mg/dL (8.5-10.1); CREATININE 0.9 mg/dL (0.6-1.3)
--- NOTE | 2019-11-03 08:43 | NUR ---
[facility] pharmacist Shoaib said to continue same dose of Vancomycin.
[2019-11-03] MEDS: HYDROGEN PEROXIDE 480 ML BOTTLE TP SCH ×2 (08:51→20:18)
[2019-11-03] MEDS: ALENDRONATE 10 MG TABLET GT SCH (09:00)
[2019-11-03] MEDS: PANTOPRAZOLE 40 MG/PACK PACK JT SCH ×2 (09:00→21:15)
[2019-11-03] MEDS: ENSURE ENLIVE 237 ML LIQUID (VANILLA) PO SCH ×2 (09:00→17:32)
[2019-11-03] MEDS: POLYETHYLENE GLYCOL 3350 17 GM POWD.PACK GT SCH (09:00)
[2019-11-03] MEDS: LEVOFLOXACIN (500MG) 500 MG TABLET PO SCH (09:00)
[2019-11-03] MEDS: GABAPENTIN 300 MG CAPSULE GT SCH (09:00)
[2019-11-03] MEDS: clonazePAM 0.5 MG TABLET GT SCH ×2 (09:00→21:14)
[2019-11-03] MEDS: HYDROXYCHLOROQUINE 200 MG TABLET GT SCH (09:00)
[2019-11-03] MEDS: DULOXETINE HCL 30 MG CAPSULE.DR GT SCH (09:00)
[2019-11-03] MEDS: FLUCONAZOLE (100 MG) 100 MG TABLET PO SCH (09:00)
[2019-11-03] MEDS: METOPROLOL TARTRATE 25 MG TABLET JT SCH ×2 (09:00→21:14)
[2019-11-03] MEDS: Z GUARD REMEDY 4 OZ OINT TP SCH ×2 (09:29→21:08)
[2019-11-03] MEDS: ONDANSETRON 4 MG TAB.RAPDIS GT PRN (11:39)
--- NOTE | 2019-11-03 15:27 | NUR ---
Family Patient Communication: This SW received a voicemail from the patient's Elenita Walker [phone] requesting video call. SW returned the call and Elenita stated she was not available at this time and would like to have video call on 11/05/2019 4pm. SW or other staff member to follow up and facilitate call.
--- NOTE | 2019-11-03 15:31 | NUR ---
Seen by Dr Rosado today. Relayed CT abdomen pelvis result to him. Also relayed result to Dr Hairston. Dr Hairston said he will have to do surgery for the pancreatic pseudocyst sometime at the end of this month. Addendum: 11/03/19 at 1532 by CHARLIE GRULLON RN Shakila Rider.
[2019-11-03 20:01] VITALS: BP 110/58
--- NOTE | 2019-11-03 21:03 | NUR ---
RT NOTE PT RECEIVED TRACHED ON COOL AEROSOL @ 28%. CUFF CHECKED VIA NAVAL AIRCREWMAN OPERATOR. AMBU BAG/BACK UP TRACH @ BEDSIDE. SX DONE, TRACH SECURED AND PATENT. ALARMS ON AND AUDIBLE. NO DISTRESS NOTED AT THIS TIME. WILL MONITOR T/O SHIFT. CONT. PULSE OX CONNECTED. Addendum: 11/03/19 at 2104 by GAVIOTA ROJAS RT Amended: Links added.
[2019-11-03] MEDS: ATORVASTATIN 40 MG TABLET GT SCH (21:15)
[2019-11-03] MEDS: MONTELUKAST SODIUM (10MG) 10 MG TABLET GT SCH (21:15)
[2019-11-03] MEDS: AMITRIPTYLINE HCL 25 MG TABLET PO SCH (21:15)
[2019-11-03] MEDS: HYDROCODONE/APAP 5/325MG TABLET GT PRN (22:39)
[2019-11-04] MEDS: SUCRALFATE 1 G/10 ML UDC JT SCH ×4 (06:43→23:38)
[2019-11-04] MEDS: LEVOTHYROXINE SODIUM 25 MCG TABLET GT SCH (06:43)
[2019-11-04 07:23] VITALS: BP 86/55
[2019-11-04] MEDS: HYDROGEN PEROXIDE 480 ML BOTTLE TP SCH ×2 (08:39→20:05)
[2019-11-04] MEDS: METOPROLOL TARTRATE 25 MG TABLET JT SCH ×2 (09:00→21:00)
[2019-11-04] MEDS: DULOXETINE HCL 30 MG CAPSULE.DR GT SCH (09:28)
[2019-11-04] MEDS: ALENDRONATE 10 MG TABLET GT SCH (09:28)
[2019-11-04] MEDS: clonazePAM 0.5 MG TABLET GT SCH ×2 (09:28→21:05)
[2019-11-04] MEDS: HYDROXYCHLOROQUINE 200 MG TABLET GT SCH (09:28)
[2019-11-04] MEDS: PANTOPRAZOLE 40 MG/PACK PACK JT SCH ×2 (09:28→21:06)
[2019-11-04] MEDS: GABAPENTIN 300 MG CAPSULE GT SCH (09:28)
[2019-11-04] MEDS: POLYETHYLENE GLYCOL 3350 17 GM POWD.PACK GT SCH (09:28)
[2019-11-04] MEDS: FLUCONAZOLE (100 MG) 100 MG TABLET PO SCH (09:28)
[2019-11-04] MEDS: ENSURE ENLIVE 237 ML LIQUID (VANILLA) PO SCH ×2 (09:29→17:24)
[2019-11-04] MEDS: Z GUARD REMEDY 4 OZ OINT TP SCH ×2 (09:29→21:06)
[2019-11-04] MEDS: VANCOMYCIN 0.75 GM in IV D5W 250 ML IV SCH (13:00)
--- NOTE | 2019-11-04 15:10 | NUR ---
Dr. Hairston came, he is aware of CT SCAN of abdomen results. He stated that the plan is patient to have surgery in [facility], he spoke to Dr. Rosado about it.
--- NOTE | 2019-11-04 15:27 | NUR ---
MOTOR VEHICLE INSPECTOR: LISBETH received call from Housing Court Judge, Ramez Arriaga [phone] requesting an update on patient status. LISBETH informed Ramez that patient is still in unit, that patient is able to vocalize minimally and was moved to a different room. Ramez expressed understanding and asked if we're accepting visitors. LISBETH informed Ramez that visitation restrictions remain in place until otherwise instructed by [place] Department of Public Health. Ramez stated he understood and agreed. Per Ramez, he will keep checking in on patient's status by phone. Noted.
--- NOTE | 2019-11-04 16:05 | NUR ---
Family Invitation to IDT: This SW called the patient's Daughter, Adry Lim [phone] to invite her to IDT meeting 11/06/2019 at 12:30 pm. Adry stated she is available to participate vis phone conference. Noted. SW will call Adry during IDT meeting for her participation.
[2019-11-04 20:50] VITALS: BP 96/60
[2019-11-04] MEDS: ATORVASTATIN 40 MG TABLET GT SCH (21:06)
[2019-11-04] MEDS: MONTELUKAST SODIUM (10MG) 10 MG TABLET GT SCH (21:06)
[2019-11-04] MEDS: AMITRIPTYLINE HCL 25 MG TABLET PO SCH (21:06)
[2019-11-04] MEDS: HYDROCODONE/APAP 5/325MG TABLET GT PRN (21:13)
[2019-11-05] MEDS: SUCRALFATE 1 G/10 ML UDC JT SCH ×4 (05:40→23:50)
[2019-11-05] MEDS: LEVOTHYROXINE SODIUM 25 MCG TABLET GT SCH (05:42)
[2019-11-05] MEDS: HYDROCODONE/APAP 5/325MG TABLET GT PRN ×2 (06:57→20:00)
[2019-11-05 07:53] VITALS: BP 94/63
[2019-11-05] MEDS: HYDROGEN PEROXIDE 480 ML BOTTLE TP SCH ×2 (09:17→19:48)
[2019-11-05] MEDS: DULOXETINE HCL 30 MG CAPSULE.DR GT SCH (09:25)
[2019-11-05] MEDS: ALENDRONATE 10 MG TABLET GT SCH (09:25)
[2019-11-05] MEDS: GABAPENTIN 300 MG CAPSULE GT SCH (09:25)
[2019-11-05] MEDS: HYDROXYCHLOROQUINE 200 MG TABLET GT SCH (09:25)
[2019-11-05] MEDS: POLYETHYLENE GLYCOL 3350 17 GM POWD.PACK GT SCH (09:25)
[2019-11-05] MEDS: clonazePAM 0.5 MG TABLET GT SCH ×2 (09:25→21:03)
[2019-11-05] MEDS: METOPROLOL TARTRATE 25 MG TABLET JT SCH ×2 (09:28→21:00)
[2019-11-05] MEDS: ENSURE ENLIVE 237 ML LIQUID (VANILLA) PO SCH ×2 (09:28→17:00)
[2019-11-05] MEDS: Z GUARD REMEDY 4 OZ OINT TP SCH ×2 (09:28→21:03)
[2019-11-05] MEDS: PANTOPRAZOLE 40 MG/PACK PACK JT SCH ×2 (09:28→21:03)
[2019-11-05 19:58] VITALS: BP 94/57
[2019-11-05 20:09] VITALS: BP 94/57
[2019-11-05] MEDS: AMITRIPTYLINE HCL 25 MG TABLET PO SCH (21:03)
[2019-11-05] MEDS: MONTELUKAST SODIUM (10MG) 10 MG TABLET GT SCH (21:03)
[2019-11-05] MEDS: ATORVASTATIN 40 MG TABLET GT SCH (21:03)
[2019-11-06] MEDS: LEVOTHYROXINE SODIUM 25 MCG TABLET GT SCH (05:03)
[2019-11-06] MEDS: SUCRALFATE 1 G/10 ML UDC JT SCH ×3 (05:03→17:58)
[2019-11-06] MEDS: HYDROCODONE/APAP 5/325MG TABLET GT PRN ×3 (05:43→19:47)
[2019-11-06] MEDS: BISACODYL SUPP (10 MG) 10 MG/SUPP.RECT SUPP.RECT RC PRN (06:57)
[2019-11-06 07:20] VITALS: BP 98/62
[2019-11-06] MEDS: METOPROLOL TARTRATE 25 MG TABLET JT SCH ×2 (09:00→21:00)
[2019-11-06] MEDS: HYDROXYCHLOROQUINE 200 MG TABLET GT SCH (09:24)
[2019-11-06] MEDS: ALENDRONATE 10 MG TABLET GT SCH (09:24)
[2019-11-06] MEDS: DULOXETINE HCL 30 MG CAPSULE.DR GT SCH (09:24)
[2019-11-06] MEDS: GABAPENTIN 300 MG CAPSULE GT SCH (09:24)
[2019-11-06] MEDS: PANTOPRAZOLE 40 MG/PACK PACK JT SCH ×2 (09:24→21:08)
[2019-11-06] MEDS: clonazePAM 0.5 MG TABLET GT SCH ×2 (09:24→21:07)
[2019-11-06] MEDS: POLYETHYLENE GLYCOL 3350 17 GM POWD.PACK GT SCH (09:26)
[2019-11-06] MEDS: HYDROGEN PEROXIDE 480 ML BOTTLE TP SCH ×2 (09:27→21:48)
[2019-11-06] MEDS: ENSURE ENLIVE 237 ML LIQUID (VANILLA) PO SCH ×2 (09:27→17:58)
[2019-11-06] MEDS: Z GUARD REMEDY 4 OZ OINT TP SCH ×2 (09:27→21:09)
[2019-11-06] MEDS: VITAL AF 1.2 1,000 ML BOTTLE GT PRN (15:24)
--- NOTE | 2019-11-06 16:00 | NUR ---
Notified Dr. Rosado that pharmacy is recommending to do an EKG since patient is taking Plaquenil, ordered EKG, result normal sinus rhythm rate of 98. No new order given.
--- NOTE | 2019-11-06 16:04 | NUR ---
INTERDISCIPLINARY PLAN OF CARE CONFERENCE took place today. The patients responsible alliance party/ Adry Raphael [phone] participated via [address] Toure and Interdisciplinary team discussed the plan of care in detail. Current orders as well as treatments and medications were reviewed. IDT addressed the familys questions. Charge Nurse discussed 10/22 Downsized trach; 10/25 D/C Bilateral soft wrist restraints; 10/28 CT of Abdomen& Pelvis; 11/01 Metoprolol decreased. See other disciplines IDT notes for further details.
--- NOTE | 2019-11-06 16:27 | NUR ---
RT NOTE: ALERT PATIENT RECEIVED WITH #6 SHISUZIE TRACH ON COOL AEROSOL TOLERATING WELL. PATIENT HAD 2 EPISODES OF EMESIS. PATIENT CONTINUES TO SIT UP AT 90 DEGREE ANGLE AND TRACH CUFF IS INFLATED. PATIENT'S COOL AEROSOL SET UP WAS SOILED AND REPLACED. PATIENT'S RESPIRATIONS ARE EVEN AND UNLABORED. PATIENT, NURSE AND CHARGE NURSE AWARE.
--- NOTE | 2019-11-06 17:30 | NUR ---
Asked Dr. Dr. Rosado regarding the status of patient's surgery. According to Dr. Rosado he spoke with Dr. Hairston and he wants it to be done at tertiary center [facility]. He said that he need to contact the hospital hepatobiliary surgery department for scheduling with Dr. Mariza Etienne. Informed MD that we will assist in contacting the hospital and arrange the schedule. Endorsed to inform SSD. Resident made aware of the plan.
[2019-11-06 19:37] VITALS: BP 98/67
[2019-11-06] MEDS: MONTELUKAST SODIUM (10MG) 10 MG TABLET GT SCH (21:08)
[2019-11-06] MEDS: ATORVASTATIN 40 MG TABLET GT SCH (21:08)
[2019-11-06] MEDS: AMITRIPTYLINE HCL 25 MG TABLET PO SCH (21:09)
[2019-11-07] MEDS: SUCRALFATE 1 G/10 ML UDC JT SCH ×5 (00:18→23:53)
[2019-11-07] MEDS: HYDROCODONE/APAP 5/325MG TABLET GT PRN ×3 (05:57→20:15)
[2019-11-07] MEDS: LEVOTHYROXINE SODIUM 25 MCG TABLET GT SCH (05:57)
[2019-11-07 07:57] VITALS: BP 96/66
[2019-11-07] MEDS: POLYETHYLENE GLYCOL 3350 17 GM POWD.PACK GT SCH (08:22)
[2019-11-07] MEDS: clonazePAM 0.5 MG TABLET GT SCH ×2 (08:22→21:08)
[2019-11-07] MEDS: ALENDRONATE 10 MG TABLET GT SCH (08:22)
[2019-11-07] MEDS: GABAPENTIN 300 MG CAPSULE GT SCH (08:22)
[2019-11-07] MEDS: HYDROXYCHLOROQUINE 200 MG TABLET GT SCH (08:22)
[2019-11-07] MEDS: DULOXETINE HCL 30 MG CAPSULE.DR GT SCH (08:22)
[2019-11-07] MEDS: ENSURE ENLIVE 237 ML LIQUID (VANILLA) PO SCH ×2 (08:23→16:34)
[2019-11-07] MEDS: PANTOPRAZOLE 40 MG/PACK PACK JT SCH ×2 (08:23→21:09)
[2019-11-07] MEDS: HYDROGEN PEROXIDE 480 ML BOTTLE TP SCH ×2 (08:23→20:33)
[2019-11-07] MEDS: METOPROLOL TARTRATE 25 MG TABLET JT SCH ×2 (08:23→21:08)
[2019-11-07] MEDS: ONDANSETRON 4 MG TAB.RAPDIS GT PRN ×3 (08:23→22:30)
[2019-11-07] MEDS: Z GUARD REMEDY 4 OZ OINT TP SCH ×2 (08:23→21:09)
--- NOTE | 2019-11-07 16:47 | NUR ---
RT NOTE: ALERT PATIENT RECEIVED WITH #6 SHISUZIE TRACH ON 28% COOL AEROSOL TOLERATING WELL. AT THIS TIME PATIENT PATIENT HAD ONE EPISODE OF EMESIS. PATIENT IS SITTING UP AT A 90 DEGREE ANGLE AND HER TRACH CUFF IS INFLATED. PATIENT'S RESPIRATIONS ARE EVEN AND UNLABORED. TS61=[id number]%. NURSE(FLO) WAS NOTIFIED.
[2019-11-07 20:22] VITALS: BP 118/89
[2019-11-07] MEDS: AMITRIPTYLINE HCL 25 MG TABLET PO SCH (21:09)
[2019-11-07] MEDS: ATORVASTATIN 40 MG TABLET GT SCH (21:09)
[2019-11-07] MEDS: MONTELUKAST SODIUM (10MG) 10 MG TABLET GT SCH (21:09)
[2019-11-08] MEDS: LEVOTHYROXINE SODIUM 25 MCG TABLET GT SCH (05:03)
[2019-11-08] MEDS: SUCRALFATE 1 G/10 ML UDC JT SCH ×3 (05:03→17:38)
[2019-11-08] MEDS: HYDROCODONE/APAP 5/325MG TABLET GT PRN ×2 (05:28→17:52)
[2019-11-08] MEDS: ONDANSETRON 4 MG TAB.RAPDIS GT PRN (05:29)
[2019-11-08 07:28] VITALS: BP 114/66
[2019-11-08] MEDS: HYDROXYCHLOROQUINE 200 MG TABLET GT SCH (09:00)
[2019-11-08] MEDS: PANTOPRAZOLE 40 MG/PACK PACK JT SCH ×2 (09:00→20:35)
[2019-11-08] MEDS: clonazePAM 0.5 MG TABLET GT SCH ×2 (09:00→20:35)
[2019-11-08] MEDS: METOPROLOL TARTRATE 25 MG TABLET JT SCH ×2 (09:00→20:35)
[2019-11-08] MEDS: ENSURE ENLIVE 237 ML LIQUID (VANILLA) PO SCH ×2 (09:00→17:35)
[2019-11-08] MEDS: GABAPENTIN 300 MG CAPSULE GT SCH (09:00)
[2019-11-08] MEDS: Z GUARD REMEDY 4 OZ OINT TP SCH ×2 (09:00→20:36)
[2019-11-08] MEDS: ALENDRONATE 10 MG TABLET GT SCH (09:00)
[2019-11-08] MEDS: POLYETHYLENE GLYCOL 3350 17 GM POWD.PACK GT SCH (09:00)
[2019-11-08] MEDS: DULOXETINE HCL 30 MG CAPSULE.DR GT SCH (09:00)
[2019-11-08] MEDS: HYDROGEN PEROXIDE 480 ML BOTTLE TP SCH ×2 (10:24→21:00)
[2019-11-08] MEDS: VITAL AF 1.2 1,000 ML BOTTLE GT PRN (11:20)
[2019-11-08 20:40] VITALS: BP 107/73
[2019-11-08] MEDS: ATORVASTATIN 40 MG TABLET GT SCH (22:04)
[2019-11-08] MEDS: MONTELUKAST SODIUM (10MG) 10 MG TABLET GT SCH (22:04)
[2019-11-08] MEDS: AMITRIPTYLINE HCL 25 MG TABLET PO SCH (22:05)
[2019-11-09] MEDS: SUCRALFATE 1 G/10 ML UDC JT SCH ×4 (00:15→18:29)
[2019-11-09] MEDS: LEVOTHYROXINE SODIUM 25 MCG TABLET GT SCH (05:20)
[2019-11-09 07:41] VITALS: BP 93/68
[2019-11-09] MEDS: HYDROGEN PEROXIDE 480 ML BOTTLE TP SCH ×2 (08:28→21:00)
[2019-11-09] MEDS: GABAPENTIN 300 MG CAPSULE GT SCH (08:55)
[2019-11-09] MEDS: POLYETHYLENE GLYCOL 3350 17 GM POWD.PACK GT SCH (08:55)
[2019-11-09] MEDS: clonazePAM 0.5 MG TABLET GT SCH ×2 (08:55→20:18)
[2019-11-09] MEDS: DULOXETINE HCL 30 MG CAPSULE.DR GT SCH (08:55)
[2019-11-09] MEDS: ALENDRONATE 10 MG TABLET GT SCH (08:55)
[2019-11-09] MEDS: METOPROLOL TARTRATE 25 MG TABLET JT SCH ×2 (08:56→20:19)
[2019-11-09] MEDS: PANTOPRAZOLE 40 MG/PACK PACK JT SCH ×2 (08:56→20:19)
[2019-11-09] MEDS: HYDROXYCHLOROQUINE 200 MG TABLET GT SCH (08:56)
[2019-11-09] MEDS: Z GUARD REMEDY 4 OZ OINT TP SCH ×2 (08:56→20:20)
[2019-11-09] MEDS: ENSURE ENLIVE 237 ML LIQUID (VANILLA) PO SCH ×2 (09:00→17:03)
--- NOTE | 2019-11-09 15:20 | NUR ---
Referral for Surgical Procedure at [facility]: Per Charge Nurse, Arely ocampo, this SW called [facility][[address] [place] [address]] Hepatobiliary: Liver, Pancreas & Bile Duct Surgery [facility] TEL: to schedule surgical procedure for patient. LISBETH spoke with [facility] Rep., Francis and faxed him the patients clinicals: H&P, Progress Notes, Medication List, latest negative COVID-19 test, Radiology and Biopsy reports to [phone]. Per Francis, the patient may be scheduled for surgery with Dr. Mariza Etienne for pancreatic pseudocyst as early as 11/16/2019. LISBETH will follow up for final appointment date/time and arrange transportation.
[2019-11-09] MEDS: VITAL AF 1.2 1,000 ML BOTTLE GT PRN (15:36)
[2019-11-09] MEDS: HYDROCODONE/APAP 5/325MG TABLET GT PRN (18:34)
--- NOTE | 2019-11-09 18:38 | NUR ---
Informed Dr Rosado that pt might have surgery at [facility] on 11/16/19. grizzly worker will follow up on final appointment schedule. Notified pt.
[2019-11-09 20:31] VITALS: BP 112/78
[2019-11-09] MEDS: MONTELUKAST SODIUM (10MG) 10 MG TABLET GT SCH (21:30)
[2019-11-09] MEDS: ATORVASTATIN 40 MG TABLET GT SCH (21:30)
[2019-11-09] MEDS: AMITRIPTYLINE HCL 25 MG TABLET PO SCH (21:30)
[2019-11-10] MEDS: SUCRALFATE 1 G/10 ML UDC JT SCH ×4 (00:03→18:38)
[2019-11-10] MEDS: LEVOTHYROXINE SODIUM 25 MCG TABLET GT SCH (05:20)
[2019-11-10 07:30] VITALS: BP 108/62
[2019-11-10] MEDS: POLYETHYLENE GLYCOL 3350 17 GM POWD.PACK GT SCH (09:00)
[2019-11-10] MEDS: DULOXETINE HCL 30 MG CAPSULE.DR GT SCH (09:00)
[2019-11-10] MEDS: METOPROLOL TARTRATE 25 MG TABLET JT SCH ×2 (09:00→20:15)
[2019-11-10] MEDS: clonazePAM 0.5 MG TABLET GT SCH ×2 (09:00→20:14)
[2019-11-10] MEDS: HYDROXYCHLOROQUINE 200 MG TABLET GT SCH (09:00)
[2019-11-10] MEDS: Z GUARD REMEDY 4 OZ OINT TP SCH ×2 (09:00→20:15)
[2019-11-10] MEDS: ENSURE ENLIVE 237 ML LIQUID (VANILLA) PO SCH ×2 (09:00→16:31)
[2019-11-10] MEDS: PANTOPRAZOLE 40 MG/PACK PACK JT SCH ×2 (09:00→20:15)
[2019-11-10] MEDS: GABAPENTIN 300 MG CAPSULE GT SCH (09:00)
[2019-11-10] MEDS: ALENDRONATE 10 MG TABLET GT SCH (09:29)
[2019-11-10] MEDS: HYDROGEN PEROXIDE 480 ML BOTTLE TP SCH ×2 (09:45→21:00)
--- NOTE | 2019-11-10 10:05 | NUR ---
Seen and examined by Dr. Toure, made aware that patient will go to [facility] for surgical evaluation by Dr. Etienne for her pancreatic head pseudocyst. He said as for pulmonary, patient is clear to proceed for surgery.
[2019-11-10] MEDS: VITAL AF 1.2 1,000 ML BOTTLE GT PRN (14:13)
--- NOTE | 2019-11-10 14:15 | NUR ---
Received a call from Francis at [facility] inquiring about the patient, call was then transferred to Dr. Oh's SOLAR PHOTOVOLTAIC DESIGNER, Naldo Joshi. Ms. Joshi asked this nurse for clarification as to why the procedure cannot be done at our hospital. Explained that Dr. Hairston (surgeon) cannot do it and he wants it done at [facility]. Renard gave this nurse an appointment for at 0930 AM for consultation. According to him this will be considered as first consultation and if deemed necessary he will schedule patient for surgery. Most likely patient will be back to the facility after consultation. The patient should bring the following information to her appointment (1) negative Covid-19 test taken no older than 72 hours before the appointment. (2) Alka Auris of the blood or body fluid (3) CT scan of abdomen and abcess in disc form (4) Insurance card Medicare/Medical and patient's ID, (5) Remote check in line for ambulance staff when they arrive . SSD to arrange for transportation via ambulance; address: [address] [place] [address] [address]. Subacute nursing informatics analyst and Dr. Rosado informed of above appointment. SSD to obtain insurance information from business office or patient's daughter.
--- NOTE | 2019-11-10 15:55 | NUR ---
Referral Follow up: SW called Hepatobiliary: Liver, Pancreas & Bile Duct Surgery [facility] [[address] [place] [address]; TEL: ] and spoke to watch case polisher, Francis to confirm appointment for consultation for possible surgical removal of Pancreatic Pseudocyst. Per Francis, the consultation will be on 11/16/2019 9:[address] Mariza Etienne at [[address] [place] [address]; TEL: ]. Per Francis, they require a negative COVID-19 test from pt. done (no earlier than) 72-hour before appointment. In addition, the pt. will need to bring the CT scan on a disk with her to the appointment. Pt. will also need to have completed Alka test. SW will follow up and arrange for transportation.
--- NOTE | 2019-11-10 15:58 | NUR ---
Family informed of [facility] Consult:LISBETH called the patients daughter, Adry Lim [phone] to inform her of the patients apt. at [facility] of [facility] [[address] [place] [address]; TEL: ] on 11/16/2019 9:30 AM. LISBETH addressed Shelbi questions. Adry stated she understood and is agreeable to plan. LISBETH informed Adry that [facility] is asking the patients Insurance cards. Adry stated she will look for the Medicare and Medi-Garth cards and patient's ID card and drop them off to [facility] by Saturday11/13/2019.
[2019-11-10 20:02] VITALS: BP 124/72
[2019-11-10] MEDS: ATORVASTATIN 40 MG TABLET GT SCH (21:38)
[2019-11-10] MEDS: AMITRIPTYLINE HCL 25 MG TABLET PO SCH (21:38)
[2019-11-10] MEDS: MONTELUKAST SODIUM (10MG) 10 MG TABLET GT SCH (21:38)
[2019-11-11] MEDS: SUCRALFATE 1 G/10 ML UDC JT SCH ×5 (00:18→23:08)
[2019-11-11] MEDS: LEVOTHYROXINE SODIUM 25 MCG TABLET GT SCH (05:33)
[2019-11-11 07:26] VITALS: BP 93/55
[2019-11-11] MEDS: ENSURE ENLIVE 237 ML LIQUID (VANILLA) PO SCH ×2 (09:00→17:20)
[2019-11-11] MEDS: HYDROGEN PEROXIDE 480 ML BOTTLE TP SCH ×2 (09:00→19:41)
[2019-11-11] MEDS: HYDROXYCHLOROQUINE 200 MG TABLET GT SCH (09:00)
[2019-11-11] MEDS: METOPROLOL TARTRATE 25 MG TABLET JT SCH ×2 (09:00→21:44)
[2019-11-11] MEDS: POLYETHYLENE GLYCOL 3350 17 GM POWD.PACK GT SCH (09:00)
[2019-11-11] MEDS: PANTOPRAZOLE 40 MG/PACK PACK JT SCH ×2 (09:00→21:44)
[2019-11-11] MEDS: Z GUARD REMEDY 4 OZ OINT TP SCH ×2 (09:00→21:44)
[2019-11-11] MEDS: clonazePAM 0.5 MG TABLET GT SCH ×2 (09:00→21:44)
[2019-11-11] MEDS: DULOXETINE HCL 30 MG CAPSULE.DR GT SCH (09:00)
[2019-11-11] MEDS: ALENDRONATE 10 MG TABLET GT SCH (09:00)
[2019-11-11] MEDS: GABAPENTIN 300 MG CAPSULE GT SCH (09:00)
--- NOTE | 2019-11-11 11:57 | NUR ---
Transportation Referral: LISBETH called the [employer] [facility] [phone] to set up roundtrip transportation for patients 11/16/2019 9:30 am consultation for surgical procedure at Hepatobiliary: Liver, Pancreas & Bile Duct Surgery [facility] [[address] [place] [address]; TEL: ]. LISBETH spoke to Juliana who put in the transportation request (referral # [id number]). LISBETH informed Juliana that patient is to arrive to apt. on 11/16/2019 at 9:20 am and EMT must complete a remote check-in by calling [phone]. LISBETH informed Juliana that pt. will require gurney transport, RT and patient's FiO2 level is 28 %. LISBETH informed Juliana that the patient is to be picked up at [facility] at 10:30 am to be transported back to [facility]. Per Juliana, LISBETH should callback by 11/12/2019 to confirm the transportation has been set up and note which ambulance company will provide the service. LISBETH will follow up as stated above.
--- NOTE | 2019-11-11 14:54 | NUR ---
SW received copy of the patient's ID and insurance cards brought in by the patient's daughter, Adry Lim. Copy of the patient's ID and Insurance cards will be provided to [facility] on 11/16/[address] Mariza Etienne.
[2019-11-11] MEDS: VITAL AF 1.2 1,000 ML BOTTLE GT PRN (17:21)
[2019-11-11 20:05] VITALS: BP 102/69
[2019-11-11] MEDS: HYDROCODONE/APAP 5/325MG TABLET GT PRN (20:25)
[2019-11-11] MEDS: ONDANSETRON 4 MG TAB.RAPDIS GT PRN (20:26)
[2019-11-11] MEDS: ATORVASTATIN 40 MG TABLET GT SCH (21:44)
[2019-11-11] MEDS: MONTELUKAST SODIUM (10MG) 10 MG TABLET GT SCH (21:44)
[2019-11-11] MEDS: AMITRIPTYLINE HCL 25 MG TABLET PO SCH (21:44)
[2019-11-12] MEDS: SUCRALFATE 1 G/10 ML UDC JT SCH ×4 (05:46→23:28)
[2019-11-12] MEDS: LEVOTHYROXINE SODIUM 25 MCG TABLET GT SCH (05:46)
[2019-11-12 07:52] VITALS: BP 107/57
[2019-11-12] MEDS: HYDROGEN PEROXIDE 480 ML BOTTLE TP SCH ×2 (09:15→20:12)
[2019-11-12] MEDS: PANTOPRAZOLE 40 MG/PACK PACK JT SCH ×2 (09:37→20:40)
[2019-11-12] MEDS: HYDROXYCHLOROQUINE 200 MG TABLET GT SCH (09:37)
[2019-11-12] MEDS: clonazePAM 0.5 MG TABLET GT SCH ×2 (09:37→20:40)
[2019-11-12] MEDS: POLYETHYLENE GLYCOL 3350 17 GM POWD.PACK GT SCH (09:37)
[2019-11-12] MEDS: GABAPENTIN 300 MG CAPSULE GT SCH (09:37)
[2019-11-12] MEDS: METOPROLOL TARTRATE 25 MG TABLET JT SCH ×2 (09:37→20:40)
[2019-11-12] MEDS: ENSURE ENLIVE 237 ML LIQUID (VANILLA) PO SCH ×2 (09:37→16:42)
[2019-11-12] MEDS: ALENDRONATE 10 MG TABLET GT SCH (09:37)
[2019-11-12] MEDS: DULOXETINE HCL 30 MG CAPSULE.DR GT SCH (09:37)
[2019-11-12] MEDS: Z GUARD REMEDY 4 OZ OINT TP SCH ×2 (09:38→20:40)
[2019-11-12] MEDS: HYDROCODONE/APAP 5/325MG TABLET GT PRN (15:08)
--- NOTE | 2019-11-12 15:20 | NUR ---
LISBETH called the [facility] [phone] and spoke with Chelsea to confirm what ambulance company has been assigned to the (trip # [id number]). However, Chelsea stated that an ambulance company has not been assigned to this trip. Per Chelsea, SW should call back by Saturday as the trips are assigned to ambulance companies according to priority/ date of trip. Noted. SW will call back on 11/13/2019 to confirm ambulance.
--- NOTE | 2019-11-12 16:10 | NUR ---
The patients daughter, Adry Lim [phone] dropped off a copy of the patients Medicare Card. However, the copy she brought in was of an Medicare card. LISBETH notified Adry who stated she understood. LISBETH called [facility] of [facility] [[address] [place] [address]; TEL: ] and spoke to case work aide, Francis to inform him that we dont have a copy of the active Medicare card but we do have a copy of the patients [place] ID card and Health Medi-Garth Card. Per Francis. The ID and Medi-Garth card will be sufficient as they can verify the identity of the patient and that the Medicare number pertains to her. Noted.
[2019-11-12 20:04] VITALS: BP 102/53
[2019-11-12] MEDS: ATORVASTATIN 40 MG TABLET GT SCH (21:46)
[2019-11-12] MEDS: MONTELUKAST SODIUM (10MG) 10 MG TABLET GT SCH (21:46)
[2019-11-12] MEDS: AMITRIPTYLINE HCL 25 MG TABLET PO SCH (21:46)
[2019-11-12] MEDS: VITAL AF 1.2 1,000 ML BOTTLE GT PRN (23:55)
--- NOTE | 2019-11-13 03:22 | NUR ---
Patient is negative to Covid 19 test.
[2019-11-13] MEDS: SUCRALFATE 1 G/10 ML UDC JT SCH ×3 (05:01→18:00)
[2019-11-13] MEDS: LEVOTHYROXINE SODIUM 25 MCG TABLET GT SCH (05:01)
[2019-11-13] MEDS: HYDROCODONE/APAP 5/325MG TABLET GT PRN (06:07)
[2019-11-13] MEDS: ONDANSETRON 4 MG TAB.RAPDIS GT PRN (06:07)
[2019-11-13 07:41] VITALS: BP 89/55
[2019-11-13] MEDS: ALENDRONATE 10 MG TABLET GT SCH (08:42)
[2019-11-13] MEDS: GABAPENTIN 300 MG CAPSULE GT SCH (09:00)
[2019-11-13] MEDS: ENSURE ENLIVE 237 ML LIQUID (VANILLA) PO SCH ×2 (09:00→17:00)
[2019-11-13] MEDS: PANTOPRAZOLE 40 MG/PACK PACK JT SCH ×2 (09:00→21:19)
[2019-11-13] MEDS: Z GUARD REMEDY 4 OZ OINT TP SCH ×2 (09:00→21:20)
[2019-11-13] MEDS: HYDROXYCHLOROQUINE 200 MG TABLET GT SCH (09:00)
[2019-11-13] MEDS: METOPROLOL TARTRATE 25 MG TABLET JT SCH ×2 (09:00→21:00)
[2019-11-13] MEDS: clonazePAM 0.5 MG TABLET GT SCH ×2 (09:00→21:13)
[2019-11-13] MEDS: POLYETHYLENE GLYCOL 3350 17 GM POWD.PACK GT SCH (09:00)
[2019-11-13] MEDS: DULOXETINE HCL 30 MG CAPSULE.DR GT SCH (09:00)
[2019-11-13] MEDS: HYDROGEN PEROXIDE 480 ML BOTTLE TP SCH ×2 (09:33→20:07)
--- NOTE | 2019-11-13 10:16 | NUR ---
LISBETH received a call from Arlyn, at [facility] [phone] ([facility] Transportation) confirming details of the trip. LISBETH requested that the ambulance details be finalized by the end of today as SW will not be available during weekend. Arlyn stated she understood and that it should be completed today.
--- NOTE | 2019-11-13 14:41 | NUR ---
Spoke with Edith from [facility] informing her that patient had a Covid-19 rapid test done with negative result. Requested to have it fax to their office at . No further Covid-19 PCR test is needed.
--- NOTE | 2019-11-13 14:42 | NUR ---
Transportation Confirmation(Trip# [id number]): LISBETH called the [facility] [phone] to confirm ambulance that will be transporting patient on 11/16/2019 to Hepatobiliary: Liver, Pancreas & Bile Duct Surgery [facility] [[address] [place] [address]; TEL: ] FOR 9:30 am consultation appointment with . LISBETH spoke to Serge who stated that [facility] will be transporting the pt with RT. Noted. Informed charge nurse. patient registration supervisor time at [facility]: 7:50 am- 8:20 am to arrive at [facility] by 9:20 am. Patient to be picked up at [facility] at 10:30 am for pt. to return to [facility].
--- NOTE | 2019-11-13 16:07 | NUR ---
Patient packet: SW put together completed C forms, Disk with CT scans, facesheet, Medication List, copy of Insurance and ID Cards, Negative COVID-19 Test result, and preliminary Alka Test print out. LISBETH gave packet to charge Nurse, Alexei for patient to take to her 11/16/2019 pt. at [facility]. maintenance supervisor 2nd shift to complete [facility] Health Questionnaire on Saturday.
[2019-11-13] MEDS: VITAL AF 1.2 1,000 ML BOTTLE GT PRN (17:52)
[2019-11-13 20:01] VITALS: BP 94/66
[2019-11-13] MEDS: ATORVASTATIN 40 MG TABLET GT SCH (21:22)
[2019-11-13] MEDS: MONTELUKAST SODIUM (10MG) 10 MG TABLET GT SCH (21:22)
[2019-11-13] MEDS: AMITRIPTYLINE HCL 25 MG TABLET PO SCH (21:24)
[2019-11-14] MEDS: SUCRALFATE 1 G/10 ML UDC JT SCH ×5 (00:02→23:19)
[2019-11-14] MEDS: LEVOTHYROXINE SODIUM 25 MCG TABLET GT SCH (05:39)
[2019-11-14 08:03] VITALS: BP 97/66
[2019-11-14] MEDS: ALENDRONATE 10 MG TABLET GT SCH (08:43)
[2019-11-14] MEDS: DULOXETINE HCL 30 MG CAPSULE.DR GT SCH (08:53)
[2019-11-14] MEDS: HYDROXYCHLOROQUINE 200 MG TABLET GT SCH (08:53)
[2019-11-14] MEDS: POLYETHYLENE GLYCOL 3350 17 GM POWD.PACK GT SCH (08:53)
[2019-11-14] MEDS: GABAPENTIN 300 MG CAPSULE GT SCH (08:53)
[2019-11-14] MEDS: clonazePAM 0.5 MG TABLET GT SCH ×2 (08:53→21:42)
[2019-11-14] MEDS: METOPROLOL TARTRATE 25 MG TABLET JT SCH ×2 (08:54→21:43)
[2019-11-14] MEDS: Z GUARD REMEDY 4 OZ OINT TP SCH ×2 (08:54→21:43)
[2019-11-14] MEDS: ENSURE ENLIVE 237 ML LIQUID (VANILLA) PO SCH ×2 (08:54→16:59)
[2019-11-14] MEDS: PANTOPRAZOLE 40 MG/PACK PACK JT SCH ×2 (08:54→21:43)
[2019-11-14] MEDS: HYDROGEN PEROXIDE 480 ML BOTTLE TP SCH ×2 (09:00→20:38)
[2019-11-14 19:47] VITALS: BP 98/62
[2019-11-14] MEDS: AMITRIPTYLINE HCL 25 MG TABLET PO SCH (21:43)
[2019-11-14] MEDS: ATORVASTATIN 40 MG TABLET GT SCH (21:43)
[2019-11-14] MEDS: MONTELUKAST SODIUM (10MG) 10 MG TABLET GT SCH (21:43)
[2019-11-14] MEDS: HYDROCODONE/APAP 5/325MG TABLET GT PRN (22:00)
[2019-11-15] MEDS: SUCRALFATE 1 G/10 ML UDC JT SCH ×3 (05:35→17:42)
[2019-11-15] MEDS: LEVOTHYROXINE SODIUM 25 MCG TABLET GT SCH (05:35)
[2019-11-15 08:04] VITALS: BP 97/69
[2019-11-15] MEDS: HYDROGEN PEROXIDE 480 ML BOTTLE TP SCH ×2 (08:34→21:00)
[2019-11-15] MEDS: clonazePAM 0.5 MG TABLET GT SCH ×2 (09:00→21:09)
[2019-11-15] MEDS: HYDROXYCHLOROQUINE 200 MG TABLET GT SCH (09:00)
[2019-11-15] MEDS: METOPROLOL TARTRATE 25 MG TABLET JT SCH ×2 (09:00→21:10)
[2019-11-15] MEDS: DULOXETINE HCL 30 MG CAPSULE.DR GT SCH (09:00)
[2019-11-15] MEDS: PANTOPRAZOLE 40 MG/PACK PACK JT SCH ×2 (09:00→21:10)
[2019-11-15] MEDS: ALENDRONATE 10 MG TABLET GT SCH (09:00)
[2019-11-15] MEDS: ENSURE ENLIVE 237 ML LIQUID (VANILLA) PO SCH ×2 (09:00→16:47)
[2019-11-15] MEDS: POLYETHYLENE GLYCOL 3350 17 GM POWD.PACK GT SCH (09:00)
[2019-11-15] MEDS: Z GUARD REMEDY 4 OZ OINT TP SCH ×2 (09:00→21:10)
[2019-11-15] MEDS: GABAPENTIN 300 MG CAPSULE GT SCH (09:00)
[2019-11-15] MEDS: HYDROCODONE/APAP 5/325MG TABLET GT PRN (18:16)
[2019-11-15 19:57] VITALS: BP 90/64
[2019-11-15] MEDS: AMITRIPTYLINE HCL 25 MG TABLET PO SCH (21:10)
[2019-11-15] MEDS: ATORVASTATIN 40 MG TABLET GT SCH (21:10)
[2019-11-15] MEDS: MONTELUKAST SODIUM (10MG) 10 MG TABLET GT SCH (21:10)
[2019-11-16] MEDS: SUCRALFATE 1 G/10 ML UDC JT SCH ×5 (00:13→23:18)
[2019-11-16] MEDS: LEVOTHYROXINE SODIUM 25 MCG TABLET GT SCH (05:45)
[2019-11-16] MEDS: HYDROCODONE/APAP 5/325MG TABLET GT PRN ×2 (07:38→18:16)
--- NOTE | 2019-11-16 09:00 | NUR ---
Pt went to [facility] for a consult with Dr Mariza Etienne. Pt's BP 85/65 HR 97, pt verbalized she feels fine, notified Dr Rosado. He ordered to give a bolus of NS IV 1 L. Started peripheral IV line on left hand. Infused 100 mL and BP improved to 106/70 HR 95. [facility] said they can take the pt with that BP. Notified pt's daughter.
[2019-11-16] MEDS: HYDROGEN PEROXIDE 480 ML BOTTLE TP SCH ×2 (09:15→20:35)
--- NOTE | 2019-11-16 10:18 | NUR ---
LISBETH received a call from the patient's daughter, Adry Lim [phone] stating that per [facility] office the EMT's from [facility] that transported ehr to her consultation today called the wrong number to complete the remote check-in. However, upon picking up the pt., SW alerted the EMT and stapled a note with remote check-in number in the front of patient's packet. EMT expressed understanding. LISBETH called the [facility] [phone] (Trip# [id number]) and spoke with Kindra to confirm EMT completed remote check-in correctly by calling [phone]. Kindra called [facility] and per Kindra [facility] stated and confirmed that the patient was already in her appointment and they are waiting to transport her back to [facility]. LISBETH called Adry Lim [phone] to update her of above stated information. Call went to voicemail and SW left detailed message and call back number. SW will be available as needed.
[2019-11-16 10:51] VITALS: BP 110/75
[2019-11-16] MEDS: ENSURE ENLIVE 237 ML LIQUID (VANILLA) PO SCH ×2 (11:45→17:00)
[2019-11-16] MEDS: Z GUARD REMEDY 4 OZ OINT TP SCH ×2 (11:45→21:36)
[2019-11-16] MEDS: POLYETHYLENE GLYCOL 3350 17 GM POWD.PACK GT SCH (11:45)
[2019-11-16] MEDS: PANTOPRAZOLE 40 MG/PACK PACK JT SCH ×2 (11:45→21:36)
[2019-11-16] MEDS: DULOXETINE HCL 30 MG CAPSULE.DR GT SCH (11:45)
[2019-11-16] MEDS: HYDROXYCHLOROQUINE 200 MG TABLET GT SCH (11:45)
[2019-11-16] MEDS: GABAPENTIN 300 MG CAPSULE GT SCH (11:45)
[2019-11-16] MEDS: ALENDRONATE 10 MG TABLET GT SCH (11:45)
[2019-11-16] MEDS: METOPROLOL TARTRATE 25 MG TABLET JT SCH ×2 (11:45→21:00)
[2019-11-16] MEDS: clonazePAM 0.5 MG TABLET GT SCH ×2 (11:45→21:36)
--- NOTE | 2019-11-16 12:05 | NUR ---
Pt came back from appointment at [facility]. No new instructions at this time. Pt in stable condition. T 98.7 BP 110/60 HR 105 R 18.
--- NOTE | 2019-11-16 16:20 | NUR ---
LISBETH called Hepatobiliary: Liver, Pancreas & Bile Duct Surgery [facility] [[address] [place] [address]; TEL: ] and spoke to Edith to obtain progress note for todays consultation. Edith stated that Dr. Etienne was out today and so pt. was seen by Surgeon, Dr. Banks. Edith stated she would fax Progress not to LISBETH. Per Edith BOB can should call back and ask for Patricia to set up surgery apt. Noted.
[2019-11-16 20:20] VITALS: BP 90/60
[2019-11-16] MEDS: MONTELUKAST SODIUM (10MG) 10 MG TABLET GT SCH (21:36)
[2019-11-16] MEDS: ATORVASTATIN 40 MG TABLET GT SCH (21:36)
[2019-11-16] MEDS: AMITRIPTYLINE HCL 25 MG TABLET PO SCH (21:36)
[2019-11-17] MEDS: SUCRALFATE 1 G/10 ML UDC JT SCH ×5 (05:53→23:46)
[2019-11-17] MEDS: LEVOTHYROXINE SODIUM 25 MCG TABLET GT SCH (05:53)
[2019-11-17 07:41] VITALS: BP 90/61
[2019-11-17] MEDS: PANTOPRAZOLE 40 MG/PACK PACK JT SCH ×2 (08:00→21:05)
[2019-11-17] MEDS: GABAPENTIN 300 MG CAPSULE GT SCH (08:00)
[2019-11-17] MEDS: ALENDRONATE 10 MG TABLET GT SCH (08:00)
[2019-11-17] MEDS: HYDROXYCHLOROQUINE 200 MG TABLET GT SCH (08:00)
[2019-11-17] MEDS: HYDROCODONE/APAP 5/325MG TABLET GT PRN ×2 (08:01→17:56)
[2019-11-17] MEDS: clonazePAM 0.5 MG TABLET GT SCH ×2 (08:05→21:05)
[2019-11-17] MEDS: DULOXETINE HCL 30 MG CAPSULE.DR GT SCH (08:06)
[2019-11-17] MEDS: POLYETHYLENE GLYCOL 3350 17 GM POWD.PACK GT SCH (08:07)
[2019-11-17] MEDS: Z GUARD REMEDY 4 OZ OINT TP SCH ×2 (08:12→20:34)
[2019-11-17] MEDS: METOPROLOL TARTRATE 25 MG TABLET JT SCH ×2 (08:36→20:33)
[2019-11-17] MEDS: HYDROGEN PEROXIDE 480 ML BOTTLE TP SCH ×2 (08:37→21:00)
[2019-11-17] MEDS: ENSURE ENLIVE 237 ML LIQUID (VANILLA) PO SCH ×2 (08:37→17:26)
--- NOTE | 2019-11-17 11:23 | NUR ---
LISBETH did not receive fax from John 11/15 and LISBETH followed up and called Hepatobiliary: Liver, Pancreas & Bile Duct Surgery [facility] [[address] [place] [address]; TEL: ] and spoke to Francis. Fracnis faxed Consultation note from Surgeon, Pedro Duarte MD. Francis requested medical records for "appendectomy". LISBETH referred him to Medical Records. LISBETH will be available to assist Francis as needed. LISBETH provided consultation note to charge nurse, Susana.
--- NOTE | 2019-11-17 11:25 | NUR ---
Called [facility] to find out what the plan is after pt went to the consult yesterday. According to Francis [phone], he requested records regarding pt's recent surgery including notes, labs, operative report, and discharge notes from [facility] Medical Records. He said once they receive her records and the doctor has reviewed them, they will call [facility] Subacute.
--- NOTE | 2019-11-17 14:12 | NUR ---
Monthly progress notes.Resident is alert and oriented able to make needs known. She refused to watch tv or listen to music.She enjoy conversation and discuss about herself. She received daily visits for sensory stimulation,Tv,music,hand massage,reality orientation.These activities will be provided as necessary .
[2019-11-17 20:38] VITALS: BP 98/62
[2019-11-17] MEDS: MONTELUKAST SODIUM (10MG) 10 MG TABLET GT SCH (21:05)
[2019-11-17] MEDS: AMITRIPTYLINE HCL 25 MG TABLET PO SCH (21:06)
[2019-11-17] MEDS: ATORVASTATIN 40 MG TABLET GT SCH (21:06)
[2019-11-18] MEDS: LEVOTHYROXINE SODIUM 25 MCG TABLET GT SCH (05:20)
[2019-11-18] MEDS: SUCRALFATE 1 G/10 ML UDC JT SCH ×3 (05:20→17:30)
[2019-11-18] MEDS: HYDROCODONE/APAP 5/325MG TABLET GT PRN ×2 (06:15→18:56)
--- NOTE | 2019-11-18 06:19 | NUR ---
RN NOTES/PRN MEDICATION: PT COMPLAINED OF PAIN ON HER ABDOMEN RATING IT A 6 OUT OF 10. VSS, PT STABLE. ADMINISTERED NORCO 5/325 ORDERED FOR PAIN. CHARGE NURSE AWARE, WILL CONTINUE TO MONITOR ACCORDINGLY AND REASSESS.
[2019-11-18] MEDS: GABAPENTIN 300 MG CAPSULE GT SCH (08:39)
[2019-11-18] MEDS: POLYETHYLENE GLYCOL 3350 17 GM POWD.PACK GT SCH (08:39)
[2019-11-18] MEDS: HYDROXYCHLOROQUINE 200 MG TABLET GT SCH (08:39)
[2019-11-18] MEDS: ALENDRONATE 10 MG TABLET GT SCH (08:39)
[2019-11-18] MEDS: clonazePAM 0.5 MG TABLET GT SCH ×2 (08:39→21:52)
[2019-11-18] MEDS: DULOXETINE HCL 30 MG CAPSULE.DR GT SCH (08:39)
[2019-11-18] MEDS: PANTOPRAZOLE 40 MG/PACK PACK JT SCH ×2 (08:40→21:52)
[2019-11-18] MEDS: METOPROLOL TARTRATE 25 MG TABLET JT SCH ×2 (08:40→21:54)
[2019-11-18] MEDS: Z GUARD REMEDY 4 OZ OINT TP SCH ×2 (08:41→21:52)
[2019-11-18] MEDS: ENSURE ENLIVE 237 ML LIQUID (VANILLA) PO SCH ×2 (08:41→17:30)
[2019-11-18] MEDS: HYDROGEN PEROXIDE 480 ML BOTTLE TP SCH ×2 (09:15→20:00)
[2019-11-18 11:34] VITALS: BP 110/46
[2019-11-18] MEDS: VITAL AF 1.2 1,000 ML BOTTLE GT PRN (13:00)
[2019-11-18] MEDS: ONDANSETRON 4 MG TAB.RAPDIS GT PRN ×2 (18:56→21:10)
--- NOTE | 2019-11-18 19:02 | NUR ---
Seen and examined by Dr. Rosado, reviewed notes by Dr. Pedro Duarte surgeon at [facility]. Dr. Rosado said that when surgery is arranged, to inform him as soon as possible for pre-op and clearance orders. SSD following up the case with CM at [facility].
[2019-11-18 20:03] VITALS: BP 98/65
[2019-11-18] MEDS: ATORVASTATIN 40 MG TABLET GT SCH (21:52)
[2019-11-18] MEDS: MONTELUKAST SODIUM (10MG) 10 MG TABLET GT SCH (21:52)
[2019-11-18] MEDS: AMITRIPTYLINE HCL 25 MG TABLET PO SCH (21:52)
[2019-11-19] MEDS: SUCRALFATE 1 G/10 ML UDC JT SCH ×5 (00:10→23:59)
[2019-11-19] MEDS: LEVOTHYROXINE SODIUM 25 MCG TABLET GT SCH (06:26)
[2019-11-19] MEDS: ONDANSETRON 4 MG TAB.RAPDIS GT PRN (06:27)
[2019-11-19] MEDS: VITAL AF 1.2 1,000 ML BOTTLE GT PRN (06:27)
[2019-11-19] MEDS: HYDROCODONE/APAP 5/325MG TABLET GT PRN ×2 (06:28→20:13)
[2019-11-19 07:32] VITALS: BP 93/60
[2019-11-19] MEDS: HYDROGEN PEROXIDE 480 ML BOTTLE TP SCH ×2 (08:44→19:50)
[2019-11-19] MEDS: METOPROLOL TARTRATE 25 MG TABLET JT SCH ×2 (09:00→20:32)
[2019-11-19] MEDS: ALENDRONATE 10 MG TABLET GT SCH (09:56)
[2019-11-19] MEDS: clonazePAM 0.5 MG TABLET GT SCH ×2 (09:56→20:31)
[2019-11-19] MEDS: POLYETHYLENE GLYCOL 3350 17 GM POWD.PACK GT SCH (09:56)
[2019-11-19] MEDS: DULOXETINE HCL 30 MG CAPSULE.DR GT SCH (09:56)
[2019-11-19] MEDS: HYDROXYCHLOROQUINE 200 MG TABLET GT SCH (09:57)
[2019-11-19] MEDS: PANTOPRAZOLE 40 MG/PACK PACK JT SCH ×2 (09:57→20:32)
[2019-11-19] MEDS: GABAPENTIN 300 MG CAPSULE GT SCH (09:57)
[2019-11-19] MEDS: ENSURE ENLIVE 237 ML LIQUID (VANILLA) PO SCH ×2 (09:58→17:13)
[2019-11-19] MEDS: Z GUARD REMEDY 4 OZ OINT TP SCH ×2 (09:58→20:32)
--- NOTE | 2019-11-19 13:44 | NUR ---
LISBETH followed up and called Hepatobiliary: Liver, Pancreas & Bile Duct Surgery [facility] [[address] [place] [address]; TEL: ] and spoke to Beatris to confirm if they have received the medical records requested for the resident. Per Beatris, they have received the medical records and are waiting to hear word from Surgeon, and his nurse. Per Beatris, [facility] will call us as soon as they have an update. LISBETH informed Charge Nurse, Susana.
--- NOTE | 2019-11-19 13:58 | NUR ---
Surgery Update: SW received a call from Francis HIGHTOWER from [facility] [phone] stating the per surgeon, Dr. Etienne's notes they are following through with the surgerical procedure fr the pt. Per Francis, the [facility] catalyst operator chief, Luis Miguel Pavon should be reaching out to this SW by the end of the week. Noted. SW will await call from Luis Miguel.
[2019-11-19 20:38] VITALS: BP 106/59
[2019-11-19] MEDS: AMITRIPTYLINE HCL 25 MG TABLET PO SCH (21:07)
[2019-11-19] MEDS: MONTELUKAST SODIUM (10MG) 10 MG TABLET GT SCH (21:07)
[2019-11-19] MEDS: ATORVASTATIN 40 MG TABLET GT SCH (21:07)
[2019-11-20] MEDS: SUCRALFATE 1 G/10 ML UDC JT SCH ×3 (05:28→17:06)
[2019-11-20] MEDS: LEVOTHYROXINE SODIUM 25 MCG TABLET GT SCH (05:28)
[2019-11-20] MEDS: ONDANSETRON 4 MG TAB.RAPDIS GT PRN (05:29)
[2019-11-20] MEDS: HYDROCODONE/APAP 5/325MG TABLET GT PRN ×2 (05:30→16:15)
[2019-11-20 07:39] VITALS: BP 99/61
[2019-11-20] MEDS: HYDROGEN PEROXIDE 480 ML BOTTLE TP SCH ×2 (08:54→19:54)
[2019-11-20] MEDS: HYDROXYCHLOROQUINE 200 MG TABLET GT SCH (09:00)
[2019-11-20] MEDS: ENSURE ENLIVE 237 ML LIQUID (VANILLA) PO SCH ×2 (09:00→17:06)
[2019-11-20] MEDS: METOPROLOL TARTRATE 25 MG TABLET JT SCH ×2 (09:00→21:09)
[2019-11-20] MEDS: GABAPENTIN 300 MG CAPSULE GT SCH (09:37)
[2019-11-20] MEDS: PANTOPRAZOLE 40 MG/PACK PACK JT SCH ×2 (09:37→21:09)
[2019-11-20] MEDS: POLYETHYLENE GLYCOL 3350 17 GM POWD.PACK GT SCH (09:37)
[2019-11-20] MEDS: ALENDRONATE 10 MG TABLET GT SCH (09:37)
[2019-11-20] MEDS: Z GUARD REMEDY 4 OZ OINT TP SCH ×2 (09:37→21:09)
[2019-11-20] MEDS: clonazePAM 0.5 MG TABLET GT SCH ×2 (09:37→21:08)
[2019-11-20] MEDS: DULOXETINE HCL 30 MG CAPSULE.DR GT SCH (09:37)
--- NOTE | 2019-11-20 15:00 | NUR ---
INTERDISCIPLINARY PLAN OF CARE CONFERENCE took place today. The patients responsible democrat/ Adry Raphael [phone] participated via phone conference. Dr. Toure and Interdisciplinary team discussed the plan of care in detail. Current orders as well as treatments and medications were reviewed. Charge Nurse discussed 11/15 pt. apt. with [facility] surgeon, for Sx consultation; awaiting call from [facility] for Sx apt.; Zofran for episodes of nausea/ vomiting. See other disciplines IDT notes for further details.
--- NOTE | 2019-11-20 16:21 | NUR ---
The patients twin sister, Sara Hunt [phone] called and requested to speak with the patient. Charge nurse informed patient and patient stated "I do not want to tall to her". SW called Sara and informed her the pt. is not able to speak to her at the moment. Sara expressed understanding and stated she will try to call back another day.
[2019-11-20] MEDS: VITAL AF 1.2 1,000 ML BOTTLE GT PRN (19:25)
[2019-11-20 20:20] VITALS: BP 126/85
[2019-11-20 21:09] VITALS: BP 126/85
[2019-11-20] MEDS: MONTELUKAST SODIUM (10MG) 10 MG TABLET GT SCH (21:09)
[2019-11-20] MEDS: ATORVASTATIN 40 MG TABLET GT SCH (21:09)
[2019-11-20] MEDS: AMITRIPTYLINE HCL 25 MG TABLET PO SCH (21:09)
[2019-11-21] MEDS: SUCRALFATE 1 G/10 ML UDC JT SCH ×2 (00:36→06:00)
--- NOTE | 2019-11-21 01:25 | NUR ---
primary nurse noted patient with increase work of breathing. suctioning done will small secretion noted thin and white color. prn breathing treatment given. will continue to monitor.
[2019-11-21] MEDS: HYDROCODONE/APAP 5/325MG TABLET GT PRN (02:05)
--- NOTE | 2019-11-21 02:05 | NUR ---
patient complain of generalized abd pain. prn norco given by the primary nurse. patient breathing improved. will continue to monitor.
--- NOTE | 2019-11-21 03:00 | NUR ---
primary nurse reassessed patient for pain. patient is asleep no difficulty breathing noted. will continue to monitor.
--- NOTE | 2019-11-21 05:15 | NUR ---
Primary nurse checking the patient. Awake with work of breathing and change of LOC. charge nurse assess the patient and placed on ambu bag.
--- NOTE | 2019-11-21 05:25 | NUR ---
Rapid Respond was activated d/t changed of LOC and work of breathing. INVOICE CLERK team arrived within 525 with RT and ICU charge nurse. patient was assessed and was placed back in ventilator. charge nurse will inform primary doctor.
--- NOTE | 2019-11-21 05:38 | NUR ---
Charge nurse informed Dr. Rosado about patient's CLUB LICENSEE. informed him that patient was placed back on vent with setting of AC 10, tidal volume 450, PEEP+5. Dr. Rosado ordered STAT CBC, CMP, CXR, ABG. Charge nurse also asked for order of breathing treatment and Dr. Rosado said ok.
--- NOTE | 2019-11-21 05:40 | NUR ---
RAPID WAS CALLED AT 0525. PT WAS BAGGED CONTINUOUSLY WITH AMBU BAG AT 15LPM. SHORTLY PT WAS PLACED ON [facility] VENT ON AC 10, 450, 100% +5 PER ENVIRONMENTAL SAMPLER. ABG BEING DONE AT THIS TIME. AWAITING NEW MD ORDERS. Addendum: 11/21/19 at 0639 by MEGHAN OLVERA RT Amended: Links added.
[2019-11-21 06:00] LABS: ABG BASE EXCESS -23.5 mmol/L; ABG OXYGEN SATURATION 99.1 % (92.0-98.5); ABG PCO2 32.2 mmHg (35.0-45.0); ABG PH 6.971 (7.350-7.450); AaDO2 443.8 mmHg; COHb 0.3 % (0.5-1.5); MetHb 0.1 % (0.0-1.5); O2Hb 98.7 % (94.0-97.0); SITE, ABG Left Brachial
[2019-11-21] MEDS: LEVOTHYROXINE SODIUM 25 MCG TABLET GT SCH (06:00)
--- NOTE | 2019-11-21 06:00 | NUR ---
CRX done at bedside with help of the primary nurse. patient tolerated well. will continue to monitor.
--- NOTE | 2019-11-21 06:02 | NUR ---
ABG result relayed to PH=6.971, CO2= 32.2, PO2= 237.0, HCO3= 7.3. patient is awake and calm. will continue to monitor and will wait for MD order.
--- NOTE | 2019-11-21 06:11 | NUR ---
Dr. Rosado with new order to push 2amps of bicarb stat and start D5NS+3amp of bicarb at 80cc/hr and to have Dr. Loza see her. Charge nurse will look and prepare the medication.
--- NOTE | 2019-11-21 06:22 | NUR ---
while blood draw is being performed, patient LOC decrease, no breathing, no pulse. patient is DNR. ER Dr. Rosado pronounce patient .
--- NOTE | 2019-11-21 06:30 | NUR ---
Primary PCP Dr. Rosado informed that patient .
--- NOTE | 2019-11-21 07:04 | NUR ---
[facility] [employer] was informed. 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
--- NOTE | 2019-11-21 07:15 | NUR ---
primary nurse informed the family member Adry (Daughter) that patient .
--- NOTE | 2019-11-21 07:50 | NUR ---
Confirmed with nursing supervisor esters and emulsifiers that family member can come and see patient before body is taken to the morgue or picked up by mortuary. Spoke with resident's daughter Adry asked if she would like to be with her mother at bedside for final goodbye. She said she will be here. Informed security to call nursing station once patient's daughter arrives.
--- NOTE | 2019-11-21 08:30 | NUR ---
Resident's daughter came to see patient and picked up all belongings including the ring which is in the safe for safekeeping. Adry met with nursing staff and expressed her appreciation and gratitude to the care provided to her mother. She said that she does not have any mortuary arrangement yet, but informed her to call nursing supervisor treating and pumping or subacute if she has a question. Post mortem care done by primary nurse and identification tag placed in the toe, wrist and bag.
--- NOTE | 2019-11-21 09:31 | NUR ---
Dr. Loza came to see the patient, informed MD that patient early this morning. Resident's body taken to the morgue by two security system administrator accompanied by this nurse.
--- NOTE | 2019-11-23 11:05 | NUR ---
Family Support and Resources: LISBETH called the patients daughter/DPOAAdry [phone] to check-in on her following the of her patient on 11/21/2019. LISBETH engaged Adry in a conversation regarding coping with loss and grief. Adry stated she has good support system and I am glad she is no longer suffering. LISBETH informed Adry she can call LISBETH if she needs any support. Adry stated she has begun to prepare Cremation/ arrangements. LISBETH offered Adry resources and Adry was receptive. Adry asked LISBETH how logn the body can remain in [facility]. LISBETH called and asked nursing wireworker supervisor, Sj who stated there is a 48 hour bhumi period and the body should be taken DANYELL. Adry expressed appreciation. LISBETH emailed Adry ([email or web address]) a list of Homes, Cremation, Burial & Cemetery Resources including: [facility] [[address] [place] [address]]; [facility] [[address] [place] [address] ]; [facility] [[address] [place] [address] [phone]] ;[facility] [[address] [place] [address] [phone]]; [facility] [[address] [place] [address]; [phone]]. LISBETH also emailed Adry with list of Bereavement and Grief Support Groups including: [facility] [[facility]/Chaplains [address] [place] [address] ]; [facility] [[address] [place] [address] ] ; [facility] [[address] [place] [address] ]. LISBETH emailed a list of outpatient counseling including: [facility] [[address] [place] [address] ]; [facility] [[address] [place] [address] ].
== END 2019-11-21 06:22 | disposition expired | DRG 207 ==
LOC: SA 15:09
PROVIDERS: ADMIT Internal Medicine; ATTEND Internal Medicine
PROC: 5A1955Z Respiratory Ventilation, Greater than 96 Consecutive Hours (ICD-10-PCS; principal; 2019-09-17)
PROC: 30233N1 Transfusion of Nonautologous Red Blood Cells into Peripheral Vein, Percutaneous Approach (ICD-10-PCS; 2019-10-02)
DX: J96.21 Acute and chronic respiratory failure with hypoxia (principal); K85.90 Acute pancreatitis without necrosis or infection, unspecified; I21.A1 Myocardial infarction type 2; N17.0 Acute kidney failure with tubular necrosis; K86.3 Pseudocyst of pancreas; E44.0 Moderate protein-calorie malnutrition; I50.32 Chronic diastolic (congestive) heart failure; E87.0 Hyperosmolality and hypernatremia; E87.1 Hypo-osmolality and hyponatremia; I10 Essential (primary) hypertension; F32.9 Major depressive disorder, single episode, unspecified; F41.9 Anxiety disorder, unspecified; E03.9 Hypothyroidism, unspecified; J44.9 Chronic obstructive pulmonary disease, unspecified; E78.5 Hyperlipidemia, unspecified; E87.6 Hypokalemia; G51.0 Bell's palsy; G62.9 Polyneuropathy, unspecified; I11.0 Hypertensive heart disease with heart failure; D64.9 Anemia, unspecified; M79.7 Fibromyalgia; M06.9 Rheumatoid arthritis, unspecified; K21.9 Gastro-esophageal reflux disease without esophagitis; Z79.899 Other long term (current) drug therapy; Z86.73 Personal history of transient ischemic attack (TIA), and cerebral infarction without residual deficits; Z88.0 Allergy status to penicillin; Z93.0 Tracheostomy status; Z93.1 Gastrostomy status; R13.10 Dysphagia, unspecified
CPT/HCPCS: 31720; 36415; 36600; 71045-TC; 74018; 80048-TC; 80053-TC; 80202-TC; 81000-TC; 82436-TC; 82570-TC; 82803-TC; 83735-TC; 83935-TC; 84100-TC; 84133-TC; 84155-TC; 84300-TC; 84443-TC; 84550-TC; 85025-TC; 86580-TC; 86850-TC; 86921-TC; 87040-TC; 87070-TC; 87081-TC; 87086-TC; 87186-TC; 92526; 92611-TC; 94002-TC; 94003-TC; 94640-TC; 94664-TC; 94760-TC; 94761-TC; 94762-TC; 94799-TC; 97110-TC; 97112-TC; 97116-TC; 97530-TC; 97535-TC; 99082-TC; A4217; A4623; A7526; J2270; J3370; J3475; J3480; J7030; J7042; J7060; L8501; P9016-BL; Q0162; U0003-CS

== ENCOUNTER 2019-09-25 07:33 | Outpatient (CLI) | payer MEDICARE, MEDICAID ==
--- NOTE | 2019-09-24 09:57 | NUR ---
RADIOLOGIST IS AWARE OF PIGTAIL CATH REMOVAL, PER ON HOLD TILL PROCEDURE IS DISCUSSED FURTHER WITH ORDERING MD.
[~2019-09-25 07:33] MED LIST changes: +ACET650S11 RC; +ALLA266C2 TP; -AMIT50TA3 PO; -ASPI-1420 PO; -ATOR40TA PO; +CLOT15CR5 TP; -DULO60CA45 PO; -FURO40TA5 PO; -GABA600T12 PO; -HYDR200T4 PO; +LACT-209 GT; +LORA-259 GT; -MONT10TA22 PO; +NITR1OIN2 TD; -OMEP20CA15 PO; +ONDA4VIA52 IV; +PANT40SU2 GT; +POTA20TA83 GT
== END 2019-09-25 23:59 | disposition home or self-care (01) ==
LOC: RAD 07:33
PROVIDERS: ATTEND Internal Medicine
DX: Z48.03 Encounter for change or removal of drains (principal); Z90.49 Acquired absence of other specified parts of digestive tract
CPT/HCPCS: 75989; C1769

== ENCOUNTER 2019-10-09 12:08 | Outpatient (CLI) | payer MEDICARE, MEDICAID ==
[2019-10-09] MEDS ORDERED: IOHEXOL-300 100 ML VIAL IV ONE (14:16)
[2019-10-09] MEDS ORDERED: IV NS 0.9% 250 ML IV ONE (14:16)
== END 2019-10-09 23:59 | disposition home or self-care (01) ==
LOC: CT 12:08
PROVIDERS: ATTEND Internal Medicine
DX: K86.3 Pseudocyst of pancreas (principal); M47.816 Spondylosis without myelopathy or radiculopathy, lumbar region
CPT/HCPCS: 74160; Q9967; J7050

== ENCOUNTER 2019-10-21 09:33 | Outpatient (CLI) | payer MEDICARE, MEDICAID ==
[~2019-10-21 09:33] MED LIST changes: +AMIT50TA3 PO; +ASPI-1420 PO; +ATOR40TA PO; +DULO60CA45 PO; +FURO40TA5 PO; +GABA600T12 PO; +HYDR200T4 PO; +MONT10TA22 PO; +OMEP20CA15 PO
[2019-10-21] MEDS ORDERED: MIDAZOLAM HCL 5MG/ML VIAL 25 MG/5 ML VIAL IV ONE (16:30)
[2019-10-21] MEDS ORDERED: NALOXONE PREFILLED SYRINGE 2 MG/2 ML SYRINGE IV ONE (16:30)
[2019-10-21] MEDS ORDERED: FENTANYL PF 250MCG/5ML AMPUL IV ONE (16:30)
[2019-10-21] MEDS ORDERED: LIDOCAINE HCL/PF 1% 30 ML SDV ONE (16:51)
[2019-10-21] MEDS ORDERED: IV NS 0.9% 500 ML IV ONE (16:52)
== END 2019-10-21 23:59 | disposition home or self-care (01) ==
LOC: CT 09:33
PROVIDERS: ATTEND Surgery
DX: K86.3 Pseudocyst of pancreas (principal); R18.8 Other ascites; Z88.0 Allergy status to penicillin
CPT/HCPCS: 49406; J2250; J2310; J3010; J3490; J7040; 75989; 75989-TC

== ENCOUNTER 2019-11-03 07:38 | Outpatient (CLI) | payer MEDICARE, MEDICAID ==
--- NOTE | 2019-11-02 12:13 | NUR ---
CT ABDOMEN PELVIS WITH AND ORAL CONTRAST ORDERED. PT CONSENTED, ORAL CONTRAST GIVEN AND RNWC IF PT ABLE TO DRINK ALL THE ORAL CONTRAST.
[~2019-11-03 07:38] MED LIST changes: -AMIT50TA3 PO; -ASPI-1420 PO; -ATOR40TA PO; +BARIUM SULFATE SUSP 450 ML BOTTLE PO ONE; +CT SWABBABLE VALVE TRANS SET 1 EA INFUS.SET MC ONE; -DULO60CA45 PO; -FURO40TA5 PO; -GABA600T12 PO; -HYDR200T4 PO; +IOHEXOL-300 100 ML VIAL IV ONE; +IOHEXOL-350 100 ML VIAL IV ONE; +IV NS 0.9% 0 ML IV ONE; +IV NS 0.9% 250 ML IV ONE; -MONT10TA22 PO; -OMEP20CA15 PO
[2019-11-03] MEDS ORDERED: BARIUM SULFATE SUSP 450 ML BOTTLE PO ONE (08:40)
== END 2019-11-03 23:59 | disposition home or self-care (01) ==
LOC: CT 07:38
PROVIDERS: ATTEND Internal Medicine
DX: K86.3 Pseudocyst of pancreas (principal); J98.4 Other disorders of lung; I70.0 Atherosclerosis of aorta; Z93.1 Gastrostomy status
CPT/HCPCS: 74177; J7050; Q9967